=== PATIENT | female | born 1970 | race Caucasian/White ===

== ENCOUNTER 2020-05-09 01:23 | Emergency (ER) | payer MEDICARE, SELFPAY ==
[2020-05-09 01:42] VITALS: BP 138/81; PULSE 78; RESP 16; TEMP 37; O2SAT 98; BMI 19.5
--- NOTE | 2020-05-09 01:46 | W.ED.GENADLT ---
Documented by User: BETH Franco 05/09/20 04:09 HPI - General Adult General: Chief complaint: General Medical Stated complaint: high bg Time Seen by Provider: 05/09/20 01:43 History of Present Illness: HPI narrative: Patient is a 50-year-old female comes to the ED with elevated blood sugar. Patient says she took her blood sugar just prior to arrival and her glucometer read high. She then started having episodes of emesis, confusion and uncontrolled movement of arms. Patient says she takes insulin at home to control her blood sugar. Patient took a dose of insulin before coming to the ED tonight. She endorses having some nausea currently. Associated symptoms: Reports confusion, nausea and vomiting; Deny chest pain, dyspnea, headache(s), rash or palpitations Review of Systems Const: Denies: fever(s), chills or fatigue Eyes: Denies: change in vision or eye discomfort ENMT: Denies: throat pain, odynophagia, nasal discharge or nasal congestion Card: Denies: chest pain, palpitations, edema, swelling of feet/ankles, dyspnea on exertion or orthopnea Resp: Denies: dyspnea, productive cough or non-productive cough GI: Reports: nausea and vomiting; Denies: abdominal pain, diarrhea, constipation or hematochezia : Denies: flank pain, dysuria or hematuria Musc: Denies: neck pain, back pain or extremity swelling Skin/Breast: Denies: rash or new lesions Neuro: Reports: confusion and involuntary movements (of arms bilaterally); Denies: headache(s), numbness in extremities or weakness in extremities Physical Exam Const: COMMON NORMALS: patient oriented x3 and alert GENERAL APPEARANCE: cooperative and lethargic ORIENTATION/CONSCIOUSNESS: Yes lethargic HENMT: COMMON NORMALS: normocephalic HEAD & SCALP: normocephalic MOUTH: Normal oral and palatal mucosa present THROAT: posterior oropharynx normal and uvula midline Eye: COMMON NORMALS: Equal, round and reactive pupils present PUPIL: Yes Equal, round and reactive pupils present Neck/C-Spine: COMMON NORMALS: supple GENERAL: Yes normal visual inspection Resp: COMMON NORMALS: normal respiratory effort, No retractions, No use of accessory muscles and clear to auscultation bilaterally AUSCULTATION: clear to auscultation bilaterally Cardio: COMMON NORMALS: regular rate, regular rhythm, S1 normal heart sound present, S2 normal heart sound present, No gallops present (Cardio), No clicks present (Cardio), No murmurs present (Cardio) and Peripheral pulses 2+ throughout RATE: regular rate RHYTHM: regular rhythm HEART SOUNDS: S1 normal heart sound present and S2 normal heart sound present PERIPHERAL PULSES: Peripheral pulses 2+ throughout GI: COMMON NORMALS: Normal to inspection, nondistended, normoactive bowel sounds present, Soft to palpation, non-tender and no masses PALPATION: Yes Soft to palpation : COMMON NORMALS: Yes no CVA tenderness BLADDER/KIDNEY EXAM: Yes no CVA tenderness Back/Pelvis: COMMON NORMALS: no CVA tenderness Extremity: COMMON NORMALS: normal to inspection and no pedal edema Neuro: COMMON NORMALS: patient oriented x3 and moves all extremities SENSORIUM/ORIENTATION: Yes alert and Yes lethargic Skin: COMMON NORMALS: no rashes or lesions noted GENERAL SKIN EXAM: no rashes or lesions noted and dry skin Course Reevaluation(s): Reevaluation #1: Patient said she felt better and had not had any episodes of emesis while here in the ED. She also said that her nausea has improved. She was tired but was oriented x3. Time: 03:15 Vital Signs: Vital signs: Vital Signs Temperature 98.6 F 05/09/20 01:42 Pulse Rate 72 05/09/20 05:11 Respiratory Rate 18 05/09/20 05:11 Blood Pressure 112/78 05/09/20 05:11 Pulse Oximetry 98 05/09/20 05:11 MDM - General Adult MDM Narrative: Medical decision making narrative: Patient is a 50-year-old female who comes to the ED with elevated blood sugar. Patient had nausea and emesis before coming to the ED. Upon arrival her [id number] blood sugar test was 517. Hemoglobin 10.5, sodium 129, creatinine 1.6 and glucose 644. Lactic was 1.4. ABG performed in pH 7.35. Serum ketones were negative. EKG showed sinus rhythm with no ST segment elevation or depression seen. Patient was given IV fluids and Zofran and 10 units of insulin. Her symptoms improved and she had no episodes of emesis while here in the ED and said her nausea improved. She was very fatigued and after checking blood sugars she dropped down to 166 and then rechecked blood sugar again and she was at 80. Road test performed and she was weak. Patient care then transferred to Dr. Enriquez and he said he will watch patient for another hour to and then make decision on discharge plans. Lab Data: Attestation: I reviewed the patient's lab results. Labs: Lab Results 05/09/20 05/09/20 05/09/20 Range/Units 01:46 02:03 02:03 WBC 9.4 (4.0-10.0) 10^3/ uL RBC 3.46 L (4.1-5.3) 10^6/u L Hgb 10.5 L (11.5-15.3) g/dL Hct 31.8 L (37.0-47.0) % MCV 91.9 (81-99) fL MCH 30.3 (28.0-34.0) pg MCHC 33.0 (30.0-36.0) g/dL RDW 12.3 (12.1-15.1) % Plt Count 373 (130-400) 10^3/c mm MPV 9.6 (7.4-10.4) fL Neut % (Auto) 73.0 % Lymph % (Auto) 17.9 % [place] % (Auto) 6.0 % Eos % (Auto) 1.8 % Baso % (Auto) 1.1 % Neut # (Auto) 6.85 (1.8-7.7) 10^3/u L Lymph # (Auto) 1.7 (0.8-4.8) 10^3/u L [place] # (Auto) 0.6 (0.2-0.9) 10^3/u L Eos # (Auto) 0.2 (0.0-0.8) 10^3/u L Baso # (Auto) 0.1 (0.0-0.1) 10^3/u L Nucleated RBC % (a uto) 0 % Nucleated RBCs # 0.0 /100WBC Specimen Type Sample Site ABG pH (7.35-7.45) ABG pCO2 (35-45) mmHg ABG pO2 (80.0-100.0) mmH g ABG HCO3 (22-26) mmol/L ABG O2 Saturation ABG Base Excess (-2.0-2.0) mmol/ L Eloy Test A-a O2 Gradient (5-10) mmHg Hematocrit (37-47) % Hgb O2 Saturation (95-100) % Carboxyhemoglobin (0.4-20.1) %THgb Methemoglobin (0.4-1.5) % Total Hemoglobin (12-16) g/dL Ionized Calcium (1.1-1.4) mmol/L Hairspring Assembler ID Sodium 129 L (136-145) mmol/L Potassium 4.0 (3.5-5.1) mmol/L Chloride 96 L (98-107) mmol/L Carbon Dioxide 22 (22-29) mmol/L Anion Gap 15.0 (5-19) BUN 18 (6-20) mg/dL Creatinine 1.6 H (0.5-0.9) mg/dL GFR Calculation 34.3 L (90-130) mL/min Glucose 644 H* (65-115) mg/dL POC Glucose 517 (70-110) mg/dL Calculated Osmolal ity 300 H (285-295) mOsm/k g Lactic Acid (0.5-2.2) mmol/L Calcium 9.4 (8.5-10.5) mg/dL Total Bilirubin 0.2 (0.15-1.2) mg/dL AST 30 (0-32) U/L ALT 40 H (0-33) U/L Alkaline Phosphata se 196 H (35-105) IU/L Total Protein 6.2 L (6.6-8.7) g/dL Albumin 3.7 (3.5-5.2) g/dL Globulin 2.5 (1.3-4.6) g/dL HCG, Qual (Negative) Serum Ketones Negative (Negative) 05/09/20 05/09/20 05/09/20 Range/Units 02:03 02:03 02:25 WBC (4.0-10.0) 10^3/ uL RBC (4.1-5.3) 10^6/u L Hgb (11.5-15.3) g/dL Hct (37.0-47.0) % MCV (81-99) fL MCH (28.0-34.0) pg MCHC (30.0-36.0) g/dL RDW (12.1-15.1) % Plt Count (130-400) 10^3/c mm MPV (7.4-10.4) fL Neut % (Auto) % Lymph % (Auto) % [place] % (Auto) % Eos % (Auto) % Baso % (Auto) % Neut # (Auto) (1.8-7.7) 10^3/u L Lymph # (Auto) (0.8-4.8) 10^3/u L [place] # (Auto) (0.2-0.9) 10^3/u L Eos # (Auto) (0.0-0.8) 10^3/u L Baso # (Auto) (0.0-0.1) 10^3/u L Nucleated RBC % (a uto) % Nucleated RBCs # /100WBC Specimen Type Arterial Sample Site Radial, right ABG pH 7.35 (7.35-7.45) ABG pCO2 41.0 (35-45) mmHg ABG pO2 68.8 L (80.0-100.0) mmH g ABG HCO3 22.7 (22-26) mmol/L ABG O2 Saturation 93.2 ABG Base Excess -2.8 L (-2.0-2.0) mmol/ L Eloy Test Pos A-a O2 Gradient 3.9 L (5-10) mmHg Hematocrit 29.2 L (37-47) % Hgb O2 Saturation 89.5 L (95-100) % Carboxyhemoglobin 3.1 (0.4-20.1) %THgb Methemoglobin 1.0 (0.4-1.5) % Total Hemoglobin 9.5 L (12-16) g/dL Ionized Calcium 1.2 (1.1-1.4) mmol/L Hairspring Assembler ID ellpe Sodium 138.0 (136-145) mmol/L Potassium 2.9 L (3.5-5.1) mmol/L Chloride (98-107) mmol/L Carbon Dioxide (22-29) mmol/L Anion Gap (5-19) BUN (6-20) mg/dL Creatinine (0.5-0.9) mg/dL GFR Calculation (90-130) mL/min Glucose 350.0 H (65-115) mg/dL POC Glucose (70-110) mg/dL Calculated Osmolal ity (285-295) mOsm/k g Lactic Acid 1.4 (0.5-2.2) mmol/L Calcium (8.5-10.5) mg/dL Total Bilirubin (0.15-1.2) mg/dL AST (0-32) U/L ALT (0-33) U/L Alkaline Phosphata se (35-105) IU/L Total Protein (6.6-8.7) g/dL Albumin (3.5-5.2) g/dL Globulin (1.3-4.6) g/dL HCG, Qual Negative (Negative) Serum Ketones (Negative) 05/09/20 05/09/20 05/09/20 Range/Units 03:10 03:45 04:26 WBC (4.0-10.0) 10^3/ uL RBC (4.1-5.3) 10^6/u L Hgb (11.5-15.3) g/dL Hct (37.0-47.0) % MCV (81-99) fL MCH (28.0-34.0) pg MCHC (30.0-36.0) g/dL RDW (12.1-15.1) % Plt Count (130-400) 10^3/c mm MPV (7.4-10.4) fL Neut % (Auto) % Lymph % (Auto) % [place] % (Auto) % Eos % (Auto) % Baso % (Auto) % Neut # (Auto) (1.8-7.7) 10^3/u L Lymph # (Auto) (0.8-4.8) 10^3/u L [place] # (Auto) (0.2-0.9) 10^3/u L Eos # (Auto) (0.0-0.8) 10^3/u L Baso # (Auto) (0.0-0.1) 10^3/u L Nucleated RBC % (a uto) % Nucleated RBCs # /100WBC Specimen Type Sample Site ABG pH (7.35-7.45) ABG pCO2 (35-45) mmHg ABG pO2 (80.0-100.0) mmH g ABG HCO3 (22-26) mmol/L ABG O2 Saturation ABG Base Excess (-2.0-2.0) mmol/ L Eloy Test A-a O2 Gradient (5-10) mmHg Hematocrit (37-47) % Hgb O2 Saturation (95-100) % Carboxyhemoglobin (0.4-20.1) %THgb Methemoglobin (0.4-1.5) % Total Hemoglobin (12-16) g/dL Ionized Calcium (1.1-1.4) mmol/L Hairspring Assembler ID Sodium (136-145) mmol/L Potassium (3.5-5.1) mmol/L Chloride (98-107) mmol/L Carbon Dioxide (22-29) mmol/L Anion Gap (5-19) BUN (6-20) mg/dL Creatinine (0.5-0.9) mg/dL GFR Calculation (90-130) mL/min Glucose (65-115) mg/dL POC Glucose 166 80 111 (70-110) mg/dL Calculated Osmolal ity (285-295) mOsm/k g Lactic Acid (0.5-2.2) mmol/L Calcium (8.5-10.5) mg/dL Total Bilirubin (0.15-1.2) mg/dL AST (0-32) U/L ALT (0-33) U/L Alkaline Phosphata se (35-105) IU/L Total Protein (6.6-8.7) g/dL Albumin (3.5-5.2) g/dL Globulin (1.3-4.6) g/dL HCG, Qual (Negative) Serum Ketones (Negative) 05/09/20 Range/Units 05:17 WBC (4.0-10.0) 10^3/ uL RBC (4.1-5.3) 10^6/u L Hgb (11.5-15.3) g/dL Hct (37.0-47.0) % MCV (81-99) fL MCH (28.0-34.0) pg MCHC (30.0-36.0) g/dL RDW (12.1-15.1) % Plt Count (130-400) 10^3/c mm MPV (7.4-10.4) fL Neut % (Auto) % Lymph % (Auto) % [place] % (Auto) % Eos % (Auto) % Baso % (Auto) % Neut # (Auto) (1.8-7.7) 10^3/u L Lymph # (Auto) (0.8-4.8) 10^3/u L [place] # (Auto) (0.2-0.9) 10^3/u L Eos # (Auto) (0.0-0.8) 10^3/u L Baso # (Auto) (0.0-0.1) 10^3/u L Nucleated RBC % (a uto) % Nucleated RBCs # /100WBC Specimen Type Sample Site ABG pH (7.35-7.45) ABG pCO2 (35-45) mmHg ABG pO2 (80.0-100.0) mmH g ABG HCO3 (22-26) mmol/L ABG O2 Saturation ABG Base Excess (-2.0-2.0) mmol/ L Eloy Test A-a O2 Gradient (5-10) mmHg Hematocrit (37-47) % Hgb O2 Saturation (95-100) % Carboxyhemoglobin (0.4-20.1) %THgb Methemoglobin (0.4-1.5) % Total Hemoglobin (12-16) g/dL Ionized Calcium (1.1-1.4) mmol/L Hairspring Assembler ID Sodium (136-145) mmol/L Potassium (3.5-5.1) mmol/L Chloride (98-107) mmol/L Carbon Dioxide (22-29) mmol/L Anion Gap (5-19) BUN (6-20) mg/dL Creatinine (0.5-0.9) mg/dL GFR Calculation (90-130) mL/min Glucose (65-115) mg/dL POC Glucose 118 (70-110) mg/dL Calculated Osmolal ity (285-295) mOsm/k g Lactic Acid (0.5-2.2) mmol/L Calcium (8.5-10.5) mg/dL Total Bilirubin (0.15-1.2) mg/dL AST (0-32) U/L ALT (0-33) U/L Alkaline Phosphata se (35-105) IU/L Total Protein (6.6-8.7) g/dL Albumin (3.5-5.2) g/dL Globulin (1.3-4.6) g/dL HCG, Qual (Negative) Serum Ketones (Negative) EKG Data^: EKG 1: Attestation: I personally reviewed and interpreted this EKG as follows: EKG interpretation date: 05/09/20 Interpretation: Sinus rhythm, 76 bpm, no ST segment elevation or depression seen. Discharge Plan Discharge Patient Disposition: Home Clinical Impression: Acute hyperglycemia Condition: Stable Discharge Orders: Discharge Order (Routine); Ordered 05/09/20 Ordered By: Dimitri Enriquez Referrals: Abhilash Baird MD [Primary Care Provider] - 4-7 days Discharge Diet: Diabetic Discharge Activity: Increase activity as tolerated Patient Instructions: Diabetic Hyperglycemia (ED) Activity Restrictions/Additional Instructions: Check your blood sugar often today, and for the next 48 hours. Adjust insulin dosing accordingly. Drink plenty of fluids. Return for worsening mental status, inability to control blood sugar at home, fever greater than 100, vomiting liquids or medications, other concerning symptoms Coding Level of Care Code ED Dog Raiser for Chg Fwd Exam Comprehensive Documented by User: Dimitri Enriquez DO 05/09/20 05:58 HPI - General Adult General: Chief complaint: General Medical Stated complaint: high bg Time Seen by Provider: 05/09/20 01:43 Course Vital Signs: Vital signs: Vital Signs Temperature 98.6 F 05/09/20 01:42 Pulse Rate 72 05/09/20 05:11 Respiratory Rate 18 05/09/20 05:11 Blood Pressure 112/78 05/09/20 05:11 Pulse Oximetry 98 05/09/20 05:11 MDM - General Adult MDM Narrative: Medical decision making narrative: 50-year-old female originally seen by Mr. Nina PA-C. I agree with his history, evaluation, and work-up. This lady presented with a exceptionally high blood sugar. There is no gap, no acidosis. Mild renal dysfunction. She was given an infusion of IV insulin and fluid which is appropriate. What was unknown is that the patient took insulin prior to coming here, and blood sugar sank as low as 80. She has drank juice, eating some crackers, and held a blood sugar of around 1 18-1 20 the past couple of hours. She is much less weak, less lethargic. She is awake and conversant when speaking with her. With no acidosis, no serum ketones, and stabilization of her blood sugar, I believe she can go home. Her daughter will help watch her blood sugars closely today. Lab Data: Labs: Lab Results 05/09/20 05/09/20 05/09/20 Range/Units 01:46 02:03 02:03 WBC 9.4 (4.0-10.0) 10^3/ uL RBC 3.46 L (4.1-5.3) 10^6/u L Hgb 10.5 L (11.5-15.3) g/dL Hct 31.8 L (37.0-47.0) % MCV 91.9 (81-99) fL MCH 30.3 (28.0-34.0) pg MCHC 33.0 (30.0-36.0) g/dL RDW 12.3 (12.1-15.1) % Plt Count 373 (130-400) 10^3/c mm MPV 9.6 (7.4-10.4) fL Neut % (Auto) 73.0 % Lymph % (Auto) 17.9 % [place] % (Auto) 6.0 % Eos % (Auto) 1.8 % Baso % (Auto) 1.1 % Neut # (Auto) 6.85 (1.8-7.7) 10^3/u L Lymph # (Auto) 1.7 (0.8-4.8) 10^3/u L [place] # (Auto) 0.6 (0.2-0.9) 10^3/u L Eos # (Auto) 0.2 (0.0-0.8) 10^3/u L Baso # (Auto) 0.1 (0.0-0.1) 10^3/u L Nucleated RBC % (a uto) 0 % Nucleated RBCs # 0.0 /100WBC Specimen Type Sample Site ABG pH (7.35-7.45) ABG pCO2 (35-45) mmHg ABG pO2 (80.0-100.0) mmH g ABG HCO3 (22-26) mmol/L ABG O2 Saturation ABG Base Excess (-2.0-2.0) mmol/ L Eloy Test A-a O2 Gradient (5-10) mmHg Hematocrit (37-47) % Hgb O2 Saturation (95-100) % Carboxyhemoglobin (0.4-20.1) %THgb Methemoglobin (0.4-1.5) % Total Hemoglobin (12-16) g/dL Ionized Calcium (1.1-1.4) mmol/L Hairspring Assembler ID Sodium 129 L (136-145) mmol/L Potassium 4.0 (3.5-5.1) mmol/L Chloride 96 L (98-107) mmol/L Carbon Dioxide 22 (22-29) mmol/L Anion Gap 15.0 (5-19) BUN 18 (6-20) mg/dL Creatinine 1.6 H (0.5-0.9) mg/dL GFR Calculation 34.3 L (90-130) mL/min Glucose 644 H* (65-115) mg/dL POC Glucose 517 (70-110) mg/dL Calculated Osmolal ity 300 H (285-295) mOsm/k g Lactic Acid (0.5-2.2) mmol/L Calcium 9.4 (8.5-10.5) mg/dL Total Bilirubin 0.2 (0.15-1.2) mg/dL AST 30 (0-32) U/L ALT 40 H (0-33) U/L Alkaline Phosphata se 196 H (35-105) IU/L Total Protein 6.2 L (6.6-8.7) g/dL Albumin 3.7 (3.5-5.2) g/dL Globulin 2.5 (1.3-4.6) g/dL HCG, Qual (Negative) Serum Ketones Negative (Negative) 05/09/20 05/09/20 05/09/20 Range/Units 02:03 02:03 02:25 WBC (4.0-10.0) 10^3/ uL RBC (4.1-5.3) 10^6/u L Hgb (11.5-15.3) g/dL Hct (37.0-47.0) % MCV (81-99) fL MCH (28.0-34.0) pg MCHC (30.0-36.0) g/dL RDW (12.1-15.1) % Plt Count (130-400) 10^3/c mm MPV (7.4-10.4) fL Neut % (Auto) % Lymph % (Auto) % [place] % (Auto) % Eos % (Auto) % Baso % (Auto) % Neut # (Auto) (1.8-7.7) 10^3/u L Lymph # (Auto) (0.8-4.8) 10^3/u L [place] # (Auto) (0.2-0.9) 10^3/u L Eos # (Auto) (0.0-0.8) 10^3/u L Baso # (Auto) (0.0-0.1) 10^3/u L Nucleated RBC % (a uto) % Nucleated RBCs # /100WBC Specimen Type Arterial Sample Site Radial, right ABG pH 7.35 (7.35-7.45) ABG pCO2 41.0 (35-45) mmHg ABG pO2 68.8 L (80.0-100.0) mmH g ABG HCO3 22.7 (22-26) mmol/L ABG O2 Saturation 93.2 ABG Base Excess -2.8 L (-2.0-2.0) mmol/ L Eloy Test Pos A-a O2 Gradient 3.9 L (5-10) mmHg Hematocrit 29.2 L (37-47) % Hgb O2 Saturation 89.5 L (95-100) % Carboxyhemoglobin 3.1 (0.4-20.1) %THgb Methemoglobin 1.0 (0.4-1.5) % Total Hemoglobin 9.5 L (12-16) g/dL Ionized Calcium 1.2 (1.1-1.4) mmol/L Hairspring Assembler ID ellpe Sodium 138.0 (136-145) mmol/L Potassium 2.9 L (3.5-5.1) mmol/L Chloride (98-107) mmol/L Carbon Dioxide (22-29) mmol/L Anion Gap (5-19) BUN (6-20) mg/dL Creatinine (0.5-0.9) mg/dL GFR Calculation (90-130) mL/min Glucose 350.0 H (65-115) mg/dL POC Glucose (70-110) mg/dL Calculated Osmolal ity (285-295) mOsm/k g Lactic Acid 1.4 (0.5-2.2) mmol/L Calcium (8.5-10.5) mg/dL Total Bilirubin (0.15-1.2) mg/dL AST (0-32) U/L ALT (0-33) U/L Alkaline Phosphata se (35-105) IU/L Total Protein (6.6-8.7) g/dL Albumin (3.5-5.2) g/dL Globulin (1.3-4.6) g/dL HCG, Qual Negative (Negative) Serum Ketones (Negative) 05/09/20 05/09/20 05/09/20 Range/Units 03:10 03:45 04:26 WBC (4.0-10.0) 10^3/ uL RBC (4.1-5.3) 10^6/u L Hgb (11.5-15.3) g/dL Hct (37.0-47.0) % MCV (81-99) fL MCH (28.0-34.0) pg MCHC (30.0-36.0) g/dL RDW (12.1-15.1) % Plt Count (130-400) 10^3/c mm MPV (7.4-10.4) fL Neut % (Auto) % Lymph % (Auto) % [place] % (Auto) % Eos % (Auto) % Baso % (Auto) % Neut # (Auto) (1.8-7.7) 10^3/u L Lymph # (Auto) (0.8-4.8) 10^3/u L [place] # (Auto) (0.2-0.9) 10^3/u L Eos # (Auto) (0.0-0.8) 10^3/u L Baso # (Auto) (0.0-0.1) 10^3/u L Nucleated RBC % (a uto) % Nucleated RBCs # /100WBC Specimen Type Sample Site ABG pH (7.35-7.45) ABG pCO2 (35-45) mmHg ABG pO2 (80.0-100.0) mmH g ABG HCO3 (22-26) mmol/L ABG O2 Saturation ABG Base Excess (-2.0-2.0) mmol/ L Eloy Test A-a O2 Gradient (5-10) mmHg Hematocrit (37-47) % Hgb O2 Saturation (95-100) % Carboxyhemoglobin (0.4-20.1) %THgb Methemoglobin (0.4-1.5) % Total Hemoglobin (12-16) g/dL Ionized Calcium (1.1-1.4) mmol/L Hairspring Assembler ID Sodium (136-145) mmol/L Potassium (3.5-5.1) mmol/L Chloride (98-107) mmol/L Carbon Dioxide (22-29) mmol/L Anion Gap (5-19) BUN (6-20) mg/dL Creatinine (0.5-0.9) mg/dL GFR Calculation (90-130) mL/min Glucose (65-115) mg/dL POC Glucose 166 80 111 (70-110) mg/dL Calculated Osmolal ity (285-295) mOsm/k g Lactic Acid (0.5-2.2) mmol/L Calcium (8.5-10.5) mg/dL Total Bilirubin (0.15-1.2) mg/dL AST (0-32) U/L ALT (0-33) U/L Alkaline Phosphata se (35-105) IU/L Total Protein (6.6-8.7) g/dL Albumin (3.5-5.2) g/dL Globulin (1.3-4.6) g/dL HCG, Qual (Negative) Serum Ketones (Negative) 05/09/20 Range/Units 05:17 WBC (4.0-10.0) 10^3/ uL RBC (4.1-5.3) 10^6/u L Hgb (11.5-15.3) g/dL Hct (37.0-47.0) % MCV (81-99) fL MCH (28.0-34.0) pg MCHC (30.0-36.0) g/dL RDW (12.1-15.1) % Plt Count (130-400) 10^3/c mm MPV (7.4-10.4) fL Neut % (Auto) % Lymph % (Auto) % [place] % (Auto) % Eos % (Auto) % Baso % (Auto) % Neut # (Auto) (1.8-7.7) 10^3/u L Lymph # (Auto) (0.8-4.8) 10^3/u L [place] # (Auto) (0.2-0.9) 10^3/u L Eos # (Auto) (0.0-0.8) 10^3/u L Baso # (Auto) (0.0-0.1) 10^3/u L Nucleated RBC % (a uto) % Nucleated RBCs # /100WBC Specimen Type Sample Site ABG pH (7.35-7.45) ABG pCO2 (35-45) mmHg ABG pO2 (80.0-100.0) mmH g ABG HCO3 (22-26) mmol/L ABG O2 Saturation ABG Base Excess (-2.0-2.0) mmol/ L Eloy Test A-a O2 Gradient (5-10) mmHg Hematocrit (37-47) % Hgb O2 Saturation (95-100) % Carboxyhemoglobin (0.4-20.1) %THgb Methemoglobin (0.4-1.5) % Total Hemoglobin (12-16) g/dL Ionized Calcium (1.1-1.4) mmol/L Hairspring Assembler ID Sodium (136-145) mmol/L Potassium (3.5-5.1) mmol/L Chloride (98-107) mmol/L Carbon Dioxide (22-29) mmol/L Anion Gap (5-19) BUN (6-20) mg/dL Creatinine (0.5-0.9) mg/dL GFR Calculation (90-130) mL/min Glucose (65-115) mg/dL POC Glucose 118 (70-110) mg/dL Calculated Osmolal ity (285-295) mOsm/k g Lactic Acid (0.5-2.2) mmol/L Calcium (8.5-10.5) mg/dL Total Bilirubin (0.15-1.2) mg/dL AST (0-32) U/L ALT (0-33) U/L Alkaline Phosphata se (35-105) IU/L Total Protein (6.6-8.7) g/dL Albumin (3.5-5.2) g/dL Globulin (1.3-4.6) g/dL HCG, Qual (Negative) Serum Ketones (Negative) Discharge Plan Discharge Patient Disposition: Home Clinical Impression: Acute hyperglycemia Condition: Stable Discharge Orders: Discharge Order (Routine); Ordered 05/09/20 Ordered By: Dimitri Enriquez Referrals: Abhilash Baird MD [Primary Care Provider] - 4-7 days Discharge Diet: Diabetic Discharge Activity: Increase activity as tolerated Patient Instructions: Diabetic Hyperglycemia (ED) Activity Restrictions/Additional Instructions: Check your blood sugar often today, and for the next 48 hours. Adjust insulin dosing accordingly. Drink plenty of fluids. Return for worsening mental status, inability to control blood sugar at home, fever greater than 100, vomiting liquids or medications, other concerning symptoms Coding Level of Care Code ED Dog Raiser for Chg Fwd Exam Comprehensive
[2020-05-09 01:49] VITALS: BP 137/86; PULSE 75; RESP 17; O2SAT 98
--- NOTE | 2020-05-09 01:50 | ECG_ITS ---
[facility] Test Date: 2020-05-09 Pat Name: Luli Osborne Department: Room: Gender: Female Customer Solutions Architect: : 1970 Requested By: Theodore Wood Order Number: [id number] Moore MD: Rani Gee M.D. Measurements Intervals Rogers Rate: 76 P: 66 OH: 176 QRS: 35 QRSD: 94 T: 60 QT: 378 QTc: 427 Interpretive Statements SINUS RHYTHM POSSIBLE RIGHT VENTRICULAR CONDUCTION DELAY [RSR (QR) IN V1/V2] MODERATE ST DEPRESSION [0.05+ mV ST DEPRESSION] Compared to ECG 09/24/2018 10:16:50 ST (T wave) deviation now present Electronically Signed On 05-09-2020 19:43:30 CDT by Rani Gee M.D. [email or web address]. [employer] [facility] [employer].[facility].[employer]/store/NU/[id number] bartolo
[2020-05-09] MEDS: sodium chloride 0.9% 1,000 ML 999 ML IV (02:06)
[2020-05-09] MEDS: insulin regular-human 100 units/1 mL 10 UNIT IVP (02:06)
[2020-05-09 02:07] LABS: Basophils # 0.1 10^3/uL (0.0-0.1); Basophils % 1.1 %; Eosinophils # 0.2 10^3/uL (0.0-0.8); Eosinophils % 1.8 %; Hematocrit 31.8 % (37.0-47.0); Hemoglobin 10.5 g/dL (11.5-15.3); Lymphocytes # 1.7 10^3/uL (0.8-4.8); Lymphocytes % 17.9 %; Mean Corpuscular Hemoglobin 30.3 pg (28.0-34.0); Mean Corpuscular Volume 91.9 fL (81-99); Mean Platelet Volume 9.6 fL (7.4-10.4); Monocytes # 0.6 10^3/uL (0.2-0.9); Neutrophils # 6.85 10^3/uL (1.8-7.7); Nucleated Red Blood Cells % 0 %; Platelet Count 373 10^3/cmm (130-400); Red Blood Count 3.46 10^6/uL (4.1-5.3); Red Cell Distribution Width 12.3 % (12.1-15.1); White Blood Count 9.4 10^3/uL (4.0-10.0)
[2020-05-09] MEDS: ondansetron 2 mg/ML SDV 2 mL 4 MG IVP (02:12)
[2020-05-09 02:15] LABS: Ketone (Acetest) Serum Negative (Negative)
[2020-05-09 02:16] LABS: HCG, Serum Qual Negative (Negative)
[2020-05-09 02:17] LABS: Glucose Point of Care 517 mg/dL (70-110)
[2020-05-09 02:26] LABS: Alanine Aminotransferase 40 U/L (0-33); Albumin Level 3.7 g/dL (3.5-5.2); Alkaline Phosphatase 196 IU/L (35-105); Aspartate Amino Transferase 30 U/L (0-32); Blood Urea Nitrogen 18 mg/dL (6-20); Calcium 9.4 mg/dL (8.5-10.5); Carbon Dioxide 22 mmol/L (22-29); Chloride 96 mmol/L (98-107); Globulin 2.5 g/dL (1.3-4.6); Glomerular Filtration Rate 34.3 mL/min (90-130); Osmolality Calculated 300 mOsm/kg (285-295); Sodium 129 mmol/L (136-145); Total Bilirubin 0.2 mg/dL (0.15-1.2); Total Protein 6.2 g/dL (6.6-8.7)
[2020-05-09 02:27] LABS: Lactic Sepsis W/Reflex 1.4 mmol/L (0.5-2.2)
[2020-05-09 02:30] LABS: Glucose 644 mg/dL (65-115)
[2020-05-09 02:35] LABS: ABG PH Result 7.35 (7.35-7.45); Alveolar-Arterial Oxygen Gradi 3.9 mmHg (5-10); Arterial Blood Gas Hematocrit 29.2 % (37-47); Base Excess ABG -2.8 mmol/L (-2.0-2.0); Blood Gas Allen Test Pos; Blood Gas Sample Site Radial, right; Blood Gas Sample Type Arterial; Carboxyhemoglobin 3.1 %THgb (0.4-20.1); HCO3 ABG 22.7 mmol/L (22-26); HGB O2 Sat 89.5 % (95-100); Ionized Calcium Level - ABG 1.2 mmol/L (1.1-1.4); Oxygen Saturation ABG 93.2; PO2 ABG 68.8 mmHg (80.0-100.0); Potassium Level - ABG 2.9 mmol/L (3.5-5.0); Total Hemoglobin 9.5 g/dL (12-16)
[2020-05-09 03:14] LABS: Glucose Point of Care 166 mg/dL (70-110)
[2020-05-09 03:25] VITALS: BP 124/78; PULSE 72; RESP 18; O2SAT 98
[2020-05-09 03:50] LABS: Glucose Point of Care 80 mg/dL (70-110)
[2020-05-09 04:31] LABS: Glucose Point of Care 111 mg/dL (70-110)
[2020-05-09 05:11] VITALS: BP 112/78; PULSE 72; RESP 18; O2SAT 98
[2020-05-09 05:22] LABS: Glucose Point of Care 118 mg/dL (70-110)
[2020-05-09 06:16] VITALS: BP 114/72; PULSE 75; RESP 18; O2SAT 95
== END 2020-05-09 06:20 | disposition home or self-care (01) ==
PROVIDERS: Physician Assistant; Emergency Provider Emergency Medicine; PCP Internal Medicine
DX: R73.9 Hyperglycemia, unspecified (principal)
CPT/HCPCS: 12345; 36416; 36600; 80051; 80053; 82009; 82810; 82962; 83605; 83986; 84703; 85025; 87040; 93005; 96361; 96374; 96375; 99283; 99284; J1815; J2405; J7030

== ENCOUNTER → 2022-07-03 14:27 | Outpatient (BNVA) | payer MEDICARE, OTHER, SELFPAY | PROVIDERS: Visit Provider Podiatrist Foot & Ankle Surgery | DX: E10.10 Type 1 diabetes mellitus with ketoacidosis without coma (principal); I96 Gangrene, not elsewhere classified; G62.9 Polyneuropathy, unspecified; L84 Corns and callosities; Z79.4 Long term (current) use of insulin | CPT/HCPCS: 11055; 99204 ==

== ENCOUNTER 2022-07-16 14:51 | Inpatient (IN) | payer MEDICARE, SELFPAY ==
[2022-07-16] VITALS (75 sets, daily range): BP systolic 105–172; BP diastolic 36–96; PULSE 85–117; RESP 0–39; TEMP 36.6–36.7; O2SAT 92–100; BMI 16.6
--- NOTE | 2022-07-16 15:02 | ED_ITS ---
HPI - SOB/Dyspnea General: Chief Complaint: Shortness of Breath/Dyspnea Stated Complaint: DIFFICULTY BREATHING Time Seen by Provider: 07/16/22 15:02 History of Present Illness: HPI Narrative: Ms. Osborne is a 52-year-old lady with complex past medical history including end-stage renal disease on hemodialysis, diabetes, MS presenting to the emergency department due to generalized illness. She has been having increased shortness of breath and apparently was diagnosed with pneumonia 4 days ago and initiated on antibiotics. Despite this symptoms have worsened. EMS found the patient in respiratory distress and requiring new oxygen. She had did have some improvement with a albuterol breathing treatment. Intensity symptoms is moderate. Course has worsened. Notes nausea and vomiting as well as generalized illness. No other specific changes in health, exacerbating, or alleviating factors identified. Onset (ago): day(s) Context: recent illness Timing: progressively worsening Severity: moderate Exacerbating factors: exertion Relieving factors: nothing Associated symptoms: Reports chest congestion, cough, nausea and vomiting Review of Systems General: Reports: 10 or more systems reviewed and unremarkable except in HPI and below Resp: Reports: chest congestion GI: Reports: nausea and vomiting PFSH ED PFSH: Medical History Anemia in end-stage renal disease Anxiety and depression Arteriovenous fistula of left upper extremity Chronic nausea Cyst of ovary Diabetes 1.5, managed as type 1 Diabetic neuropathy associated with diabetes mellitus due to underlying condition Diabetic ulcer of toe associated with diabetes mellitus due to underlying condition, limited to breakdown of skin Diastolic heart failure ESRD (end stage renal disease) on dialysis Hx of acute pancreatitis 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 Hypertension Loose bowel movements Multiple sclerosis Protein-energy malnutrition Surgical History History of pancreatectomy Hx of hysterectomy Family History Father Diabetes Heart attack H/O right coronary artery stent placement Mother Hypertension Social History Smoking and tobacco status: current every day smoker Second hand smoke exposure: No Smoking risk assessment/counseling performed?: Yes Alcohol intake: never Desire information about alcohol rehabilitation?: No Counseling given: No Desire information about substance/drug rehabilitation?: No Counseling given: No Physical Exam Const: COMMON NORMALS: alert GENERAL APPEARANCE: cooperative, well developed and ill appearing (Somewhat) HENMT: COMMON NORMALS: normocephalic and atraumatic HEAD & SCALP: normocephalic and atraumatic THROAT: posterior oropharynx normal Eye: COMMON NORMALS: conjunctivae normal CONJUNCTIVA: Yes conjunctivae norm al SCLERA: sclerae normal Neck/C-Spine: COMMON NORMALS: supple GENERAL: Yes trachea midline Resp: EFFORT & INSPECTION: Yes able to speak in complete sentences AUSCULTATION: rhonchi Cardio: COMMON NORMALS: regular rate and regular rhythm RATE: regular rate RHYTHM: regular rhythm GI: COMMON NORMALS: Soft to palpation PALPATION: Yes Soft to palpation, Yes Tenderness to palpation present (GI), No Guarding due to palpation present (GI) and No Rigid due to palpation Extremity: GENERAL: Yes normal exam except as noted and No edema Neuro: COMMON NORMALS: moves all extremities SENSORIUM/ORIENTATION: Yes alert and No Orientation impaired Psych: COMMON NORMALS: mental status grossly normal and Normal thought process present THOUGHT PROCESS: Normal thought process present Course Vital Signs: Vital signs: Vital Signs Temperature 98.1 F 07/19/22 12:00 Pulse Rate 80 07/19/22 13:28 Respiratory Rate 16 07/19/22 12:00 Blood Pressure 119/78 07/19/22 12:00 Pulse Oximetry 87 L 07/19/22 12:29 Oxygen Delivery Me thod 07/19/22 12:00 Oxygen Flow Rate 2 07/19/22 12:29 Fraction of Inspir ed Oxygen 4 07/18/22 16:17 MDM - SOB/Dyspnea Medical Decision Making 52-year-old lady with recent diagnosis of pneumonia presenting with generalized illness. Patient has new oxygen requirement. Mildly ill however nontoxic in appearance. EKG notable for sinus rhythm with PVC, no STEMI Labs notable for leukocytosis, normal hemoglobin. ABG compensated. Metabolic panel without emergent need for dialysis. Significant elevation of baseline troponin likely due to end-stage renal disease, electrolyte is negative. BNP is elevated. Chest x-ray consistent with right lung opacities and likely effusion. Patient treated with RT treatment, steroids, antiemetic, antibiotic. Most likely etiology of patient symptoms is multifactorial including pneumonia and volume overload secondary to end-stage renal disease with new oxygen department. The results of ED evaluation were discussed with the patient including plan for admission due to requirement for level of care not available if discharged to prevent significant worsening/deterioration. Patient agreeable with plan. Discussed with hospitalist service who was agreeable to admit patient. Medical Records I reviewed the patient's medical records. Lab Data I reviewed the patient's lab results. 07/16/22 16:40 07/16/22 16:40 Labs/Radiology: Radiology Impressions Chest X-Ray 07/16/22 15:11 IMPRESSION: 1. Right lung base opacities are consistent with pneumonia. 2. Blunting of the right costophrenic angle likely represents a pleural effusion. Chest CTA 07/17/22 21:30 IMPRESSION: 1. No pulmonary embolism identified. 2. Large right-sided and small left-sided pleural effusions. 3. Bibasilar atelectasis.No significant airspace consolidation concerning for pneumonia. 4. Left-sided nephrolithiasis. 5. Sequela of chronic pancreatitis again noted. Laboratory Results WBC 5.3 10^3/uL (4.0-10.0) 07/16/22 16:40 RBC 3.75 10^6/uL (4.1-5.3) L 07/16/22 16:40 Hgb 12.0 g/dL (11.5-15.3) 07/16/22 16:40 Hct 37.5 % (37.0-47.0) 07/16/22 16:40 MCV 100.0 fl (81-99) H 07/16/22 16:40 MCH 32.0 pg (28.0-34.0) 07/16/22 16:40 MCHC 32.0 g/dL (30.0-36.0) 07/16/22 16:40 RDW 13.4 % (12.1-15.1) 07/16/22 16:40 Plt Count 311 10^3/cmm (130-400) 07/16/22 16:40 MPV 9.7 fL (7.4-10.4) 07/16/22 16:40 Neut % (Auto) 58.8 % 07/16/22 16:40 Lymph % (Auto) 31.6 % 07/16/22 16:40 [place] % (Auto) 8.0 % 07/16/22 16:40 Eos % (Auto) 0.6 % 07/16/22 16:40 Baso % (Auto) 0.6 % 07/16/22 16:40 Neut # (Auto) 3.10 10^3/uL (1.8-7.7) 07/16/22 16:40 Lymph # (Auto) 1.7 10^3/uL (0.8-4.8) 07/16/22 16:40 Barnwell # (Auto) 0.4 10^3/uL (0.2-0.9) 07/16/22 16:40 Eos # (Auto) 0.0 10^3/uL (0.0-0.8) 07/16/22 16:40 Baso # (Auto) 0.0 10^3/uL (0.0-0.1) 07/16/22 16:40 Nucleated RBC % (auto) 0 % 07/16/22 16:40 Nucleated RBCs # 0.0 /100WBC 07/16/22 16:40 Specimen Type Arterial 07/16/22 15:17 Sample Site Brachial, right 07/16/22 15:17 ABG pH 7.45 (7.35-7.45) 07/16/22 15:17 ABG pCO2 44.5 mmHg (35-45) 07/16/22 15:17 ABG pO2 96.5 mmHg (80.0-100.0) 07/16/22 15:17 ABG HCO3 30.9 mmol/L (22-26) H 07/16/22 15:17 ABG Base Excess 6.2 mmol/L (-2.0-2.0) H 07/16/22 15:17 Eloy Test N/a 07/16/22 15:17 Hematocrit 36.1 % (37-47) L 07/16/22 15:17 Hgb O2 Saturation 96.6 % (95-100) 07/16/22 15:17 Carboxyhemoglobin 1.1 %THgb (0.4-20.1) 07/16/22 15:17 Methemoglobin 1.0 % (0.4-1.5) 07/16/22 15:17 Total Hemoglobin 11.8 g/dL (12-16) L 07/16/22 15:17 O2 Delivery Device Nc 07/16/22 15:17 O2 Liters/Min 2.0 % 07/16/22 15:17 FiO2 28.0 % 07/16/22 15:17 Artificial Inseminator ID Amh 07/16/22 15:17 Sodium 134 mmol/L (136-145) L 07/16/22 16:40 Potassium 3.7 mmol/L (3.5-5.1) 07/16/22 16:40 Chloride 96 mmol/L (98-107) L 07/16/22 16:40 Carbon Dioxide 27 mmol/L (22-29) 07/16/22 16:40 Anion Gap 14.7 (5-19) 07/16/22 16:40 BUN 7 mg/dL (6-20) 07/16/22 16:40 Creatinine 2.3 mg/dL (0.5-0.9) H 07/16/22 16:40 GFR Calculation 22.4 mL/min (90-130) L 07/16/22 16:40 Glucose 133 mg/dL (65-115) H 07/16/22 16:40 Calculated Osmolality 278 mOsm/kg (285-295) L 07/16/22 16:40 Lactic Acid 1.3 mmol/L (0.5-2.2) 07/16/22 16:40 Calcium 7.9 mg/dL (8.5-10.5) L 07/16/22 16:40 Total Bilirubin 0.2 mg/dL (0.15-1.2) 07/16/22 16:40 AST 28 U/L (0-32) 07/16/22 16:40 ALT 31 U/L (0-33) 07/16/22 16:40 Alkaline Phosphatase 125 U/L (35-105) H 07/16/22 16:40 Troponin T Baseline 350 ng/L (0-10) H* 07/16/22 16:40 Troponin T 120 Minute 344.1 ng/L (0-10) H 07/16/22 19:20 Delta Troponin T -5.9 ABS# (0-10) L 07/16/22 19:20 C-Reactive Protein 6.6 mg/L (0.0-4.9) H 07/16/22 16:40 NT-Pro-B Natriuret Pep 08635 pg/mL (0-125) H 07/16/22 16:40 Total Protein 5.8 g/dL (6.6-8.7) L 07/16/22 16:40 Albumin 2.3 g/dL (3.5-5.2) L 07/16/22 16:40 Globulin 3.5 g/dL (1.3-4.6) 07/16/22 16:40 Folate 14.0 ng/mL (4.8-37.3) 07/16/22 13:55 Procalcitonin 0.25 ng/mL (0-0.5) 07/16/22 19:20 Coronavirus 229E (PCR) Not detected (NOT DETECT) 07/16/22 15:55 Hep Bs Antigen Reactive (Nonreactive) H 07/16/22 16:40 Hep Bs Antigen Reactive (NON-REACTIVE) A 07/16/22 16:40 Hep Bs Ag Confirmation TNP 07/16/22 16:40 Hep Bs Antibody 3.5 (11.5-1000) L 07/16/22 16:40 Hepatitis C Antibody Non-reactive (Nonreactive) 07/16/22 16:40 SARS-CoV-2 (PCR) Not detected (NOT DETECT) 07/16/22 15:55 Discharge Plan Discharge Patient Disposition: Placed in Observation Admit Provider: Shannon Clifford Clinical Impression: Pneumonia Discharge Diet: Usual diet Discharge Activity: Resume usual activity and Increase activity as tolerated Coding Level of Care Code ED Assistant Chief Nursing Officer for Daniel Emery
--- NOTE | 2022-07-16 15:11 | XRR_ITS ---
PROCEDURE INFORMATION: Exam: XR Chest Exam date and time: 07/16/2022 3:17 PM Age: 52 years old Clinical indication: Shortness of breath; TECHNIQUE: Imaging protocol: Radiologic exam of the chest. Views: 1 view. COMPARISON: CR XR chest 1V [id number] 07/24/2018 3:49 AM FINDINGS: Tubes, catheters and devices: Distal tip of the wide bore central venous catheter projects over the superior vena cava. Lungs: There are curvilinear, patchy, and hazy opacities at the right lung base. Pleural spaces: Blunting of the right costophrenic angle likely represents a pleural effusion. Heart/Mediastinum: Unremarkable. No cardiomegaly. Bones/joints: Unremarkable. XR/XR chest 1V portable [id number] IMPRESSION: 1. Right lung base opacities are consistent with pneumonia. 2. Blunting of the right costophrenic angle likely represents a pleural effusion.
--- NOTE | 2022-07-16 15:11 | ECG_ITS ---
[facility] Test Date: 2022-07-16 Pat Name: Luli Osborne Department: Room: Gender: Female Design Printer Balloon: : 1970 Requested By: Ashish Ga Order Number: [id number] Oscar MD: Che Zhu M.D. Measurements Intervals [place] Rate: 95 P: 58 WY: 148 QRS: 11 QRSD: 86 T: 63 QT: 370 QTc: 466 Interpretive Statements SINUS RHYTHM POSSIBLE ANTERIOR MYOCARDIAL INFARCTION , OF INDETERMINATE AGE [30 ms Q WAVE IN V3/V4, OR R < 0.2 mV IN V4] Compared to ECG 05/09/2020 02:16:41 Myocardial infarct finding now present ST (T wave) deviation no longer present Electronically Signed On 07-17-2022 5:58:08 CASINO RUNNER by Che Zhu M.D. [email or web address] medical [email or web address] Glassesaultman [facility].Cazoomi/store/OM/[id number]
[2022-07-16 15:28] LABS: ABG PCO2 44.5 mmHg (35-45); ABG PH Result 7.45 (7.35-7.45); Arterial Blood Gas Hematocrit 36.1 % (37-47); Base Excess ABG 6.2 mmol/L (-2.0-2.0); Blood Gas Operator Identificat AMH; Blood Gas Sample Site Brachial, right; Blood Gas Sample Type Arterial; Carboxyhemoglobin 1.1 %THgb (0.4-20.1); HCO3 ABG 30.9 mmol/L (22-26); HGB O2 Sat 96.6 % (95-100); Oxygen Device NC; PO2 ABG 96.5 mmHg (80.0-100.0); Total Hemoglobin 11.8 g/dL (12-16)
[2022-07-16 16:53] LABS: Basophils % 0.6 %; Eosinophils % 0.6 %; Hematocrit 37.5 % (37.0-47.0); Lymphocytes # 1.7 10^3/uL (0.8-4.8); Lymphocytes % 31.6 %; Mean Platelet Volume 9.7 fL (7.4-10.4); Monocytes # 0.4 10^3/uL (0.2-0.9); Neutrophils % 58.8 %; Nucleated Red Blood Cells % 0 %; Platelet Count 311 10^3/cmm (130-400); Red Blood Count 3.75 10^6/uL (4.1-5.3); Red Cell Distribution Width 13.4 % (12.1-15.1); White Blood Count 5.3 10^3/uL (4.0-10.0)
--- NOTE | 2022-07-16 17:11 | ECG_ITS ---
[facility] Test Date: 2022-07-16 Pat Name: Luli Osborne Department: Room: Gender: Female Weather Strip Mechanic: : 1970 Requested By: Ashish Ga Order Number: [id number] Oscar MD: Che Zhu M.D. Measurements Intervals [place] Rate: 94 P: 82 PA: 139 QRS: 12 QRSD: 81 T: 71 QT: 380 QTc: 477 Interpretive Statements SINUS RHYTHM WITH OCCASIONAL VENTRICULAR PREMATURE COMPLEXES POSSIBLE ANTERIOR MYOCARDIAL INFARCTION , OF INDETERMINATE AGE [30 ms Q WAVE IN V3/V4, OR R < 0.2 mV IN V4] Compared to ECG 07/16/2022 15:29:56 Ventricular premature complex(es) now present Myocardial infarct finding still present Electronically Signed On 07-17-2022 6:06:55 CHIEF OPTOMETRY SERVICE by Che Zhu M.D. [id number]
[2022-07-16 17:15] LABS: Lactic Sepsis W/Reflex 1.3 mmol/L (0.5-2.2)
[2022-07-16 17:22] LABS: Procalcitonin 0.26 ng/mL (0-0.5)
[2022-07-16 17:33] LABS: Alanine Aminotransferase 31 U/L (0-33); Albumin Level 2.3 g/dL (3.5-5.2); Alkaline Phosphatase 125 U/L (35-105); Anion Gap 14.7 (5-19); Aspartate Amino Transferase 28 U/L (0-32); Blood Urea Nitrogen 7 mg/dL (6-20); C Reactive Protein 6.6 mg/L (0.0-4.9); Calcium 7.9 mg/dL (8.5-10.5); Carbon Dioxide 27 mmol/L (22-29); Chloride 96 mmol/L (98-107); Globulin 3.5 g/dL (1.3-4.6); Glomerular Filtration Rate 22.4 mL/min (90-130); Glucose 133 mg/dL (65-115); Osmolality Calculated 278 mOsm/kg (285-295); Potassium 3.7 mmol/L (3.5-5.1); Sodium 134 mmol/L (136-145); Total Bilirubin 0.2 mg/dL (0.15-1.2); Total Protein 5.8 g/dL (6.6-8.7)
[2022-07-16 17:52] LABS: Troponin(5th) Baseline 350 ng/L (0-10)
[2022-07-16 18:55] LABS: Adenovirus Not Detected (NOT DETECT); Chlamydia Pneumoniae Not Detected (NOT DETECT); Coronavirus 229E,HKU1,NL63,OC4 Not Detected (NOT DETECT); Human Metapneumovirus Not Detected (NOT DETECT); Human Rhinovirus/Enterovirus Not Detected (NOT DETECT); Influenza A Not Detected (NOT DETECT); Influenza A H1 Not Detected (NOT DETECT); Influenza A H1-2009 Not Detected (NOT DETECT); Influenza A H3 Not Detected (NOT DETECT); Influenza B Not Detected (NOT DETECT); Mycoplasma Pneumoniae Not Detected (NOT DETECT); Parainfluenza Virus Type 1 Not Detected (NOT DETECT); Parainfluenza Virus Type 2 Not Detected (NOT DETECT); Parainfluenza Virus Type 3 Not Detected (NOT DETECT); Parainfluenza Virus Type 4 Not Detected (NOT DETECT); Respiratory Syncytial Virus A Not Detected (NOT DETECT); Respiratory Syncytial Virus B Not Detected (NOT DETECT); SARS-COV-2 Not Detected (NOT DETECT)
[2022-07-16] MEDS: dexamethasone 10 mg/mL INJ 6 MG IVP (18:59)
[2022-07-16] MEDS: ipratropium-albuterol 3 mL Neb INHALATION (19:37)
[2022-07-16] MEDS: ondansetron 2 mg/ML SDV 2 mL 4 MG IVP ×2 (19:44→23:03)
[2022-07-16 20:01] LABS: Troponin 5 2HR 344.1 ng/L (0-10); Troponin 5 2HR Delta -5.9 ABS# (0-10)
--- NOTE | 2022-07-16 20:42 | PM.HP ---
Providers/Chief Complaint Chief Complaint: DIFFICULTY BREATHING History of Present Illness Luli Osborne is a 52 year old female with past medical history of insulin-dependent diabetes mellitus, pancreatectomy, type 1 diabetes mellitus due to pancreas removal, peripheral neuropathy, end-stage renal disease on dialysis Sunday presented to the hospital today with complaint of shortness of breath. She does states he cannot breathe. Patient unable to give me much of a history. Most of the history is provided by her mother. Patient has been weak for the last 2-1/2 weeks cannot keep any food down. Has been having nausea vomiting. Denies any diarrhea however. Feels lightheaded or dehydrated. She says when she vomits just acid comes up. No blood in the vomitus noted. Flu and COVID-negative. Patient lives in [place] and is visiting [place] currently. She has attended only 5 dialysis sessions here in [place]. Last week on Sunday she missed dialysis and recently on her session was cut short because the center had to process more people. The above history was obtained by the mother. However the daughter states she has not missed any dialysis sessions. During our encounter she all of a sudden started holding her chest and saying I cannot breathe I cannot breathe. Saturations were 97% at the time. Mother said that she is having a panic attack and she has these at home as well. However this was happening right after Rocephin was being infused. Patient denies allergy to Rocephin. However at that time Solu-Medrol 40 IV x1 was ordered along with Benadryl 25 IV. I was at bedside spoke to the patient and counseled her to calm down. Patient got better within minutes. Chest x-ray does show pulmonary vascular congestion, pleural effusion, right lung base opacities consistent with pneumonia. Baseline troponin 350, delta troponin negative. Creatinine 2.3, sodium 134, chloride 96, BNP 28,000. We do not have records on her here. She is from [place]. COVID, hepatitis, flu negative. WBC 5.3. CTA chest to rule out PE has been ordered and is pending at this time. Patient wears a Dexcom sensor for her glucose. Medications/Allergies Home Medications Medication Instructions Recorded Confirmed Last Taken Type Lactobacillus rhamnosus GG 5 1,000 mmu cells PO 06/23/22 07/03/22 Unknown History billion cell oral powder packet (Culturelle Kids Probiotics) calcium carbonate 400 mg calcium 400 mg PO DAILY PRN 06/23/22 07/03/22 Unknown History (1,000 mg) chewable tablet (Tums Ultra) carvedilol 6.25 mg tablet 6.25 mg PO BID 06/23/22 07/03/22 Unknown History gabapentin 300 mg capsule 300 mg PO DAILY 06/23/22 07/03/22 Unknown History glucose 4 gram chewable tablet 4 g PO Q15M PRN 06/23/22 07/03/22 Unknown History insulin aspart U-100 100 unit/mL 5 unit SUBCUT TID 06/23/22 07/03/22 Unknown History (3 mL) subcutaneous pen (Novolog Flexpen U-100 Insulin aspart) insulin glargine U-300 conc 300 5 - 20 unit SUBCUT DAILY 06/23/22 07/03/22 Unknown History unit/mL (3 mL) subcutaneous pen (Toujeo Max U-300 SoloStar) hyzugx-cjmwfvow-vygyjng 3 cap PO TID 06/23/22 07/03/22 Unknown History 6,000-19,000-30,000 unit capsule,delayed rel (Creon) loperamide 2 mg capsule 2 mg PO Q6H PRN 06/23/22 07/03/22 Unknown History (Anti-Diarrheal (loperamide)) midodrine 5 mg tablet 5 mg PO ONCE PRN 06/23/22 07/03/22 Unknown History ondansetron HCl 4 mg tablet 4 mg PO Q8H PRN nausea and 06/23/22 07/03/22 Unknown Rx vomiting #20 tabs oxycodone-acetaminophen 5 mg-325 5 ml PO Q4H PRN 06/23/22 07/03/22 Unknown History mg/5 mL oral solution sodium bicarbonate 650 mg tablet 1,300 mg PO BID 06/23/22 07/03/22 Unknown History torsemide 20 mg tablet 40 mg PO DAILY 06/23/22 07/03/22 Unknown History hydrocodone 5 mg-acetaminophen 325 1 tab PO BID PRN diabetic 06/24/22 07/03/22 Unknown Rx mg tablet neuropathy 30 days #60 tabs Allergies Allergy/AdvReac Type Severity Reaction Status Date / Time No Known Allergies Allergy Verified 07/03/22 14:35 PFSH Acute PFSH: Medical History Anemia in end-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 Cyst of ovary Diabetes 1.5, managed as type 1 Diabetic neuropathy associated with diabetes mellitus due to underlying condition Diabetic ulcer of toe associated with diabetes mellitus due to underlying condition, limited to breakdown of skin ESRD (end stage renal disease) on dialysis Hx of acute pancreatitis 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 Hypertension Loose bowel movements Multiple sclerosis Surgical History History of pancreatectomy Hx of hysterectomy Family History Father Diabetes Heart attack H/O right coronary artery stent placement Mother Hypertension Social History Smoking and tobacco status: current every day smoker Second hand smoke exposure: No Smoking risk assessment/counseling performed?: Yes Alcohol intake: never Desire information about alcohol rehabilitation?: No Counseling given: No Desire information about substance/drug rehabilitation?: No Counseling given: No Vitals/I&O/Wt Last Vital Signs Temp 98.1 F 07/16/22 14:56 Pulse 97 07/16/22 19:43 Resp 18 07/16/22 19:43 BP 154/80 07/16/22 19:00 Pulse Ox 100 07/16/22 19:43 O2 Del Method 07/16/22 19:43 O2 Flow Rate 2 07/16/22 19:43 Weight last 48 hrs Weight 43.998 kg Physical Exam Narrative: General: Alert oriented x3, very frail-appearing, chronically ill-appearing female sitting up in bed on 2 L nasal cannula. Saturating 97% at this time, very poorly appearing, low BMI HEENT: Normocephalic, atraumatic, EOMI, breathing comfortably. No acute distress. Cardio: Regular rate rhythm, normal S1-S2, no murmurs Respiratory: Mainly clear to auscultation in upper lung elizabeth with mild crackles at right base and rhonchi. GI: Abdomen soft, nontender, nondistended, bowel sounds + Behavior: Anxious Extremities: Trace bilateral lower extremity edema Data 07/16/22 16:40 07/16/22 16:40 Micro: Microbiology 07/16/22 15:50 Blood Culture - Preliminary Blood SPECIMEN COLLECTED 07/16/22 15:50 Blood Culture - Preliminary Blood SPECIMEN COLLECTED A&P Assessment and plan (1) Pneumonia: (2) Anemia in end-stage renal disease: (3) Hypertension: (4) History of pancreatectomy: (5) Diabetes 1.5, managed as type 1: (6) ESRD (end stage renal disease) on dialysis: (7) Arteriovenous fistula of left upper extremity: Plan #End-stage renal disease, dialysis Sunday #Troponin elevation #Shortness of breath secondary to RLL pneumonia #Pleural effusion #Nausea, vomiting #Dehydration #Pancreatectomy #Diabetes mellitus type 1 #Chronic diarrhea #Hx of Multiple Sclerosis? ? Consult nephrology. Plan to dialyze today ? Check CTA chest to rule out PE ? Continue on Levaquin 750 daily to cover for pneumonia ? Check procalcitonin ? Check blood cultures, sputum culture gram stain ? DuoNeb every 4 hour scheduled ? Check bacterial antigens Legionella, Streptococcus ? Zofran 4 mg IV every 6 hours as needed ? We will place on IV fluids normal saline 50 cc/h ? Placed on clear liquid diet - Troponin most likely due to demand ischemia and end-stage renal disease. Patient not having any chest pain. EKG without any acute ischemic changes. ? Check echo Full code DVT prophylaxis: Heparin SQ twice daily Attestations Medical Necessity Statement*: Will cross greater than 2 midnight stay for management of shortness of breath secondary to pneumonia. Critical Care Time: The high probability of a clinically significant, sudden or life threatening deterioration of the patient's [resp] system(s) required my full and direct attention, intervention and personal management. The critical care time is as shown. This time is in addition to time spent performing any reported procedures but includes the following: [x] Data and vital sign review and interpretation [x] Patient assessment, examination and intervention [x] Documentation [x] Medication orders and management Critical Care Time (min): 35 Coding Level of Care Code Acute Tower Air Traffic Control Specialist for g Fwd Diagnoses Pneumonia J18.9 Anemia in end-stage renal disease N18.6; D63.1 Hypertension I10 History of pancreatectomy Z90.410 Diabetes 1.5, managed as type 1 E13.9 ESRD (end stage renal disease) on dialysis N18.6; Z99.2 Arteriovenous fistula of left upper extremity I77.0
[2022-07-16] MEDS: heparin 5,000 unit/mL INJ 1 mL 5000 UNIT SUBCUT (20:58)
[2022-07-16] MEDS: cefTRIAXone 1,000 MG in sodium chloride 0.9% (plus) 50 ML 100 MG IV (20:59)
[2022-07-16 21:12] LABS: Procalcitonin 0.25 ng/mL (0-0.5)
[2022-07-16] MEDS: diphenhydrAMINE 50 mg/mL SDV 1mL 25 MG IVP (21:15)
--- NOTE | 2022-07-16 21:18 | ECG_ITS ---
[facility] Test Date: 2022-07-16 Pat Name: Luli Osborne Department: Room: 278 Gender: Female Drafter Castings: : 1970 Requested By: Ashish Ga Order Number: [id number] Oscar MD: Che Zhu M.D. Measurements Intervals [place] Rate: 105 P: 66 DC: 141 QRS: -28 QRSD: 84 T: 60 QT: 359 QTc: 475 Interpretive Statements SINUS TACHYCARDIA POSSIBLE ANTERIOR MYOCARDIAL INFARCTION , OF INDETERMINATE AGE [30 ms Q WAVE IN V3/V4, OR R < 0.2 mV IN V4] Compared to ECG 07/16/2022 17:18:32 Sinus rhythm no longer present Ventricular premature complex(es) no longer present Myocardial infarct finding still present Electronically Signed On 07-17-2022 6:05:58 CAR LOT ATTENDANT by Che Zhu M.D. [email or web address] [id number]
--- NOTE | 2022-07-16 21:25 | PM.CONSULT ---
Providers/Reason For Consult Consulting Physician/Specialty*: zayra diaz md/ telenephrology Reason for Consult*: ESRD care Requesting Physician: Dr Shannon Clifford Attending Physician: Shannon Clifford MD History of Present Illness History of Present Illness Luli Osborne is a 52 year old female h/o childhood pancreatitis and pancreatectomy- developed IDDM. also has h/o htn, PVD, DM foot ulcers, and ESRD. Review of Systems Narrative: Missed dialysis and c/o SOB. however, she has nausea, vomiting, weakness. known MS Medications/Allergies Home Medications Medication Instructions Recorded Confirmed Last Taken Type Lactobacillus rhamnosus GG 5 1,000 mmu cells PO 06/23/22 07/03/22 Unknown History billion cell oral powder packet (Raise Your Flag Probiotics) calcium carbonate 400 mg calcium 400 mg PO DAILY PRN 06/23/22 07/03/22 Unknown History (1,000 mg) chewable tablet (Tums Ultra) carvedilol 6.25 mg tablet 6.25 mg PO BID 06/23/22 07/03/22 Unknown History gabapentin 300 mg capsule 300 mg PO DAILY 06/23/22 07/03/22 Unknown History glucose 4 gram chewable tablet 4 g PO Q15M PRN 06/23/22 07/03/22 Unknown History insulin aspart U-100 100 unit/mL 5 unit SUBCUT TID 06/23/22 07/03/22 Unknown History (3 mL) subcutaneous pen (Novolog Flexpen U-100 Insulin aspart) insulin glargine U-300 conc 300 5 - 20 unit SUBCUT DAILY 06/23/22 07/03/22 Unknown History unit/mL (3 mL) subcutaneous pen (Toujeo Max U-300 SoloStar) [id number] 3 cap PO TID 06/23/22 07/03/22 Unknown History 6,000-19,000-30,000 unit capsule,delayed rel (Creon) loperamide 2 mg capsule 2 mg PO Q6H PRN 06/23/22 07/03/22 Unknown History (Anti-Diarrheal (loperamide)) midodrine 5 mg tablet 5 mg PO ONCE PRN 06/23/22 07/03/22 Unknown History ondansetron HCl 4 mg tablet 4 mg PO Q8H PRN nausea and 06/23/22 07/03/22 Unknown Rx vomiting #20 tabs oxycodone-acetaminophen 5 mg-325 5 ml PO Q4H PRN 06/23/22 07/03/22 Unknown History mg/5 mL oral solution sodium bicarbonate 650 mg tablet 1,300 mg PO BID 06/23/22 07/03/22 Unknown History torsemide 20 mg tablet 40 mg PO DAILY 06/23/22 07/03/22 Unknown History hydrocodone 5 mg-acetaminophen 325 1 tab PO BID PRN diabetic 06/24/22 07/03/22 Unknown Rx mg tablet neuropathy 30 days #60 tabs Allergies Allergy/AdvReac Type Severity Reaction Status Date / Time No Known Allergies Allergy Verified 07/03/22 14:35 Current Medications Generic Name Dose Route Start Last Admin Trade Name Freq PRN Reason Stop Dose Admin Heparin Sodium (Porcine) 5,000 unit 07/16/22 20:45 07/16/22 20:58 Heparin 5,000 Unit/Ml Inj 1 Ml SUBCUT 5,000 unit Q12H JAYANT Administration PFSH Acute PFSH: Medical History Anemia in end-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 Cyst of ovary Diabetes 1.5, managed as type 1 Diabetic neuropathy associated with diabetes mellitus due to underlying condition Diabetic ulcer of toe associated with diabetes mellitus due to underlying condition, limited to breakdown of skin ESRD (end stage renal disease) on dialysis Hx of acute pancreatitis 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 Hypertension Loose bowel movements Multiple sclerosis Surgical History History of pancreatectomy Hx of hysterectomy Family History Father Diabetes Heart attack H/O right coronary artery stent placement Mother Hypertension Social History Smoking and tobacco status: current every day smoker Second hand smoke exposure: No Smoking risk assessment/counseling performed?: Yes Alcohol intake: never Desire information about alcohol rehabilitation?: No Counseling given: No Desire information about substance/drug rehabilitation?: No Counseling given: No Vitals/I&O/Wt Last Vital Signs Temp 98.1 F 07/16/22 14:56 Pulse 109 H 07/16/22 21:15 Resp 34 H 07/16/22 21:15 BP 161/87 07/16/22 21:15 Pulse Ox 96 07/16/22 21:15 O2 Del Method 07/16/22 19:43 O2 Flow Rate 2 07/16/22 19:43 07/16/22 07/16/22 07/16/22 06:59 14:59 22:59 Intake Total 50 / 50 Balance 50 / 50 Weight last 48 hrs Weight 43.998 kg Physical Exam Narrative: uncomfortable VS noted- tachypneic lungs crackles heart tachycardic ext no edema neuro- a,a, o x 3 RT IJ Permacath, LUE AVF Data 07/16/22 16:40 07/16/22 16:40 Micro: Microbiology 07/16/22 15:50 Blood Culture - Preliminary Blood SPECIMEN COLLECTED 07/16/22 15:50 Blood Culture - Preliminary Blood SPECIMEN COLLECTED A&P Assessment and plan (1) ESRD (end stage renal disease) on dialysis: 52 yr old female IDDM, HTN, PVD, h/o ESRD. Pt here w/ SOB 1, SOB- has a met alkalosis, appears dry. she c/o orthopnea and CASEY- BNP [id number]- will SUF tonight 2 hrs, remoev 2 liters -check echo, renal us, u/a, ur na, cr, pr -check hep serologies -check pth seen and examined w/ Dr Clifford informed consent for telehealth obtained from the pt. Plan see above Consult Attestations Medical Necessity Statement: SOB, IDDM, ESRD Time Spent in Patient Care: Greater than 35 minutes (>than 50% of time spent in counselling and/or direct pt care on unit). Coding Level of Care Code Acute Business Improvement Manager for [facility] Fwd Diagnoses ESRD (end stage renal disease) on dialysis N18.6; Z99.2
[2022-07-16] MEDS: azithromycin 500 MG in sodium chloride 0.9% 250 ML 250 MG IV (22:50)
--- NOTE | 2022-07-16 22:54 | USCV_ITS ---
Luli Osborne Age: 52 Gender: F : 1970 Exam Date: 07/16/2022 23:54 Ordering Phys: Shannon Clifford MD Technologist: Susan An Exam Location: [facility] [place] Indication: CVA BP: 161 / 87 HR: 93 Rhythm: Sinus Technical Quality: Adequate MEASUREMENTS (Male / Female) Normal Values 2D ECHO LV Diastolic Diameter PLAX 3.5 cm 4.2 - 5.9 / 3.9 - 5.3 cm LV Systolic Diameter PLAX 2.8 cm LV Chamber Size 3.3 cm IVS Diastolic Thickness 1.2 cm 0.6 - 1.0 / 0.6 - 0.9 cm IVS Systolic Thickness 1.3 cm LVPW Diastolic Thickness 1.5 cm 0.6 - 1.0 / 0.6 - 0.9 cm LVPW Systolic Thickness 1.4 cm RV Chamber Size 2.7 cm LVOT Diameter 2.0 cm LV Ejection Fraction 2D Teich 45.2 % LV Ejection Fraction MOD 2C 56.9 % LV Ejection Fraction 2C AL 54.7 % LA Diameter 3.1 cm LA Width 4.5 cm LA Height 3.4 cm RA Width 2.4 cm RA Height 3.5 cm Aorta at Sinotubular Diameter 2.2 cm IVC Diameter 1.1 cm M-MODE Aortic Annulus Diameter 2.9 cm LA Ao Ratio MM 1.2 DOPPLER AV Peak Velocity 109.0 cm/s LVOT Peak Velocity 84.0 cm/s AV Area Cont Eq vti 2.4 cm squared AV Area Cont Eq pk 2.5 cm squared MV Area PHT 8.1 cm squared Mitral E to A Ratio 0.9 MV E' Velocity 53.5 cm/s Mitral E to MV E' Ratio 10.7 Mitral E to LV E' Lateral Ratio 9.5 Mitral E to LV E' Septal Ratio 12.6 TR Peak Velocity 68.6 cm/s TR Peak Gradient 1.9 mmHg TR Mean Velocity 46.0 cm/s TR Mean Gradient 1.0 mmHg TR Velocity Time Integral 13.3 cm TV Peak E Velocity 90.0 cm/s Right Atrial Pressure 3.0 mmHg Pulmonary Artery Systolic Pressu 4.9 mmHg RV Acceleration Time 0.1 s RV Ejection Time 0.4 s RV AcT/ET 0.4 FINDINGS Left Ventricle Normal left ventricular size, systolic function and mildly increased wall thickness, with no regional wall motion abnormalities. Mild concentric left ventricular hypertrophy. Left ventricular ejection fraction is estimated at 60 %. Grade II diastolic dysfunction, moderately elevated filling pressures. Right Ventricle Normal right ventricular size and systolic function. RVSP could not be calculated due to incomplete tricuspid regurgitation velocity profile. Right Atrium Normal right atrial size. 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 No ASD or PFO noted. Left Atrium Mildly increased left atrial size. Mitral Valve Structurally normal mitral valve. No mitral valve stenosis. No significant mitral valve regurgitation. Aortic Valve Mildly thickened and calcified trileaflet aortic valve (more so on non coronary cusp). No aortic valve stenosis. No aortic valve regurgitation. Tricuspid Valve Structurally normal tricuspid valve. Trace tricuspid valve regurgitation. Pulmonic Valve Structurally normal pulmonic valve. No pulmonary valve stenosis. Trace pulmonary valve regurgitation. Pericardium Trivial pericardial effusion. No evidence of hemodynamic compromise. Aorta Normal size aortic root and proximal ascending aorta. IVC Normal IVC dimension with >50% respiratory change of the inferior vena cava. CONCLUSIONS 1. Normal left ventricular size, systolic function and mildly increased wall thickness, with no regional wall motion abnormalities. Mild concentric left ventricular hypertrophy. Left ventricular ejection fraction is estimated at 60 %. Grade II diastolic dysfunction, moderately elevated filling pressures. 2. 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 No ASD or PFO noted. 3. Trivial pericardial effusion. No evidence of hemodynamic compromise. 4. No prior similar studies to compare. Che Zhu MD (Electronically Signed) Final Date: 17 July 2022 07:31 S
[2022-07-16 22:56] LABS: Influenza A by IFA negative (Negative); Influenza B by IFA negative (Negative)
[2022-07-16 23:38] LABS: Troponin 5 6HR Delta -27.9 ng/L (0-12)
[2022-07-16 23:39] LABS: Troponin 5 6HR 322.1 ng/L (0-10)
[2022-07-16] MEDS: levofloxacin-dextrose 5 % 750 MG/150 ML PREMIX 100 MG IV (23:53)
[2022-07-17] VITALS (13 sets, daily range): BP systolic 137–166; BP diastolic 64–92; PULSE 79–100; RESP 14–20; TEMP 36.5–36.9; O2SAT 96–99
--- NOTE | 2022-07-17 00:21 | PC.NURSE ---
Pt is going down to dialysis at this time.
--- NOTE | 2022-07-17 00:43 | PC.NURSE ---
Pt did not bring home medications or a list of medications w/her to the hospital. Pt us unable to verify medications when read off to her. Pt's mother is at bedside and is unable to verify medications either. Pt mother to bring list of pt medications.
[2022-07-17 01:53] LABS: Hepatitis B Surface AB 3.5 (11.5-1000); Hepatitis C Virus Antibody Non-Reactive (Nonreactive)
[2022-07-17 02:39] LABS: Hepatitis B Surface Antigen Reactive (Nonreactive)
[2022-07-17] MEDS: iohexol 350 mg/mL 500 mL Btl (per mL) IV (03:28)
--- NOTE | 2022-07-17 03:28 | PC.NURSE ---
Pt has returned from hemodialysis and CTA at this time. Will initiate IV and heprin gtt.
[2022-07-17] MEDS: heparin drip 25,000 UNIT/500 ML PREMIX 12.16 UNIT IV (03:46)
[2022-07-17] MEDS: heparin 5,000 unit/mL INJ 1 mL IV (03:47)
[2022-07-17 04:02] LABS: Basophils % 0.3 %; Hematocrit 39.1 % (37.0-47.0); Hemoglobin 12.4 g/dL (11.5-15.3); Lymphocytes # 0.4 10^3/uL (0.8-4.8); Lymphocytes % 9.1 %; Mean Corpuscular HGB Conc 31.7 g/dL (30.0-36.0); Mean Corpuscular Hemoglobin 31.5 pg (28.0-34.0); Mean Corpuscular Volume 99.2 fl (81-99); Mean Platelet Volume 9.6 fL (7.4-10.4); Monocytes % 0.8 %; Neutrophils % 88.8 %; Nucleated Red Blood Cells % 0 %; Platelet Count 300 10^3/cmm (130-400); Red Blood Count 3.94 10^6/uL (4.1-5.3); Red Cell Distribution Width 13.2 % (12.1-15.1); White Blood Count 3.9 10^3/uL (4.0-10.0)
[2022-07-17 04:08] LABS: Partial Thromboplastin Time 32.5 SECONDS (23.9-36.7)
[2022-07-17 04:19] LABS: Alanine Aminotransferase 26 U/L (0-33); Albumin Level 2.4 g/dL (3.5-5.2); Alkaline Phosphatase 137 U/L (35-105); Aspartate Amino Transferase 24 U/L (0-32); Blood Urea Nitrogen 12 mg/dL (6-20); Calcium 7.5 mg/dL (8.5-10.5); Carbon Dioxide 25 mmol/L (22-29); Chloride 96 mmol/L (98-107); Globulin 3.7 g/dL (1.3-4.6); Glomerular Filtration Rate 17.8 mL/min (90-130); Glucose 220 mg/dL (65-115); Magnesium 1.7 mg/dL (1.7-2.3); Osmolality Calculated 285 mOsm/kg (285-295); Sodium 134 mmol/L (136-145); Total Bilirubin 0.2 mg/dL (0.15-1.2); Total Protein 6.1 g/dL (6.6-8.7)
--- NOTE | 2022-07-17 05:17 | PC.NURSE ---
22G IV to right hand infiltrated at this time. Pressure drsg applied.
[2022-07-17 06:24] LABS: Glucose Point of Care 219 mg/dL (70-110)
--- NOTE | 2022-07-17 06:42 | PM.PN ---
Subjective Subjective: seen and examined. less sob. stilol weak. no n/v/f/c/cali/d Medications: Reviewed: Yes Medication Review Details: Current Medications Acetaminophen (Acetaminophen 325 Mg Tablet) 650 mg PO Q6H PRN PRN Reason: Mild/Mod Pain Or Temp >/= 101 Albuterol/Ipratropium (Ipratropium-Albuterol 3 Ml Neb) 3 ml INHALATION QID.RESPIRATORY JAYANT Carvedilol (Carvedilol 6.25 Mg Tablet) 6.25 mg PO BID JAYANT Dextrose (Dextrose 50% Syringe 50 Ml) 25 ml IVP ONCE PRN; Protocol PRN Reason: hypoglycemia protocol Dextrose (Dextrose 50% Syringe 50 Ml) 50 ml IVP PRN PRN; Protocol PRN Reason: hypoglycemia protocol Glucagon (Glucagon 1 Mg/Ml Inj 1 Ml) 1 mg IM ONCE PRN; Protocol PRN Reason: Adult Acute Hypoglycemia Prot. Heparin Sodium (Porcine) (Heparin 5,000 Unit/Ml Inj 1 Ml) 0 unit IV PRN PRN; Protocol PRN Reason: Heparin weight-base protocol Last Admin: 07/17/22 03:47 Dose: 2,400 unit Dextrose (D5w) 500 mls @ 100 mls/hr IV ONCE PRN; Protocol PRN Reason: Adult Acute Hypoglycemia Prot Albumin Human (Albumin) 12.5 gm in 50 mls @ 60 mls/hr IV PRN PRN PRN Reason: Hypotension and/or symptomatic Levofloxacin/Dextrose (Levaquin-D5w) 750 mg in 150 mls @ 100 mls/hr IV Q24H JAYANT; Protocol Last Titration: 07/17/22 05:08 Dose: Infused Heparin Sodium/Sodium Chloride (Heparin Drip) 25,000 unit in 500 mls @ 0 mls/hr IV .Q0M JAYANT; Protocol Last Titration: 07/17/22 03:47 Dose: 13.9 unit/kg/hr, 13 mls/hr Insulin Human Lispro (Insulin Lispro 100 Unit/1 Ml) 0 unit SUBCUT WM&BEDTIME [facility]; Protocol Ondansetron HCl (Ondansetron 2 Mg/Ml Sdv 2 Ml) 4 mg IVP Q8H PRN PRN Reason: vomiting, or N/V if npo Last Admin: 07/16/22 23:03 Dose: 4 mg Sodium Bicarbonate (Sodium Bicarbonate 650 Mg Tablet) 1,300 mg PO BID JAYANT Vitals/I&O/Wt Last Vital Signs Temp 97.9 F 07/17/22 04:00 Pulse 90 07/17/22 06:18 Resp 16 07/17/22 04:00 BP 158/92 07/17/22 04:00 Pulse Ox 97 07/17/22 04:00 O2 Del Method 07/16/22 22:25 O2 Flow Rate 2 07/16/22 19:43 07/16/22 07/16/22 07/17/22 14:59 22:59 06:59 Intake Total 50 / 50 400.203 / 450.203 Output Total 50 / 50 Balance 50 / 50 350.203 / 400.203 Weight last 48 hrs Weight 46.765 kg Weight 43.998 kg Physical Exam Narrative: comfortable NARD in bed VS noted- heent- nc/at,eomi, anicteric neck supple lungs clear, dull rt base heart RRR, no edema ext no edema neuro- a,a, o x 3 RT IJ Permacath, LUE AVF w/ thrill and bruit Data 07/17/22 03:45 07/17/22 03:45 Micro: Microbiology 07/16/22 15:50 Blood Culture - Preliminary Blood SPECIMEN COLLECTED 07/16/22 15:50 Blood Culture - Preliminary Blood SPECIMEN COLLECTED A&P Assessment and plan (1) ESRD (end stage renal disease) on dialysis: 52 yr old female IDDM, HTN, PVD, h/o ESRD. Pt here w/ SOB 1. ESRD- s/p SUF yestaerday -plan full HD in am 2. SOB and Rt pleural effusion- Q thoracetenesis -check echo- Q pericardial effusion- though not seen on cTA 3. hgb normal 4. mild hyponatremia 5. IDDM s/p pancreatectomy 6. await pth and phos 7. hypoalbuminemia seen and examined w/ RN -telehealth visit time spent 30 minutes Plan see above Attestations Medical Necessity Statement*: sob, pleural effusions Time Spent in Patient Care: 16 - 35 minutes (>than 50% of time spent in counselling and/or direct pt care on unit). Coding Level of Care Code Acute Director Of Physician Practices for [facility] Fwd Diagnoses ESRD (end stage renal disease) on dialysis N18.6; Z99.2
[2022-07-17] MEDS: insulin lispro 100 unit/1 mL SUBCUT (09:47)
[2022-07-17] MEDS: carvedilol 6.25 mg Tablet PO ×2 (09:48→17:57)
[2022-07-17] MEDS: ondansetron 2 mg/ML SDV 2 mL 4 MG IVP (09:48)
[2022-07-17] MEDS: sodium bicarbonate 650 mg Tablet 1300 MG PO ×2 (09:48→17:57)
[2022-07-17 09:51] LABS: Partial Thromboplastin Time 74.1 SECONDS (23.9-36.7)
[2022-07-17] MEDS: ipratropium-albuterol 3 mL Neb INHALATION ×3 (10:00→21:50)
--- NOTE | 2022-07-17 10:59 | PC.CHAP ---
Pastoral Care Encounter/Spiritual Assessment Type of Contact [] Declined health unit coordinator visit [] Patient/Family/Request visit [] Outpatient visit [] Follow-up visit [] Physician referral [] Code/Alert [x] Routine visit [] Staff referral [] Actively dying [] Patient sleeping [] Family support [] [] Out of room [] Palliative care [] [] Receiving care in room [] Pre-surgical visit [] Trauma [] Long length of stay [] ICU visit [] Other: precaution Relational/Emotional Strength [] Patient feels connected with others/family/visitors/staff [] Distress [] Loneliness/isolation [] Abandonment Spirituality of Patient [] Person of Elle [] Attends Adventism of their Elle [] Believes in Prayer [] Reads Bible or Synagogue materials [] There are Spiritual issues to be addressed Leather Sponger Interventions [x] Prayer [] Active listening [] Non-anxious presence [] Spiritual/emotional support [] Crisis/trauma care [] Spiritual counseling [] Bereavement support [] Provided bereavement packet [] Provided Bible/devotional materials [] Provided toy/stuffed animal, coloring book to patient or family member [] Provided Communion [] Anointing/D[place]ton [] Salvation [] Completed spiritual assessment [] Other: Impact on Illness or Injury [] Angry [] Fearful [] Anxious [] Often cries [] Exhaustion [] Unable to work [] Unable to attend yarsani [] Unable to walk/stand [] Unable to read [] Unable to drive [] Unable to eat/drink [] Unable to sleep [] Unable to be with family [] Patient intubated [] Other: Summary Time spent with patient
[2022-07-17 11:10] LABS: Glucose Point of Care 108 mg/dL (70-110)
[2022-07-17] MEDS: ALPRAZolam 0.5 mg Tablet PO (13:07)
[2022-07-17 13:47] LABS: Glucose Point of Care 51 mg/dL (70-110)
--- NOTE | 2022-07-17 13:54 | PC.NURSE ---
120 ml oj given, pt alert and oriented for BS 51. Eating noble crackers and drinking milk.
[2022-07-17 14:32] LABS: Procalcitonin 0.21 ng/mL (0-0.5); Thyroid Stimulating Hormone 0.93 uIU/mL (0.27-4.20); Vitamin B12 582 pg/mL (232-1245)
[2022-07-17 14:43] LABS: Iron 59 ug/dL (37-145); Percent Saturation 33.3 % (20-50); Total Iron Binding Capacity 177 mcg/dl; Unsaturated Iron Binding 118 ug/dL (112-347)
--- NOTE | 2022-07-17 14:50 | PC.NURSE ---
pt b/s is 138 per her monitor
--- NOTE | 2022-07-17 15:28 | P.PN_ITS ---
Subjective Subjective: Hospital course, labs appreciated. Patient seen mother at bedside. Patient lying comfortably in bed, states he is anxious, saturating more than 98% on 2 L oxygen supplementation. As per mother patient has been having difficulty in breathing which has been ongoing getting worse for last couple of weeks. Patient does not have history of anxiety in the past. Vitals/I&O/Wt Last Vital Signs Temp 97.7 F 07/17/22 12:00 Pulse 98 07/17/22 14:09 Resp 16 07/17/22 14:05 BP 137/64 07/17/22 12:00 Pulse Ox 99 07/17/22 14:09 O2 Del Method 07/17/22 14:05 O2 Flow Rate 2 07/17/22 14:05 07/17/22 07/17/22 07/17/22 06:59 14:59 22:59 Intake Total 400.203 / 450.203 480 / 480 Output Total 50 / 50 100 / 100 Balance 350.203 / 400.203 380 / 380 Weight last 48 hrs Weight 46.765 kg Weight 43.998 kg Physical Exam Narrative: General: Alert oriented x3, very frail-appearing, chronically ill- appearing female sitting up in bed on 2 L nasal cannula. Saturating 97% at this time, very poorly appearing, low BMI HEENT: Normocephalic, atraumatic, EOMI, breathing comfortably. No acute distress. Cardio: Regular rate rhythm, normal S1-S2, no murmurs Respiratory: Mainly clear to auscultation in upper lung elizabeth with mild crackles at right base and rhonchi. GI: Abdomen soft, nontender, nondistended, bowel sounds + Behavior: Anxious Extremities: Trace bilateral lower extremity edema Data 07/17/22 03:45 07/17/22 03:45 Micro: Microbiology 07/17/22 05:14 Legionella Urinary Antigen - Final Urine,Voided Bacterial Antigens - Final 07/16/22 15:50 Blood Culture - Preliminary Blood SPECIMEN COLLECTED 07/16/22 15:50 Blood Culture - Preliminary Blood SPECIMEN COLLECTED A&P Assessment and plan (1) Hypoxia: Most likely secondary to fluid overload in setting of end-stage renal disease on hemodialysis along with pneumonia. Patient received extra dialysis yesterday. Plan for repeat dialysis tomorrow. Oxygen supplementation keeping saturation over 95%. Patient does have bilateral pleural effusion on CT scan. Discussed in detail with pulmonology on-call. After bedside ultrasound less concerns for significant pleural effusion. Will continue to monitor. If remains significant even after repeat dialysis will request IR for thoracentesis. CTA ruled out PE. (2) Pneumonia: Flu, COVID-19 negative. Check sputum culture, MRSA swab. IV ceftriaxone 1 g daily. Stop Levaquin. Check urine Legionella, bacterial antigen. (3) Hypertension: Goal blood pressure less than 140/90 mmHg. Blood pressure slightly elevated. Continue with home dose of Coreg for now. Will uptitrate as per goal blood pressures. (4) History of pancreatectomy: (5) Diabetes 1.5, managed as type 1: Check A1c. Continue with insulin sliding scale before meals and at bedtime. Carb consistent renal diet. (6) ESRD (end stage renal disease) on dialysis: (7) Arteriovenous fistula of left upper extremity: (8) Anemia in end-stage renal disease: (9) Elevated troponin: Plan Troponin elevated: Most likely secondary to stress on admission. Less likely cardiac in nature. Echocardiogram done shows EF 60%, grade 2 diast olic dysfunction, moderate LVH without regional wall motion abnormality. Stop heparin drip. Anxiety: Most likely secondary to hypoxia. Start on Xanax 0.5 mg daily as needed, trazodone 50 mg at bedtime. Restart other home medications including gabapentin, hydrocodone, total lipase, midodrine as needed. Full code. Renal diabetic diet. Heparin 5000 every 12 hourly for DVT prophylaxis Protonix for PUD prophylaxis Attestations Medical Necessity Statement*: Requires further hospitalization for management of hypoxia secondary to pneumonia, congestive heart failure in setting of end- stage renal disease on hemodialysis, type 1 diabetes post pancreatectomy Time Spent in Patient Care: Greater than 35 minutes Coding Level of Care Code Acute Director Of Digital Platforms for [facility] Fwd Diagnoses Hypoxia R09.02 Pneumonia J18.9 Hypertension I10 History of pancreatectomy Z90.410 Diabetes 1.5, managed as type 1 E13.9 ESRD (end stage renal disease) on dialysis N18.6; Z99.2 Arteriovenous fistula of left upper extremity I77.0 Anemia in end-stage renal disease N18.6; D63.1 Elevated troponin R77.8
[2022-07-17 17:19] LABS: Glucose Point of Care 127 mg/dL (70-110)
[2022-07-17] MEDS: lipase-protease-amylase Capsule 1 EACH PO (17:56)
[2022-07-17] MEDS: gabapentin 100 mg Capsule PO (17:58)
[2022-07-17] MEDS: heparin 5,000 unit/mL INJ 1 mL 5000 UNIT SUBCUT (17:59)
[2022-07-17 20:50] LABS: Lipase 6 U/L (13-60)
[2022-07-17] MEDS: trazodone 50 mg Tablet PO (20:50)
[2022-07-17] MEDS: famotidine 20 mg/2 mL INJ IVP (20:50)
[2022-07-17] MEDS: cefTRIAXone 1,000 MG in sodium chloride 0.9% (plus) 50 ML 100 MG IV (20:50)
[2022-07-17 21:29] LABS: Glucose Point of Care 122 mg/dL (70-110)
--- NOTE | 2022-07-17 21:30 | CTR_ITS ---
PROCEDURE INFORMATION: Exam: CTA Chest With Contrast Exam date and time: 07/17/2022 3:12 AM Age: 52 years old Clinical indication: Dyspnea; Additional info: R/O pe TECHNIQUE: Imaging protocol: Computed tomographic angiography of the chest with contrast. 3D rendering (Not supervised by radiologist): MIP and/or 3D reconstructed images were created by the technologist. Radiation optimization: All CT scans at this facility use at least one of these dose optimization techniques: automated exposure control; mA and/or kV adjustment per patient size (includes targeted exams where dose is matched to clinical indication); or iterative reconstruction. Contrast material: OMNI 350; Contrast volume: 85 ml; Contrast route: INTRAVENOUS (IV); COMPARISON: CR XR chest 1V portable [id number] 07/16/2022 3:17 PM RADIATION DOSE METRICS: Total DLP (mGy-cm): 151.18 FINDINGS: Tubes, catheters and devices: Tunneled large bore right-sided central venous line noted with the distal tip in the right atrium. Pulmonary arteries: No central or segmental filling pulmonary artery filling defects are identified. Aorta: The aorta is normal in course and caliber. Lungs: Left basilar consolidation along the diaphragmatic margin likely consistent with atelectasis. Right basilar posterior dependent atelectasis and atelectasis in the right middle lobe. Pleural spaces: Large right-sided and small left-sided pleural effusions. Heart: The heart is within normal limits for size. No pericardial effusion is seen. Lymph nodes: The visualized supraclavicular region appears normal. No mediastinal or hilar adenopathy is identified. Pancreas: Distal pancreatic duct dilatation measuring 2.1 cm in length x 1.0 cm in diameter in the distal pancreatic tail (axial series 6, image 457), similar to prior exam in 2019. Pancreatic calcifications again noted. Kidneys and ureters: Punctate stone in the upper pole the left kidney. Bones/joints: Unremarkable. Soft tissues: Unremarkable. CT/CT angio chest PE protcl [id number] IMPRESSION: 1. No pulmonary embolism identified. 2. Large right-sided and small left-sided pleural effusions. 3. Bibasilar atelectasis.No significant airspace consolidation concerning for pneumonia. 4. Left-sided nephrolithiasis. 5. Sequela of chronic pancreatitis again noted.
[2022-07-18] VITALS (17 sets, daily range): BP systolic 135–159; BP diastolic 70–85; PULSE 78–98; RESP 16–20; TEMP 36.5–36.9; O2SAT 94–100
[2022-07-18 04:20] LABS: Basophils % 0.4 %; Eosinophils # 0.1 10^3/uL (0.0-0.8); Hematocrit 31.5 % (37.0-47.0); Hemoglobin 10.2 g/dL (11.5-15.3); Lymphocytes # 2.4 10^3/uL (0.8-4.8); Mean Corpuscular HGB Conc 32.4 g/dL (30.0-36.0); Mean Corpuscular Hemoglobin 31.9 pg (28.0-34.0); Mean Corpuscular Volume 98.4 fl (81-99); Mean Platelet Volume 9.5 fL (7.4-10.4); Monocytes # 0.6 10^3/uL (0.2-0.9); Monocytes % 9.1 %; Neutrophils # 3.59 10^3/uL (1.8-7.7); Neutrophils % 53.1 %; Nucleated Red Blood Cells % 0 %; Platelet Count 302 10^3/cmm (130-400); Red Cell Distribution Width 13.6 % (12.1-15.1); White Blood Count 6.8 10^3/uL (4.0-10.0)
[2022-07-18 04:35] LABS: Estmated Average Glucose 117; Hemoglobin A1C 5.7 % (4.0-6.0)
[2022-07-18 04:42] LABS: Alanine Aminotransferase 19 U/L (0-33); Albumin Level 2.1 g/dL (3.5-5.2); Alkaline Phosphatase 108 U/L (35-105); Anion Gap 11.3 (5-19); Aspartate Amino Transferase 15 U/L (0-32); Blood Urea Nitrogen 19 mg/dL (6-20); Calcium 7.1 mg/dL (8.5-10.5); Carbon Dioxide 27 mmol/L (22-29); Chloride 97 mmol/L (98-107); Chol HDL Ratio 3.42 mg/dL (0.0-4.40); Cholesterol 212 mg/dL (0-200); Globulin 2.7 g/dL (1.3-4.6); Glomerular Filtration Rate 13.8 mL/min (90-130); Glucose 96 mg/dL (65-115); HDL Cholesterol 62 mg/dL (60-100); LDL Cholesterol Calculated 115 mg/dL (50-129); Magnesium 1.6 mg/dL (1.7-2.3); Osmolality Calculated 276 mOsm/kg (285-295); Phosphorus 2.5 mg/dL (2.5-4.5); Potassium 3.3 mmol/L (3.5-5.1); Sodium 132 mmol/L (136-145); Total Bilirubin 0.2 mg/dL (0.15-1.2); Triglycerides 175 mg/dL (0-150); VLDL Cholestrol Calculation 35 mg/dL (0-30)
[2022-07-18 04:51] LABS: Parathyroid Hormone 454.4 pg/mL (15-65)
[2022-07-18 04:57] LABS: Total Protein 4.8 g/dL (6.6-8.7)
[2022-07-18] MEDS: heparin 5,000 unit/mL INJ 1 mL 5000 UNIT SUBCUT ×2 (04:59→17:20)
[2022-07-18 06:18] LABS: Glucose Point of Care 118 mg/dL (70-110)
[2022-07-18] MEDS: sodium bicarbonate 650 mg Tablet 1300 MG PO ×2 (08:49→17:21)
[2022-07-18] MEDS: carvedilol 6.25 mg Tablet PO ×2 (08:50→17:21)
[2022-07-18] MEDS: lipase-protease-amylase Capsule 1 EACH PO ×2 (08:50→18:20)
[2022-07-18] MEDS: famotidine 20 mg/2 mL INJ IVP ×2 (08:50→20:41)
[2022-07-18] MEDS: gabapentin 100 mg Capsule PO ×2 (08:50→17:22)
[2022-07-18] MEDS: ipratropium-albuterol 3 mL Neb INHALATION ×3 (09:37→23:07)
[2022-07-18 11:14] LABS: Glucose Point of Care 155 mg/dL (70-110)
--- NOTE | 2022-07-18 11:59 | PM.PN ---
Subjective Subjective: HD today Medications: Reviewed: Yes Vitals/I&O/Wt Last Vital Signs Temp 98.1 F 07/18/22 08:00 Pulse 85 07/18/22 11:10 Resp 18 07/18/22 11:10 BP 157/76 07/18/22 08:00 Pulse Ox 100 07/18/22 11:10 O2 Del Method 07/18/22 09:37 O2 Flow Rate 1.5 07/18/22 09:37 FiO2 2 07/18/22 11:08 07/17/22 07/18/22 07/18/22 22:59 06:59 14:59 Intake Total 280.797 / 760.797 200 / 960.797 240 / 240 Output Total 100 / 200 400 / 600 Balance 180.797 / 560.797 -200 / 360.797 240 / 240 Weight last 48 hrs Weight 47.854 kg Weight 46.765 kg Weight 43.998 kg Physical Exam Narrative: comfortable NARD in bed VS noted- heent- nc/at,eomi, anicteric neck supple lungs clear, dull rt base heart RRR, no edema ext no edema neuro- a,a, o x 3 RT IJ Permacath, LUE AVF w/ thrill and bruit Data 07/18/22 03:03 07/18/22 03:03 Micro: Microbiology 07/17/22 17:54 MRSA Culture - Final Nose 07/16/22 15:50 Blood Culture - Preliminary Blood NEGATIVE TO DATE 07/16/22 15:50 Blood Culture - Preliminary Blood NEGATIVE TO DATE 07/17/22 05:14 Legionella Urinary Antigen - Final Urine,Voided Bacterial Antigens - Final A&P Assessment and plan (1) ESRD (end stage renal disease) on dialysis: 52 yr old female IDDM, HTN, PVD, h/o ESRD. Pt here w/ SOB 1. ESRD- plan for HD today , [place] [facility] 2. SOB and Rt pleural effusion- increase UF with HD 3. hgb normal 4. mild hyponatremia 5. IDDM s/p pancreatectomy 6. await pth and phos 7. hypoalbuminemia seen and examined w/ RN -telehealth visit time spent 30 minutes Plan see above Attestations Medical Necessity Statement*: Requires further hospitalization for management of hypoxia secondary to pneumonia, congestive heart failure in setting of end-stage renal disease on hemodialysis, type 1 diabetes post pancreatectomy Coding Level of Care Code Acute Clinical Research Management Associate for [facility] Fwd Diagnoses ESRD (end stage renal disease) on dialysis N18.6; Z99.2
--- NOTE | 2022-07-18 14:49 | PM.PN ---
Subjective Subjective: No acute events overnight. Patient denies any nausea, vomiting, headache. States feeling a lot better. Not anxious anymore. On room air. Plan for repeat dialysis today. Has remained hemodynamically stable and afebrile. Vitals/I&O/Wt Last Vital Signs Temp 98.1 F 07/18/22 08:00 Pulse 82 07/18/22 12:00 Resp 16 07/18/22 12:00 BP 155/81 07/18/22 12:00 Pulse Ox 98 07/18/22 12:00 O2 Del Method 07/18/22 12:00 O2 Flow Rate 1.5 07/18/22 09:37 FiO2 2 07/18/22 11:08 07/17/22 07/18/22 07/18/22 22:59 06:59 14:59 Intake Total 280.797 / 760.797 200 / 960.797 240 / 240 Output Total 100 / 200 400 / 600 Balance 180.797 / 560.797 -200 / 360.797 240 / 240 Weight last 48 hrs Weight 47.854 kg Weight 46.765 kg Weight 43.998 kg Physical Exam Narrative: General: Alert oriented x3, very frail-appearing, female sitting up in bed on 2 L nasal cannula. Saturating 97% at this time, very poorly appearing, low BMI HEENT: Normocephalic, atraumatic, EOMI, breathing comfortably. No acute distress. Cardio: Regular rate rhythm, normal S1-S2, no murmurs Respiratory: Mainly clear to auscultation in upper lung elizabeth with mild crackles at right base and rhonchi. GI: Abdomen soft, nontender, nondistended, bowel sounds + Behavior: Anxious Extremities: Trace bilateral lower extremity edema Data 07/18/22 03:03 07/18/22 03:03 Micro: Microbiology 07/17/22 17:54 MRSA Culture - Final Nose 07/16/22 15:50 Blood Culture - Preliminary Blood NEGATIVE TO DATE 07/16/22 15:50 Blood Culture - Preliminary Blood NEGATIVE TO DATE A&P Assessment and plan (1) Hypoxia: Most likely secondary to fluid overload in setting of end-stage renal disease on hemodialysis Pneumonia less likely. Along with pneumonia. Patient has remained afebrile, no leukocytosis, Pro-Carlos Alberto negative. Patient getting extra session of dialysis today. PE ruled out. Patient does have bilateral pleural effusion on CT scan. Discussed in detail with pulmonology on-call. After bedside ultrasound less concerns for significant pleural effusion. Will continue to monitor. If remains significant even after repeat dialysis will request IR for thoracentesis. (2) Pneumonia: Flu, COVID-19 negative. MRSA negative. Sputum culture pending. Hold off any further antibiotics for now. (3) Hypertension: Goal blood pressure less than 140/90 mmHg. Blood pressure slightly elevated. Continue with home dose of Coreg. Add losartan 25 mg daily. Will uptitrate as per goal blood pressures. (4) History of pancreatectomy: (5) Diabetes 1.5, managed as type 1: A1c 5.7. Continue with insulin sliding scale before meals and at bedtime. Carb consistent renal diet. (6) ESRD (end stage renal disease) on dialysis: (7) Arteriovenous fistula of left upper extremity: (8) Anemia in end-stage renal disease: (9) Elevated troponin: Plan Troponin elevated: Most likely secondary to stress on admission along with end-stage renal disease. Less likely cardiac in nature. Echocardiogram done shows EF 60%, grade 2 diastolic dysfunction, moderate LVH without regional wall motion abnormality. No active chest pains. Anxiety: Improving. Continue Xanax as needed, trazodone nightly. Restart other home medications including gabapentin, hydrocodone, total lipase, midodrine as needed. Full code. Renal diabetic diet. Heparin 5000 every 12 hourly for DVT prophylaxis Protonix for PUD prophylaxis Discharge planning: Back home with caregiver with next any 4 hours if patient remains hemodynamically stable after home O2 evaluation Continue with care at [facility]. This documentation was created by [employer] laborer adjustable steel joist software. Every effort was made to ensure accuracy of laborer adjustable steel joist. Any obvious errors or omissions should be clarified with the author of the document. Attestations Medical Necessity Statement*: Requires further hospitalization for management of hypoxia secondary to congestive heart failure in a patient with end-stage renal disease on hemodialysis, type 1 diabetes post pancreatectomy Time Spent in Patient Care: Greater than 35 minutes Coding Level of Care Code Acute Director Clinical Operations for Daniel Fwd Diagnoses Hypoxia R09.02 Pneumonia J18.9 Hypertension I10 History of pancreatectomy Z90.410 Diabetes 1.5, managed as type 1 E13.9 ESRD (end stage renal disease) on dialysis N18.6; Z99.2 Arteriovenous fistula of left upper extremity I77.0 Anemia in end-stage renal disease N18.6; D63.1 Elevated troponin R77.8
--- NOTE | 2022-07-18 15:06 | PC.HD ---
During treatment, pt experienced 3 episodes of sudden onset dyspnea during which pt very anxious, saying she couldn't breath and wanting to sit up, O2 sat 95%. Episodes lasted <2minutes each with O2 sat back to 97-98%. No objective distress or symptoms. First episode occurred 15 minutes into treatment, third while blood was being returned at end of treatment. Treatment completed without other issues, pt tolerated well with noted exceptions.
[2022-07-18] MEDS: losartan 50 mg Tablet PO (17:20)
[2022-07-18] MEDS: ALPRAZolam 0.5 mg Tablet PO (17:21)
[2022-07-18 17:29] LABS: Glucose Point of Care 104 mg/dL (70-110)
[2022-07-18] MEDS: trazodone 50 mg Tablet PO (20:40)
[2022-07-18] MEDS: cefTRIAXone 1,000 MG in sodium chloride 0.9% (plus) 50 ML 100 MG IV (20:41)
[2022-07-18 21:38] LABS: Glucose Point of Care 271 mg/dL (70-110)
[2022-07-18] MEDS: insulin lispro 100 unit/1 mL SUBCUT (21:51)
[2022-07-19] VITALS (11 sets, daily range): BP systolic 109–143; BP diastolic 64–78; PULSE 75–84; RESP 16–20; TEMP 36.7–36.8; O2SAT 87–98
[2022-07-19] MEDS: heparin 5,000 unit/mL INJ 1 mL 5000 UNIT SUBCUT (04:08)
[2022-07-19 04:25] LABS: Basophils % 0.3 %; Eosinophils # 0.1 10^3/uL (0.0-0.8); Eosinophils % 1.5 %; Hemoglobin 11.2 g/dL (11.5-15.3); Lymphocytes # 2.1 10^3/uL (0.8-4.8); Lymphocytes % 24.1 %; Mean Corpuscular Hemoglobin 31.4 pg (28.0-34.0); Mean Platelet Volume 9.4 fL (7.4-10.4); Monocytes # 0.7 10^3/uL (0.2-0.9); Monocytes % 8.4 %; Neutrophils # 5.63 10^3/uL (1.8-7.7); Neutrophils % 65.2 %; Nucleated Red Blood Cells % 0 %; Platelet Count 254 10^3/cmm (130-400); Red Blood Count 3.57 10^6/uL (4.1-5.3); Red Cell Distribution Width 13.6 % (12.1-15.1); White Blood Count 8.6 10^3/uL (4.0-10.0)
[2022-07-19 05:09] LABS: Alanine Aminotransferase 16 U/L (0-33); Alkaline Phosphatase 108 U/L (35-105); Anion Gap 9.5 (5-19); Aspartate Amino Transferase 14 U/L (0-32); Blood Urea Nitrogen 8 mg/dL (6-20); Calcium 7.5 mg/dL (8.5-10.5); Carbon Dioxide 29 mmol/L (22-29); Chloride 102 mmol/L (98-107); Globulin 2.9 g/dL (1.3-4.6); Glomerular Filtration Rate 24.8 mL/min (90-130); Glucose 107 mg/dL (65-115); Magnesium 1.7 mg/dL (1.7-2.3); Osmolality Calculated 283 mOsm/kg (285-295); Phosphorus 1.8 mg/dL (2.5-4.5); Potassium 3.5 mmol/L (3.5-5.1); Sodium 137 mmol/L (136-145); Total Bilirubin 0.2 mg/dL (0.15-1.2); Total Protein 4.9 g/dL (6.6-8.7)
[2022-07-19 06:33] LABS: Glucose Point of Care 116 mg/dL (70-110)
[2022-07-19] MEDS: carvedilol 6.25 mg Tablet PO (08:46)
[2022-07-19] MEDS: lipase-protease-amylase Capsule 1 EACH PO ×2 (08:46→12:50)
[2022-07-19] MEDS: sodium bicarbonate 650 mg Tablet 1300 MG PO (08:46)
[2022-07-19] MEDS: gabapentin 100 mg Capsule PO (08:46)
[2022-07-19] MEDS: ipratropium-albuterol 3 mL Neb INHALATION ×2 (09:29→12:08)
[2022-07-19] MEDS: famotidine 20 mg/2 mL INJ IVP (09:54)
[2022-07-19] MEDS: losartan 50 mg Tablet PO (09:55)
[2022-07-19 10:43] LABS: Glucose Point of Care 173 mg/dL (70-110)
[2022-07-19] MEDS: ALPRAZolam 0.5 mg Tablet PO (11:44)
--- NOTE | 2022-07-19 12:15 | PC.SOCIAL ---
IMM update IMM updated with patient. Verbalized an understanding. Copy Pg 2 provided. Initialled, dated, timed, and placed in chart.
--- NOTE | 2022-07-19 12:27 | PM.DCS ---
Discharge Providers Date of Admission: 07/16/22 20:58 Date of Discharge: July 19, 2022 Attending Provider at Admission: Shannon Clifford MD Attending Provider at Discharge: Tyrone Shields MD Consults: Telemetry nephrology Diagnoses at Discharge Discharge Diagnosis (1) Hypoxia: Status: Acute (2) Pneumonia: Status: Acute (3) Hypertension: Status: Acute (4) History of pancreatectomy: Status: Acute (5) Diabetes 1.5, managed as type 1: Status: Acute (6) ESRD (end stage renal disease) on dialysis: Status: Acute (7) Arteriovenous fistula of left upper extremity: Status: Acute (8) Anemia in end-stage renal disease: Status: Acute (9) Elevated troponin: Status: Acute (10) Protein-energy malnutrition: Status: Acute (11) Diastolic heart failure: Status: Acute (12) Bilateral pleural effusion: Status: Acute Reason for Visit Reason for Visit: DIFFICULTY BREATHING Brief History: History as per HPI: Luli Osborne is a 52 year old female with past medical history of insulin-dependent diabetes mellitus, pancreatectomy, type 1 diabetes mellitus due to pancreas removal, peripheral neuropathy, end-stage renal disease on dialysis Sunday presented to the hospital today with complaint of shortness of breath.? She does states he cannot breathe.? Patient unable to give me much of a history.? Most of the history is provided by her mother.? Patient has been weak for the last 2-1/2 weeks cannot keep any food down.? Has been having nausea vomiting.? Denies any diarrhea however.? Feels lightheaded or dehydrated.? She says when she vomits just acid comes up.? No blood in the vomitus noted.? Flu and COVID-negative.? Patient lives in [place] and is visiting [place] currently.? She has attended only 5 dialysis sessions here in [place].? Last week on Sunday she missed dialysis and recently on her session was cut short because the center had to process more people.? The above history was obtained by the mother.? However the daughter states she has not missed any dialysis sessions.? During our encounter she all of a sudden started holding her chest and saying I cannot breathe I cannot breathe.? Saturations were 97% at the time.? Mother said that she is having a panic attack and she has these at home as well.? However this was happening right after Rocephin was being infused.? Patient denies allergy to Rocephin.? However at that time Solu-Medrol 40 IV x1 was ordered along with Benadryl 25 IV.? I was at bedside spoke to the patient and counseled her to calm down.? Patient got better within minutes.? Chest x-ray does show pulmonary vascular congestion, pleural effusion, right lung base opacities consistent with pneumonia.? Baseline troponin 350, delta troponin negative.? Creatinine 2.3, sodium 134, chloride 96, BNP 28,000.? We do not have records on her here.? She is from [place].? COVID, hepatitis, flu negative.? WBC 5.3.? CTA chest to rule out PE has been ordered and is pending at this time.? Patient wears a Dexcom sensor for her glucose. Hospital Course Hospital Course Patient was roomed to the hospital further evaluation and management of hypoxia. On admission there was a concern for fluid overload leading to hypoxia. On admission CTA was done which ruled out pulmonary embolism. There is a concern for pneumonia on admission and she was started on broad-spectrum empiric antibiotics. Flu and COVID 19 PCR came back negative. On admission she was found to have elevated troponin for which heparin was started but was later discontinued as echocardiogram done showed no regional wall motion abnormality. During hospitalization her blood culture and sputum culture remain negative. Echocardiogram done showed an EF of 60% with grade 2 diastolic dysfunction. CTA was concerning for mild to moderate bilateral pleural effusion. Decision was made against thoracentesis as patient's oxygen requirement remained low and stable and it was thought to be secondary to chronic diastolic heart failure. Patient's symptoms became better after extra sessions of dialysis. Patient did have episodes of anxiety during hospitalization for which she was started on anxiolytics. She was found to have elevated blood pressure for which her antihypertensives were adjusted. She has been discharged in hemodynamically stable condition advised to follow-up with outpatient dialysis and schedule appointment. She will be discharged on oral antibiotics for next 5 days. She is to take losartan 50 mg daily extra for her blood pressures. She is to take trazodone and Lexapro for anxiety along with Xanax 0.125 as needed. Physical Exam Narrative: General: Alert oriented x3, very frail-appearing, female sitting up in bed on 2 L nasal cannula. Saturating 97% at this time, very poorly appearing, low BMI HEENT: Normocephalic, atraumatic, EOMI, breathing comfortably. No acute distress. Cardio: Regular rate rhythm, normal S1-S2, no murmurs Respiratory: Mainly clear to auscultation in upper lung elizabeth with mild crackles at right base and rhonchi. GI: Abdomen soft, nontender, nondistended, bowel sounds + Behavior: Anxious Extremities: Trace bilateral lower extremity edema Discharge Data Studies Completed and Pending Completed Studies During Hospitalization Category Date Time Status CT angio chest PE protcl [id number] Stat Cat Scan 07/17/22 21:30 Completed XR chest 1V portable [id number] Stat Exams 07/16/22 15:11 Completed CV. echo complete* [id number] Routine Ultrasound 07/16/22 22:54 Completed Pending at discharge Category Date Time Status Blood Culture Stat Lab 07/16/22 15:50 Results Complete Blood Count w/Auto AM LABS Lab 07/20/22 04:00 Ordered Comprehensive Metabolic Panel AM LABS Lab 07/20/22 04:00 Ordered Hepatitis B Surface AG w/Conf Routine Lab 07/16/22 16:40 Received Magnesium AM LABS Lab 07/20/22 04:00 Ordered Phosphorus AM LABS Lab 07/20/22 04:00 Ordered Sputum Culture and Gram Stain Stat Lab 07/16/22 20:47 Uncollected Radiology Impressions Chest X-Ray 07/16/22 15:11 IMPRESSION: 1. Right lung base opacities are consistent with pneumonia. 2. Blunting of the right costophrenic angle likely represents a pleural effusion. Chest CTA 07/17/22 21:30 IMPRESSION: 1. No pulmonary embolism identified. 2. Large right-sided and small left-sided pleural effusions. 3. Bibasilar atelectasis.No significant airspace consolidation concerning for pneumonia. 4. Left-sided nephrolithiasis. 5. Sequela of chronic pancreatitis again noted. Echocardiogram: CONCLUSIONS ?1. Normal left ventricular size, systolic function and mildly ?increased wall thickness, with no regional wall motion ?abnormalities. Mild concentric left ventricular hypertrophy. ?Left ventricular ejection fraction is estimated at 60 %. Grade ?II diastolic dysfunction, moderately elevated filling pressures. ?2. 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 ?No ASD or PFO noted. ?3. Trivial pericardial effusion. No evidence of hemodynamic ?compromise. ?4. No prior similar studies to compare. ?Che Zhu MD ?(Electronically Signed) ?Final Date:? ? ? 17 July 2022 ? 07:31 Microbiology 07/17/22 17:54 Nose MRSA Culture - Final 07/16/22 15:50 Blood Blood Culture - Preliminary NEGATIVE TO DATE 07/16/22 15:50 Blood Blood Culture - Preliminary NEGATIVE TO DATE 07/17/22 05:14 Urine,Voided Legionella Urinary Antigen - Final 07/17/22 05:14 Urine,Voided Bacterial Antigens - Final Laboratory Results WBC 8.6 10^3/uL (4.0-10.0) 07/19/22 04:07 RBC 3.57 10^6/uL (4.1-5.3) L 07/19/22 04:07 Hgb 11.2 g/dL (11.5-15.3) L 07/19/22 04:07 Hct 35.0 % (37.0-47.0) L 07/19/22 04:07 MCV 98.0 fl (81-99) 07/19/22 04:07 MCH 31.4 pg (28.0-34.0) 07/19/22 04:07 MCHC 32.0 g/dL (30.0-36.0) 07/19/22 04:07 RDW 13.6 % (12.1-15.1) 07/19/22 04:07 Plt Count 254 10^3/cmm (130-400) 07/19/22 04:07 MPV 9.4 fL (7.4-10.4) 07/19/22 04:07 Neut % (Auto) 65.2 % 07/19/22 04:07 Lymph % (Auto) 24.1 % 07/19/22 04:07 Williams % (Auto) 8.4 % 07/19/22 04:07 Eos % (Auto) 1.5 % 07/19/22 04:07 Baso % (Auto) 0.3 % 07/19/22 04:07 Neut # (Auto) 5.63 10^3/uL (1.8-7.7) 07/19/22 04:07 Lymph # (Auto) 2.1 10^3/uL (0.8-4.8) 07/19/22 04:07 Williams # (Auto) 0.7 10^3/uL (0.2-0.9) 07/19/22 04:07 Eos # (Auto) 0.1 10^3/uL (0.0-0.8) 07/19/22 04:07 Baso # (Auto) 0.0 10^3/uL (0.0-0.1) 07/19/22 04:07 Nucleated RBC % (auto) 0 % 07/19/22 04:07 Nucleated RBCs # 0.0 /100WBC 07/19/22 04:07 APTT 74.1 SECONDS (23.9-36.7) H D 07/17/22 09:06 Specimen Type Arterial 07/16/22 15:17 Sample Site Brachial, right 07/16/22 15:17 ABG pH 7.45 (7.35-7.45) 07/16/22 15:17 ABG pCO2 44.5 mmHg (35-45) 07/16/22 15:17 ABG pO2 96.5 mmHg (80.0-100.0) 07/16/22 15:17 ABG HCO3 30.9 mmol/L (22-26) H 07/16/22 15:17 ABG Base Excess 6.2 mmol/L (-2.0-2.0) H 07/16/22 15:17 Eloy Test N/a 07/16/22 15:17 Hematocrit 36.1 % (37-47) L 07/16/22 15:17 Hgb O2 Saturation 96.6 % (95-100) 07/16/22 15:17 Carboxyhemoglobin 1.1 %THgb (0.4-20.1) 07/16/22 15:17 Methemoglobin 1.0 % (0.4-1.5) 07/16/22 15:17 Total Hemoglobin 11.8 g/dL (12-16) L 07/16/22 15:17 O2 Delivery Device Nc 07/16/22 15:17 O2 Liters/Min 2.0 % 07/16/22 15:17 FiO2 28.0 % 07/16/22 15:17 Concrete Form Setter ID Amh 07/16/22 15:17 Sodium 137 mmol/L (136-145) 07/19/22 04:07 Potassium 3.5 mmol/L (3.5-5.1) 07/19/22 04:07 Chloride 102 mmol/L (98-107) 07/19/22 04:07 Carbon Dioxide 29 mmol/L (22-29) 07/19/22 04:07 Anion Gap 9.5 (5-19) 07/19/22 04:07 BUN 8 mg/dL (6-20) 07/19/22 04:07 Creatinine 2.1 mg/dL (0.5-0.9) H 07/19/22 04:07 GFR Calculation 24.8 mL/min (90-130) L 07/19/22 04:07 Glucose 107 mg/dL (65-115) 07/19/22 04:07 POC Glucose 173 mg/dL (70-110) H 07/19/22 10:40 Estimat Average Glucose 117 07/18/22 03:03 Hemoglobin A1c 5.7 % (4.0-6.0) 07/18/22 03:03 Calculated Osmolality 283 mOsm/kg (285-295) L 07/19/22 04:07 Lactic Acid 1.3 mmol/L (0.5-2.2) 07/16/22 16:40 Uric Acid 4.0 mg/dL (2.4-5.7) 07/17/22 03:45 Calcium 7.5 mg/dL (8.5-10.5) L 07/19/22 04:07 Phosphorus 1.8 mg/dL (2.5-4.5) L 07/19/22 04:07 Magnesium 1.7 mg/dL (1.7-2.3) 07/19/22 04:07 Iron 59 ug/dL (37-145) 07/17/22 03:48 Iron Cancelled 07/17/22 03:48 TIBC 177 mcg/dl 07/17/22 03:48 TIBC Cancelled 07/17/22 03:48 % Saturation 33.3 % (20-50) 07/17/22 03:48 % Saturation Cancelled 07/17/22 03:48 Unsat Iron Binding 118 ug/dL (112-347) 07/17/22 03:48 Unsat Iron Binding Cancelled 07/17/22 03:48 Total Bilirubin 0.2 mg/dL (0.15-1.2) 07/19/22 04:07 AST 14 U/L (0-32) 07/19/22 04:07 ALT 16 U/L (0-33) 07/19/22 04:07 Alkaline Phosphatase 108 U/L (35-105) H 07/19/22 04:07 Troponin T Baseline 350 ng/L (0-10) H* 07/16/22 16:40 Troponin T 120 Minute 344.1 ng/L (0-10) H 07/16/22 19:20 Delta Troponin T -5.9 ABS# (0-10) L 07/16/22 19:20 Troponin T Hi Sens 6Hr 322.1 ng/L (0-10) H 07/16/22 22:55 Troponin T Hi Sens 6Hr Delta -27.9 ng/L (0-12) L 07/16/22 22:55 C-Reactive Protein 6.6 mg/L (0.0-4.9) H 07/16/22 16:40 NT-Pro-B Natriuret Pep 93661 pg/mL (0-125) H 07/16/22 16:40 Total Protein 4.9 g/dL (6.6-8.7) L 07/19/22 04:07 Albumin 2.0 g/dL (3.5-5.2) L 07/19/22 04:07 Globulin 2.9 g/dL (1.3-4.6) 07/19/22 04:07 Triglycerides 175 mg/dL (0-150) H 07/18/22 03:03 Cholesterol 212 mg/dL (0-200) H 07/18/22 03:03 LDL Cholesterol, Calc 115 mg/dL (50-129) 07/18/22 03:03 Total VLDL Cholesterol 35 mg/dL (0-30) H 07/18/22 03:03 HDL Cholesterol 62 mg/dL (60-100) 07/18/22 03:03 Cholesterol/HDL Ratio 3.42 mg/dL (0.0-4.40) 07/18/22 03:03 Lipase 6 U/L (13-60) L 07/17/22 03:45 Vitamin B12 582 pg/mL (232-1245) 07/17/22 03:48 Folate 14.0 ng/mL (4.8-37.3) 07/16/22 13:55 Procalcitonin 0.21 ng/mL (0-0.5) 07/17/22 03:48 Procalcitonin Cancelled 07/17/22 03:48 TSH 0.93 uIU/mL (0.27-4.20) 07/17/22 03:48 PTH Intact 454.4 pg/mL (15-65) H 07/18/22 03:03 Calcium (PTH Intact) 7.0 mg/dL (8.5-10.5) L 07/18/22 03:03 Coronavirus 229E (PCR) Not detected (NOT DETECT) 07/16/22 15:55 Hep Bs Antigen Reactive (Nonreactive) H 07/16/22 16:40 Hep Bs Antibody 3.5 (11.5-1000) L 07/16/22 16:40 Hepatitis C Antibody Non-reactive (Nonreactive) 07/16/22 16:40 Influenza Type A Ag negative (Negative) 07/16/22 22:29 Influenza Type B Ag negative (Negative) 07/16/22 22:29 SARS-CoV-2 (PCR) Not detected (NOT DETECT) 07/16/22 15:55 Vitals Last Vital Signs Temp 98.1 F 07/19/22 12:00 Pulse 80 07/19/22 12:14 Resp 16 07/19/22 12:00 BP 119/78 07/19/22 12:00 Pulse Ox 97 07/19/22 12:00 O2 Del Method 07/19/22 12:00 O2 Flow Rate 2 07/19/22 12:00 FiO2 4 07/18/22 16:17 Discharge Plan Discharge Patient Disposition: Home Condition: Stable Prescriptions: New alprazolam [Xanax] 0.25 mg tablet 0.125 mg PO BID PRN (Reason: anxiety) Qty: 10 0RF escitalopram oxalate 10 mg tablet 10 mg PO DAILY Qty: 30 0RF gabapentin 100 mg Capsule 100 mg PO BID 30 Days Qty: 60 0RF trazodone 50 mg Tablet 50 mg PO BEDTIME 30 Days Qty: 30 0RF losartan 50 mg Tablet 50 mg PO DAILY 30 Days Qty: 30 0RF ipratropium-albuterol 0.5 mg-3 mg(2.5 mg base)/3 mL solution for nebulization 3 ml inhalation Q6H PRN (Reason: shortness of breath or wheezing) Qty: 180 0RF Continued insulin aspart U-100 [Novolog Flexpen U-100 Insulin] 100 unit/mL (3 mL) insulin pen 5 unit SUBCUT TID Rx Instructions: 5 units with meals, and 3 units with snacks glucose 4 gram tablet,chewable 4 g PO Q15M PRN (Reason: Hypoglycemia) Rx Instructions: until symptoms of low blood sugar are controlled Creon 6,000-19,000 -30,000 unit capsule,delayed release(DR/EC) 4 cap PO TID Rx Instructions: 3 with meals and 2 with snacks sodium bicarbonate 650 mg tablet 1,300 mg PO BID hydrocodone-acetaminophen 5-325 mg tablet 1 tab PO BID PRN (Reason: diabetic neuropathy) 30 Days Qty: 60 0RF Rx Instructions: Visiting/mother for next 1 1/2 months, from [place] ondansetron HCl 4 mg tablet 4 mg PO Q8H PRN (Reason: nausea and vomiting) Qty: 30 1RF torsemide 100 mg Tablet 100 mg PO QAM torsemide 100 mg Tablet 50 mg PO QPM PhosLo capsule 667 mg PO DIRECTED Rx Instructions: 1 capsule with meals and snacks amoxicillin-pot clavulanate 875-125 mg Tablet 1 tab PO BID 5 Days Qty: 10 0RF levofloxacin 500 mg Tablet 500 mg PO DAILY 5 Days Qty: 5 0RF Discharge Orders: Discharge Order (Routine); Ordered 07/19/22 Ordered By: Tyrone Shields Referrals: Horacio Torres MD [Physician] - 1 week Discharge Diet: Usual diet Discharge Activity: Resume usual activity and Increase activity as tolerated Patient Instructions: Opioid Safety Activity Restrictions/Additional Instructions: Please follow-up with a primary care provider within next 1 week. Continue taking Augmentin and Levaquin which are the antibiotics for next 5 days. Please continue to follow-up with dialysis as an outpatient and set appointment days. For anxiety you will be on trazodone which you need me to take nightly along with Lexapro which you need to take daily in the morning. Xanax 0.125 mg twice daily as needed is also been sent for anxiety. Please follow-up with nephrology and vascular surgeon as an outpatient. He needs to get referrals for same with your primary care provider. Discharge Attestations Time Spent in Discharge Care*: greater than 30 min Specific Discharge Activities: educating patient, educating and/or supporting family/caregiver, discussing with pcp/other providers, discussing with disease case manager/social workers/dc planners, documenting/other paperwork and evaluating patient/reviewing data Status at Discharge: Cognitive status at discharge: cognitively intact, Behavioral status at discharge: cooperative, Functional status at discharge: independent ambulation, Overall status at discharge: patient is progressing back to baseline Quality Metrics Clinical Quality Measures [ No reported AMI, CVA or VTE this stay] Coding Level of Care Code Acute Chg FW DC note Diagnoses Hypoxia R09.02 Pneumonia J18.9 Hypertension I10 History of pancreatectomy Z90.410 Diabetes 1.5, managed as type 1 E13.9 ESRD (end stage renal disease) on dialysis N18.6; Z99.2 Arteriovenous fistula of left upper extremity I77.0 Anemia in end-stage renal disease N18.6; D63.1 Elevated troponin R77.8 Protein-energy malnutrition E46 Diastolic heart failure I50.30 Bilateral pleural effusion J90
[2022-07-19] MEDS: insulin lispro 100 unit/1 mL SUBCUT (12:50)
--- NOTE | 2022-07-19 15:46 | PM.PN ---
Subjective Subjective: doing well Medications: Reviewed: Yes Vitals/I&O/Wt Last Vital Signs Temp 98.1 F 07/19/22 12:00 Pulse 80 07/19/22 13:28 Resp 16 07/19/22 12:00 BP 119/78 07/19/22 12:00 Pulse Ox 87 L 07/19/22 12:29 O2 Del Method 07/19/22 12:00 O2 Flow Rate 2 07/19/22 12:29 FiO2 4 07/18/22 16:17 07/19/22 07/19/22 07/19/22 06:59 14:59 22:59 Intake Total 240 / 1270 360 / 360 Balance 240 / -1305 360 / 360 Weight last 48 hrs Weight 46.805 kg Weight 45.2 kg Weight 47.854 kg Physical Exam Narrative: comfortable NARD in bed VS noted- heent- nc/at,eomi, anicteric neck supple lungs clear, dull rt base heart RRR, no edema ext no edema neuro- a,a, o x 3 RT IJ Permacath, LUE AVF w/ thrill and bruit Data 07/19/22 04:07 07/19/22 04:07 Micro: Microbiology 07/17/22 17:54 MRSA Culture - Final Nose A&P Assessment and plan (1) ESRD (end stage renal disease) on dialysis: 52 yr old female IDDM, HTN, PVD, h/o ESRD. Pt here w/ SOB 1. ESRD- s/p HD yesterday y , [place] [facility] 2. SOB and Rt pleural effusion- increase UF with HD 3. hgb normal 4. mild hyponatremia 5. IDDM s/p pancreatectomy 6. await pth and phos 7. hypoalbuminemia seen and examined w/ RN -telehealth visit time spent 30 minutes Plan see above Attestations Medical Necessity Statement*: Requires further hospitalization for management of hypoxia secondary to congestive heart failure in a patient with end-stage renal disease on hemodialysis, type 1 diabetes post pancreatectomy Coding Level of Care Code Acute Senior It Specialist for Chg Fwd Diagnoses ESRD (end stage renal disease) on dialysis N18.6; Z99.2
[2022-07-25 10:05] LABS: Hepatitis B Surface AG REACTIVE (NON-REACTIVE)
== END 2022-07-19 15:00 | disposition home or self-care (01) | DRG 193 ==
LOC: ER 20:58 → MEDSURG 21:42
PROVIDERS: Internal Medicine Nephrology; Admitting Provider Internal Medicine; Emergency Provider Emergency Medicine; Visit Provider Student in an Organized Health Care Education/Training Program
DX: J18.9 Pneumonia, unspecified organism (principal); N18.6 End stage renal disease; I13.2 Hypertensive heart and chronic kidney disease with heart failure and with stage 5 chronic kidney disease, or end stage renal disease; I50.32 Chronic diastolic (congestive) heart failure; E46 Unspecified protein-calorie malnutrition; Z68.1 Body mass index [BMI] 19.9 or less, adult; E89.1 Postprocedural hypoinsulinemia; E13.22 Other specified diabetes mellitus with diabetic chronic kidney disease; Z99.2 Dependence on renal dialysis; Z90.411 Acquired partial absence of pancreas; E13.40 Other specified diabetes mellitus with diabetic neuropathy, unspecified; D63.1 Anemia in chronic kidney disease; F41.0 Panic disorder [episodic paroxysmal anxiety]; Z79.891 Long term (current) use of opiate analgesic; F17.200 Nicotine dependence, unspecified, uncomplicated; G35 Multiple sclerosis; K52.9 Noninfective gastroenteritis and colitis, unspecified
CPT/HCPCS: 12345; 36415; 36416; 36600; 71045; 71275; 80053; 80061; 82310; 82607; 82746; 82805; 82962; 83036; 83540; 83550; 83605; 83690; 83735; 83880; 83970; 84100; 84145; 84443; 84484; 84550; 85025; 85730; 86140; 86403; 86706; 86803; 87040; 87340; 87449; 87635; 87641; 87804; 90935; 93005; 93306; 94640; 94760; 96372; J0456; J0696; J1100; J1200; J1644; J1815; J1956; J2405; J2920; J3490; J7050; Q3014; Q9967

== ENCOUNTER 2022-08-03 12:37 | Outpatient (CLI) | payer MEDICARE, MEDICAID, SELFPAY ==
--- NOTE | 2022-08-03 13:20 | XRR_ITS ---
PROCEDURE INFORMATION: Exam: XR Chest Exam date and time: 08/03/2022 1:25 PM Age: 52 years old Clinical indication: Shortness of breath; Prior surgery; Surgery type: Dialysis cath; Additional info: Short of breath TECHNIQUE: Imaging protocol: Radiologic exam of the chest. Views: 2 views. COMPARISON: CR XR chest 1V portable [id number] 07/16/2022 3:17 PM FINDINGS: Lungs: Unremarkable. No consolidation. Pleural spaces: Unremarkable. No pleural effusion. No pneumothorax. Heart/Mediastinum: Unremarkable. No cardiomegaly. Bones/joints: Unremarkable. There is a large bore right central line extending into the SVC. This finding is stable since prior examination XR/XR chest 2V* [id number] IMPRESSION: No acute findings. Right central line in the SVC.
== END 2022-08-03 12:38 | disposition home or self-care (01) ==
LOC: RAD 12:42
PROVIDERS: PCP Family Medicine Adult Medicine; Visit Provider Internal Medicine Nephrology
DX: R06.02 Shortness of breath (principal)
CPT/HCPCS: 71046

== ENCOUNTER 2022-08-25 10:48 | Outpatient (CLI) | payer MEDICARE, MEDICAID, SELFPAY ==
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
== END 2022-08-25 10:49 | disposition home or self-care (01) ==
LOC: RAD 10:55
PROVIDERS: PCP Family Medicine Adult Medicine; Visit Provider Family Medicine
DX: S09.8XXA Other specified injuries of head, initial encounter (principal); V89.2XXA Person injured in unspecified motor-vehicle accident, traffic, initial encounter; R55 Syncope and collapse
CPT/HCPCS: 70450; 70486

== ENCOUNTER 2022-09-09 10:48 | Inpatient (IN) | payer MEDICARE, MEDICAID, SELFPAY ==
[2022-09-09] VITALS (8 sets, daily range): BP systolic 107–136; BP diastolic 63–82; PULSE 74–90; RESP 16–18; TEMP 36.5–37.2; O2SAT 94–98; BMI 18.8
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
[2022-09-09] MEDS: tetanus-diphtheria tox (adult) 0.5 mL SDV IM (11:21)
[2022-09-09 11:22] LABS: Basophils # 0.1 10^3/uL (0.0-0.1); Basophils % 0.9 %; Eosinophils # 0.1 10^3/uL (0.0-0.8); Eosinophils % 1.6 %; Hematocrit 25.5 % (37.0-47.0); Hemoglobin 8.1 g/dL (11.5-15.3); Lymphocytes # 1.9 10^3/uL (0.8-4.8); Lymphocytes % 25.1 %; Mean Corpuscular HGB Conc 31.8 g/dL (30.0-36.0); Mean Corpuscular Hemoglobin 31.5 pg (28.0-34.0); Mean Corpuscular Volume 99.2 fl (81-99); Mean Platelet Volume 9.6 fL (7.4-10.4); Monocytes # 0.5 10^3/uL (0.2-0.9); Neutrophils # 4.93 10^3/uL (1.8-7.7); Neutrophils % 65.3 %; Nucleated Red Blood Cells % 0 %; Platelet Count 291 10^3/cmm (130-400); Red Blood Count 2.57 10^6/uL (4.1-5.3); Red Cell Distribution Width 12.8 % (12.1-15.1); White Blood Count 7.6 10^3/uL (4.0-10.0)
[2022-09-09 11:36] LABS: INR 0.92 (0.8-1.2)
--- NOTE | 2022-09-09 11:36 | W.ED.FALL ---
HPI - Fall General: Chief Complaint: Fall Stated Complaint: fall/ labs low hemoglobin Time Seen by Provider: 09/09/22 11:02 History of Present Illness: 52-year-old female presenting to the emergency department with fall. Inability to complete her dialysis this morning (Sunday) for her chronic kidney disease secondary to poorly controlled diabetes. Reported to dialysis center and was referred to the emergency department due to having blood on her scalp. Patient states she was walking this morning and tripped on the sidewalk. She has been tripping more frequently at home over the last 2 months and is uncertain why. Denies fevers, sweats, chills. States she has been having looser than normal stools but not dark, tarry, or with bright red blood per rectum. She states she is mildly nauseous but this is her baseline. No flashes or floaters, patient states she is lightheaded when she is walking and on her feet. Associated symptoms-after fall: Reports headache(s) (Pain over the front of her head where she hit the cement.); Denies abdominal pain, chest pain or neck pain Review of Systems General: Reports: 10 or more systems reviewed and unremarkable except in HPI and below Const: Denies: fever(s), chills or body aches Eyes: Denies: change in vision or blurry vision ENMT: Denies: throat pain or uvular edema Card: Denies: chest pain or palpitations Resp: Denies: dyspnea or productive cough GI: Reports: nausea; Denies: abdominal pain : Denies: flank pain or difficulty voiding Musc: Denies: neck pain or back pain Neuro: Reports: headache(s) (Pain over the front of her head where she hit the cement.); Denies: numbness in extremities or weakness in extremities PFSH ED PFSH: Medical History Anemia in end-stage renal disease Anxiety and depression Arteriovenous fistula of left upper extremity Chronic nausea Cyst of ovary Diabetes 1.5, managed as type 1 Diabetic neuropathy associated with diabetes mellitus due to underlying condition Diabetic ulcer of toe associated with diabetes mellitus due to underlying condition, limited to breakdown of skin Diastolic heart failure ESRD (end stage renal disease) on dialysis Hx of acute pancreatitis 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 Hypertension Loose bowel movements Multiple sclerosis Protein-energy malnutrition Surgical History History of pancreatectomy Hx of hysterectomy Family History Father Diabetes Heart attack H/O right coronary artery stent placement Mother Hypertension Social History Smoking and tobacco status: current every day smoker Second hand smoke exposure: No Smoking risk assessment/counseling performed?: Yes Alcohol intake: never Desire information about alcohol rehabilitation?: No Counseling given: No Desire information about substance/drug rehabilitation?: No Counseling given: No Physical Exam Const: COMMON NORMALS: no acute distress and average body habitus EXAM LIMITATIONS: no altered mental status and no behavioral limitations HENMT: COMMON NORMALS: normocephalic; head/scalp not atraumatic (0.5 centimeter laceration to the midline forehead at the hairline, hemosta) HEAD & SCALP: normocephalic; not atraumatic (0.5 centimeter laceration to the midline forehead at the hairline, hemosta) FACE & SINUS: normal facial exam THROAT: no uvular edema Eye: COMMON NORMALS: Equal, round and reactive pupils present and EOMs intact bilaterally PUPIL: Yes Equal, round and reactive pupils present Neck/C-Spine: COMMON NORMALS: full ROM and supple Chest: COMMONS NORMALS: normal inspection of the chest and normal palpation of entire chest wall Resp: COMMON NORMALS: normal respiratory effort and No retractions GI: COMMON NORMALS: Normal to inspection, nondistended, normoactive bowel sounds present, Soft to palpation and non-tender PALPATION: Yes Soft to palpation OTHER: Hemoccult positive stool, no cyn blood, no bleeding, posterior midline anal fissure : COMMON NORMALS: Yes no CVA tenderness and Yes normal external appearance BLADDER/KIDNEY EXAM: Yes no CVA tenderness Back/Pelvis: COMMON NORMALS: no CVA tenderness and thoracic and lumbar spine normal to inspection Extremity: COMMON NORMALS: normal to inspection GENERAL: Yes normal exam except as noted OTHER: Right great toe ulcer without visible bone or bleeding Course Vital Signs: Vital signs: Vital Signs Temperature 97.8 F 09/09/22 10:54 Pulse Rate 87 09/09/22 13:37 Respiratory Rate 18 09/09/22 10:54 Blood Pressure 128/71 09/09/22 13:37 Pulse Oximetry 97 09/09/22 13:37 Oxygen Delivery Me thod 09/09/22 13:37 MDM - Fall Medical Decision Making 52-year-old female dialysis dependent chronic kidney disease patient presenting after fall and subsequently discovered to be anemic. Vitals nonactionable in the emergency department. CT head not demonstrate acute intracranial pathology. Considered other causes of falling such as electrolyte derangements, CVA, musculoskeletal issues, others. Electrolytes in this patient nonactionable. Review of systems not indicating cardiopulmonary cause of the patient's fall today. Rectal exam per above Hemoccult positive. Consulted hospitalist for admission of this patient. Consulted surgeon for endoscopy of this patient. Consulted nephrology for make up hemodialysis for this patient. All excepted care of the patient and the patient will be admitted to the [facility] floor. Lab Data 09/09/22 11:10 09/09/22 11:[address] 09/09/22 11:10 IMPRESSION: 1. No CT evidence of acute intracranial pathology. 2. Additional findings, as above. Laboratory Results WBC 7.6 10^3/uL (4.0-10.0) 09/09/22 11:10 RBC 2.57 10^6/uL (4.1-5.3) L 09/09/22 11:10 Hgb 8.1 g/dL (11.5-15.3) L 09/09/22 11:10 Hct 25.5 % (37.0-47.0) L 09/09/22 11:10 MCV 99.2 fl (81-99) H 09/09/22 11:10 MCH 31.5 pg (28.0-34.0) 09/09/22 11:10 MCHC 31.8 g/dL (30.0-36.0) 09/09/22 11:10 RDW 12.8 % (12.1-15.1) 09/09/22 11:10 Plt Count 291 10^3/cmm (130-400) 09/09/22 11:10 MPV 9.6 fL (7.4-10.4) 09/09/22 11:10 Neut % (Auto) 65.3 % 09/09/22 11:10 Lymph % (Auto) 25.1 % 09/09/22 11:10 [place] % (Auto) 7.0 % 09/09/22 11:10 Eos % (Auto) 1.6 % 09/09/22 11:10 Baso % (Auto) 0.9 % 09/09/22 11:10 Neut # (Auto) 4.93 10^3/uL (1.8-7.7) 09/09/22 11:10 Lymph # (Auto) 1.9 10^3/uL (0.8-4.8) 09/09/22 11:10 [place] # (Auto) 0.5 10^3/uL (0.2-0.9) 09/09/22 11:10 Eos # (Auto) 0.1 10^3/uL (0.0-0.8) 09/09/22 11:10 Baso # (Auto) 0.1 10^3/uL (0.0-0.1) 09/09/22 11:10 Nucleated RBC % (auto) 0 % 09/09/22 11:10 Nucleated RBCs # 0.0 /100WBC 09/09/22 11:10 PT 12.70 SECONDS (12.1-14.9) 09/09/22 11:10 INR 0.92 (0.8-1.2) 09/09/22 11:10 Sodium 130 mmol/L (136-145) L 09/09/22 11:10 Potassium 3.8 mmol/L (3.5-5.1) 09/09/22 11:10 Chloride 93 mmol/L (98-107) L 09/09/22 11:10 Carbon Dioxide 28 mmol/L (22-29) 09/09/22 11:10 Anion Gap 12.8 (5-19) 09/09/22 11:10 BUN 17 mg/dL (6-20) 09/09/22 11:10 Creatinine 3.1 mg/dL (0.5-0.9) H 09/09/22 11:10 GFR Calculation 15.8 mL/min (90-130) L 09/09/22 11:10 Glucose 177 mg/dL (65-115) H 09/09/22 11:10 POC Glucose 123 mg/dL (70-110) H 09/09/22 11:34 Calculated Osmolality 276 mOsm/kg (285-295) L 09/09/22 11:10 Lactate 1.4 mmol/L (0.5-2.2) 09/09/22 11:30 Calcium 8.1 mg/dL (8.5-10.5) L 09/09/22 11:10 Total Bilirubin 0.2 mg/dL (0.15-1.2) 09/09/22 11:10 AST 26 U/L (0-32) 09/09/22 11:10 ALT 26 U/L (0-33) 09/09/22 11:10 Alkaline Phosphatase 110 U/L (35-105) H 09/09/22 11:10 Total Protein 5.1 g/dL (6.6-8.7) L 09/09/22 11:10 Albumin 2.2 g/dL (3.5-5.2) L 09/09/22 11:10 Globulin 2.9 g/dL (1.3-4.6) 09/09/22 11:10 Ethyl Alcohol 16 mg/dL (0-10) H 09/09/22 11:10 Blood Type A Positive 09/09/22 11:30 Rho(D) Type Positive 09/09/22 11:30 Antibody Screen Negative 09/09/22 11:30 Discharge Plan Discharge Patient Disposition: Admitted As Inpatient Clinical Impression: Anemia Condition: Stable Prescriptions: No Action torsemide 100 mg tablet 100 mg PO QAM Qty: 90 5RF Rx Instructions: Take one tab in the morning and half a tab at night trazodone 50 mg tablet 50 mg PO BEDTIME 30 Days Qty: 30 5RF sodium bicarbonate 650 mg tablet 1,300 mg PO BID Qty: 120 5RF losartan 50 mg tablet 50 mg PO DAILY PRN (Reason: blood pressure) 30 Days Qty: 30 5RF Rx Instructions: take extra one if blood pressure is high hydrocodone-acetaminophen 5-325 mg tablet 1 tab PO BID PRN (Reason: diabetic neuropathy) 30 Days Qty: 60 0RF Rx Instructions: Refill on or after 30-day intervals glucose 4 gram tablet,chewable 4 g PO Q15M PRN (Reason: Hypoglycemia) Qty: 30 5RF Rx Instructions: until symptoms of low blood sugar are controlled escitalopram oxalate 10 mg tablet 10 mg PO DAILY Qty: 30 5RF calcium acetate 667 mg tablet 667 mg PO TID Qty: 90 5RF Rx Instructions: with meals and snacks Xanax 0.25 mg tablet 0.125 mg PO BID PRN (Reason: anxiety) 30 Days Qty: 60 3RF insulin aspart U-100 [Novolog FlexPen U-100 Insulin] 100 unit/mL (3 mL) insulin pen 5 unit SUBCUT TID Qty: 15 5RF Rx Instructions: 5 units with meals, and 3 units with snacks Creon 6,000-19,000 -30,000 unit capsule,delayed release(DR/EC) 4 cap PO TID Qty: 360 5RF Rx Instructions: 3 with meals and 2 with snacks ondansetron HCl 4 mg tablet 4 mg PO Q8H PRN (Reason: nausea and vomiting) Qty: 30 1RF PhosLo capsule 667 mg PO DIRECTED Rx Instructions: 1 capsule with meals and snacks ipratropium-albuterol 0.5 mg-3 mg(2.5 mg base)/3 mL solution for nebulization 3 ml inhalation Q6H PRN (Reason: shortness of breath or wheezing) Qty: 180 0RF carvedilol 6.25 mg Tablet 6.25 mg PO BID Rx Instructions: must administer with a meal/food Bumex 1 mg Tablet 1 mg PO BID Vitamin D2 1,250 mcg (50,000 unit) Capsule 1,250 mcg PO Q7D Referrals: Horacio Torres MD [Primary Care Provider] - Coding Level of Care Code ED [employer] for Daniel Emery
[2022-09-09 11:40] LABS: Alanine Aminotransferase 26 U/L (0-33); Albumin Level 2.2 g/dL (3.5-5.2); Alcohol Level 16 mg/dL (0-10); Alkaline Phosphatase 110 U/L (35-105); Anion Gap 12.8 (5-19); Aspartate Amino Transferase 26 U/L (0-32); Blood Urea Nitrogen 17 mg/dL (6-20); Calcium 8.1 mg/dL (8.5-10.5); Carbon Dioxide 28 mmol/L (22-29); Chloride 93 mmol/L (98-107); Globulin 2.9 g/dL (1.3-4.6); Glomerular Filtration Rate 15.8 mL/min (90-130); Glucose 177 mg/dL (65-115); Osmolality Calculated 276 mOsm/kg (285-295); Potassium 3.8 mmol/L (3.5-5.1); Sodium 130 mmol/L (136-145); Total Bilirubin 0.2 mg/dL (0.15-1.2); Total Protein 5.1 g/dL (6.6-8.7)
[2022-09-09 11:59] LABS: Lactate (Lactic Acid level) 1.4 mmol/L (0.5-2.2)
[2022-09-09 12:09] LABS: Glucose Point of Care 123 mg/dL (70-110)
[2022-09-09] MEDS: sucralfate 1 gm Tablet PO (13:31)
[2022-09-09] MEDS: pantoprazole 40 mg SDV IVP (13:31)
--- NOTE | 2022-09-09 13:58 | PC.PHAR ---
pt unable to verify - family member verified medications with pill bottles.
[2022-09-09 14:29] LABS: Iron 60 ug/dL (37-145); Percent Saturation 48.7 % (20-50); Total Iron Binding Capacity 123 mcg/dl; Unsaturated Iron Binding 63 ug/dL (112-347)
[2022-09-09 14:45] LABS: Vitamin B12 456 pg/mL (232-1245)
[2022-09-09 14:52] LABS: Ferritin 1184 ng/mL (15-150)
[2022-09-09 15:08] LABS: Folate Level 11.6 ng/mL (4.8-37.3)
--- NOTE | 2022-09-09 15:19 | PM.HP ---
Providers/Chief Complaint Admitting Physician: Henok Mcdonough MD Primary Care Provider: Horacio Torres MD Chief Complaint: fall/ labs low hemoglobin History of Present Illness Luli Osborne is a 52 year old female with a past medical history of insulin-dependent type 2 diabetes mellitus, history of gastric ulcers requiring EGD, history of polyps requiring colonoscopy, history of congestive heart failure, no history of CAD no history of stroke, history of chronic falls, end-stage renal disease on dialysis, history of pancreatectomy, with chronic pancreas insufficiency, recently she tells me that there was an issue with her AV fistula left arm, so she was at [facility] on Sunday, and she had 3 balloon dilatation procedures, she tells me, she is not sure if she got blood thinners then. She is not on any blood thinners at home no aspirin, no ibuprofen or naproxen use. She tells me that she always falls, this morning before going to dialysis, she fell she did not report lightheadedness no dizziness no syncopal episodes but she fell and hit her head, no loss of consciousness. When she went to dialysis, they checked her hemoglobin and it was low and she was told to come here to the emergency room. She denies any bloody or black stools but her Hemoccult stool was positive in the emergency room. No hemodynamic compromise. She tells me that she has not been feeling lightheaded or dizzy. She does report history of gastric ulcers, status post EGD. She is not exactly sure when. She also reports a history of colonic polyps. In the emergency room her hemoglobin 8.1, general surgery has been consulted, recommended EGD colonoscopy tomorrow, n.p.o. midnight, nephrology has been consulted Review of Systems Const: Denies: fever(s) Eyes: Denies: change in vision Card: Denies: chest pain Resp: Denies: dyspnea GI: Denies: abdominal pain : Denies: flank pain Musc: Denies: back pain Neuro: Reports: difficulty walking and frequent falls; Denies: headache(s) Endo: Denies: polyuria Medications/Allergies Home Medications Medication Instructions Recorded Confirmed Last Taken Type PhosLo 667 mg PO DIRECTED 07/17/22 09/09/22 Unknown History ipratropium 0.5 mg-albuterol 3 mg 3 ml inhalation Q6H PRN shortness 07/19/22 09/09/22 Unknown Rx (2.5 mg base)/3 mL nebulization of breath or wheezing #180 mL soln alprazolam 0.25 mg tablet (Xanax) 0.125 mg PO BID PRN anxiety 30 07/26/22 09/09/22 Unknown Rx days #60 tabs calcium acetate 667 mg tablet 667 mg PO TID #90 tabs 07/26/22 09/09/22 Unknown Rx escitalopram oxalate 10 mg tablet 10 mg PO DAILY mental health #30 07/26/22 09/09/22 Unknown Rx tabs glucose 4 gram chewable tablet 4 g PO Q15M PRN Hypoglycemia #30 07/26/22 09/09/22 Unknown Rx tabs hydrocodone 5 mg-acetaminophen 325 1 tab PO BID PRN diabetic 07/26/22 09/09/22 Unknown Rx mg tablet neuropathy 30 days #60 tabs losartan 50 mg tablet 50 mg PO DAILY PRN blood pressure 07/26/22 09/09/22 Unknown Rx 30 days #30 tabs sodium bicarbonate 650 mg tablet 1,300 mg PO BID kidney support 07/26/22 09/09/22 Unknown Rx #120 tabs torsemide 100 mg tablet 100 mg PO QAM diastolic heart 07/26/22 09/09/22 Unknown Rx failure #90 tabs trazodone 50 mg tablet 50 mg PO BEDTIME 30 days #30 tabs 07/26/22 09/09/22 Unknown Rx insulin aspart U-100 100 unit/mL 5 unit (0.05 mL) SUBCUT TID 08/02/22 09/09/22 Unknown Rx (3 mL) subcutaneous pen (Novolog diabetes #15 mL FlexPen U-100 Insulin aspart) [id number] 4 cap PO TID #360 caps 08/02/22 09/09/22 Unknown Rx 6,000-19,000-30,000 unit capsule,delayed rel (Creon) ondansetron HCl 4 mg tablet 4 mg PO Q8H PRN nausea and 09/01/22 09/09/22 Unknown Rx vomiting #30 tabs bumetanide 1 mg tablet 1 mg PO BID 09/09/22 09/09/22 Unknown History carvedilol 6.25 mg tablet 6.25 mg PO BID 09/09/22 09/09/22 Unknown History ergocalciferol (vitamin D2) 1,250 1,250 mcg PO Q7D 09/09/22 09/09/22 Unknown History mcg (50,000 unit) capsule (Vitamin D2) Allergies Allergy/AdvReac Type Severity Reaction Status Date / Time No Known Allergies Allergy Verified 07/26/22 14:56 PFSH Acute PFSH: Medical History Anemia in end-stage renal disease Anxiety and depression Arteriovenous fistula of left upper extremity Chronic nausea Cyst of ovary Diabetes 1.5, managed as type 1 Diabetic neuropathy associated with diabetes mellitus due to underlying condition Diabetic ulcer of toe associated with diabetes mellitus due to underlying condition, limited to breakdown of skin Diastolic heart failure ESRD (end stage renal disease) on dialysis Hx of acute pancreatitis 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 Hypertension Loose bowel movements Multiple sclerosis Protein-energy malnutrition Surgical History History of pancreatectomy Hx of hysterectomy Family History Father Diabetes Heart attack H/O right coronary artery stent placement Mother Hypertension Social History Smoking and tobacco status: current every day smoker Second hand smoke exposure: No Smoking risk assessment/counseling performed?: Yes Alcohol intake: never Desire information about alcohol rehabilitation?: No Counseling given: No Desire information about substance/drug rehabilitation?: No Counseling given: No Vitals/I&O/Wt Last Vital Signs Temp 97.8 F 09/09/22 10:54 Pulse 82 09/09/22 14:41 Resp 18 09/09/22 14:41 BP 126/75 09/09/22 14:41 Pulse Ox 94 09/09/22 14:41 O2 Del Method 09/09/22 13:37 Weight last 48 hrs Weight 49.895 kg Physical Exam Const: COMMON NORMALS: no acute distress and patient oriented x3 HENMT: COMMON NORMALS: normocephalic HEAD & SCALP: normocephalic Eye: COMMON NORMALS: Equal, round and reactive pupils present and EOMs intact bilaterally Neck/C-Spine: COMMON NORMALS: no JVD Lymph: LYMPHATIC: no lymphadenopathy noted Resp: COMMON NORMALS: normal respiratory effort, No retractions, No use of accessory muscles and clear to auscultation bilaterally AUSCULTATION: clear to auscultation bilaterally Cardio: COMMON NORMALS: no JVD, regular rate, regular rhythm, S1 normal heart sound present and S2 normal heart sound present RATE: regular rate RHYTHM: regular rhythm HEART SOUNDS: S1 normal heart sound present and S2 normal heart sound present GI: COMMON NORMALS: Normal to inspection, nondistended, normoactive bowel sounds present, Soft to palpation and non-tender PALPATION: Yes Soft to palpation : COMMON NORMALS: Yes no CVA tenderness Extremity: COMMON NORMALS: no calf tenderness and no pedal edema Neuro: COMMON NORMALS: patient oriented x3, CN's II-XII intact bilaterally, moves all extremities and no focal motor deficits Psych: COMMON NORMALS: mental status grossly normal Skin: NARRATIVE SKIN EXAM: Superficial abrasions, right scalp OTHER: AV fistula in place, Data 09/09/22 11:10 09/09/22 11:10 A&P Assessment and plan (1) GI bleed: (2) Anemia: (3) Diastolic heart failure: (4) Protein-energy malnutrition: (5) Anemia in end-stage renal disease: (6) Hypertension: (7) History of pancreatectomy: (8) Diabetes 1.5, managed as type 1: (9) ESRD (end stage renal disease) on dialysis: (10) Frequent falls: (11) Muscular deconditioning: (12) Protein calorie malnutrition: (13) Right-sided lacunar infarction: (14) Current every day vaping: Plan GI bleed -History of gastric ulcers, history of polyps -Hemodynamically stable, hemoglobin 8.1 -She tells me that she has some sort of surgical procedure at [facility] balloon dilatation of her AV fistula, 3 times, as there were concern for a clot she is not sure if she received any anticoagulation, but currently not on any blood thinners -General surgery has been consulted -Plan -Admit to general medical floors -Monitor hemoglobin every 4 hours -Iron studies -B12, folate -N.p.o. -IV fluids -Plans on EGD colonoscopy tomorrow -Protonix, Carafate -Goals of care discussion, she want to be a full code however she does not want to be kept on artificial life support for the rest of her lives -SCDs for DVT prophylaxis, anticoagulation relatively contraindicated given GI bleed No history of esophageal varices, no hemoptysis, no history of liver cirrhosis Insulin-dependent type 2 diabetes mellitus -Low-dose sliding scale End-stage renal disease on dialysis, -Nephrology consulted Pancreatectomy, with now pancreatic insufficiency, continue home medications CHF, does not look fluid overloaded, monitor Hypertension, hold blood pressure medications History of smoking, quit currently vaping Frequent falls -Possibly related to chronic right cerebellar infarct -UA pending -B12, folate -PT OT once GI work-up is complete On CT scan she has a focal well-circumscribed hypodensity in the right cerebellum, consistent with chronic lacunar infarct -Possibly this could be the reason why she is frequently falling because she is unsteady on her feet -Once her GI work-up is complete we will have PT OT work with her Attestations Medical Necessity Statement*: Patient requires hospitalization, inpatient, greater than 2 midnights, due to GI bleed frequent falls, acute anemia end-stage renal disease Diagnoses GI bleed K92.2 Anemia D64.9 Diastolic heart failure I50.30 Protein-energy malnutrition E46 Anemia in end-stage renal disease N18.6; D63.1 Hypertension I10 History of pancreatectomy Z90.410 Diabetes 1.5, managed as type 1 E13.9 ESRD (end stage renal disease) on dialysis N18.6; Z99.2 Frequent falls R29.6 Muscular deconditioning R29.898 Protein calorie malnutrition E46 Right-sided lacunar infarction I63.81 Current every day vaping Z72.89
[2022-09-09 16:18] LABS: Hematocrit 23.5 % (37.0-47.0); Hemoglobin 7.6 g/dL (11.5-15.3)
[2022-09-09 16:38] LABS: Thyroid Stimulating Hormone 3.96 uIU/mL (0.27-4.20)
[2022-09-09 16:41] LABS: INR 0.91 (0.8-1.2)
[2022-09-09 16:42] LABS: Partial Thromboplastin Time 28.7 SECONDS (23.9-36.7)
[2022-09-09 17:18] LABS: Estmated Average Glucose 134; Hemoglobin A1C 6.3 % (4.0-6.0)
[2022-09-09 19:22] LABS: Hematocrit 25.9 % (37.0-47.0); Hemoglobin 8.3 g/dL (11.5-15.3)
[2022-09-09] MEDS: sodium chloride 0.9% 1,000 ML 75 ML IV (21:25)
[2022-09-09] MEDS: sodium bicarbonate 650 mg Tablet 1300 MG PO (21:26)
[2022-09-09] MEDS: trazodone 50 mg Tablet PO (21:26)
[2022-09-09] MEDS: calcium acetate 667 mg Capsule PO (21:26)
[2022-09-09] MEDS: lipase-protease-amylase Capsule 4 EACH PO (21:26)
--- NOTE | 2022-09-09 21:32 | PC.HD ---
HD treatment completed without issues, patient slept through entire treatment. States she has pancreatic pain which is chronic, no tx related symptoms. Pt tested positive for HBV Ag on last admission 07/16/22, confirmatory test was unable to be completed by [facility] and pt's dialysis clinic was notified at that time. Pt says she was on isolation in clinic and was vaccinated and retested 3 times since then and was taken out of isolation but hepatitis panel ordered for confirmation and blood sample collected when histology technologist came to collect sample for another test, no results reported as yet. Dialysis machine is sequestered for use by this patient only until HBV neg status confirmed.
[2022-09-09 21:40] LABS: Glucose Point of Care 104 mg/dL (70-110)
--- NOTE | 2022-09-09 21:47 | PC.NURSE ---
Dr. Almodovar notified that physician note states that patient is to have EGD and colonoscopy tomorrow. Notified that patient does not have order for surgery consult, the procedure, or for bowel prep. Family member at bedside states that surgeon has not seen the patient.
[2022-09-09] MEDS: metoclopramide 5 mg/mL SDV 2 mL 10 MG IVP (22:35)
[2022-09-09 22:52] LABS: Add Urine Microscopic? YES; Bilirubin Urine Neg (Negative); Blood Urine Neg (Negative); Glucose Urine UA 1+ (Normal); Ketones Urine Negative (Negative); Leukocyte Esterase Urine Negative (Negative); Nitrate Urine Negative (Negative); Protein Urine 3+ (Negative); Specific Gravity, Urine 1.015 (1.005-1.030); Sulfosalicylic Acid Urine Positive (Negative); Urine Appearance Clear (CLEAR); Urine Color Yellow (Yellow); Urobilinogen Urine Neg (Negative); pH Urine 8 (5-7)
[2022-09-09 23:03] LABS: RBC Urine 0-4 /hpf (0-2)
[2022-09-09 23:04] LABS: Add Urine Culture? No; Bacteria Urine 1+ /hpf; Mucus Urine TRACE /hpf
[2022-09-09 23:32] LABS: Hematocrit 23.6 % (37.0-47.0); Hemoglobin 7.6 g/dL (11.5-15.3)
[2022-09-10] VITALS (10 sets, daily range): BP systolic 101–123; BP diastolic 57–73; PULSE 85–92; RESP 15–18; TEMP 36.9–37.2; O2SAT 91–97
[2022-09-10 01:13] LABS: Hepatitis A Antibody IgM Non-Reactive (Nonreactive); Hepatitis B Core AB, Total Non-Reactive (Nonreactive); Hepatitis B Surface AB 3.5 (11.5-1000); Hepatitis B Surface Antigen Non-Reactive (Nonreactive); Hepatitis C Virus Antibody Non-Reactive (Nonreactive)
[2022-09-10] MEDS: sucralfate 1 gm Tablet PO ×2 (01:13→15:15)
[2022-09-10] MEDS: pantoprazole 40 mg SDV IVP ×2 (01:53→15:15)
[2022-09-10 04:16] LABS: Hematocrit 23.2 % (37.0-47.0); Hemoglobin 7.3 g/dL (11.5-15.3)
[2022-09-10 04:36] LABS: Lactic Sepsis W/Reflex 0.9 mmol/L (0.5-2.2)
[2022-09-10 04:38] LABS: Alanine Aminotransferase 20 U/L (0-33); Albumin Level 1.9 g/dL (3.5-5.2); Alkaline Phosphatase 93 U/L (35-105); Anion Gap 9.1 (5-19); Aspartate Amino Transferase 18 U/L (0-32); Blood Urea Nitrogen 9 mg/dL (6-20); Calcium 7.3 mg/dL (8.5-10.5); Carbon Dioxide 29 mmol/L (22-29); Chloride 99 mmol/L (98-107); Globulin 2.5 g/dL (1.3-4.6); Glomerular Filtration Rate 24.8 mL/min (90-130); Glucose 123 mg/dL (65-115); Magnesium 1.7 mg/dL (1.7-2.3); NT Pro B Type Natriuretic Pept 8621 pg/mL (0-125); Osmolality Calculated 276 mOsm/kg (285-295); Phosphorus 3.5 mg/dL (2.5-4.5); Potassium 4.1 mmol/L (3.5-5.1); Sodium 133 mmol/L (136-145); Total Bilirubin 0.2 mg/dL (0.15-1.2); Total Protein 4.4 g/dL (6.6-8.7)
[2022-09-10] MEDS: ondansetron 2 mg/ML SDV 2 mL 4 MG IVP (06:21)
[2022-09-10 06:38] LABS: Glucose Point of Care 100 mg/dL (70-110)
--- NOTE | 2022-09-10 08:16 | PM.CONSULT ---
Providers/Reason For Consult Consulting Physician/Specialty*: Dr. Joss Torres, DO/General surgery Reason for Consult*: Anemia Attending Physician: Henok Mcdonough MD Primary Care Provider: Horacio Torres MD History of Present Illness History of Present Illness uLli Osborne is a 52 year old female, with past medical history of pancreatectomy, chronic pancreatitis and pancreatic insufficiency along with end-stage renal disease on hemodialysis and gastric ulcers, presented to the ER after she went to dialysis and was found to be anemic. She had a fall yesterday and hit her head. She has a small head laceration and lost a little bit of blood. She denies any dizziness or blurred vision. Denies any lightheadedness. Last colonoscopy was about a year ago. She reports that she has chronic abdominal pain from her chronic pancreatitis. The pain is in the epigastrium and radiates to her back. Pain is dull and constant. Palpation makes pain worse. Eating makes pain worse. Nothing makes pain better. She denies any bloody or black stools, however she was Hemoccult positive in the emergency room. Review of Systems General: Reports: 10 or more systems reviewed and unremarkable except in HPI and below Medications/Allergies Home Medications Medication Instructions Recorded Confirmed Last Taken Type PhosLo 667 mg PO DIRECTED 07/17/22 09/09/22 Unknown History ipratropium 0.5 mg-albuterol 3 mg 3 ml inhalation Q6H PRN shortness 07/19/22 09/09/22 Unknown Rx (2.5 mg base)/3 mL nebulization of breath or wheezing #180 mL soln alprazolam 0.25 mg tablet (Xanax) 0.125 mg PO BID PRN anxiety 30 07/26/22 09/09/22 09/07/22 Rx days #60 tabs calcium acetate 667 mg tablet 667 mg PO TID #90 tabs 07/26/22 09/09/22 09/08/22 Rx escitalopram oxalate 10 mg tablet 10 mg PO DAILY mental health #30 07/26/22 09/09/22 Unknown Rx tabs glucose 4 gram chewable tablet 4 g PO Q15M PRN Hypoglycemia #30 07/26/22 09/09/22 09/08/22 Rx tabs hydrocodone 5 mg-acetaminophen 325 1 tab PO BID PRN diabetic 07/26/22 09/09/22 09/09/22 09:15 Rx mg tablet neuropathy 30 days #60 tabs losartan 50 mg tablet 50 mg PO DAILY PRN blood pressure 07/26/22 09/09/22 Unknown Rx 30 days #30 tabs sodium bicarbonate 650 mg tablet 1,300 mg PO BID kidney support 07/26/22 09/09/22 09/08/22 22:00 Rx #120 tabs torsemide 100 mg tablet 100 mg PO QAM diastolic heart 07/26/22 09/09/22 Unknown Rx failure #90 tabs trazodone 50 mg tablet 50 mg PO BEDTIME 30 days #30 tabs 07/26/22 09/09/22 09/08/22 22:00 Rx insulin aspart U-100 100 unit/mL 5 unit (0.05 mL) SUBCUT TID 08/02/22 09/09/22 09/08/22 22:00 Rx (3 mL) subcutaneous pen (Novolog diabetes #15 mL FlexPen U-100 Insulin aspart) [id number] 4 cap PO TID #360 caps 08/02/22 09/09/22 09/08/22 22:00 Rx 6,000-19,000-30,000 unit capsule,delayed rel (Creon) ondansetron HCl 4 mg tablet 4 mg PO Q8H PRN nausea and 09/01/22 09/09/22 09/09/22 09:15 Rx vomiting #30 tabs bumetanide 1 mg tablet 1 mg PO BID 09/09/22 09/09/22 09/08/22 20:00 History carvedilol 6.25 mg tablet 6.25 mg PO BID 09/09/22 09/09/22 Unknown History ergocalciferol (vitamin D2) 1,250 1,250 mcg PO Q7D 09/09/22 09/09/22 09/08/22 History mcg (50,000 unit) capsule (Vitamin D2) gabapentin 100 mg capsule 100 mg PO BID 09/09/22 09/09/22 09/08/22 22:00 History Allergies Allergy/AdvReac Type Severity Reaction Status Date / Time No Known Allergies Allergy Verified 07/26/22 14:56 Current Medications Generic Name Dose Route Start Last Admin Trade Name Freq PRN Reason Stop Dose Admin Lipase/Protease/Amylase 4 each 09/09/22 18:00 09/09/22 21:26 Cccodl-Ijpigctd-Kaovrax Capsule PO 4 each TIDWM JAYANT Administration Calcium Acetate 667 mg 09/09/22 21:00 09/09/22 21:26 Calcium Acetate 667 Mg Capsule PO 667 mg TID JAYANT Administration Sodium Chloride 1,000 mls @ 75 mls/hr 09/09/22 15:46 09/09/22 21:25 Sodium Chloride 0.9% IV 75 mls/hr .[id number] JAYANT Administration Insulin Human Lispro 0 unit 09/09/22 18:00 09/09/22 21:24 Insulin Lispro 100 Unit/1 Ml SUBCUT Not Given TIDWM [facility] Protocol Metoclopramide HCl 10 mg 09/09/22 22:16 09/09/22 22:35 Metoclopramide 5 Mg/Ml Sdv 2 Ml IVP 10 mg Q6H PRN Administration NAUSEA AND VOMITING Ondansetron HCl 4 mg 09/09/22 15:46 09/10/22 06:21 Ondansetron 2 Mg/Ml Sdv 2 Ml IVP 4 mg Q8H PRN Administration vomiting, or N/V if npo Pantoprazole Sodium 40 mg 09/09/22 13:30 09/10/22 01:53 Pantoprazole 40 Mg Sdv IVP 40 mg Q12H JAYANT Administration Sodium Bicarbonate 1,300 mg 09/09/22 18:00 09/09/22 21:26 Sodium Bicarbonate 650 Mg Tablet PO 1,300 mg BID JAYANT Administration Sucralfate 1 gm 09/09/22 13:30 09/10/22 01:13 Sucralfate 1 Gm Tablet PO 1 gm Q12H JAYANT Administration Trazodone HCl 50 mg 09/09/22 21:00 09/09/22 21:26 Trazodone 50 Mg Tablet PO 50 mg BEDTIME JAYANT Administration PFSH Acute PFSH: Medical History Anemia in end-stage renal disease Anxiety and depression Arteriovenous fistula of left upper extremity Chronic nausea Cyst of ovary Diabetes 1.5, managed as type 1 Diabetic neuropathy associated with diabetes mellitus due to underlying condition Diabetic ulcer of toe associated with diabetes mellitus due to underlying condition, limited to breakdown of skin Diastolic heart failure ESRD (end stage renal disease) on dialysis Hx of acute pancreatitis 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 Hypertension Loose bowel movements Multiple sclerosis Protein-energy malnutrition Surgical History History of pancreatectomy Hx of hysterectomy Family History Father Diabetes Heart attack H/O right coronary artery stent placement Mother Hypertension Social History Smoking and tobacco status: current every day smoker Second hand smoke exposure: No Smoking risk assessment/counseling performed?: Yes Alcohol intake: never Desire information about alcohol rehabilitation?: No Counseling given: No Desire information about substance/drug rehabilitation?: No Counseling given: No Vitals/I&O/Wt Last Vital Signs Temp 98.8 F 09/10/22 05:51 Pulse 91 09/10/22 05:56 Resp 18 09/10/22 05:51 BP 104/62 09/10/22 05:51 Pulse Ox 91 09/10/22 05:51 O2 Del Method 09/09/22 15:09 09/09/22 09/10/22 09/10/22 22:59 06:59 14:59 Intake Total 500 / 500 Output Total 3105 / 3105 100 / 3205 Balance -2605 / -2605 -100 / -2705 Weight last 48 hrs Weight 113 lb 15.664 oz Weight 110 lb Weight 110 lb Physical Exam Narrative: General : Patient is well developed , no acute distress, oriented x3 Head : Normal cephalic Ears : Pinnae and external canal are normal. Hearing is normal. Eyes : PERRLA, Sclera and injection are normal. No conjunctival discharge. Nose : Mucous membranes are without erythema. Throat : buccal mucosa is normal, gums are without significant recession or hypertrophy. Lungs : Equal chest rise bilaterally, no use of accessory muscles, trachea is midline. Cor : Rate and rhythm are normal. Abdomen : Soft, ND, tender to palpation over the epigastrium, no g/r/m Extremities : No edema, no cyanosis or clubbing, dorsalis pedis pulses are present bilaterally, non-tender to palpation of calves. Upper extremities are normal bilaterally. Back : non-tender to palpation, no CVA tenderness. Neuro : CN II - XII intact, Upper and lower extremities have equal and full strength Data 09/10/22 03:55 09/10/22 03:55 A&P Assessment and plan (1) Anemia: Plan EGD The risks and benefits of the procedure, including bleeding, infection, intestinal perforation requiring surgery, missed lesion were explained to the patient. The patient is understanding of the risks and wishes to proceed. Coding Level of Care Code Acute Code for Chg Fwd Diagnoses Anemia D64.9
[2022-09-10] MEDS: sodium chloride 0.9% 1,000 ML 75 ML IV (11:17)
[2022-09-10 11:30] LABS: Glucose Point of Care 107 mg/dL (70-110)
[2022-09-10 12:37] LABS: Hematocrit 24.4 % (37.0-47.0); Hemoglobin 7.9 g/dL (11.5-15.3)
--- NOTE | 2022-09-10 13:13 | P.PN_ITS ---
Subjective Medications: Medication Review Details: Patient was seen this morning, she is lying on her side because she is not feeling well, she felt nauseous throughout the night, no fevers, no chills, no bloody or black stools no hematemesis no hemoptysis Vitals/I&O/Wt Last Vital Signs Temp 99.0 F 09/10/22 08:00 Pulse 89 09/10/22 08:00 Resp 17 09/10/22 08:00 BP 109/63 09/10/22 08:00 Pulse Ox 92 09/10/22 08:00 O2 Del Method 09/10/22 08:00 09/09/22 09/10/22 09/10/22 22:59 06:59 14:59 Intake Total 500 / 500 1120 / 1120 Output Total 3105 / 3105 100 / 3205 Balance -2605 / -2605 -100 / -2705 1120 / 1120 Weight last 48 hrs Weight 51.7 kg Weight 49.895 kg Weight 49.895 kg Physical Exam Const: COMMON NORMALS: no acute distress and patient oriented x3 Resp: COMMON NORMALS: normal respiratory effort, No retractions, No use of accessory muscles and clear to auscultation bilaterally AUSCULTATION: clear to auscultation bilaterally Cardio: COMMON NORMALS: regular rate, regular rhythm, S1 normal heart sound present and S2 normal heart sound present RATE: regular rate RHYTHM: regular rhythm HEART SOUNDS: S1 normal heart sound present and S2 normal heart sound present GI: COMMON NORMALS: Normal to inspection, nondistended, normoactive bowel sounds present and non-tender Extremity: COMMON NORMALS: no pedal edema Neuro: COMMON NORMALS: patient oriented x3 Psych: COMMON NORMALS: mental status grossly normal Data 09/10/22 12:25 09/10/22 03:55 A&P Assessment and plan (1) GI bleed: (2) Anemia: (3) Diastolic heart failure: (4) Protein-energy malnutrition: (5) Anemia in end-stage renal disease: (6) Hypertension: (7) History of pancreatectomy: (8) Diabetes 1.5, managed as type 1: (9) ESRD (end stage renal disease) on dialysis: (10) Frequent falls: (11) Muscular deconditioning: (12) Protein calorie malnutrition: (13) Right-sided lacunar infarction: (14) Current every day vaping: Plan GI bleed -History of gastric ulcers, history of polyps -Hemodynamically stable, hemoglobin 7.9 -She tells me that she has some sort of surgical procedure at [facility] balloon dilatation of her AV fistula, 3 times, as there were concern for a clot she is not sure if she received any anticoagulation, but currently not on any blood thinners -General surgery has been consulted -Plan -Admit to general medical floors -Monitor hemoglobin every 6 hours -N.p.o. -IV fluids -Plans on EGD today -Protonix, Carafate -Goals of care discussion, she want to be a full code however she does not want to be kept on artificial life support for the rest of her lives -SCDs for DVT prophylaxis, anticoagulation relatively contraindicated given GI bleed No history of esophageal varices, no hemoptysis, no history of liver cirrhosis Insulin-dependent type 2 diabetes mellitus -Low-dose sliding scale End-stage renal disease on dialysis, -Nephrology consulted Pancreatectomy, with now pancreatic insufficiency, continue home medications CHF, does not look fluid overloaded, monitor Hypertension, hold blood pressure medications History of smoking, quit currently vaping Frequent falls -Possibly related to chronic right cerebellar infarct -UA no significant evidence of UTI -PT OT once GI work-up is complete On CT scan she has a focal well-circumscribed hypodensity in the right cerebellum, consistent with chronic lacunar infarct -Possibly this could be the reason why she is frequently falling because she is unsteady on her feet -Once her GI work-up is complete we will have PT OT work with her Plan today more hemoglobin, go for EGD, monitor postoperatively IV fluids, transfusion as needed, PT OT Attestations Medical Necessity Statement*: Patient requires hospitalization, inpatient, for GI bleed, anemia, falls Diagnoses GI bleed K92.2 Anemia D64.9 Diastolic heart failure I50.30 Protein-energy malnutrition E46 Anemia in end-stage renal disease N18.6; D63.1 Hypertension I10 History of pancreatectomy Z90.410 Diabetes 1.5, managed as type 1 E13.9 ESRD (end stage renal disease) on dialysis N18.6; Z99.2 Frequent falls R29.6 Muscular deconditioning R29.898 Protein calorie malnutrition E46 Right-sided lacunar infarction I63.81 Current every day vaping Z72.89
[2022-09-10] MEDS: sodium chloride 0.9% 1,000 ML 30 ML IV (14:28)
--- NOTE | 2022-09-10 14:35 | P.ANESASSM_ITS ---
Pre-Anesthetic Assessment Height/Weight: Height 1.63 m Weight 51.7 kg Temp Pulse Resp BP Pulse Ox O2 Del Method 98.6 F 88 18 119/65 94 09/10/22 14:33 09/10/22 14:33 09/10/22 14:33 09/10/22 14:33 09/10/22 14:33 09/10/22 14:33 Preop Diagnosis: anemia Operation Date: 09/10/22 12:30 Proposed Procedures p EGD(Not Applicable) - Joss Torres DO Familial anesthetic complications: none Was Beta Live taken within 24 hours: N/A Was Clonidine taken within 24 hours: N/A Last intake: Intake Last Liquid Date 09/09/22 Last Liquid Time 22:00 Last Solid Date 09/09/22 Last Solid Time 22:00 Social No alcohol Vape Exam alert, oriented x 3, clear to auscultation bilaterally and regular rate & rhythm Airway Submandibular: within normal limits Cervical ROM: within normal limits Mallampati: Class II Pulmonary None reported CV/HEM Congestive Heart Failure Chronic Renal Failure dialysis yesterday GI Gastroesophageal Reflux Disease Metabolic Diabetes Mellitus [facility] None reported Neuropsych None reported Anesthetic Plan ASA status: 3 Medications/Allergies Home Medications Medication Instructions Recorded Confirmed Last Taken Type PhosLo 667 mg PO DIRECTED 07/17/22 09/09/22 Unknown History ipratropium 0.5 mg-albuterol 3 mg 3 ml inhalation Q6H PRN shortness 07/19/22 09/09/22 Unknown Rx (2.5 mg base)/3 mL nebulization of breath or wheezing #180 mL soln alprazolam 0.25 mg tablet (Xanax) 0.125 mg PO BID PRN anxiety 30 07/26/22 09/09/22 09/07/22 Rx days #60 tabs calcium acetate 667 mg tablet 667 mg PO TID #90 tabs 07/26/22 09/09/22 09/08/22 Rx escitalopram oxalate 10 mg tablet 10 mg PO DAILY mental health #30 07/26/22 09/09/22 Unknown Rx tabs glucose 4 gram chewable tablet 4 g PO Q15M PRN Hypoglycemia #30 07/26/22 09/09/22 09/08/22 Rx tabs hydrocodone 5 mg-acetaminophen 325 1 tab PO BID PRN diabetic 07/26/22 09/09/22 09/09/22 09:15 Rx mg tablet neuropathy 30 days #60 tabs losartan 50 mg tablet 50 mg PO DAILY PRN blood pressure 07/26/22 09/09/22 Unknown Rx 30 days #30 tabs sodium bicarbonate 650 mg tablet 1,300 mg PO BID kidney support 07/26/22 09/09/22 09/08/22 22:00 Rx #120 tabs torsemide 100 mg tablet 100 mg PO QAM diastolic heart 07/26/22 09/09/22 Unknown Rx failure #90 tabs trazodone 50 mg tablet 50 mg PO BEDTIME 30 days #30 tabs 07/26/22 09/09/22 22:00 Rx insulin aspart U-100 100 unit/mL 5 unit (0.05 mL) SUBCUT TID 08/02/22 09/09/22 09/08/22 22:00 Rx (3 mL) subcutaneous pen (Novolog diabetes #15 mL FlexPen U-100 Insulin aspart) [id number] 4 cap PO TID #360 caps 08/02/22 09/09/22 09/08/22 22:00 Rx 6,000-19,000-30,000 unit capsule,delayed rel (Creon) ondansetron HCl 4 mg tablet 4 mg PO Q8H PRN nausea and 09/01/22 09/09/22 09/09/22 09:15 Rx vomiting #30 tabs bumetanide 1 mg tablet 1 mg PO BID 09/09/22 09/09/22 09/08/22 20:00 History carvedilol 6.25 mg tablet 6.25 mg PO BID 09/09/22 09/09/22 Unknown History ergocalciferol (vitamin D2) 1,250 1,250 mcg PO Q7D 09/09/22 09/09/22 09/08/22 History mcg (50,000 unit) capsule (Vitamin D2) gabapentin 100 mg capsule 100 mg PO BID 09/09/22 09/09/22 09/08/22 22:00 History Allergies Allergy/AdvReac Type Severity Reaction Status Date / Time No Known Allergies Allergy Verified 07/26/22 14:56 Current Medications Generic Name Dose Route Start Last Admin Trade Name Freq PRN Reason Stop Dose Admin Lipase/Protease/Amylase 4 each 09/09/22 18:00 09/10/22 13:11 [id number]-Sblhdfku-Bfcwtbh Capsule PO Not Given TIDWM JAYANT Calcium Acetate 667 mg 09/09/22 21:00 09/10/22 12:01 Calcium Acetate 667 Mg Capsule PO Not Given TID JAYANT Gabapentin 100 mg 09/10/22 09:00 09/10/22 12:01 Gabapentin 100 Mg Capsule PO Not Given BID JAYANT Sodium Chloride 1,000 mls @ 75 mls/hr 09/09/22 15:46 09/10/22 11:17 Sodium Chloride 0.9% IV 75 mls/hr .[id number] JAYANT Administration Sodium Chloride 1,000 mls @ 30 mls/hr 09/10/22 14:30 09/10/22 14:28 Sodium Chloride 0.9% IV 09/11/22 14:29 30 mls/hr .Q24H JAYANT Administration Insulin Human Lispro 0 unit 09/09/22 18:00 09/10/22 13:11 Insulin Lispro 100 Unit/1 Ml SUBCUT Not Given TIDWM [facility] Protocol Metoclopramide HCl 10 mg 09/09/22 22:16 09/09/22 22:35 Metoclopramide 5 Mg/Ml Sdv 2 Ml IVP 10 mg Q6H PRN Administration NAUSEA AND VOMITING Ondansetron HCl 4 mg 09/09/22 15:46 09/10/22 06:21 Ondansetron 2 Mg/Ml Sdv 2 Ml IVP 4 mg Q8H PRN Administration vomiting, or N/V if npo Pantoprazole Sodium 40 mg 09/09/22 13:30 09/10/22 01:53 Pantoprazole 40 Mg Sdv IVP 40 mg Q12H JAYANT Administration Sodium Bicarbonate 1,300 mg 09/09/22 18:00 09/10/22 12:01 Sodium Bicarbonate 650 Mg Tablet PO Not Given BID JAYANT Sucralfate 1 gm 09/09/22 13:30 09/10/22 01:13 Sucralfate 1 Gm Tablet PO 1 gm Q12H JAYANT Administration Trazodone HCl 50 mg 09/09/22 21:00 09/09/22 21:26 Trazodone 50 Mg Tablet PO 50 mg BEDTIME JAYANT Administration [facility] Anesthesia Medical History Anemia in end-stage renal disease Anxiety and depression Arteriovenous fistula of left upper extremity Chronic nausea Cyst of ovary Diabetes 1.5, managed as type 1 Diabetic neuropathy associated with diabetes mellitus due to underlying condition Diabetic ulcer of toe associated with diabetes mellitus due to underlying condition, limited to breakdown of skin Diastolic heart failure ESRD (end stage renal disease) on dialysis Hx of acute pancreatitis 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 Hypertension Loose bowel movements Multiple sclerosis Protein-energy malnutrition Surgical History History of pancreatectomy Hx of hysterectomy Family History Father Diabetes Heart attack H/O right coronary artery stent placement Mother Hypertension Social History Smoking and tobacco status: current every day smoker Second hand smoke exposure: No Smoking risk assessment/counseling performed?: Yes Alcohol intake: never Desire information about alcohol rehabilitation?: No Counseling given: No Desire information about substance/drug rehabilitation?: No Counseling given: No Data Anesthesia 09/10/22 12:25 09/10/22 03:55 Short CBC 09/09/22 09/09/22 09/09/22 Range/Units 11:10 16:00 19:15 WBC 7.6 (4.0-10.0) 10^3/uL Hgb 8.1 L 7.6 L 8.3 L (11.5-15.3) g/dL Hct 25.5 L 23.5 L 25.9 L (37.0-47.0) % MCV 99.2 H (81-99) fl Plt Count 291 (130-400) 10^3/cmm Neut % (Auto) 65.3 % Neut # (Auto) 4.93 (1.8-7.7) 10^3/uL 09/09/22 09/10/22 09/10/22 Range/Units 23:19 03:55 12:25 WBC (4.0-10.0) 10^3/uL Hgb 7.6 L 7.3 L 7.9 L (11.5-15.3) g/dL Hct 23.6 L 23.2 L 24.4 L (37.0-47.0) % MCV (81-99) fl Plt Count (130-400) 10^3/cmm Neut % (Auto) % Neut # (Auto) (1.8-7.7) 10^3/uL BMP 09/09/22 09/10/22 11:10 03:55 Sodium 130 L 133 L Potassium 3.8 4.1 Chloride 93 L 99 Carbon Dioxide 28 29 BUN 17 9 Creatinine 3.1 H 2.1 H Glucose 177 H 123 H Calcium 8.1 L 7.3 L Cardiac Enzymes 09/10/22 Range/Units 03:55 NT-Pro-B Natriuret Pep 8621 H (0-125) pg/mL Liver Function 09/09/22 09/10/22 Range/Units 11:10 03:55 Total Bilirubin 0.2 0.2 (0.15-1.2) mg/dL AST 26 18 (0-32) U/L ALT 26 20 (0-33) U/L Alkaline Phosphatase 110 H 93 (35-105) U/L Albumin 2.2 L 1.9 L (3.5-5.2) g/dL Urine 09/09/22 Range/Units 22:07 Urine Color Yellow (Yellow) Urine Appearance Clear (CLEAR) Urine pH 8 H (5-7) Ur Specific Brandon 1.015 (1.005-1.030) Urine Protein 3+ H (Negative) Urine Glucose (UA) 1+ H (Normal) Urine Ketones Negative (Negative) Urine Nitrate Negative (Negative) Urine Bilirubin Neg (Negative) Ur Leukocyte Esterase Negative (Negative) Urine RBC 0-4 H (0-2) /hpf Urine WBC 5-10 H (0-5) /hpf Blood Bank 09/09/22 11:30 Blood Type A Positive Rho(D) Type Positive Antibody Screen Negative Coags 09/09/22 09/09/22 11:10 16:00 PT 12.70 12.50 INR 0.92 0.91 APTT 28.7 Cardiac Studies: Echocardiogram 07/16/22
--- NOTE | 2022-09-10 14:47 | P.PCN_ITS ---
PACU note Narrative: VSS, Good respiratory effort, report to FORENSIC ANTHROPOLOGIST Exam: awake
--- NOTE | 2022-09-10 14:47 | PM.PACU ---
PACU note Narrative: VSS, Good respiratory effort, report to LEAD NEURODIAGNOSTIC TECHNOLOGIST Exam: awake
--- NOTE | 2022-09-10 15:56 | P.CONIM_ITS ---
Providers/Reason For Consult Consulting Physician/Specialty*: [facility] /Nephrology Reason for Consult*: ESRD Attending Physician: Henok Mcdonough MD Primary Care Provider: Horacio Torres MD History of Present Illness History of Present Illness Luli Osborne is a 52 year old female Patient is a 52-year-old female with past medical history of hypertension, diabetes, CHF, end-stage renal disease on dialysis per Sunday schedule history of pancreatectomy, diabetes. Patient was noted to have low hemoglobin on routine labs at dialysis center and patient was referred to the emergency department. She denies any complaints. Patient Hemoccult stool was positive and hemoglobin was 8.1 on presentation. General surgery is following the patient and plan for EGD and colonoscopy. Patient missed her dialysis on Sunday and underwent HD in the ER. Review of Systems Narrative: Other ROS NEGATIVE Medications/Allergies Home Medications Medication Instructions Recorded Confirmed Last Taken Type PhosLo 667 mg PO DIRECTED 07/17/22 09/09/22 Unknown History ipratropium 0.5 mg-albuterol 3 mg 3 ml inhalation Q6H PRN shortness 07/19/22 09/09/22 Unknown Rx (2.5 mg base)/3 mL nebulization of breath or wheezing #180 mL soln alprazolam 0.25 mg tablet (Xanax) 0.125 mg PO BID PRN anxiety 30 07/26/22 09/09/22 09/07/22 Rx days #60 tabs calcium acetate 667 mg tablet 667 mg PO TID #90 tabs 07/26/22 09/09/22 09/08/22 Rx escitalopram oxalate 10 mg tablet 10 mg PO DAILY mental health #30 07/26/22 09/09/22 Unknown Rx tabs glucose 4 gram chewable tablet 4 g PO Q15M PRN Hypoglycemia #30 07/26/22 09/09/22 09/08/22 Rx tabs hydrocodone 5 mg-acetaminophen 325 1 tab PO BID PRN diabetic 07/26/22 09/09/22 09/09/22 09:15 Rx mg tablet neuropathy 30 days #60 tabs losartan 50 mg tablet 50 mg PO DAILY PRN blood pressure 07/26/22 09/09/22 Unknown Rx 30 days #30 tabs sodium bicarbonate 650 mg tablet 1,300 mg PO BID kidney support 07/26/22 09/09/22 09/08/22 22:00 Rx #120 tabs torsemide 100 mg tablet 100 mg PO QAM diastolic heart 07/26/22 09/09/22 Unknown Rx failure #90 tabs trazodone 50 mg tablet 50 mg PO BEDTIME 30 days #30 tabs 07/26/22 09/09/22 09/08/22 22:00 Rx insulin aspart U-100 100 unit/mL 5 unit (0.05 mL) SUBCUT TID 08/02/22 09/09/22 09/08/22 22:00 Rx (3 mL) subcutaneous pen (Novolog diabetes #15 mL FlexPen U-100 Insulin aspart) [id number]-[id number] 4 cap PO TID #360 caps 08/02/22 09/09/22 09/08/22 22:00 Rx 6,000-19,000-30,000 unit capsule,delayed rel (Creon) ondansetron HCl 4 mg tablet 4 mg PO Q8H PRN nausea and 09/01/22 09/09/22 09/09/22 09:15 Rx vomiting #30 tabs bumetanide 1 mg tablet 1 mg PO BID 09/09/22 09/09/22 09/08/22 20:00 History carvedilol 6.25 mg tablet 6.25 mg PO BID 09/09/22 09/09/22 Unknown History ergocalciferol (vitamin D2) 1,250 1,250 mcg PO Q7D 09/09/22 09/09/22 09/08/22 History mcg (50,000 unit) capsule (Vitamin D2) gabapentin 100 mg capsule 100 mg PO BID 09/09/22 09/09/22 09/08/22 22:00 History Allergies Allergy/AdvReac Type Severity Reaction Status Date / Time No Known Allergies Allergy Verified 07/26/22 14:56 Current Medications Generic Name Dose Route Start Last Admin Trade Name Freq PRN Reason Stop Dose Admin Lipase/Protease/Amylase 4 each 09/09/22 18:00 09/10/22 13:11 Ufnuck-Vmsmdlzi-Hrrbycn Capsule PO Not Given TIDWM JAYANT Calcium Acetate 667 mg 09/09/22 21:00 09/10/22 12:01 Calcium Acetate 667 Mg Capsule PO Not Given TID JAYANT Gabapentin 100 mg 09/10/22 09:00 09/10/22 12:01 Gabapentin 100 Mg Capsule PO Not Given BID JAYANT Sodium Chloride 1,000 mls @ 75 mls/hr 09/09/22 15:46 09/10/22 11:17 Sodium Chloride 0.9% IV 75 mls/hr .[id number] JAYANT Administration Sodium Chloride 1,000 mls @ 30 mls/hr 09/10/22 14:30 09/10/22 14:59 Sodium Chloride 0.9% IV 09/11/22 14:29 Infused .Q24H JAYANT Infusion Insulin Human Lispro 0 unit 09/09/22 18:00 09/10/22 13:11 Insulin Lispro 100 Unit/1 Ml SUBCUT Not Given TIDWM [facility] Protocol Metoclopramide HCl 10 mg 09/09/22 22:16 09/09/22 22:35 Metoclopramide 5 Mg/Ml Sdv 2 Ml IVP 10 mg Q6H PRN Administration NAUSEA AND VOMITING Ondansetron HCl 4 mg 09/09/22 15:46 09/10/22 06:21 Ondansetron 2 Mg/Ml Sdv 2 Ml IVP 4 mg Q8H PRN Administration vomiting, or N/V if npo Pantoprazole Sodium 40 mg 09/09/22 13:30 09/10/22 15:15 Pantoprazole 40 Mg Sdv IVP 40 mg Q12H JAYANT Administration Sodium Bicarbonate 1,300 mg 09/09/22 18:00 09/10/22 12:01 Sodium Bicarbonate 650 Mg Tablet PO Not Given BID JAYANT Sucralfate 1 gm 09/09/22 13:30 09/10/22 15:15 Sucralfate 1 Gm Tablet PO 1 gm Q12H JAYANT Administration Trazodone HCl 50 mg 09/09/22 21:00 09/09/22 21:26 Trazodone 50 Mg Tablet PO 50 mg BEDTIME JAYANT Administration PFSH Acute PFSH: Medical History Anemia in end-stage renal disease Anxiety and depression Arteriovenous fistula of left upper extremity Chronic nausea Cyst of ovary Diabetes 1.5, managed as type 1 Diabetic neuropathy associated with diabetes mellitus due to underlying condition Diabetic ulcer of toe associated with diabetes mellitus due to underlying condition, limited to breakdown of skin Diastolic heart failure ESRD (end stage renal disease) on dialysis Hx of acute pancreatitis 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 Hypertension Loose bowel movements Multiple sclerosis Protein-energy malnutrition Surgical History History of pancreatectomy Hx of hysterectomy Family History Father Diabetes Heart attack H/O right coronary artery stent placement Mother Hypertension Social History Smoking and tobacco status: current every day smoker Second hand smoke exposure: No Smoking risk assessment/counseling performed?: Yes Alcohol intake: never Desire information about alcohol rehabilitation?: No Counseling given: No Desire information about substance/drug rehabilitation?: No Counseling given: No Vitals/I&O/Wt Last Vital Signs Temp 98.5 F 09/10/22 14:45 Pulse 86 09/10/22 14:58 Resp 18 09/10/22 14:58 BP 108/57 09/10/22 14:58 Pulse Ox 97 09/10/22 14:58 O2 Del Method 09/10/22 14:58 O2 Flow Rate 4 09/10/22 14:45 09/10/22 09/10/22 09/10/22 06:59 14:59 22:59 Intake Total 1220 / 1220 Output Total 100 / 3205 Balance -100 / -2705 1220 / 1220 Weight last 48 hrs Weight 51.7 kg Weight 49.895 kg Weight 49.895 kg Physical Exam Narrative: Patient is awake alert, no acute distress HEENT mucous membranes Lungs clear to auscultation per report No pitting edema per report Data 09/10/22 12:25 09/10/22 03:55 A&P Assessment and plan (1) ESRD (end stage renal disease) on dialysis: Plan 1. End-stage renal disease: On TTS schedule as outpatient, patient missed dialysis on Sunday and presented to the ER due to low hemoglobin. Patient u nderwent dialysis in the ER. 3.5 hours, 2 to 3 L ultrafiltration as tolerated. -Next HD on Sunday 2. Hypertension: Blood pressure controlled 3. Severe anemia: Plan for colonoscopy and EGD per GI. Will order CECI Time spent 35 minutes. Patient evaluated using audiovisual cart Consult Attestations Medical Necessity Statement: SOB, IDDM, ESRD Coding Level of Care Code Acute Code for Chg Fwd Diagnoses ESRD (end stage renal disease) on dialysis N18.6; Z99.2
[2022-09-10 17:09] LABS: Glucose Point of Care 173 mg/dL (70-110)
[2022-09-10] MEDS: sodium bicarbonate 650 mg Tablet 1300 MG PO (17:57)
[2022-09-10] MEDS: lipase-protease-amylase Capsule 4 EACH PO (17:57)
[2022-09-10] MEDS: gabapentin 100 mg Capsule PO (17:58)
[2022-09-10 20:49] LABS: Hematocrit 21.5 % (37.0-47.0); Hemoglobin 6.7 g/dL (11.5-15.3)
[2022-09-10] MEDS: trazodone 50 mg Tablet PO (21:59)
[2022-09-10] MEDS: calcium acetate 667 mg Capsule PO (21:59)
[2022-09-10 22:23] LABS: Glucose Point of Care 200 mg/dL (70-110)
[2022-09-10] MEDS: HYDROcodone-acetaminophen 5-325 mg Tablet 1 TAB PO (22:38)
[2022-09-10] MEDS: FUROsemide 10 mg/mL SDV 4mL 40 MG IVP (22:55)
[2022-09-11] VITALS (16 sets, daily range): BP systolic 96–154; BP diastolic 55–86; PULSE 76–89; RESP 15–17; TEMP 36.5–37.1; O2SAT 90–100
[2022-09-11] MEDS: pantoprazole 40 mg SDV IVP ×2 (00:14→17:24)
[2022-09-11] MEDS: ondansetron 2 mg/ML SDV 2 mL 4 MG IVP ×2 (00:14→11:21)
[2022-09-11] MEDS: sucralfate 1 gm Tablet PO ×2 (00:14→17:25)
[2022-09-11 02:01] LABS: Occult Blood Stool Positive (Negative)
[2022-09-11 03:01] LABS: Basophils # 0.1 10^3/uL (0.0-0.1); Basophils % 0.7 %; Eosinophils # 0.1 10^3/uL (0.0-0.8); Eosinophils % 1.9 %; Hemoglobin 7.2 g/dL (11.5-15.3); Lymphocytes % 27.7 %; Mean Corpuscular HGB Conc 31.3 g/dL (30.0-36.0); Mean Corpuscular Hemoglobin 31.7 pg (28.0-34.0); Mean Corpuscular Volume 101.3 fl (81-99); Mean Platelet Volume 10.1 fL (7.4-10.4); Monocytes # 0.8 10^3/uL (0.2-0.9); Monocytes % 10.8 %; Neutrophils # 4.29 10^3/uL (1.8-7.7); Neutrophils % 58.4 %; Nucleated Red Blood Cells % 0 %; Platelet Count 274 10^3/cmm (130-400); Red Blood Count 2.27 10^6/uL (4.1-5.3); Red Cell Distribution Width 12.8 % (12.1-15.1); White Blood Count 7.3 10^3/uL (4.0-10.0)
[2022-09-11 03:54] LABS: Anion Gap 12.9 (5-19); Blood Urea Nitrogen 15 mg/dL (6-20); Calcium 6.9 mg/dL (8.5-10.5); Carbon Dioxide 26 mmol/L (22-29); Chloride 101 mmol/L (98-107); Glomerular Filtration Rate 16.5 mL/min (90-130); Glucose 157 mg/dL (65-115); Osmolality Calculated 286 mOsm/kg (285-295); Potassium 3.9 mmol/L (3.5-5.1); Sodium 136 mmol/L (136-145)
[2022-09-11 07:17] LABS: Glucose Point of Care 138 mg/dL (70-110)
--- NOTE | 2022-09-11 07:42 | P.PN_ITS ---
Subjective Subjective: still having blood in stool. weak, sob, edema, nausea. no cali or cp. Medications: Reviewed: Yes Medication Review Details: Current Medications Acetaminophen (Acetaminophen 325 Mg Tablet) 650 mg PO Q6H PRN PRN Reason: Mild/Mod Pain Or Temp >/= 101 Hydrocodone Bitart/Acetaminophen (Hydrocodone-Acetaminophen 5-325 Mg Tablet) 1 tab PO BID PRN PRN Reason: diabetic neuropathy Last Admin: 09/10/22 22:38 Dose: 1 tab Alprazolam (Alprazolam 0.5 Mg Tablet) 0.125 mg PO BID PRN PRN Reason: anxiety Lipase/Protease/Amylase (Yfyyts-Kdnnjgng-Xhdexlk Capsule) 4 each PO TIDWM [facility] Last Admin: 09/10/22 17:57 Dose: 4 each Benzocaine (Cetylpyridinium Lozenge) 1 each MUCOUS MEM ONCE PRN PRN Reason: SORE THROAT Calcium Acetate (Calcium Acetate 667 Mg Capsule) 667 mg PO TID [facility] Last Admin: 09/10/22 21:59 Dose: 667 mg Dextrose (Dextrose 50% Syringe 50 Ml) 25 ml IVP ONCE PRN; Protocol PRN Reason: hypoglycemia protocol Dextrose (Dextrose 50% Syringe 50 Ml) 50 ml IVP PRN PRN; Protocol PRN Reason: hypoglycemia protocol Fentanyl (Fentanyl 50 Mcg/Ml Inj 2ml) 50 mcg IVP ONCE PRN PRN Reason: Preop or postop pain Gabapentin (Gabapentin 100 Mg Capsule) 100 mg PO BID [facility] Last Admin: 09/10/22 17:58 Dose: 100 mg Glucagon (Glucagon 1 Mg/Ml Inj 1 Ml) 1 mg IM ONCE PRN; Protocol PRN Reason: Adult Acute Hypoglycemia Prot. Hydromorphone HCl (Hydromorphone 1 Mg/Ml Inj 1 Ml) 0.5 mg IVP ONCE PRN PRN Reason: PAIN Sodium Chloride (Sodium Chloride 0.9%) 1,000 mls @ 0 mls/hr IV .Q0M PRN PRN Reason: hypotension or symptomatic Albumin Human (Albumin) 12.5 gm in 50 mls @ 60 mls/hr IV PRN PRN PRN Reason: Hypotension and/or symptomatic Dextrose (D5w) 500 mls @ 100 mls/hr IV ONCE PRN; Protocol PRN Reason: Adult Acute Hypoglycemia Prot Sodium Chloride (Sodium Chloride 0.9%) 1,000 mls @ 30 mls/hr IV .Q24H [facility] Stop: 09/11/22 14:29 Last Infusion: 09/10/22 14:59 Dose: Infused Insulin Human Lispro (Insulin Lispro 100 Unit/1 Ml) 0 unit SUBCUT TIDWM [facility]; Protocol Last Admin: 09/10/22 17:57 Dose: Not Given Metoclopramide HCl (Metoclopramide 5 Mg/Ml Sdv 2 Ml) 10 mg IVP Q6H PRN PRN Reason: NAUSEA AND VOMITING Last Admin: 09/09/22 22:35 Dose: 10 mg Ondansetron HCl (Ondansetron 2 Mg/Ml Sdv 2 Ml) 4 mg IVP Q8H PRN PRN Reason: vomiting, or N/V if npo Last Admin: 09/11/22 00:14 Dose: 4 mg Ondansetron HCl (Ondansetron 2 Mg/Ml Sdv 2 Ml) 4 mg IVP Q15M PRN PRN Reason: Nausea/Vomiting PACU PHASE II Ondansetron HCl (Ondansetron 2 Mg/Ml Sdv 2 Ml) 4 mg IVP ONCE PRN PRN Reason: NAUSEA AND VOMITING Pantoprazole Sodium (Pantoprazole 40 Mg Sdv) 40 mg IVP Q12H [facility] Last Admin: 09/11/22 00:14 Dose: 40 mg Sodium Bicarbonate (Sodium Bicarbonate 650 Mg Tablet) 1,300 mg PO BID [facility] Last Admin: 09/10/22 17:57 Dose: 1,300 mg Sodium Chloride (Sodium Chloride 0.9% 100 Ml Bag) 50 ml IV PRN PRN PRN Reason: Blood transfusion prime and flush Stop: 09/11/22 22:43 Sucralfate (Sucralfate 1 Gm Tablet) 1 gm PO Q12H [facility] Last Admin: 09/11/22 00:14 Dose: 1 gm Trazodone HCl (Trazodone 50 Mg Tablet) 50 mg PO BEDTIME [facility] Last Admin: 09/10/22 21:59 Dose: 50 mg Vitals/I&O/Wt Last Vital Signs Temp 97.7 F 09/11/22 07:41 Pulse 83 09/11/22 07:41 Resp 17 09/11/22 07:41 BP 154/78 09/11/22 07:41 Pulse Ox 98 09/11/22 07:41 O2 Del Method 09/11/22 07:41 O2 Flow Rate 2 09/11/22 03:36 09/10/22 09/11/22 09/11/22 22:59 06:59 14:59 Intake Total 1240 / 2460 250 / 2710 Output Total 150 / 150 100 / 250 Balance 1090 / 2310 150 / 2460 Weight last 48 hrs Weight 51.7 kg Weight 49.895 kg Weight 49.895 kg Physical Exam Narrative: seen and examined vss heent- nca/t, eomi neck supple lungs wheezing and rales in bases heart regular abd soft, nt, nd, + bs ext no edema LUE AVF w/ thrill and bruit neuro- a,a, o x 3 Data 09/11/22 01:52 09/11/22 01:52 A&P Assessment and plan (1) ESRD (end stage renal disease) on dialysis: Plan 52 yrr old female ESRD, h/o GI bleed. pt here w/ anemia 1. End-stage renal disease: On TTS schedule as outpatient -s/p hd yesterday -c/o sob. she is to get another unit prbc. we were asked to dialyze- will dialyze today 3 hrs, 3k, remove 2l -Next HD on sunday 2. Hypertension: Blood pressure controlled 3. Severe anemia: consideration of colonoscopy -s/p EGD per GI. -continue CECI 4. dm control per pmd 5. cont zemplar / hecterol for secondary hyperparathyroidism Time spent 30 minutes. Patient evaluated w/ nurse- telehealth visit Attestations Medical Necessity Statement*: anemia and esrd Time Spent in Patient Care: 16 - 35 minutes Coding Level of Care Code Acute Code for Chg Fwd Diagnoses ESRD (end stage renal disease) on dialysis N18.6; Z99.2
[2022-09-11] MEDS: bumetanide 1 mg Tablet PO ×2 (10:02→17:26)
[2022-09-11] MEDS: gabapentin 100 mg Capsule PO ×2 (10:02→17:25)
[2022-09-11] MEDS: escitalopram 10 mg Tablet PO (10:02)
[2022-09-11] MEDS: sodium bicarbonate 650 mg Tablet 1250 MG PO ×2 (10:03→17:25)
[2022-09-11] MEDS: calcium acetate 667 mg Capsule PO ×3 (10:04→20:32)
--- NOTE | 2022-09-11 10:28 | PC.CHAP ---
Pastoral Care Encounter/Spiritual Assessment Type of Contact [] Declined epic beacon analyst visit [] Patient/Family/Request visit [] Outpatient visit [] Follow-up visit [] Physician referral [] Code/Alert [] Routine visit [] Staff referral [] Actively dying [] Patient sleeping [] Family support [] [] Out of room [] Palliative care [] [x] Receiving care in room [] Pre-surgical visit [] Trauma [] Long length of stay [] ICU visit [] Other: Relational/Emotional Strength [] Patient feels connected with others/family/visitors/staff [] Distress [] Loneliness/isolation [] Abandonment Spirituality of Patient [] Person of Elle [] Attends Confucianism of their Elle [] Believes in Prayer [] Reads Bible or Yarsanism materials [] There are Spiritual issues to be addressed Parks [employer]creation Worker Interventions [] Prayer [] Active listening [] Non-anxious presence [] Spiritual/emotional support [] Crisis/trauma care [] Spiritual counseling [] Bereavement support [] Provided bereavement packet [] Provided Bible/devotional materials [] Provided toy/stuffed animal, coloring book to patient or family member [] Provided Communion [] Anointing/[place] [] Salvation [] Completed spiritual assessment [] Other: Impact on Illness or Injury [] Angry [] Fearful [] Anxious [] Often cries [] Exhaustion [] Unable to work [] Unable to attend bahai [] Unable to walk/stand [] Unable to read [] Unable to drive [] Unable to eat/drink [] Unable to sleep [] Unable to be with family [] Patient intubated [] Other: Summary Time spent with patient
[2022-09-11] MEDS: epoetin alfa 10,000 unit/mL INJ 10000 UNIT SUBCUT (10:42)
[2022-09-11] MEDS: paricalcitol 2 mcg/mL SDV 1 mL 3 MCG IV (10:43)
[2022-09-11] MEDS: CREON 3 EACH PO ×2 (10:47→17:48)
--- NOTE | 2022-09-11 10:52 | PC.NURSE ---
Per Dr. Mcdonough patient can go to have her CT scan after Dialysis.
[2022-09-11 11:50] LABS: Hematocrit 29.8 % (37.0-47.0); Hemoglobin 9.7 g/dL (11.5-15.3)
[2022-09-11 12:04] LABS: Glucose Point of Care 124 mg/dL (70-110)
--- NOTE | 2022-09-11 12:32 | PC.NURSE ---
notified Dr. Mcdonough of HGB 9.7. Verbal order not to give blood.
--- NOTE | 2022-09-11 14:58 | P.PN_ITS ---
Subjective Subjective: Patient was seen this morning, she continues to complain of diarrhea, she has a history of C. difficile in the past she is worried if she has C. difficile again, she also reports some drainage from the perineal location, she not sure if she had a fistula there or she had an abscess but she tells me that intermittently she will get some pustulant drainage from that location and she wants me to take a look, she also wants her Creon to be corrected, her sodium bicarb to be corrected to her home dosing, in addition to her calcium acetate, she also takes Bumex at home, she does not take torsemide she wants us to correct that and are charting, she continues to feel weak, fatigued Vitals/I&O/Wt Last Vital Signs Temp 97.7 F 09/11/22 08:00 Pulse 83 09/11/22 08:00 Resp 17 09/11/22 08:00 BP 154/78 09/11/22 08:00 Pulse Ox 98 09/11/22 07:41 O2 Del Method 09/11/22 07:41 O2 Flow Rate 2 09/11/22 03:36 09/10/22 09/11/22 09/11/22 22:59 06:59 14:59 Intake Total 1240 / 2460 250 / 2710 Output Total 150 / 150 100 / 250 Balance 1090 / 2310 150 / 2460 Weight last 48 hrs Weight 51.7 kg Weight 49.895 kg Physical Exam Const: COMMON NORMALS: no acute distress and patient oriented x3 Resp: COMMON NORMALS: normal respiratory effort, No retractions and No use of accessory muscles AUSCULTATION: crackles Cardio: COMMON NORMALS: regular rate, regular rhythm, S1 normal heart sound present and S2 normal heart sound present RATE: regular rate RHYTHM: regular rhythm HEART SOUNDS: S1 normal heart sound present and S2 normal heart sound present GI: COMMON NORMALS: Normal to inspection, nondistended, normoactive bowel sounds present Extremity: COMMON NORMALS: capillary refill normal and no pedal edema Neuro: COMMON NORMALS: patient oriented x3 Psych: COMMON NORMALS: mental status grossly normal Skin: NARRATIVE SKIN EXAM: Anasarca OTHER: Examination of perineal region, no fistula, no drainage, does show old scarring carbuncles, or boils that have healed over, no active drainage does not feel fluctuant Data 09/11/22 11:43 09/11/22 01:52 Micro: Microbiology 09/09/22 17:30 Parasite Antigen Panel - Final Stool 09/10/22 17:30 C.difficile Toxin B Gene (PCR) - Final Stool A&P Assessment and plan (1) GI bleed: (2) Anemia: (3) Diastolic heart failure: (4) Protein-energy malnutrition: (5) Anemia in end-stage renal disease: (6) Hypertension: (7) History of pancreatectomy: (8) Diabetes 1.5, managed as type 1: (9) ESRD (end stage renal disease) on dialysis: (10) Frequent falls: (11) Muscular deconditioning: (12) Protein calorie malnutrition: (13) Right-sided lacunar infarction: (14) Current every day vaping: (15) Pulmonary edema: (16) CHF exacerbation: Plan GI bleed -History of gastric ulcers, history of polyps -Hemodynamically stable, status post 1 unit PRBC, hemoglobin 9.7 -She tells me that she has some sort of surgical procedure at [facility] balloon dilatation of her AV fistula, 3 times, as there were concern for a clot she is not sure if she received any anticoagulation, but currently not on any blood thinners -General surgery has been consulted, status post EGD, found to have moderate diffuse gastritis, is a bit upset that she has not had a colonoscopy done -Plan -Admit to general medical floors -Continue to monitor hemoglobin -Advance diet as tolerated -Stop fluids -Hopefully plans on outpatient colonoscopy -We will do a CT abdomen pelvis as she is here -Protonix, Carafate -Goals of care discussion, she want to be a full code however she does not want to be kept on artificial life support for the rest of her lives -SCDs for DVT prophylaxis, anticoagulation relatively contraindicated given GI bleed Fluid overload, pulmonary edema, anasarca -Continue Bumex 1 mg p.o. twice daily -She is going to receive dialysis today History of perineal drainage -On examination there is no fistula that I could see, she does have evidence of old boils, carbuncles that have ruptured, now are healing -Continue to monitor No history of esophageal varices, no hemoptysis, no history of liver cirrhosis Insulin-dependent type 2 diabetes mellitus -Low-dose sliding scale End-stage renal disease on dialysis, -Nephrology consulted Pancreatectomy, with now pancreatic insufficiency, continue home medications CHF, is fluid overloaded, as above Hypertension, hold blood pressure medications History of smoking, quit currently vaping Frequent falls -Possibly related to chronic right cerebellar infarct -UA no significant evidence of UTI -PT OT start PT OT On CT scan she has a focal well-circumscribed hypodensity in the right cerebellum, consistent with chronic lacunar infarct -Possibly this could be the reason why she is frequently falling because she is unsteady on her feet -PT OT Plan today monitor hemoglobin, will get diuresis, will get dialysis, CT scan abdomen pelvis Attestations Medical Necessity Statement*: Patient requires hospitalization for anemia, fluid overload, diastolic CHF exacerbation, end-stage renal disease, Coding Level of Care Code 16992 Moderate Time for a total of 40 minutes, includes reviewing past or interval history, examining/interviewing patient, placing orders, counseling patient/fam fan/other support, updating patient/family/other support, discussing plan of care with staff, communicating with other healthcare providers, documenting encounter and coordinating care Diagnoses GI bleed K92.2 Anemia D64.9 Diastolic heart failure I50.30 Protein-energy malnutrition E46 Anemia in end-stage renal disease N18.6; D63.1 Hypertension I10 History of pancreatectomy Z90.410 Diabetes 1.5, managed as type 1 E13.9 ESRD (end stage renal disease) on dialysis N18.6; Z99.2 Frequent falls R29.6 Muscular deconditioning R29.898 Protein calorie malnutrition E46 Right-sided lacunar infarction I63.81 Current every day vaping Z72.89 Pulmonary edema J81.1 CHF exacerbation I50.9
--- NOTE | 2022-09-11 16:00 | CT_ITS ---
WS: [id number] CT ABDOMEN PELVIS TECHNIQUE: Noncontrast CT of the abdomen and pelvis with coronal and sagittal reformatted images. CLINICAL INFORMATION: anemia, lower pelvic pain COMPARISON: CT 1 DLP: 324.[address] scans at [facility] use at least one of these dose optimization techniques: automated e xposure control; mA and/or kV adjustment per patient size (includes targeted exams where dose is matc hed to clinical indication); or iterative reconstruction. FINDINGS: Prior hysterectomy. Moderate bilateral pleural effusions with compressive atelectasis in the lung bas es. Small pericardial effusion. Diffuse body wall anasarca with mesenteric edema. Prior cholecystecto my. Intrahepatic bile duct dilatation appears unchanged. Normal GE junction. Pancreatic calcification s compatible with chronic pancreatitis. Dilatation of the pancreatic duct. Adrenal glands are normal. Atrophic kidneys. No hydronephrosis in either kidney. Small RIGHT renal cyst is unchanged. Normal no ncontrast spleen. Densely calcified normal caliber abdominal aorta. Small moderate amount of free fluid in the cul-de-sac. No evidence of high-grade large or small bowel obstruction. Mild constipation. Normal visualized lumbar spine. No other remarkable findings on this noncontrast study. CT/CT abdomen pelvis wo con [id number] IMPRESSION: 1. Diffuse body wall anasarca with small moderate bilateral pleural effusions and compressive atelectasis in the lung bases. 2. Small pericardial effusion. 3. Hepatomegaly with chronic intrahepatic biliary ductal dilatation unchanged from the prior examinations. Prior cholecystectomy. 4. Evidence of chronic pancreatitis with pancreatic calcifications. Dilatation of the pancreatic duct unchanged. 5. Mild atrophy of the kidneys bilaterally. No hydronephrosis. Stable small RI GHT renal cyst. 6. Small to moderate amount of free fluid in the cul-de-sac 7. No other acute findings.
--- NOTE | 2022-09-11 16:08 | SUR.EXTENDED ---
Pt was not on unit at this time
--- NOTE | 2022-09-11 16:35 | PC.OT ---
OT TREATMENT HELD DUE TO PATIENT IN DIALYSIS WILL ATTEMPT AGAIN TOMORROW.
--- NOTE | 2022-09-11 17:17 | PM.PN ---
Subjective Subjective: Patient seen and examined. Tolerating bland diet. Still no visible blood per rectum Vitals/I&O/Wt Last Vital Signs Temp 97.8 F 09/11/22 16:00 Pulse 84 09/11/22 16:00 Resp 16 09/11/22 16:00 BP 151/78 09/11/22 16:00 Pulse Ox 90 09/11/22 16:00 O2 Del Method 09/11/22 16:00 O2 Flow Rate 2 09/11/22 03:36 09/11/22 09/11/22 09/11/22 06:59 14:59 22:59 Intake Total 250 / 2710 500 / 500 Output Total 100 / 250 2782 / 2782 Balance 150 / 2460 -2282 / -2282 Weight last 48 hrs Weight 128 lb 15.527 oz Weight 113 lb 15.664 oz Physical Exam Narrative: General: No acute distress, awake alert and oriented x3 Abdomen: Soft, nondistended, chronically tender to palpation in epigastrium, no guarding rebound or masses Data 09/11/22 11:43 09/11/22 01:52 Micro: Microbiology 09/09/22 17:30 Parasite Antigen Panel - Final Stool 09/10/22 17:30 C.difficile Toxin B Gene (PCR) - Final Stool A&P Assessment and plan (1) Anemia: (2) Gastritis: Plan She had gastritis on EGD yesterday, which is likely the source of Hemoccult positivity. She is 6 weeks Protonix twice daily. I would like a telehealth visit with her in 2 weeks to go over her biopsy results. Continue bland diet. I do not see a need for colonoscopy right now since she had 1 a year ago. Medical management per primary Attestations Medical Necessity Statement*: Per primary Coding Level of Care Code Acute Code for [facility] Fwd Diagnoses Anemia D64.9 Gastritis K29.70
[2022-09-11] MEDS: carvedilol 6.25 mg Tablet PO (17:25)
[2022-09-11 17:28] LABS: Glucose Point of Care 215 mg/dL (70-110)
[2022-09-11] MEDS: HYDROcodone-acetaminophen 5-325 mg Tablet 1 TAB PO (17:58)
[2022-09-11] MEDS: ALPRAZolam 0.5 mg Tablet 0.125 MG PO (17:58)
[2022-09-11] MEDS: insulin lispro 100 unit/1 mL SUBCUT (18:05)
[2022-09-11] MEDS: trazodone 50 mg Tablet PO (20:32)
[2022-09-11 22:31] LABS: Glucose Point of Care 284 mg/dL (70-110)
[2022-09-12] VITALS: BP 113/65; PULSE 77; RESP 16; TEMP 36.7; O2SAT 91
[2022-09-12] MEDS: sucralfate 1 gm Tablet PO (01:35)
[2022-09-12] MEDS: pantoprazole 40 mg SDV IVP (01:36)
[2022-09-12] MEDS: acetaminophen 325 mg Tablet 650 MG PO (01:46)
[2022-09-12 03:21] VITALS: BP 121/70; PULSE 75; RESP 17; TEMP 36.9; O2SAT 98
[2022-09-12 05:43] LABS: Glucose Point of Care 212 mg/dL (70-110)
[2022-09-12 06:00] VITALS: PULSE 75
[2022-09-12 06:25] LABS: Basophils # 0.1 10^3/uL (0.0-0.1); Basophils % 0.8 %; Eosinophils # 0.2 10^3/uL (0.0-0.8); Hematocrit 30.5 % (37.0-47.0); Lymphocytes # 2.5 10^3/uL (0.8-4.8); Lymphocytes % 29.6 %; Mean Corpuscular HGB Conc 32.8 g/dL (30.0-36.0); Mean Corpuscular Hemoglobin 32.6 pg (28.0-34.0); Mean Corpuscular Volume 99.3 fl (81-99); Mean Platelet Volume 9.4 fL (7.4-10.4); Monocytes # 0.8 10^3/uL (0.2-0.9); Monocytes % 9.5 %; Neutrophils # 4.75 10^3/uL (1.8-7.7); Neutrophils % 57.1 %; Nucleated Red Blood Cells % 0 %; Platelet Count 263 10^3/cmm (130-400); Red Blood Count 3.07 10^6/uL (4.1-5.3); Red Cell Distribution Width 13.7 % (12.1-15.1); White Blood Count 8.3 10^3/uL (4.0-10.0)
[2022-09-12 06:42] LABS: Alanine Aminotransferase 15 U/L (0-33); Albumin Level 1.8 g/dL (3.5-5.2); Alkaline Phosphatase 106 U/L (35-105); Anion Gap 11.2 (5-19); Aspartate Amino Transferase 20 U/L (0-32); Blood Urea Nitrogen 12 mg/dL (6-20); Calcium 7.5 mg/dL (8.5-10.5); Carbon Dioxide 26 mmol/L (22-29); Chloride 100 mmol/L (98-107); Glomerular Filtration Rate 23.5 mL/min (90-130); Glucose 171 mg/dL (65-115); Magnesium 1.8 mg/dL (1.7-2.3); Osmolality Calculated 280 mOsm/kg (285-295); Phosphorus 2.4 mg/dL (2.5-4.5); Potassium 4.2 mmol/L (3.5-5.1); Sodium 133 mmol/L (136-145); Total Bilirubin 0.2 mg/dL (0.15-1.2); Total Protein 4.8 g/dL (6.6-8.7)
[2022-09-12 07:41] VITALS: BP 144/77; PULSE 75; RESP 18; TEMP 36.7; O2SAT 95
[2022-09-12 08:00] VITALS: PULSE 83; O2SAT 92
[2022-09-12] MEDS: CREON 3 EACH PO (09:35)
[2022-09-12] MEDS: insulin lispro 100 unit/1 mL SUBCUT (09:35)
[2022-09-12] MEDS: calcium acetate 667 mg Capsule PO (09:36)
[2022-09-12] MEDS: sodium bicarbonate 650 mg Tablet 1250 MG PO (09:36)
[2022-09-12] MEDS: escitalopram 10 mg Tablet PO (09:37)
[2022-09-12] MEDS: bumetanide 1 mg Tablet PO (09:37)
[2022-09-12] MEDS: carvedilol 6.25 mg Tablet PO (09:37)
[2022-09-12] MEDS: gabapentin 100 mg Capsule PO (09:37)
[2022-09-12] MEDS: HYDROcodone-acetaminophen 5-325 mg Tablet 1 TAB PO (09:51)
--- NOTE | 2022-09-12 11:18 | PM.PN ---
Subjective Subjective: NO NEW C/O Medications: Reviewed: Yes Vitals/I&O/Wt Last Vital Signs Temp 98.0 F 09/12/22 07:41 Pulse 83 09/12/22 08:00 Resp 18 09/12/22 07:41 BP 144/77 09/12/22 07:41 Pulse Ox 92 09/12/22 08:00 O2 Del Method 09/12/22 08:00 O2 Flow Rate 2 09/12/22 08:00 09/11/22 09/12/22 09/12/22 22:59 06:59 14:59 Intake Total 740 / 740 480 / 480 Output Total 3082 / 3082 100 / 3182 Balance -2342 / -2342 -100 / -2442 480 / 480 Weight last 48 hrs Weight 58.5 kg Physical Exam Narrative: seen and examined vss heent- nca/t, eomi neck supple lungs wheezing and rales in bases heart regular abd soft, nt, nd, + bs ext no edema LUE AVF w/ thrill and bruit neuro- a,a, o x 3 Data 09/12/22 06:08 09/12/22 06:08 Micro: Microbiology 09/09/22 17:30 Parasite Antigen Panel - Final Stool 09/10/22 17:30 C.difficile Toxin B Gene (PCR) - Final Stool A&P Assessment and plan (1) ESRD (end stage renal disease) on dialysis: Plan 52 yrr old female ESRD, h/o GI bleed. pt here w/ anemia 1. End-stage renal disease: On TTS schedule as outpatient -s/p hd yesterday -Next HD on sunday 2. Hypertension: Blood pressure controlled 3. Severe anemia: consideration of colonoscopy -s/p EGD per GI. -continue CECI 4. dm control per pmd 5. cont zemplar / hecterol for secondary hyperparathyroidism Time spent 30 minutes. Patient evaluated w/ nurse- telehealth visit Attestations Medical Necessity Statement*: Per primary Coding Level of Care Code Acute Code for Chg Fwd Diagnoses ESRD (end stage renal disease) on dialysis N18.6; Z99.2
--- NOTE | 2022-09-12 11:29 | PM.DCS ---
Discharge Providers Date of Admission: 09/09/22 15:44 Date of Discharge: September 12, 2022 Attending Provider at Admission: Henok Mcdonough MD Attending Provider at Discharge: Henok Mcdonough MD Primary Care Provider: Horacio Torres MD Diagnoses at Discharge Discharge Diagnosis (1) ESRD (end stage renal disease) on dialysis: Status: Acute Reason for Visit Reason for Visit: fall/ labs low hemoglobin Hospital Course Hospital Course mor Osborne is a 52 year old female with a past medical history of insulin-dependent type 2 diabetes mellitus, history of gastric ulcers requiring EGD, history of polyps requiring colonoscopy, history of congestive heart failure, no history of CAD no history of stroke, history of chronic falls, end-stage renal disease on dialysis, history of pancreatectomy, with chronic pancreas insufficiency, recently she tells me that there was an issue with her AV fistula left arm, so she was at [facility] on Sunday, and she had 3 balloon dilatation procedures, she tells me, she is not sure if she got blood thinners then.? She is not on any blood thinners at home no aspirin, no ibuprofen or naproxen use.? She tells me that she always falls, this morning before going to dialysis, she fell she did not report lightheadedness no dizziness no syncopal episodes but she fell and hit her head, no loss of consciousness.? When she went to dialysis, they checked her hemoglobin and it was low and she was told to come here to the emergency room.? She denies any bloody or black stools but her Hemoccult stool was positive in the emergency room.? No hemodynamic compromise.? She tells me that she has not been feeling lightheaded or dizzy.? She does report history of gastric ulcers, status post EGD.? She is not exactly sure when.? She also reports a history of colonic polyps.? In the emergency room her hemoglobin 8.1, general surgery has been consulted, recommended EGD colonoscopy tomorrow, n.p.o. midnight, nephrology has been consulted Patient was admitted to [facility] for GI bleed, status post 1 unit PRBC no hemodynamic instability, did have an EGD which showed severe gastritis, biopsies pending, H. pylori pending, discharged on Protonix, Carafate, follow-up with general surgery as outpatient. Patient did develop fluid overload, pulm edema, anasarca during hospitalization, received Bumex therapy, dialysis, overall clinically improved Has history of frequent falls, possibly related to chronic right cerebellar infarct, received PT OT, follow with Dr. Torres as outpatient. Physical Exam Const: COMMON NORMALS: no acute distress and patient oriented x3 Resp: COMMON NORMALS: normal respiratory effort, No retractions, No use of accessory muscles and clear to auscultation bilaterally AUSCULTATION: clear to auscultation bilaterally Cardio: COMMON NORMALS: regular rate, regular rhythm, S1 normal heart sound present and S2 normal heart sound present RATE: regular rate RHYTHM: regular rhythm HEART SOUNDS: S1 normal heart sound present and S2 normal heart sound present GI: COMMON NORMALS: Normal to inspection, nondistended, normoactive bowel sounds present and non-tender Extremity: COMMON NORMALS: no pedal edema Neuro: COMMON NORMALS: patient oriented x3 Psych: COMMON NORMALS: mental status grossly normal Discharge Data Studies Completed and Pending Completed Studies During Hospitalization Category Date Time Status CT abdomen pelvis wo con [id number] Routine Cat Scan 09/11/22 16:[address] head wo con* [id number] Stat Cat Scan 09/09/22 11:10 Completed Pathology: Surgical [PTH] Routine Pth 09/10/22 14:48 Completed Pending at discharge Category Date Time Status Complete Blood Count w/Auto AM LABS Lab 09/13/22 04:00 Ordered Comprehensive Metabolic Panel AM LABS Lab 09/13/22 04:00 Ordered Comprehensive Metabolic Panel AM LABS Lab 09/14/22 04:00 Ordered Enteric Bacterial Panel by PCR Routine Lab 09/11/22 10:35 Ordered Enteric Parasite Panel by PCR Routine Lab 09/11/22 10:35 Ordered Immunochemical Fecal OCB Routine Lab 09/11/22 10:35 Ordered Lactoferrin Routine Lab 09/11/22 10:35 Ordered Magnesium AM LABS Lab 09/13/22 04:00 Ordered Magnesium AM LABS Lab 09/14/22 04:00 Ordered PRBC [Leukocyte Reduced RBC] Routine Lab 09/10/22 22:43 Results Phosphorus AM LABS Lab 09/13/22 04:00 Ordered Phosphorus AM LABS Lab 09/14/22 04:00 Ordered Type and Screen Stat Lab 09/09/22 11:30 Results Radiology Impressions Head CT 09/09/22 11:10 IMPRESSION: 1. No CT evidence of acute intracranial pathology. 2. Additional findings, as above. Abdomen/Pelvis CT 09/11/22 16:00 IMPRESSION: 1. Diffuse body wall anasarca with small moderate bilateral pleural effusions and compressive atelectasis in the lung bases. 2. Small pericardial effusion. 3. Hepatomegaly with chronic intrahepatic biliary ductal dilatation unchanged from the prior examinations. Prior cholecystectomy. 4. Evidence of chronic pancreatitis with pancreatic calcifications. Dilatation of the pancreatic duct unchanged. 5. Mild atrophy of the kidneys bilaterally. No hydronephrosis. Stable small RIGHT renal cyst. 6. Small to moderate amount of free fluid in the cul-de-sac 7. No other acute findings. Laboratory Results WBC 8.3 10^3/uL (4.0-10.0) 09/12/22 06:08 RBC 3.07 10^6/uL (4.1-5.3) L 09/12/22 06:08 Hgb 10.0 g/dL (11.5-15.3) L 09/12/22 06:08 Hct 30.5 % (37.0-47.0) L 09/12/22 06:08 MCV 99.3 fl (81-99) H 09/12/22 06:08 MCH 32.6 pg (28.0-34.0) 09/12/22 06:08 MCHC 32.8 g/dL (30.0-36.0) 09/12/22 06:08 RDW 13.7 % (12.1-15.1) 09/12/22 06:08 Plt Count 263 10^3/cmm (130-400) 09/12/22 06:08 MPV 9.4 fL (7.4-10.4) 09/12/22 06:08 Neut % (Auto) 57.1 % 09/12/22 06:08 Lymph % (Auto) 29.6 % 09/12/22 06:08 [place] % (Auto) 9.5 % 09/12/22 06:08 Eos % (Auto) 2.0 % 09/12/22 06:08 Baso % (Auto) 0.8 % 09/12/22 06:08 Neut # (Auto) 4.75 10^3/uL (1.8-7.7) 09/12/22 06:08 Lymph # (Auto) 2.5 10^3/uL (0.8-4.8) 09/12/22 06:08 [place] # (Auto) 0.8 10^3/uL (0.2-0.9) 09/12/22 06:08 Eos # (Auto) 0.2 10^3/uL (0.0-0.8) 09/12/22 06:08 Baso # (Auto) 0.1 10^3/uL (0.0-0.1) 09/12/22 06:08 Nucleated RBC % (auto) 0 % 09/12/22 06:08 Nucleated RBCs # 0.0 /100WBC 09/12/22 06:08 PT 12.50 SECONDS (12.1-14.9) 09/09/22 16:00 INR 0.91 (0.8-1.2) 09/09/22 16:00 APTT 28.7 SECONDS (23.9-36.7) 09/09/22 16:00 Sodium 133 mmol/L (136-145) L 09/12/22 06:08 Potassium 4.2 mmol/L (3.5-5.1) 09/12/22 06:08 Chloride 100 mmol/L (98-107) 09/12/22 06:08 Carbon Dioxide 26 mmol/L (22-29) 09/12/22 06:08 Anion Gap 11.2 (5-19) 09/12/22 06:08 BUN 12 mg/dL (6-20) 09/12/22 06:08 Creatinine 2.2 mg/dL (0.5-0.9) H 09/12/22 06:08 GFR Calculation 23.5 mL/min (90-130) L 09/12/22 06:08 Glucose 171 mg/dL (65-115) H 09/12/22 06:08 POC Glucose 212 mg/dL (70-110) H 09/12/22 05:38 Estimat Average Glucose 134 09/09/22 16:00 Hemoglobin A1c 6.3 % (4.0-6.0) H 09/09/22 16:00 Calculated Osmolality 280 mOsm/kg (285-295) L 09/12/22 06:08 Lactic Acid 0.9 mmol/L (0.5-2.2) 09/10/22 03:55 Lactate 1.4 mmol/L (0.5-2.2) 09/09/22 11:30 Calcium 7.5 mg/dL (8.5-10.5) L 09/12/22 06:08 Phosphorus 2.4 mg/dL (2.5-4.5) L 09/12/22 06:08 Magnesium 1.8 mg/dL (1.7-2.3) 09/12/22 06:08 Iron 60 ug/dL (37-145) 09/09/22 11:10 TIBC 123 mcg/dl 09/09/22 11:10 % Saturation 48.7 % (20-50) 09/09/22 11:10 Unsat Iron Binding 63 ug/dL (112-347) L 09/09/22 11:10 Ferritin 1184 ng/mL (15-150) H 09/09/22 11:10 Total Bilirubin 0.2 mg/dL (0.15-1.2) 09/12/22 06:08 AST 20 U/L (0-32) 09/12/22 06:08 ALT 15 U/L (0-33) 09/12/22 06:08 Alkaline Phosphatase 106 U/L (35-105) H 09/12/22 06:08 NT-Pro-B Natriuret Pep 8621 pg/mL (0-125) H 09/10/22 03:55 Total Protein 4.8 g/dL (6.6-8.7) L 09/12/22 06:08 Albumin 1.8 g/dL (3.5-5.2) L 09/12/22 06:08 Globulin 3.0 g/dL (1.3-4.6) 09/12/22 06:08 Vitamin B12 456 pg/mL (232-1245) 09/09/22 11:10 Folate 11.6 ng/mL (4.8-37.3) 09/09/22 11:10 TSH 3.96 uIU/mL (0.27-4.20) 09/09/22 11:10 Urine Color Yellow (Yellow) 09/09/22 22:07 Urine Appearance Clear (CLEAR) 09/09/22 22:07 Urine pH 8 (5-7) H 09/09/22 22:07 Ur Specific [place] 1.015 (1.005-1.030) 09/09/22 22:07 Urine Protein 3+ (Negative) H 09/09/22 22:07 Urine Glucose (UA) 1+ (Normal) H 09/09/22 22:07 Urine Ketones Negative (Negative) 09/09/22 22:07 Urine Blood Neg (Negative) 09/09/22 22:07 Urine Nitrate Negative (Negative) 09/09/22 22:07 Urine Bilirubin Neg (Negative) 09/09/22 22:07 Prot Sulfosalicylic Acd Positive (Negative) 09/09/22 22:07 Urine Urobilinogen Neg mg/dL (Negative) 09/09/22 22:07 Ur Leukocyte Esterase Negative (Negative) 09/09/22 22:07 Urine RBC 0-4 /hpf (0-2) H 09/09/22 22:07 Urine WBC 5-10 /hpf (0-5) H 09/09/22 22:07 Ur Squamous Epith Cells 10-15 /hpf (0-5) H 09/09/22 22:07 Amorphous Sediment Not Reportable 09/09/22 22:07 Urine Bacteria 1+ /hpf (NONE) H 09/09/22 22:07 Urine Mucus Trace /hpf 09/09/22 22:07 Stool Occult Blood Positive (Negative) H 09/09/22 17:30 Ethyl Alcohol 16 mg/dL (0-10) H 09/09/22 11:10 Hepatitis A IgM Ab Non-reactive (Nonreactive) 09/09/22 11:10 Hep Bs Antigen Non-reactive (Nonreactive) 09/09/22 11:10 Hep Bs Antibody 3.5 (11.5-1000) L 09/09/22 11:10 Hep B Core Total Ab Non-reactive (Nonreactive) 09/09/22 11:10 Hepatitis C Antibody Non-reactive (Nonreactive) 09/09/22 11:10 Blood Type A Positive 09/09/22 11:30 Rho(D) Type Positive 09/09/22 11:30 Antibody Screen Negative 09/09/22 11:30 Crossmatch See Detail 09/09/22 11:30 Vitals Last Vital Signs Temp 98.0 F 09/12/22 07:41 Pulse 83 09/12/22 08:00 Resp 18 09/12/22 07:41 BP 144/77 09/12/22 07:41 Pulse Ox 92 09/12/22 08:00 O2 Del Method 09/12/22 08:00 O2 Flow Rate 2 09/12/22 08:00 Discharge Plan Discharge Patient Disposition: Home Condition: Stable Prescriptions: New sucralfate 1 gram Tablet 1 g PO Q12H 30 Days Qty: 60 0RF pantoprazole [Protonix] 40 mg tablet,delayed release (DR/EC) 40 mg PO BID 30 Days Qty: 60 0RF Continued trazodone 50 mg tablet 50 mg PO BEDTIME 30 Days Qty: 30 5RF sodium bicarbonate 650 mg tablet 1,300 mg PO BID Qty: 120 5RF losartan 50 mg tablet 50 mg PO DAILY PRN (Reason: blood pressure) 30 Days Qty: 30 5RF Rx Instructions: take extra one if blood pressure is high hydrocodone-acetaminophen 5-325 mg tablet 1 tab PO BID PRN (Reason: diabetic neuropathy) 30 Days Qty: 60 0RF Rx Instructions: Refill on or after 30-day intervals glucose 4 gram tablet,chewable 4 g PO Q15M PRN (Reason: Hypoglycemia) Qty: 30 5RF Rx Instructions: until symptoms of low blood sugar are controlled escitalopram oxalate 10 mg tablet 10 mg PO DAILY Qty: 30 5RF calcium acetate 667 mg tablet 667 mg PO TID Qty: 90 5RF Rx Instructions: with meals and snacks Xanax 0.25 mg tablet 0.125 mg PO BID PRN (Reason: anxiety) 30 Days Qty: 60 3RF insulin aspart U-100 [Novolog FlexPen U-100 Insulin] 100 unit/mL (3 mL) insulin pen 5 unit SUBCUT TID Qty: 15 5RF Rx Instructions: 5 units with meals, and 3 units with snacks Creon 6,000-19,000 -30,000 unit capsule,delayed release(DR/EC) 4 cap PO TID Qty: 360 5RF Rx Instructions: 3 with meals and 2 with snacks ondansetron HCl 4 mg tablet 4 mg PO Q8H PRN (Reason: nausea and vomiting) Qty: 30 1RF PhosLo capsule 667 mg PO DIRECTED Rx Instructions: 1 capsule with meals and snacks ipratropium-albuterol 0.5 mg-3 mg(2.5 mg base)/3 mL solution for nebulization 3 ml inhalation Q6H PRN (Reason: shortness of breath or wheezing) Qty: 180 0RF carvedilol 6.25 mg Tablet 6.25 mg PO BID Rx Instructions: must administer with a meal/food bumetanide [Bumex] 1 mg Tablet 1 mg PO BID ergocalciferol (vitamin D2) [Vitamin D2] 1,250 mcg (50,000 unit) Capsule 1,250 mcg PO Q7D gabapentin 100 mg Capsule 100 mg PO BID Discontinued torsemide 100 mg tablet 100 mg PO QAM Qty: 90 5RF Rx Instructions: Take one tab in the morning and half a tab at night Discharge Orders: Discharge Order (Routine); Ordered 09/12/22 Ordered By: Henok Mcdonough Referrals: Joss Torres DO [Physician] - 1 month Horacio Torres MD [Primary Care Provider] - 1-3 days Discharge Diet: Cardiac Discharge Activity: Resume usual activity Patient Instructions: GI Discharge Instructions, Opioid Safety Activity Restrictions/Additional Instructions: - Please follow-up with Dr. oTrres in a few days to recheck your hemoglobin -Follow-up with general surgery for consideration of colonoscopy Discharge Attestations Time Spent in Discharge Care*: greater than 30 min Status at Discharge: Cognitive status at discharge: cognitively intact, Behavioral status at discharge: cooperative, Quality Metrics Clinical Quality Measures [ No reported AMI, CVA or VTE this stay] Coding Level of Care Code 36850 Total time (in minutes) for Discharge: 40 Diagnoses ESRD (end stage renal disease) on dialysis N18.6; Z99.2
[2022-09-12 12:00] VITALS: BP 119/77; PULSE 75; RESP 18; TEMP 36.9; O2SAT 93
[2022-09-12 12:17] LABS: Glucose Point of Care 217 mg/dL (70-110)
--- NOTE | 2022-09-12 12:19 | PC.SOCIAL ---
IMM Update pg 2 of IMM updated and reviewed w/ patient and her mother. Copy provided and Copy dated, initialed and placed in chart.
[2022-09-12] MEDS: ondansetron 2 mg/ML SDV 2 mL 4 MG IVP (12:33)
== END 2022-09-12 14:44 | disposition home or self-care (01) | DRG 377 ==
LOC: ER 14:06 → MEDSURG 14:41
PROVIDERS: Internal Medicine Nephrology; Surgery; Admitting Provider Family Medicine; Emergency Provider General Practice; PCP Family Medicine Adult Medicine; Visit Provider Family Medicine
PROC: 0DJ08ZZ Inspection of Upper Intestinal Tract, Via Natural or Artificial Opening Endoscopic (ICD-10-PCS; CPT 43235; principal; 2022-09-10 12:30)
DX: K29.71 Gastritis, unspecified, with bleeding (principal); I50.33 Acute on chronic diastolic (congestive) heart failure; N18.6 End stage renal disease; I13.2 Hypertensive heart and chronic kidney disease with heart failure and with stage 5 chronic kidney disease, or end stage renal disease; K86.1 Other chronic pancreatitis; E46 Unspecified protein-calorie malnutrition; E13.22 Other specified diabetes mellitus with diabetic chronic kidney disease; Z99.2 Dependence on renal dialysis; R29.6 Repeated falls; Z86.73 Personal history of transient ischemic attack (TIA), and cerebral infarction without residual deficits; Z79.891 Long term (current) use of opiate analgesic; Z79.01 Long term (current) use of anticoagulants; Z79.4 Long term (current) use of insulin; D63.1 Anemia in chronic kidney disease; F41.8 Other specified anxiety disorders; K86.89 Other specified diseases of pancreas; F17.290 Nicotine dependence, other tobacco product, uncomplicated; Z90.411 Acquired partial absence of pancreas; G35 Multiple sclerosis
CPT/HCPCS: 12345; 36415; 36416; 36430; 43239; 70450; 74176; 80048; 80053; 80307; 81001; 82270; 82607; 82728; 82746; 82962; 83036; 83540; 83550; 83605; 83735; 83880; 84100; 84443; 85014; 85018; 85025; 85610; 85730; 86705; 86706; 86709; 86803; 86850; 86900; 86920; 87340; 87493; 87506; 88305; 90471; 90714; 90935; 96372; 97161; 97165; 99285; C9113; J1815; J1940; J2405; J2501; J2704; J2765; J7030; P9040; Q3014; Q4081

== ENCOUNTER 2022-10-01 16:15 | Emergency (ER) | payer MEDICARE, MEDICAID, SELFPAY ==
[2022-10-01 16:19] VITALS: BP 190/115; PULSE 97; RESP 19; TEMP 36.4; O2SAT 95; BMI 20.5
--- NOTE | 2022-10-01 16:23 | CTR_ITS ---
PROCEDURE INFORMATION: Exam: CT Head Without Contrast Exam date and time: 10/01/2022 3:47 PM Age: 52 years old Clinical indication: Injury or trauma; Fall; Blunt trauma (contusions or hematomas) and laceration; Without loss of consciousness; Without residual foreign body; Scalp; Additional info: Fall with head laceration TECHNIQUE: Imaging protocol: Computed tomography of the head without contrast. Radiation optimization: All CT scans at this facility use at least one of these dose optimization techniques: automated exposure control; mA and/or kV adjustment per patient size (includes targeted exams where dose is matched to clinical indication); or iterative reconstruction. REPORTING DATA: Count of CT and Cardiac NM exams in prior 12 months: This patient has received 5 known CTs and 0 known cardiac nuclear medicine studies in the 12 months prior to the current study. COMPARISON: CT head wo con* [id number] 09/09/2022 11:18 AM RADIATION DOSE METRICS: Total DLP (mGy-cm): 1047.04 FINDINGS: Brain: Mild-moderate cortical volume loss. Severe hypodensities in supratentorial periventricular and subcortical white matter, consistent with microangiopathy. Old lacunar infarct in the right cerebellum. No intracranial hemorrhage. Cerebral ventricles: No ventriculomegaly. Paranasal sinuses: Visualized sinuses are unremarkable. No fluid levels. Mastoid air cells: Visualized mastoid air cells are well aerated. Bones/joints: Unremarkable. No acute fracture. Soft tissues: Right parietal scalp hematoma. Possible small right frontal scalp contusion. Vasculature: No hyperdense artery. CT/CT head wo con* [id number] IMPRESSION: 1. No fracture or intracranial hemorrhage. 2. Right parietal scalp hematoma.
--- NOTE | 2022-10-01 17:06 | W.ED.FALL ---
HPI - Fall General: Chief Complaint: Fall Stated Complaint: HEAD LAC S/P FALL Time Seen by Provider: 10/01/22 16:18 History of Present Illness: 52-year-old female states that she was getting out of her car at [facility] when she slipped causing her to fall backwards and strike her head against the ground. Patient has a history of type 1 diabetes with renal dysfunction, coronary artery disease, major depressive disorder, pancreatitis, and neuropathy. Patient denies any loss of consciousness. Patient appears chronically ill but otherwise nontoxic. Patient appears in moderate pain. Patient reports pain mainly at the site of impact of the head. Bleeding is controlled at the time of evaluation. Associated symptoms-after fall: Reports headache(s); Denies chest pain Review of Systems General: Reports: 10 or more systems reviewed and unremarkable except in HPI and below Const: Denies: fever(s) Card: Denies: chest pain Resp: Denies: dyspnea GI: Denies: vomiting : Denies: difficulty voiding Musc: Reports: back pain Skin/Breast: Reports: new lesions Neuro: Reports: headache(s) PFS ED PFSH: Medical History (Updated 10/01/22 @ 17:37 by DYLON Cortez) Acute exacerbation of congestive heart failure Anemia in end-stage renal disease Anxiety and depression Arteriovenous fistula of left upper extremity Chronic nausea Cyst of ovary Diabetes 1.5, managed as type 1 Diabetic neuropathy associated with diabetes mellitus due to underlying condition Diabetic ulcer of toe associated with diabetes mellitus due to underlying condition, limited to breakdown of skin Diastolic heart failure ESRD (end stage renal disease) on dialysis Hx of acute pancreatitis 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 Hypertension Loose bowel movements Multiple sclerosis Protein-energy malnutrition Surgical History History of pancreatectomy Hx of hysterectomy Family History Father Diabetes Heart attack H/O right coronary artery stent placement Mother Hypertension Social History Smoking and tobacco status: current every day smoker Second hand smoke exposure: No Smoking risk assessment/counseling performed?: Yes Alcohol intake: never Desire information about alcohol rehabilitation?: No Counseling given: No Desire information about substance/drug rehabilitation?: No Counseling given: No Physical Exam Const: COMMON NORMALS: alert HENMT: COMMON NORMALS: TM's normal bilaterally and Normal external nose present HEAD & SCALP: hematoma (Occipital right scalp) and laceration (Abrasion right scalp occipital) NOSE: Normal external nose present TYMPANIC MEMBRANE: TM's normal bilaterally Neck/C-Spine: CERVICAL SPINE: Yes cervical ROM normal and No Cervical spine tenderness Chest: COMMONS NORMALS: normal palpation of entire chest wall Resp: COMMON NORMALS: normal respiratory effort and clear to auscultation bilaterally AUSCULTATION: clear to auscultation bilaterally Cardio: COMMON NORMALS: regular rate RATE: regular rate GI: COMMON NORMALS: non-tender Back/Pelvis: COMMON NORMALS: thoracic and lumbar spine normal to inspection Extremity: COMMON NORMALS: normal to inspection Neuro: SENSORIUM/ORIENTATION: Yes alert Skin: COMMON NORMALS: turgor normal GENERAL SKIN EXAM: turgor normal Course Vital Signs: Vital signs: Vital Signs Temperature 97.5 F L 10/01/22 16:19 Pulse Rate 97 10/01/22 16:19 Respiratory Rate 19 H 10/01/22 16:19 Blood Pressure 190/115 10/01/22 16:19 Pulse Oximetry 95 10/01/22 16:19 Oxygen Delivery Me thod 10/01/22 16:19 MDM - Fall Medical Decision Making 52-year-old female comes in today with complaints of injury sustained from a fall in the parking lot at [facility]. Patient reports losing her balance and causing her to fall to the ground as she got out of the car. Patient denies any chest pain or shortness of breath. Patient does have neuropathy secondary to type 1 diabetes. Differential diagnosis includes but not limited to skull fracture, hematoma, laceration, intracranial bleeding. CT of the head noted no intracranial bleeding. Reviewed exam with patient with recommendations for treatment and follow-up. Patient reported understanding and agreed to plan. Lab Data Radiology Impressions Head CT 10/01/22 16:23 IMPRESSION: 1. No fracture or intracranial hemorrhage. 2. Right parietal scalp hematoma. Discharge Plan Discharge Patient Disposition: Home Clinical Impression: Fall Qualifiers: Encounter type: initial encounter Qualified Code(s): W19.XXXA - Unspecified fall, initial encounter Hematoma of right parietal scalp Qualifiers: Encounter type: initial encounter Qualified Code(s): S00.03XA - Contusion of scalp, initial encounter Abrasion of scalp Qualifiers: Encounter type: initial encounter Qualified Code(s): S00.01XA - Abrasion of scalp, initial encounter Condition: Stable Prescriptions: No Action trazodone 50 mg tablet 50 mg PO BEDTIME 30 Days Qty: 30 5RF sodium bicarbonate 650 mg tablet 1,300 mg PO BID Qty: 120 5RF losartan 50 mg tablet 50 mg PO DAILY PRN (Reason: blood pressure) 30 Days Qty: 30 5RF Rx Instructions: take extra one if blood pressure is high hydrocodone-acetaminophen 5-325 mg tablet 1 tab PO BID PRN (Reason: diabetic neuropathy) 30 Days Qty: 60 0RF Rx Instructions: Refill on or after 30-day intervals glucose 4 gram tablet,chewable 4 g PO Q15M PRN (Reason: Hypoglycemia) Qty: 30 5RF Rx Instructions: until symptoms of low blood sugar are controlled escitalopram oxalate 10 mg tablet 10 mg PO DAILY Qty: 30 5RF Xanax 0.25 mg tablet 0.125 mg PO BID PRN (Reason: anxiety) 30 Days Qty: 60 3RF levofloxacin 250 mg tablet 250 mg PO DAILY Qty: 7 0RF calcium acetate 667 mg tablet 667 mg PO TID Qty: 90 5RF Rx Instructions: with meals and snacks insulin aspart U-100 [Novolog FlexPen U-100 Insulin] 100 unit/mL (3 mL) insulin pen 5 unit SUBCUT TID Qty: 15 5RF Rx Instructions: 5 units with meals, and 3 units with snacks Creon 6,000-19,000 -30,000 unit capsule,delayed release(DR/EC) 4 cap PO TID Qty: 360 5RF Rx Instructions: 3 with meals and 2 with snacks ondansetron HCl 4 mg tablet 4 mg PO Q8H PRN (Reason: nausea and vomiting) Qty: 30 1RF PhosLo capsule 667 mg PO DIRECTED Rx Instructions: 1 capsule with meals and snacks ipratropium-albuterol 0.5 mg-3 mg(2.5 mg base)/3 mL solution for nebulization 3 ml inhalation Q6H PRN (Reason: shortness of breath or wheezing) Qty: 180 0RF carvedilol 6.25 mg Tablet 6.25 mg PO BID Rx Instructions: must administer with a meal/food bumetanide 1 mg Tablet 1 mg PO BID ergocalciferol (vitamin D2) [Vitamin D2] 1,250 mcg (50,000 unit) Capsule 1,250 mcg PO Q7D gabapentin 100 mg Capsule 100 mg PO BID sucralfate 1 gram Tablet 1 g PO Q12H 30 Days Qty: 60 0RF Protonix 40 mg tablet,delayed release (DR/EC) 40 mg PO BID 30 Days Qty: 60 0RF Discharge Orders: Discharge ED (Routine); Ordered 10/01/22 Ordered By: Jared Osborne Referrals: Horacio Torres MD [Primary Care Provider] - Discharge Diet: Usual diet Discharge Activity: Increase activity as tolerated Patient Instructions: Head Injury (ED), Abrasion (ED) Activity Restrictions/Additional Instructions: Home and rest. Continue with routine care as directed. Clean the wound with mild soap and water and apply antibiotic ointment to it daily. Cover as needed for drainage. Follow-up with primary care in 1 to 2 days for recheck. Return to ED for worsening symptoms such as high fever, persistent nausea or vomiting, severe headache, or new concerns. Coding Level of Care Code ED Inspector Conveyor Line for Daniel Emery
[2022-10-01] MEDS: HYDROcodone-acetaminophen 5-325 mg Tablet 1 TAB PO (17:21)
--- NOTE | 2022-10-01 17:58 | XRR_ITS ---
PROCEDURE INFORMATION: Exam: XR Spine; Lumbar Exam date and time: 10/01/2022 6:04 PM Age: 52 years old Clinical indication: Injury or trauma; Fall; Injury: Low back pain; Additional info: Fall with back pain TECHNIQUE: Imaging protocol: XR of the spine. Exam focused on the lumbar spine. Views: 1 view. 1 view. COMPARISON: CT abdomen pelvis wo con [id number] 09/11/2022 4:33 PM FINDINGS: Tubes, catheters and devices: Stimulator device in the right buttock region with lead transversing the right sacrum. Bones/joints: Single lateral view. The lumbar vertebral body alignment and stature is intact. No fracture or subluxation. The superior sacrum is obscured by overlying stimulator device. Vasculature: Arterial calcifications. Soft tissues: Normal. XR/XR lumbar spine 1V port [id number] IMPRESSION: No acute findings.
[2022-10-01 18:33] VITALS: BP 181/121; PULSE 98; RESP 16; O2SAT 95
[2022-10-01 18:38] LABS: Basophils # 0.1 10^3/uL (0.0-0.1); Basophils % 1.1 %; Eosinophils # 0.2 10^3/uL (0.0-0.8); Eosinophils % 2.1 %; Hematocrit 30.8 % (37.0-47.0); Hemoglobin 9.7 g/dL (11.5-15.3); Lymphocytes # 1.9 10^3/uL (0.8-4.8); Lymphocytes % 24.9 %; Mean Corpuscular HGB Conc 31.5 g/dL (30.0-36.0); Mean Corpuscular Hemoglobin 32.1 pg (28.0-34.0); Mean Platelet Volume 9.7 fL (7.4-10.4); Monocytes # 0.6 10^3/uL (0.2-0.9); Monocytes % 8.5 %; Neutrophils # 4.75 10^3/uL (1.8-7.7); Nucleated Red Blood Cells % 0 %; Platelet Count 164 10^3/cmm (130-400); Red Blood Count 3.02 10^6/uL (4.1-5.3); Red Cell Distribution Width 15.4 % (12.1-15.1); White Blood Count 7.5 10^3/uL (4.0-10.0)
== END 2022-10-01 18:50 | disposition home or self-care (01) ==
PROVIDERS: Emergency Provider Nurse Practitioner Family; PCP Family Medicine Adult Medicine
DX: S00.03XA Contusion of scalp, initial encounter (principal); M54.50 Low back pain, unspecified; I13.2 Hypertensive heart and chronic kidney disease with heart failure and with stage 5 chronic kidney disease, or end stage renal disease; I50.30 Unspecified diastolic (congestive) heart failure; N18.6 End stage renal disease; E13.22 Other specified diabetes mellitus with diabetic chronic kidney disease; E13.40 Other specified diabetes mellitus with diabetic neuropathy, unspecified; D63.1 Anemia in chronic kidney disease; F17.200 Nicotine dependence, unspecified, uncomplicated; Z79.84 Long term (current) use of oral hypoglycemic drugs; Z99.2 Dependence on renal dialysis; W18.39XA Other fall on same level, initial encounter; Y92.481 Parking lot as the place of occurrence of the external cause
CPT/HCPCS: 36415; 70450; 72020; 85025; 99285

== ENCOUNTER → 2022-10-04 17:01 | Outpatient (BNVA) | payer MEDICARE, SELFPAY | PROVIDERS: PCP Family Medicine Adult Medicine; Visit Provider Surgery | DX: K86.1 Other chronic pancreatitis (principal) | CPT/HCPCS: 99024; 99212 ==

== ENCOUNTER 2022-10-13 19:04 | Emergency (ER) | payer MEDICARE, MEDICAID, SELFPAY ==
[2022-10-13 19:33] VITALS: BP 132/78; PULSE 91; RESP 17; TEMP 36.7; O2SAT 98; BMI 19.5
--- NOTE | 2022-10-13 22:19 | W.ED.WOUNDLC ---
HPI - Wound/Laceration General: Chief Complaint: Wound/Laceration Stated Complaint: low labs, needs packing for incision Time Seen by Provider: 10/13/22 20:29 Source: patient Mode of arrival: ambulatory Limitations: no limitations History of Present Illness: Patient presents emergency department today for evaluation treatment of concerns for left buttock wound. Patient's chart review shows that she had a fall in a parking lot a couple weeks ago. Patient has had continued pain in the left buttock region and was seen by her doctor today. It was determined she had a hematoma and had an I&D in the office today to evacuate the clot. Wound packing was placed as well as bandaging and patient was started on doxycycline. She has an appointment on Sunday to a follow-up for wound check. Unfortunately, patient is dealing with some diarrhea and after a bowel movement this afternoon, accidentally had her packing pulled. She states that the area began to bleed and, as she already has a history of anemia secondary to her chronic kidney disease, she presents to have replacement of her packing. Review of Systems General: Reports: 10 or more systems reviewed and unremarkable except in HPI and below Skin/Breast: Reports: erythema, skin pain and skin tenderness PFSH ED PFSH: Medical History Acute exacerbation of congestive heart failure Anemia in end-stage renal disease Anxiety and depression Arteriovenous fistula of left upper extremity Bilateral pleural effusion Chronic nausea Diabetes 1.5, managed as type 1 Diabetic neuropathy associated with diabetes mellitus due to underlying condition Diabetic ulcer of toe associated with diabetes mellitus due to underlying condition, limited to breakdown of skin Diastolic heart failure ESRD (end stage renal disease) on dialysis Hx of acute pancreatitis 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 Hypertension Infection of wound hematoma Multiple sclerosis Char-rectal abscess Protein-energy malnutrition Surgical History History of pancreatectomy Hx of hysterectomy Family History Father Diabetes Heart attack H/O right coronary artery stent placement Mother Hypertension Social History Smoking and tobacco status: current every day smoker Second hand smoke exposure: No Smoking risk assessment/counseling performed?: Yes Alcohol intake: never Desire information about alcohol rehabilitation?: No Counseling given: No Desire information about substance/drug rehabilitation?: No Counseling given: No Physical Exam Const: COMMON NORMALS: no acute distress, patient oriented x3 and alert HENMT: COMMON NORMALS: normocephalic, atraumatic and hearing grossly normal bilaterally HEAD & SCALP: normocephalic and atraumatic Eye: COMMON NORMALS: Equal, round and reactive pupils present, EOMs intact bilaterally and conjunctivae normal CONJUNCTIVA: Yes conjunctivae normal PUPIL: Yes Equal, round and reactive pupils present Neck/C-Spine: COMMON NORMALS: full ROM and no JVD Lymph: LYMPHATIC: no lymphadenopathy noted Resp: COMMON NORMALS: normal respiratory effort, No retractions and No use of accessory muscles Cardio: COMMON NORMALS: no JVD and regular rate RATE: regular rate Neuro: COMMON NORMALS: patient oriented x3 SENSORIUM/ORIENTATION: Yes alert Psych: COMMON NORMALS: mental status grossly normal, Normal thought process present, cooperative and normal affect THOUGHT PROCESS: Normal thought process present Skin: COMMON NORMALS: no rashes or lesions noted and turgor normal NARRATIVE SKIN EXAM: Patient has some mild erythema noted to the inferior left gluteal fold-not affecting the rectum with an obvious stab incision with wound edge separation. There is no active bleeding but there is some purulent material noted within the wound opening. GENERAL SKIN EXAM: no rashes or lesions noted and turgor normal Procedures Abscess I/D Site: other (Left inferior gluteal cleft) Side (if applicable): right Sedation/analgesia: none Amount of fluid expressed (mL): 0 Irrigation: No Packing used?: plain Complications: other (No complications, packing easily replaced. Wound covered and bandaged.) Course Vital Signs: Vital signs: Vital Signs Temperature 98.0 F 10/13/22 19:33 Pulse Rate 91 10/13/22 19:33 Respiratory Rate 17 10/13/22 19:33 Blood Pressure 132/78 10/13/22 19:33 Pulse Oximetry 98 10/13/22 19:33 Oxygen Delivery Me thod 10/13/22 19:33 MDM - Wound/Laceration Medical Decision Making Patient presented to the emergency room today with the simple request of wound packing replacement. Patient's wound edges are still and opening and, palpable area of previous abscess noted. Patient easily tolerated replacement of the wound packing material and the surrounding area was also cleaned using iodine. Replacement bandaging and nonstick Telfa was placed over the wound packing as well as paper tape. She has an upcoming appointment with her primary care for wound check on Sunday and is to continue wound care and bandage changing as previously instructed by the primary care doctor. She will continue taking her antibiotics. Differential Diagnosis Likely abscess (Wound packing replacement, cellulitis, redevelopment of hematoma) Discharge Plan Discharge Patient Disposition: Home Clinical Impression: Traumatic hematoma, Wound check, abscess Condition: Stable Prescriptions: No Action trazodone 50 mg tablet 50 mg PO BEDTIME 30 Days Qty: 30 5RF sodium bicarbonate 650 mg tablet 1,300 mg PO BID Qty: 120 5RF losartan 50 mg tablet 50 mg PO DAILY PRN (Reason: blood pressure) 30 Days Qty: 30 5RF Rx Instructions: take extra one if blood pressure is high hydrocodone-acetaminophen 5-325 mg tablet 1 tab PO BID PRN (Reason: diabetic neuropathy) 30 Days Qty: 60 0RF Rx Instructions: Refill on or after 30-day intervals glucose 4 gram tablet,chewable 4 g PO Q15M PRN (Reason: Hypoglycemia) Qty: 30 5RF Rx Instructions: until symptoms of low blood sugar are controlled escitalopram oxalate 10 mg tablet 10 mg PO DAILY Qty: 30 5RF Xanax 0.25 mg tablet 0.125 mg PO BID PRN (Reason: anxiety) 30 Days Qty: 60 3RF doxycycline hyclate 100 mg capsule 100 mg PO BID Qty: 30 0RF diphenoxylate-atropine [Lomotil] 2.5-0.025 mg tablet 1 tab PO BID PRN (Reason: diarrhea) Qty: 60 2RF calcium acetate 667 mg tablet 667 mg PO TID Qty: 90 5RF Rx Instructions: with meals and snacks insulin aspart U-100 [Novolog FlexPen U-100 Insulin] 100 unit/mL (3 mL) insulin pen 5 unit SUBCUT TID Qty: 15 5RF Rx Instructions: 5 units with meals, and 3 units with snacks Creon 6,000-19,000 -30,000 unit capsule,delayed release(DR/EC) 4 cap PO TID Qty: 360 5RF Rx Instructions: 3 with meals and 2 with snacks ondansetron HCl 4 mg tablet 4 mg PO Q8H PRN (Reason: nausea and vomiting) Qty: 30 1RF PhosLo capsule 667 mg PO DIRECTED Rx Instructions: 1 capsule with meals and snacks ipratropium-albuterol 0.5 mg-3 mg(2.5 mg base)/3 mL solution for nebulization 3 ml inhalation Q6H PRN (Reason: shortness of breath or wheezing) Qty: 180 0RF carvedilol 6.25 mg Tablet 6.25 mg PO BID Rx Instructions: must administer with a meal/food bumetanide 1 mg Tablet 1 mg PO BID ergocalciferol (vitamin D2) [Vitamin D2] 1,250 mcg (50,000 unit) Capsule 1,250 mcg PO Q7D gabapentin 100 mg Capsule 100 mg PO BID Discharge Orders: Discharge ED (Routine); Ordered 10/13/22 Ordered By: Haydee Espinal Referrals: Horacio Torres MD [Primary Care Provider] - Discharge Diet: Usual diet Discharge Activity: Limit activity as instructed Patient Instructions: Hematoma (ED), Abscess Incision and Drainage (DC) Activity Restrictions/Additional Instructions: Examination of your wound shows no signs of any active bleeding or draining. However, with your recent I&D of your hematoma, we did replace the packing material to allow a wick for any reaccumulation of bleeding or fluid as this area heals. Continue bandaging as previously instructed and keep your follow-up appointment on Sunday for wound check. Keep taking your antibiotics. Thank you! Coding Level of Care Code ED [employer] Physiotherapist for Daniel Emery
== END 2022-10-13 21:57 | disposition home or self-care (01) ==
PROVIDERS: Emergency Provider Physician Assistant; PCP Family Medicine Adult Medicine
DX: L02.31 Cutaneous abscess of buttock (principal); I13.2 Hypertensive heart and chronic kidney disease with heart failure and with stage 5 chronic kidney disease, or end stage renal disease; N18.6 End stage renal disease; I50.30 Unspecified diastolic (congestive) heart failure; E10.40 Type 1 diabetes mellitus with diabetic neuropathy, unspecified; F17.200 Nicotine dependence, unspecified, uncomplicated; Z99.2 Dependence on renal dialysis
CPT/HCPCS: 99282

== ENCOUNTER 2023-01-03 12:25 | Outpatient (CLI) | payer MEDICARE, SELFPAY ==
--- NOTE | 2023-01-03 12:41 | XR_ITS ---
WS: [id number] XR chest 2V* [id number] REASON FOR EXAM: SHORTNESS OF BREATH FINDINGS: The heart and mediastinum are within normal limits. No active pulmonary parenchymal or pleural disease in the right hemithorax. There is complex opacity in the left lower chest which appears to represent atelectasis and left pleu ral effusion. Bony thorax is intact without significant focal finding. XR/XR chest 2V* [id number] IMPRESSION: Abnormal left hemithorax as above. Patient had large bilateral pleural effusion s and bilateral lower lobe atelectasis on CT scan 09/11/2022. This is the first chest exam since that examination.
== END 2023-01-03 12:26 | disposition home or self-care (01) ==
PROVIDERS: PCP Family Medicine Adult Medicine; Visit Provider Registered Nurse
DX: R06.02 Shortness of breath (principal); R91.8 Other nonspecific abnormal finding of lung field
CPT/HCPCS: 71046

== ENCOUNTER 2023-01-04 17:02 | Emergency (ER) | payer MEDICARE, SELFPAY ==
--- NOTE | 2023-01-04 17:12 | W.ED.SOB ---
Documented by User: Lucas Berry DO 01/04/23 18:12 HPI - SOB/Dyspnea General: Chief Complaint: Shortness of Breath/Dyspnea Stated Complaint: sob Time Seen by Provider: 01/04/23 17:05 Source: patient Mode of arrival: ambulatory History of Present Illness: HPI Narrative: 52-year-old female with a history of end-stage renal disease on Sunday dialysis presents emergency room via EMS. She had her first full dialysis run today she been complaining of some shortness of breath she has a known history of COPD is on 2 L by nasal cannula oxygen. Did not do chest x-ray and she had pleural effusion she was directed here by nurse practitioner. MD elicited complaint: shortness of breath Onset (ago): day(s) Associated symptoms: Deny abdominal pain, chest congestion, chest pain, cough, diaphoresis, dizziness, extremity pain, fever(s), hemoptysis, lightheadedness, myalgias, nausea, orthopnea, palpitations or vomiting Review of Systems Const: Denies: fever(s), chills, body aches, change in appetite, fatigue, malaise or diaphoresis ENMT: Denies: throat pain, ear or mastoid pain, nasal discharge or nasal congestion Card: Denies: chest pain, palpitations, edema, lightheadedness, dyspnea on exertion or orthopnea Resp: Denies: dyspnea, productive cough, non-productive cough, hemoptysis or chest congestion GI: Denies: abdominal pain, nausea, vomiting, hematemesis, coffee ground emesis, diarrhea, constipation, bloating, hematochezia or melena : Denies: flank pain, difficulty voiding, dysuria, urinary frequency or urinary urgency Musc: Denies: extremity pain Skin/Breast: Denies: rash or pruritus Neuro: Denies: dizziness PFSH ED PFSH: Medical History Anemia in end-stage renal disease Anxiety and depression Arteriovenous fistula of left upper extremity Chronic nausea Diabetes 1.5, managed as type 1 Diabetic neuropathy associated with diabetes mellitus due to underlying condition Diabetic ulcer of toe associated with diabetes mellitus due to underlying condition, limited to breakdown of skin Diastolic CHF, chronic Dry eye of right side ESRD (end stage renal disease) on dialysis GERD (gastroesophageal reflux disease) Hx of acute pancreatitis 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 Hypertension Infection of wound hematoma Malnutrition due to renal disease Multiple sclerosis Surgical History History of pancreatectomy Hx of hysterectomy Family History Father Diabetes Heart attack H/O right coronary artery stent placement Mother Hypertension Social History Smoking and tobacco status: current every day smoker Second hand smoke exposure: No Smoking risk assessment/counseling performed?: Yes Alcohol intake: never Desire information about alcohol rehabilitation?: No Counseling given: No Substance/Drug Use: never Desire information about substance/drug rehabilitation?: No Counseling given: No Physical Exam Const: GENERAL APPEARANCE: cooperative and comfortable ORIENTATION/CONSCIOUSNESS: Yes awake, Yes oriented to person, Yes oriented to place and Yes oriented to time HENMT: COMMON NORMALS: normocephalic, atraumatic and hearing grossly normal bilaterally HEAD & SCALP: normocephalic and atraumatic Resp: AUSCULTATION: rhonchi and wheezes Cardio: COMMON NORMALS: regular rate, regular rhythm and No murmurs present (Cardio) RATE: regular rate RHYTHM: regular rhythm GI: COMMON NORMALS: Soft to palpation and No hepatosplenomegaly present AUSCULTATION: Yes normoactive bowel sounds PALPATION: Yes Soft to palpation, No Tenderness to palpation present (GI), No Guarding due to palpation present (GI) and Yes No hepatosplenomegaly present Extremity: COMMON NORMALS: normal to inspection, capillary refill normal, no clubbing, cyanosis or edema, no calf tenderness and no pedal edema Neuro: SENSORIUM/ORIENTATION: Yes oriented to person, Yes oriented to place and Yes oriented to time Skin: COMMON NORMALS: no rashes or lesions noted GENERAL SKIN EXAM: no rashes or lesions noted Course Vital Signs: Vital signs: Vital Signs Pulse Rate 78 01/04/23 18:23 Respiratory Rate 16 01/04/23 18:23 Blood Pressure 170/85 01/04/23 18:23 Pulse Oximetry 99 01/04/23 18:23 Oxygen Delivery Me thod Nasal Cannula 01/04/23 17:16 Oxygen Flow Rate 2 01/04/23 17:16 MDM - SOB/Dyspnea Medical Decision Making Care signed out to Dr. subramanian at change of shift. See final notes for diagnosis and disposition. Lab Data 01/04/23 18:05 01/04/23 18:05 Labs/Radiology: Radiology Impressions Chest X-Ray 01/04/23 17:34 IMPRESSION: 1. Interval decrease and improvement in lower lung atelectasis/infiltrate and left basilar effusion prior exam, though incompletely resolved with mild residual left basilar opacity at the diaphragm/costophrenic angle in the left lung base, for continued follow-up. 2. No acute findings otherwise. . Laboratory Results WBC 3.6 10^3/uL (4.0-10.0) L 01/04/23 18:05 RBC 3.63 10^6/uL (4.1-5.3) L 01/04/23 18:05 Hgb 10.9 g/dL (11.5-15.3) L 01/04/23 18:05 Hct 34.0 % (37.0-47.0) L 01/04/23 18:05 MCV 93.7 fl (81-99) 01/04/23 18:05 MCH 30.0 pg (28.0-34.0) 01/04/23 18:05 MCHC 32.1 g/dL (30.0-36.0) 01/04/23 18:05 RDW 14.1 % (12.1-15.1) 01/04/23 18:05 Plt Count 212 10^3/cmm (130-400) 01/04/23 18:05 MPV 9.3 fL (7.4-10.4) 01/04/23 18:05 Neut % (Auto) 42.1 % 01/04/23 18:05 Lymph % (Auto) 46.8 % 01/04/23 18:05 [place] % (Auto) 7.2 % 01/04/23 18:05 Eos % (Auto) 2.5 % 01/04/23 18:05 Baso % (Auto) 1.1 % 01/04/23 18:05 Neut # (Auto) 1.53 10^3/uL (1.8-7.7) L 01/04/23 18:05 Lymph # (Auto) 1.7 10^3/uL (0.8-4.8) 01/04/23 18:05 [place] # (Auto) 0.3 10^3/uL (0.2-0.9) 01/04/23 18:05 Eos # (Auto) 0.1 10^3/uL (0.0-0.8) 01/04/23 18:05 Baso # (Auto) 0.0 10^3/uL (0.0-0.1) 01/04/23 18:05 Nucleated RBC % (auto) 0 % 01/04/23 18:05 Nucleated RBCs # 0.0 /100WBC 01/04/23 18:05 Sodium 139 mmol/L (136-145) 01/04/23 18:05 Potassium 3.5 mmol/L (3.5-5.1) 01/04/23 18:05 Chloride 101 mmol/L (98-107) 01/04/23 18:05 Carbon Dioxide 31 mmol/L (22-29) H 01/04/23 18:05 Anion Gap 10.5 (5-19) 01/04/23 18:05 BUN 8 mg/dL (6-20) 01/04/23 18:05 Creatinine 1.7 mg/dL (0.5-0.9) H 01/04/23 18:05 GFR Calculation 31.7 mL/min (90-130) L 01/04/23 18:05 Glucose 182 mg/dL (65-115) H 01/04/23 18:05 Calculated Osmolality 291 mOsm/kg (285-295) 01/04/23 18:05 Calcium 7.4 mg/dL (8.5-10.5) L 01/04/23 18:05 Total Bilirubin 0.2 mg/dL (0.15-1.2) 01/04/23 18:05 AST 17 U/L (0-32) 01/04/23 18:05 ALT 18 U/L (0-33) 01/04/23 18:05 Alkaline Phosphatase 91 U/L (35-105) 01/04/23 18:05 Total Protein 5.2 g/dL (6.6-8.7) L 01/04/23 18:05 Albumin 2.6 g/dL (3.5-5.2) L 01/04/23 18:05 Globulin 2.6 g/dL (1.3-4.6) 01/04/23 18:05 Discharge Plan Discharge Patient Disposition: Home Clinical Impression: ESRD (end stage renal disease) on dialysis, Shortness of breath Condition: Stable Prescriptions: No Action trazodone 50 mg tablet 50 mg PO BEDTIME 30 Days Qty: 30 5RF losartan 50 mg tablet 50 mg PO DAILY PRN (Reason: blood pressure) 30 Days Qty: 30 5RF Rx Instructions: take extra one if blood pressure is high glucose 4 gram tablet,chewable 4 g PO Q15M PRN (Reason: Hypoglycemia) Qty: 30 5RF Rx Instructions: until symptoms of low blood sugar are controlled escitalopram oxalate 10 mg tablet 10 mg PO DAILY Qty: 30 5RF Xanax 0.25 mg tablet 0.125 mg PO BID PRN (Reason: anxiety) 30 Days Qty: 60 3RF bumetanide 1 mg tablet 2 mg PO BID Qty: 60 2RF diphenoxylate-atropine [Lomotil] 2.5-0.025 mg tablet 1 tab PO BID PRN (Reason: diarrhea) Qty: 60 2RF calcium acetate 667 mg tablet 667 mg PO TID Qty: 90 5RF Rx Instructions: with meals and snacks amoxicillin-pot clavulanate 875-125 mg tablet 1 tab PO BID 7 Days Qty: 14 0RF fluticasone propionate 50 mcg/actuation spray,suspension 2 spray intranasal DAILY Qty: 16 0RF Rx Instructions: administer into each nostril (DME) Dexcom G6 Sensor Device See Rx Instructions .Route Qty: 9 3RF Rx Instructions: As directed (DME) Dexcom G6 Transmitter Device See Rx Instructions .Route Qty: 1 3RF Rx Instructions: As directed insulin aspart U-100 [Novolog FlexPen U-100 Insulin] 100 unit/mL (3 mL) insulin pen 5 unit SUBCUT TID Qty: 15 5RF Rx Instructions: 5 units with meals, and 3 units with snacks Creon 6,000-19,000 -30,000 unit capsule,delayed release(DR/EC) 4 cap PO TID Qty: 360 5RF Rx Instructions: 3 with meals and 2 with snacks ondansetron HCl 4 mg tablet 4 mg PO Q8H PRN (Reason: nausea and vomiting) Qty: 30 1RF ergocalciferol (vitamin D2) [Vitamin D2] 1,250 mcg (50,000 unit) capsule 1,250 mcg PO Q7D Qty: 14 3RF sodium bicarbonate 650 mg tablet 1,300 mg PO BID Qty: 120 5RF hydrocodone-acetaminophen 5-325 mg tablet 1 tab PO BID PRN (Reason: diabetic neuropathy) 30 Days Qty: 60 0RF Rx Instructions: Refill on or after 30-day intervals promethazine 25 mg tablet 25 mg PO TID PRN (Reason: nausea and vomiting) Qty: 90 1RF pantoprazole 40 mg tablet,delayed release (DR/EC) See Rx Instructions .ROUTE .COMPLEX Qty: 60 5RF Dose Instruction: Take 1 tablet by mouth twice daily Rx Instructions: Take 1 tablet by mouth twice daily PhosLo capsule 667 mg PO DIRECTED Rx Instructions: 1 capsule with meals and snacks ipratropium-albuterol 0.5 mg-3 mg(2.5 mg base)/3 mL solution for nebulization 3 ml inhalation Q6H PRN (Reason: shortness of breath or wheezing) Qty: 180 0RF carvedilol 6.25 mg Tablet 6.25 mg PO BID Rx Instructions: must administer with a meal/food gabapentin 100 mg Capsule 100 mg PO BID Discharge Orders: Discharge ED (Routine); Ordered 01/04/23 Ordered By: Tho Gray Referrals: Horacio Torres MD [Primary Care Provider] - 1 week Patient Instructions: End Stage Kidney Disease (ED), Shortness of Breath (ED) Activity Restrictions/Additional Instructions: Please wear oxygen at you have at home more frequently and as needed. Please continue dialysis and take all medicines as directed. Please follow-up with your family practice doctor the next 1 week for further evaluation and treatment. Coding Level of Care Code ED Shipping Room Helper for Chg Fwd Documented by User: Tho Gray DO 01/04/23 19:02 HPI - SOB/Dyspnea General: Chief Complaint: Shortness of Breath/Dyspnea Stated Complaint: sob Time Seen by Provider: 01/04/23 17:05 [facility] ED PFS: Medical History Anemia in end-stage renal disease Anxiety and depression Arteriovenous fistula of left upper extremity Chronic nausea Diabetes 1.5, managed as type 1 Diabetic neuropathy associated with diabetes mellitus due to underlying condition Diabetic ulcer of toe associated with diabetes mellitus due to underlying condition, limited to breakdown of skin Diastolic CHF, chronic Dry eye of right side ESRD (end stage renal disease) on dialysis GERD (gastroesophageal reflux disease) Hx of acute pancreatitis 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 Hypertension Infection of wound hematoma Malnutrition due to renal disease Multiple sclerosis Surgical History History of pancreatectomy Hx of hysterectomy Family History Father Diabetes Heart attack H/O right coronary artery stent placement Mother Hypertension Social History Smoking and tobacco status: current every day smoker Second hand smoke exposure: No Smoking risk assessment/counseling performed?: Yes Alcohol intake: never Desire information about alcohol rehabilitation?: No Counseling given: No Substance/Drug Use: never Desire information about substance/drug rehabilitation?: No Counseling given: No Course Vital Signs: Vital signs: Vital Signs Pulse Rate 78 01/04/23 18:23 Respiratory Rate 16 01/04/23 18:23 Blood Pressure 170/85 01/04/23 18:23 Pulse Oximetry 99 01/04/23 18:23 Oxygen Delivery Me thod Nasal Cannula 01/04/23 17:16 Oxygen Flow Rate 2 01/04/23 17:16 MDM - SOB/Dyspnea Medical Decision Making Care signed out to Dr. subramanian at change of shift. See final notes for diagnosis and disposition. Patient reexamined and found to be sleeping in bed comfortably with oxygen on 2 L satting 98% lab work and chest x-ray was reviewed chest x-ray was improved from previous study. Lab work was stable for the patient. Patient be discharged home and instructed to continue with dialysis and to wear her oxygen more frequently. Lab Data 01/04/23 18:05 01/04/23 18:05 Labs/Radiology: Radiology Impressions Chest X-Ray 01/04/23 17:34 IMPRESSION: 1. Interval decrease and improvement in lower lung atelectasis/infiltrate and left basilar effusion prior exam, though incompletely resolved with mild residual left basilar opacity at the diaphragm/costophrenic angle in the left lung base, for continued follow-up. 2. No acute findings otherwise. . Laboratory Results WBC 3.6 10^3/uL (4.0-10.0) L 01/04/23 18:05 RBC 3.63 10^6/uL (4.1-5.3) L 01/04/23 18:05 Hgb 10.9 g/dL (11.5-15.3) L 01/04/23 18:05 Hct 34.0 % (37.0-47.0) L 01/04/23 18:05 MCV 93.7 fl (81-99) 01/04/23 18:05 MCH 30.0 pg (28.0-34.0) 01/04/23 18:05 MCHC 32.1 g/dL (30.0-36.0) 01/04/23 18:05 RDW 14.1 % (12.1-15.1) 01/04/23 18:05 Plt Count 212 10^3/cmm (130-400) 01/04/23 18:05 MPV 9.3 fL (7.4-10.4) 01/04/23 18:05 Neut % (Auto) 42.1 % 01/04/23 18:05 Lymph % (Auto) 46.8 % 01/04/23 18:05 [place] % (Auto) 7.2 % 01/04/23 18:05 Eos % (Auto) 2.5 % 01/04/23 18:05 Baso % (Auto) 1.1 % 01/04/23 18:05 Neut # (Auto) 1.53 10^3/uL (1.8-7.7) L 01/04/23 18:05 Lymph # (Auto) 1.7 10^3/uL (0.8-4.8) 01/04/23 18:05 [place] # (Auto) 0.3 10^3/uL (0.2-0.9) 01/04/23 18:05 Eos # (Auto) 0.1 10^3/uL (0.0-0.8) 01/04/23 18:05 Baso # (Auto) 0.0 10^3/uL (0.0-0.1) 01/04/23 18:05 Nucleated RBC % (auto) 0 % 01/04/23 18:05 Nucleated RBCs # 0.0 /100WBC 01/04/23 18:05 Sodium 139 mmol/L (136-145) 01/04/23 18:05 Potassium 3.5 mmol/L (3.5-5.1) 01/04/23 18:05 Chloride 101 mmol/L (98-107) 01/04/23 18:05 Carbon Dioxide 31 mmol/L (22-29) H 01/04/23 18:05 Anion Gap 10.5 (5-19) 01/04/23 18:05 BUN 8 mg/dL (6-20) 01/04/23 18:05 Creatinine 1.7 mg/dL (0.5-0.9) H 01/04/23 18:05 GFR Calculation 31.7 mL/min (90-130) L 01/04/23 18:05 Glucose 182 mg/dL (65-115) H 01/04/23 18:05 Calculated Osmolality 291 mOsm/kg (285-295) 01/04/23 18:05 Calcium 7.4 mg/dL (8.5-10.5) L 01/04/23 18:05 Total Bilirubin 0.2 mg/dL (0.15-1.2) 01/04/23 18:05 AST 17 U/L (0-32) 01/04/23 18:05 ALT 18 U/L (0-33) 01/04/23 18:05 Alkaline Phosphatase 91 U/L (35-105) 01/04/23 18:05 Total Protein 5.2 g/dL (6.6-8.7) L 01/04/23 18:05 Albumin 2.6 g/dL (3.5-5.2) L 01/04/23 18:05 Globulin 2.6 g/dL (1.3-4.6) 01/04/23 18:05 Discharge Plan Discharge Patient Disposition: Home Clinical Impression: ESRD (end stage renal disease) on dialysis, Shortness of breath Condition: Stable Prescriptions: No Action trazodone 50 mg tablet 50 mg PO BEDTIME 30 Days Qty: 30 5RF losartan 50 mg tablet 50 mg PO DAILY PRN (Reason: blood pressure) 30 Days Qty: 30 5RF Rx Instructions: take extra one if blood pressure is high glucose 4 gram tablet,chewable 4 g PO Q15M PRN (Reason: Hypoglycemia) Qty: 30 5RF Rx Instructions: until symptoms of low blood sugar are controlled escitalopram oxalate 10 mg tablet 10 mg PO DAILY Qty: 30 5RF Xanax 0.25 mg tablet 0.125 mg PO BID PRN (Reason: anxiety) 30 Days Qty: 60 3RF bumetanide 1 mg tablet 2 mg PO BID Qty: 60 2RF diphenoxylate-atropine [Lomotil] 2.5-0.025 mg tablet 1 tab PO BID PRN (Reason: diarrhea) Qty: 60 2RF calcium acetate 667 mg tablet 667 mg PO TID Qty: 90 5RF Rx Instructions: with meals and snacks amoxicillin-pot clavulanate 875-125 mg tablet 1 tab PO BID 7 Days Qty: 14 0RF fluticasone propionate 50 mcg/actuation spray,suspension 2 spray intranasal DAILY Qty: 16 0RF Rx Instructions: administer into each nostril (DME) Dexcom G6 Sensor Device See Rx Instructions .Route Qty: 9 3RF Rx Instructions: As directed (DME) Dexcom G6 Transmitter Device See Rx Instructions .Route Qty: 1 3RF Rx Instructions: As directed insulin aspart U-100 [Novolog FlexPen U-100 Insulin] 100 unit/mL (3 mL) insulin pen 5 unit SUBCUT TID Qty: 15 5RF Rx Instructions: 5 units with meals, and 3 units with snacks Creon 6,000-19,000 -30,000 unit capsule,delayed release(DR/EC) 4 cap PO TID Qty: 360 5RF Rx Instructions: 3 with meals and 2 with snacks ondansetron HCl 4 mg tablet 4 mg PO Q8H PRN (Reason: nausea and vomiting) Qty: 30 1RF ergocalciferol (vitamin D2) [Vitamin D2] 1,250 mcg (50,000 unit) capsule 1,250 mcg PO Q7D Qty: 14 3RF sodium bicarbonate 650 mg tablet 1,300 mg PO BID Qty: 120 5RF hydrocodone-acetaminophen 5-325 mg tablet 1 tab PO BID PRN (Reason: diabetic neuropathy) 30 Days Qty: 60 0RF Rx Instructions: Refill on or after 30-day intervals promethazine 25 mg tablet 25 mg PO TID PRN (Reason: nausea and vomiting) Qty: 90 1RF pantoprazole 40 mg tablet,delayed release (DR/EC) See Rx Instructions .ROUTE .COMPLEX Qty: 60 5RF Dose Instruction: Take 1 tablet by mouth twice daily Rx Instructions: Take 1 tablet by mouth twice daily PhosLo capsule 667 mg PO DIRECTED Rx Instructions: 1 capsule with meals and snacks ipratropium-albuterol 0.5 mg-3 mg(2.5 mg base)/3 mL solution for nebulization 3 ml inhalation Q6H PRN (Reason: shortness of breath or wheezing) Qty: 180 0RF carvedilol 6.25 mg Tablet 6.25 mg PO BID Rx Instructions: must administer with a meal/food gabapentin 100 mg Capsule 100 mg PO BID Discharge Orders: Discharge ED (Routine); Ordered 01/04/23 Ordered By: Tho Gray Referrals: Horacio Torres MD [Primary Care Provider] - 1 week Patient Instructions: End Stage Kidney Disease (ED), Shortness of Breath (ED) Activity Restrictions/Additional Instructions: Please wear oxygen at you have at home more frequently and as needed. Please continue dialysis and take all medicines as directed. Please follow-up with your family practice doctor the next 1 week for further evaluation and treatment. Coding Level of Care Code ED Shipping Room Helper for Daniel Emery
[2023-01-04 17:16] VITALS: BP 147/89; PULSE 78; RESP 17; O2SAT 91; BMI 17.4
--- NOTE | 2023-01-04 17:34 | XRR_ITS ---
PROCEDURE INFORMATION: Exam: XR Chest Exam date and time: 01/04/2023 5:45 PM Age: 52 years old Clinical indication: Pain; Chest pressure; Additional info: Dyspnea/cough TECHNIQUE: Imaging protocol: Radiologic exam of the chest. Views: 1 view. COMPARISON: CR XR chest 2V* [id number] 01/03/2023 12:46 PM FINDINGS: Tubes, catheters and devices: Overlying monitor leads. Lungs: See Pleural spaces finding. Pleural spaces: Compared with January 03, 2023 interval improvement with interval decrease in left basilar effusion and atelectasis/infiltrate, with mild residual left basilar changes at the diaphragm/costophrenic angle. Remainder of the lungs are clear. No effusion on the right. No pneumothorax. Heart/Mediastinum: Unremarkable. No cardiomegaly. Bones/joints: Visualized osseous structures show no acute abnormality. XR/XR chest 1V portable [id number] IMPRESSION: 1. Interval decrease and improvement in lower lung atelectasis/infiltrate and left basilar effusion prior exam, though incompletely resolved with mild residual left basilar opacity at the diaphragm/costophrenic angle in the left lung base, for continued follow-up. 2. No acute findings otherwise. .
--- NOTE | 2023-01-04 17:34 | ECG_ITS ---
[facility] Test Date: 2023-01-04 Pat Name: Luli Osborne Department: Room: Gender: Female Labor Relations Supervisor: : 1970 Requested By: Lucas Coleman Order Number: [id number] Oscar MD: Che Zhu M.D. Measurements Intervals [place] Rate: 77 P: 68 GA: 139 QRS: 38 QRSD: 86 T: 66 QT: 421 QTc: 478 Interpretive Statements SINUS RHYTHM Compared to ECG 07/16/2022 21:18:11 Sinus tachycardia no longer present Myocardial infarct finding no longer present Electronically Signed On 01-05-2023 4:57:06 CDT by Che Zhu M.D. [id number]
[2023-01-04 18:15] LABS: Basophils % 1.1 %; Eosinophils # 0.1 10^3/uL (0.0-0.8); Eosinophils % 2.5 %; Hemoglobin 10.9 g/dL (11.5-15.3); Lymphocytes # 1.7 10^3/uL (0.8-4.8); Lymphocytes % 46.8 %; Mean Corpuscular HGB Conc 32.1 g/dL (30.0-36.0); Mean Corpuscular Volume 93.7 fl (81-99); Mean Platelet Volume 9.3 fL (7.4-10.4); Monocytes # 0.3 10^3/uL (0.2-0.9); Monocytes % 7.2 %; Neutrophils # 1.53 10^3/uL (1.8-7.7); Neutrophils % 42.1 %; Nucleated Red Blood Cells % 0 %; Platelet Count 212 10^3/cmm (130-400); Red Blood Count 3.63 10^6/uL (4.1-5.3); Red Cell Distribution Width 14.1 % (12.1-15.1); White Blood Count 3.6 10^3/uL (4.0-10.0)
[2023-01-04 18:23] VITALS: BP 170/85; PULSE 78; RESP 16; O2SAT 99
[2023-01-04 18:35] LABS: Alanine Aminotransferase 18 U/L (0-33); Albumin Level 2.6 g/dL (3.5-5.2); Alkaline Phosphatase 91 U/L (35-105); Anion Gap 10.5 (5-19); Aspartate Amino Transferase 17 U/L (0-32); Blood Urea Nitrogen 8 mg/dL (6-20); Calcium 7.4 mg/dL (8.5-10.5); Carbon Dioxide 31 mmol/L (22-29); Chloride 101 mmol/L (98-107); Globulin 2.6 g/dL (1.3-4.6); Glomerular Filtration Rate 31.7 mL/min (90-130); Glucose 182 mg/dL (65-115); Osmolality Calculated 291 mOsm/kg (285-295); Potassium 3.5 mmol/L (3.5-5.1); Sodium 139 mmol/L (136-145); Total Bilirubin 0.2 mg/dL (0.15-1.2); Total Protein 5.2 g/dL (6.6-8.7)
[2023-01-04 19:18] VITALS: BP 177/83; PULSE 82; RESP 18; O2SAT 98
--- NOTE | 2023-01-04 19:20 | PC.NURSE ---
Report from JENARO Conroy. Pt updated on plan of care. Will be discharged when ride gets here. Pt rates pain 4/10, but this is normal for her. No new c/o. Denies needs at this time
[2023-01-04 20:24] VITALS: BP 174/96
== END 2023-01-04 20:26 | disposition home or self-care (01) ==
PROVIDERS: Emergency Provider Family Medicine; PCP Family Medicine Adult Medicine
DX: R06.02 Shortness of breath (principal); I13.2 Hypertensive heart and chronic kidney disease with heart failure and with stage 5 chronic kidney disease, or end stage renal disease; E13.22 Other specified diabetes mellitus with diabetic chronic kidney disease; N18.6 End stage renal disease; I50.32 Chronic diastolic (congestive) heart failure; Z99.2 Dependence on renal dialysis; F17.200 Nicotine dependence, unspecified, uncomplicated
CPT/HCPCS: 36415; 71045; 80053; 85025; 93005; 99285

== ENCOUNTER → 2023-01-09 15:02 | Outpatient (BNVA) | payer MEDICARE, SELFPAY | PROVIDERS: PCP Family Medicine Adult Medicine; Visit Provider Internal Medicine Cardiovascular Disease | DX: Z01.810 Encounter for preprocedural cardiovascular examination (principal); N18.6 End stage renal disease; Z99.2 Dependence on renal dialysis; I50.32 Chronic diastolic (congestive) heart failure; D63.1 Anemia in chronic kidney disease; I13.2 Hypertensive heart and chronic kidney disease with heart failure and with stage 5 chronic kidney disease, or end stage renal disease; E13.22 Other specified diabetes mellitus with diabetic chronic kidney disease; Z79.4 Long term (current) use of insulin; Z87.891 Personal history of nicotine dependence | CPT/HCPCS: 99214 ==

== ENCOUNTER 2023-05-29 11:23 | Emergency (ER) | payer MEDICARE, MEDICAID, SELFPAY ==
--- NOTE | 2023-05-29 11:26 | W.ED.NAVMDI ---
HPI - Nausea/Vomiting/Diarrhea General: Chief complaint: Weakness Stated complaint: Fall/ N/V/D Time Seen by Provider: 05/29/23 11:25 Source: patient Mode of arrival: EMS History of Present Illness: 53-year-old female presents emergency room complaining of nausea vomiting and diarrhea is feeling for the last couple of days states she feels dehydrated she fell and hit her head this morning because she was lightheaded and dizzy. She is also complaining some mild neck pain. She has a history of polycystic kidney disease Has chronic abdominal pain. She does have end-stage renal disease. She is on dialysis, went there today but because of her overall condition they did not dialyze her. She denies chest pain or shortness of breath. MD elicited complaint: nausea, vomiting and diarrhea Onset (ago): day(s) Description of vomiting: food contents and watery Associated nausea: Yes Associated abdominal pain: Yes Location of pain: Diffuse Quality: cramping Associated symtoms: Reports nausea; Denies anxiety, bloating, change in vision, chest pain, cough, diaphoresis, decreased urine output, dizziness, dysuria, epistaxis, fatigue, fecal incontinence, fevers/chills, headache(s), anorexia, malaise, myalgias, numbness, palpitations, rash, short of breath, syncope, tenesmus, tinnitus or weakness Review of Systems Const: Denies: fever(s), chills, fatigue, malaise or diaphoresis Eyes: Denies: change in vision ENMT: Denies: tinnitus or epistaxis Card: Denies: chest pain, palpitations or syncope Resp: Denies: dyspnea GI: Reports: abdominal pain, nausea, vomiting and diarrhea; Denies: bloating or fecal incontinence : Denies: dysuria, urinary frequency or urinary urgency Musc: Denies: neck pain or back pain Skin/Breast: Denies: rash Neuro: Denies: headache(s) or dizziness Psych: Denies: anxiety PFSH ED PFSH: Medical History ADPKD (autosomal dominant polycystic kidney disease) Anemia in end-stage renal disease Anxiety and depression Arteriovenous fistula of left upper extremity Cataracts, bilateral Chronic nausea Dehydration Diabetes 1.5, managed as type 1 Diabetic neuropathy associated with diabetes mellitus due to underlying condition Diabetic ulcer of toe associated with diabetes mellitus due to underlying condition, limited to breakdown of skin Diastolic CHF, chronic Dry eye of right side ESRD (end stage renal disease) on dialysis Frequent falls GERD (gastroesophageal reflux disease) Hx of acute pancreatitis 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 Hypertension IBS (irritable bowel syndrome) Infection of wound hematoma Malnutrition due to renal disease Multiple sclerosis Tremor due to disorder of central nervous system Surgical History History of pancreatectomy Hx of hysterectomy S/P placement of nerve stimulator Family History Father Diabetes Heart attack H/O right coronary artery stent placement Mother Hypertension Social History Smoking and tobacco/nicotine status: former use of tobacco/nicotine Second hand smoke exposure: No Alcohol intake: never Substance/Drug Use: never Physical Exam Const: GENERAL APPEARANCE: cooperative and comfortable ORIENTATION/CONSCIOUSNESS: Yes awake, Yes oriented to person, Yes oriented to place and Yes oriented to time HENMT: COMMON NORMALS: normocephalic, atraumatic and hearing grossly normal bilaterally HEAD & SCALP: normocephalic and atraumatic Resp: COMMON NORMALS: normal respiratory effort, No retractions, No use of accessory muscles and clear to auscultation bilaterally AUSCULTATION: clear to auscultation bilaterally Cardio: COMMON NORMALS: regular rate, regular rhythm and No murmurs present (Cardio) RATE: regular rate RHYTHM: regular rhythm GI: COMMON NORMALS: Soft to palpation and No hepatosplenomegaly present AUSCULTATION: Yes normoactive bowel sounds PALPATION: Yes Soft to palpation, No Tenderness to palpation present (GI), No Guarding due to palpation present (GI) and Yes No hepatosplenomegaly present Extremity: COMMON NORMALS: normal to inspection, capillary refill normal, no clubbing, cyanosis or edema, no calf tenderness and no pedal edema Neuro: SENSORIUM/ORIENTATION: Yes oriented to person, Yes oriented to place and Yes oriented to time Skin: COMMON NORMALS: no rashes or lesions noted GENERAL SKIN EXAM: no rashes or lesions noted Course Vital Signs: Vital signs: Vital Signs Temperature 97.7 F 05/29/23 11:27 Pulse Rate 68 05/29/23 13:36 Respiratory Rate 18 05/29/23 12:34 Blood Pressure 133/71 05/29/23 13:36 Pulse Oximetry 99 05/29/23 13:36 Oxygen Delivery Me thod Room Air 05/29/23 12:34 MDM - Nausea/Vomiting/Diarrhea Medical Decision Making Labs and imaging reviewed. CT shows enteritis no sign of acute intra-abdominal pathology no leukocytosis. Blood pressures improved. Discussed that I think she does have some labile blood pressure which is on a typical with patient is end-stage renal disease follow-up with her primary care doctor to see if they wish to make further changes in her blood pressure medications blood pressure at this time is stable. Clear liquid diet for next 24 to 48 hours and advance as tolerated Medical Records I reviewed the patient's medical records. Lab Data I reviewed the patient's lab results. 05/29/23 11:55 05/29/23 11:55 Laboratory Results WBC 4.65 10^3/uL (3.29-11.43) 05/29/23 11:55 RBC 3.10 10^6/uL (3.85-5.65) L 05/29/23 11:55 Hgb 10.30 g/dL (11.27-16.99) L 05/29/23 11:55 Hct 31.4 % (36-47) L 05/29/23 11:55 MCV 101.3 fl (85-98) H 05/29/23 11:55 MCH 33.2 pg (27-33) H 05/29/23 11:55 MCHC 32.8 g/dL (30-55) 05/29/23 11:55 RDW 14.7 % (12.1-15.1) 05/29/23 11:55 Plt Count 217 10^3/cmm (157-399) 05/29/23 11:55 MPV 9.1 fL (7.4-10.4) 05/29/23 11:55 Neut % (Auto) 49.6 % 05/29/23 11:55 Lymph % (Auto) 39.1 % 05/29/23 11:55 [place] % (Auto) 7.7 % 05/29/23 11:55 Eos % (Auto) 1.9 % 05/29/23 11:55 Baso % (Auto) 1.5 % 05/29/23 11:55 Neut # (Auto) 2.30 10^3/uL (1.8-7.7) 05/29/23 11:55 Lymph # (Auto) 1.8 10^3/uL (0.8-4.8) 05/29/23 11:55 [place] # (Auto) 0.4 10^3/uL (0.2-0.9) 05/29/23 11:55 Eos # (Auto) 0.1 10^3/uL (0.0-0.8) 05/29/23 11:55 Baso # (Auto) 0.1 10^3/uL (0.0-0.1) 05/29/23 11:55 Nucleated RBC % (auto) 0 % 05/29/23 11:55 Nucleated RBCs # 0.0 /100WBC 05/29/23 11:55 Sodium 134 mmol/L (136-145) L 05/29/23 11:55 Potassium 3.1 mmol/L (3.5-5.1) L 05/29/23 11:55 Chloride 95 mmol/L (98-107) L 05/29/23 11:55 Carbon Dioxide 26 mmol/L (22-29) 05/29/23 11:55 Anion Gap 16.1 (5-19) 05/29/23 11:55 BUN 27 mg/dL (6-20) H 05/29/23 11:55 Creatinine 3.3 mg/dL (0.5-0.9) H 05/29/23 11:55 GFR Calculation 14.7 mL/min (90-130) L 05/29/23 11:55 Glucose 140 mg/dL (65-115) H 05/29/23 11:55 Calculated Osmolality 285 mOsm/kg (285-295) 05/29/23 11:55 Calcium 6.9 mg/dL (8.5-10.5) L 05/29/23 11:55 Total Bilirubin 0.3 mg/dL (0.15-1.2) 05/29/23 11:55 AST 61 U/L (0-32) H 05/29/23 11:55 ALT 82 U/L (0-33) H 05/29/23 11:55 Alkaline Phosphatase 140 U/L (35-105) H 05/29/23 11:55 Total Protein 4.1 g/dL (6.6-8.7) L 05/29/23 11:55 Albumin 2.0 g/dL (3.5-5.2) L 05/29/23 11:55 Globulin 2.1 g/dL (1.3-4.6) 05/29/23 11:55 Lipase 5 U/L (13-60) L 05/29/23 11:55 All radiology interpretation(s) finalized by discharge Discharge Plan Discharge Patient Disposition: Home Clinical Impression: Gastroenteritis Condition: Stable Prescriptions: No Action glucose 4 gram tablet,chewable 4 g PO Q15M PRN (Reason: Hypoglycemia) Qty: 30 5RF Rx Instructions: until symptoms of low blood sugar are controlled bumetanide 1 mg tablet 2 mg PO BID Qty: 60 5RF trazodone 50 mg tablet 50 mg PO BEDTIME 30 Days Qty: 30 5RF promethazine 25 mg tablet 25 mg PO TID PRN (Reason: nausea and vomiting) Qty: 90 1RF diphenoxylate-atropine [Lomotil] 2.5-0.025 mg tablet 1 tab PO BID PRN (Reason: diarrhea) Qty: 60 3RF sodium bicarbonate 650 mg tablet 650 mg PO DAILY PRN (Reason: stomach upset) Qty: 90 3RF fluticasone propionate 50 mcg/actuation spray,suspension 2 spray intranasal DAILY Qty: 16 0RF Rx Instructions: administer into each nostril (DME) Dexcom G6 Sensor Device See Rx Instructions .Route Qty: 9 3RF Rx Instructions: As directed (DME) Dexcom G6 Transmitter Device See Rx Instructions .Route Qty: 1 3RF Rx Instructions: As directed ipratropium-albuterol 0.5 mg-3 mg(2.5 mg base)/3 mL solution for nebulization 3 ml inhalation Q6H PRN (Reason: shortness of breath or wheezing) escitalopram oxalate 20 mg tablet 20 mg PO DAILY Qty: 30 3RF Xanax 0.25 mg tablet 0.125 mg PO BID PRN (Reason: anxiety) 30 Days Qty: 60 3RF insulin aspart U-100 [Novolog FlexPen U-100 Insulin] 100 unit/mL (3 mL) insulin pen 5 unit SUBCUT TID Qty: 15 5RF Rx Instructions: 5 units with meals, and 3 units with snacks Creon 6,000-19,000 -30,000 unit capsule,delayed release(DR/EC) 4 cap PO TID Qty: 360 5RF Rx Instructions: 3 with meals and 2 with snacks ergocalciferol (vitamin D2) [Vitamin D2] 1,250 mcg (50,000 unit) capsule 1,250 mcg PO Q7D Qty: 14 3RF Rx Instructions: on sunday pantoprazole 40 mg tablet,delayed release (DR/EC) See Rx Instructions .ROUTE .COMPLEX Qty: 60 5RF Dose Instruction: Take 1 tablet by mouth twice daily Rx Instructions: Take 1 tablet by mouth twice daily hydrocodone-acetaminophen 5-325 mg tablet 1 tab PO BID PRN (Reason: diabetic neuropathy) 30 Days Qty: 60 0RF Rx Instructions: Refill on or after 30-day intervals primidone 125 mg tablet 125 mg PO BID Qty: 60 0RF calcium acetate 667 mg tablet 667 mg PO TID Qty: 90 5RF Rx Instructions: with meals and snacks gabapentin 100 mg Capsule 100 mg PO BID losartan 100 mg tablet 100 mg PO DAILY Discharge Orders: Discharge ED (Routine); Ordered 05/29/23 Ordered By: Lucas Berry Referrals: Horacio Torres MD [Primary Care Provider] - Discharge Diet: Clear Liquid Discharge Activity: Increase activity as tolerated Patient Instructions: Clear Liquid Diet (ED), Gastroenteritis (ED), Opioid Safety, Pain Management Activity Restrictions/Additional Instructions: Thank you for choosing [facility] for your healthcare needs today. Please realize this is an emergency room and that we are providing you with a medical screening exam and this may not be complete and all inclusive of all the testing and or work up that you may need to determine your ailment or severity of your illness. It is very important that you follow up as instructed or that you return to the Emergency Department should you have concerns or if your condition changes or worsens in any way. You are seen in emergency room complaints of diarrhea and nausea. Your liver enzymes are slightly elevated CT of the abdomen which showed inflammation of the colon. Your other labs are consistent with your chronic kidney disease. Recommend clinical diet for the next 24 to 48 hours and advance as tolerated Coding Level of Care Code ED Chemic Mangler for Daniel Emery
[2023-05-29 11:27] VITALS: BP 153/84; PULSE 70; RESP 16; TEMP 36.5; O2SAT 100; BMI 18.6
[2023-05-29 11:37] VITALS: BP 140/81; PULSE 70; RESP 18; O2SAT 98
--- NOTE | 2023-05-29 11:44 | XR_ITS ---
WS: [id number] Portable AP upright chest, 05/29/2023 Clinical Data: dyspnea/cough Comparison: None. Findings: No nodules, masses or effusions are seen. The heart is normal. The pulmonary vascularity is not increased. No pneumonia or pneumothorax is seen. There is a small atelectatic strand in the left lower lobe which is the only residual from the patient's left basilar effusion. Impression: Negative chest.
--- NOTE | 2023-05-29 11:44 | CT_ITS ---
WS: [id number] CT HEAD NONCONTRAST HISTORY: closed head injury TECHNIQUE: Contiguous axial imaging performed through the brain in 2.5 mm imaging. Bone and soft tiss ue windows. Sagittal and coronal reformats reviewed. All CT scans at [facility] use at least one of these dose optimization techniques: automated exposure control; mA and/or kV adjustment per pa tient size (includes targeted exams where dose is matched to clinical indication); or iterative recon struction. DLP: 961.48 mGy.cm COMPARISON: 03/06/2018, 10/01/2022 No acute intracranial hemorrhage, midline shift or mass effect. Mild atrophy. Moderate periventricular and supra ventricular patchy areas of decreased attenuation si milar to the prior study. Confluent white matter areas of decreased attenuation. Small lacunar infarc t in the RIGHT cerebellum. Ventricles: Mildly prominent ventricles. Symmetric enlargement of the occipital horns similar to prio r studies. No inferior displacement of the cerebellar tonsils. Paranasal sinuses: As visualized are clear. Mastoid air cells: Mastoid air cells are clear. Cerumen LEFT external auditory canal. Calvarium and scalp: Skull is intact with no soft tissue edema or swelling. IMPRESSION: 1. No acute intracranial hemorrhage or edema. 2. Patchy areas of decreased attenuation are confluent throughout the periventricular white matter. S imilar to the prior study from 10/01/2022. These changes can be seen with small vessel ischemic diseas e, demyelination or chronic hypertension. No acute interval change. 3. No skull fracture.
--- NOTE | 2023-05-29 11:45 | CT_ITS ---
WS: [id number] CT ABDOMEN AND PELVIS NONCONTRAST HISTORY: Abdominal pain TECHNIQUE: Imaging performed through the abdomen and pelvis. Coronal and sagittal reformats are submi tted. All CT scans at [facility] use at least one of these dose optimization techniques: auto mated exposure control; mA and/or kV adjustment per patient size (includes targeted exams where dose is matched to clinical indication); or iterative reconstruction. DLP: 318.93 mGy.cm COMPARISON: 09/11/2022 Lower thorax: Very small LEFT pleural effusion. Bilateral pleural effusions have significantly decrea sed since 09/11/2022. Heart is mildly enlarged. Small pericardial effusion is decreased. Liver: Enlarged liver with mild congestion. Gallbladder: Not visualized. Probably prior cholecystectomy. Pancreas: Atrophic pancreas with pancreatic calcifications and duct dilatation. Similar to prior stud ies. Spleen: Normal. Adrenal glands: Normal. No mass. Right kidney: Perinephric stranding with no obstruction. Mild cortical thinning Left kidney: Mild cortical thinning with no obstruction. Nonobstructing calcifications in the renal p nikky. Aorta: Moderate to severe atherosclerosis abdominal aorta. No aneurysm. Atherosclerosis continues int o the common iliac arteries. Small amount of free fluid in the pelvis. There is diffuse soft tissue anasarca and mesenteric edema. There is mild improvement in the anasarca since the most recent exam. GI tract: Diffuse wall thickening of the stomach. No small bowel obstruction. There is mild increased fluid in the small bowel. Mild submucosal edema throughout the colon is diffuse. Abdominal wall: Negative. No hernia. Pelvis: Small amount of free fluid in the pelvis. Prior hysterectomy. Extensive vascular calcificatio ns. Osseous structures: Unremarkable. IMPRESSION: 1. Diffuse GI tract submucosal thickening involving the stomach, small bowel and colon. Consider con gestive gastropathy. May be related to portal hypertension or fluid overload. 2. Very tiny LEFT pleural effusion. Significant improvement in the pleural effusions since 09/11/2022 . 3. Small amount of free fluid 4. Diffuse moderate soft tissue anasarca. 5. Chronic pancreatic atrophy with pancreatic calcifications and duct dilatation. 6. Gallbladder not identified. 7. Extensive atherosclerosis aorta and mesenteric arteries.
[2023-05-29 12:00] LABS: Basophils # 0.1 10^3/uL (0.0-0.1); Basophils % 1.5 %; Eosinophils # 0.1 10^3/uL (0.0-0.8); Eosinophils % 1.9 %; Hematocrit 31.4 % (36-47); Lymphocytes # 1.8 10^3/uL (0.8-4.8); Lymphocytes % 39.1 %; Mean Corpuscular HGB Conc 32.8 g/dL (30-55); Mean Corpuscular Hemoglobin 33.2 pg (27-33); Mean Corpuscular Volume 101.3 fl (85-98); Mean Platelet Volume 9.1 fL (7.4-10.4); Monocytes # 0.4 10^3/uL (0.2-0.9); Monocytes % 7.7 %; Neutrophils % 49.6 %; Nucleated Red Blood Cells % 0 %; Platelet Count 217 10^3/cmm (157-399); Red Cell Distribution Width 14.7 % (12.1-15.1); White Blood Count 4.65 10^3/uL (3.29-11.43)
[2023-05-29 12:22] LABS: Alanine Aminotransferase 82 U/L (0-33); Alkaline Phosphatase 140 U/L (35-105); Anion Gap 16.1 (5-19); Aspartate Amino Transferase 61 U/L (0-32); Blood Urea Nitrogen 27 mg/dL (6-20); Calcium 6.9 mg/dL (8.5-10.5); Carbon Dioxide 26 mmol/L (22-29); Chloride 95 mmol/L (98-107); Globulin 2.1 g/dL (1.3-4.6); Glomerular Filtration Rate 14.7 mL/min (90-130); Glucose 140 mg/dL (65-115); Lipase 5 U/L (13-60); Osmolality Calculated 285 mOsm/kg (285-295); Potassium 3.1 mmol/L (3.5-5.1); Sodium 134 mmol/L (136-145); Total Bilirubin 0.3 mg/dL (0.15-1.2); Total Protein 4.1 g/dL (6.6-8.7)
[2023-05-29 12:34] VITALS: BP 153/97; PULSE 70; RESP 18; O2SAT 99
[2023-05-29] MEDS: ondansetron 2 mg/ML SDV 2 mL 4 MG IVP (12:58)
[2023-05-29 13:36] VITALS: BP 133/71; PULSE 68; O2SAT 99
== END 2023-05-29 13:39 | disposition home or self-care (01) ==
PROVIDERS: Emergency Provider Family Medicine; PCP Family Medicine Adult Medicine
DX: K52.9 Noninfective gastroenteritis and colitis, unspecified (principal); Z79.4 Long term (current) use of insulin; Z87.891 Personal history of nicotine dependence; E13.22 Other specified diabetes mellitus with diabetic chronic kidney disease; I13.2 Hypertensive heart and chronic kidney disease with heart failure and with stage 5 chronic kidney disease, or end stage renal disease; I50.9 Heart failure, unspecified; N18.6 End stage renal disease; Z99.2 Dependence on renal dialysis; Q61.2 Polycystic kidney, adult type
CPT/HCPCS: 36415; 70450; 71045; 74176; 80053; 83690; 85025; 96374; 99285; J2405

== ENCOUNTER 2023-06-18 19:32 | Inpatient (IN) | payer MEDICARE, MEDICAID, SELFPAY ==
[2023-06-18] VITALS (15 sets, daily range): BP systolic 117–150; BP diastolic 60–85; PULSE 71–87; RESP 0–22; TEMP 36.4–36.7; O2SAT 95–100; BMI 24.0; BMI 17.3
--- NOTE | 2023-06-18 19:49 | XRR_ITS ---
PROCEDURE INFORMATION: Exam: XR Chest Exam date and time: 06/18/2023 7:53 PM Age: 53 years old Clinical indication: Other: Weakness; Additional info: Weakness/cough TECHNIQUE: Imaging protocol: Radiologic exam of the chest. Views: 1 view. COMPARISON: CR XR chest 1V portable [id number] 05/29/2023 11:57 AM FINDINGS: Lungs: Bibasilar atelectasis versus minimal infiltrate. Pleural spaces: Unremarkable. No pleural effusion. No pneumothorax. Heart/Mediastinum: Unremarkable. No cardiomegaly. Bones/joints: Unremarkable. XR/XR chest 1V portable [id number] IMPRESSION: Bibasilar atelectasis versus minimal infiltrate.
--- NOTE | 2023-06-18 19:56 | W.ED.WEAKNES ---
HPI - Weakness General: Chief complaint: Weakness Stated complaint: WEAKNESS Time Seen by Provider: 06/18/23 19:49 History of Present Illness: 53-year-old female presents to the emergency department from her home. Patient states she feels extremely weak she does appear acutely ill. She has moderate edema to her bilateral eyelids. She states that she cannot pinpoint exactly why she feels weak but she states she feels weak all over. She denies fever or chills. She states that her family member is coming to the hospital and can provide more information. Review of Systems General: Reports: 10 or more systems reviewed and unremarkable except in HPI and below Const: Reports: body aches, fatigue and malaise PFS ED PFSH: Medical History (Updated 06/18/23 @ 21:38 by Alejandro Junior MD) ADPKD (autosomal dominant polycystic kidney disease) Anemia in end-stage renal disease Anxiety and depression Arteriovenous fistula of left upper extremity Cataracts, bilateral Chronic nausea Dehydration Diabetes 1.5, managed as type 1 Diabetic neuropathy associated with diabetes mellitus due to underlying condition Diabetic ulcer of toe associated with diabetes mellitus due to underlying condition, limited to breakdown of skin Diastolic CHF, chronic Dry eye of right side ESRD (end stage renal disease) on dialysis Frequent falls GERD (gastroesophageal reflux disease) Hx of acute pancreatitis 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 Hypertension IBS (irritable bowel syndrome) Infection of wound hematoma Malnutrition due to renal disease Multiple sclerosis Tremor due to disorder of central nervous system Surgical History History of pancreatectomy Hx of hysterectomy S/P placement of nerve stimulator Family History Father Diabetes Heart attack H/O right coronary artery stent placement Mother Hypertension Social History Smoking and tobacco/nicotine status: former use of tobacco/nicotine Second hand smoke exposure: No Alcohol intake: never Substance/Drug Use: never Physical Exam Narrative: EXAM NARRATIVE: Constitutional: Ill-appearing, normal development. Vital signs as documented. No acute distress at present. Alert and oriented-to person, place, time and situation. Head, eyes, ears, nose, mouth, throat: Normocephalic, atraumatic. Pupils-equal, round, reactive to light. No scleral icterus. Normal-appearing external ears. Normal appearing nasal turbinates, no drainage. No obvious oral lesions, posterior oropharynx without erythema or exudates. She does appear to have bilateral eyelid edema Neck: Supple, trachea is midline, no lymphadenopathy, no jugular venous distension, thyromegaly, or carotid bruits. Carotid upstrokes are brisk bilaterally. Lungs: Lung elizabeth are decreased bilaterally in the bases. Symmetrical rise and fall of chest, no obvious signs of increased work of breathing at present. Cardiac: Regular rate and rhythm, positive S1, S2. No murmurs, rubs or gallops that I can appreciate Abdomen: Soft, non-tender to palpation, normal active bowel sounds to all quadrants. No palpable masses, no organomegaly and abdominal bruits. Extremities: 2+ pulses in the upper extremities that are equal bilaterally, 2+ pulses in the lower extremities that are equal bilaterally. Non-edematous. Moves all extremities well, sensation to all extremities are noted. Skin: Warm, dry, intact. Course Vital Signs: Vital signs: Vital Signs Temperature 98.1 F 06/18/23 19:44 Pulse Rate 71 06/18/23 19:44 Respiratory Rate 18 06/18/23 19:44 Blood Pressure 130/60 06/18/23 19:44 Pulse Oximetry 95 06/18/23 19:44 Oxygen Delivery Me thod Room Air 06/18/23 19:44 MDM - Weakness Medical Decision Making Physical exam completed, laboratory examination to include a CBC, CMP cardiac enzymes procalcitonin lactic acid and influenza and COVID swab. I will obtain a chest x-ray for evaluation. Medical Records I reviewed the patient's medical records. Lab Data I reviewed the patient's lab results. 06/18/23 20:24 06/18/23 20:24 Radiology Impressions Chest X-Ray 06/18/23 19:49 IMPRESSION: Bibasilar atelectasis versus minimal infiltrate. Laboratory Results WBC 5.88 10^3/uL (3.29-11.43) 06/18/23 20:24 RBC 3.65 10^6/uL (3.85-5.65) L 06/18/23 20:24 Hgb 12.20 g/dL (11.27-16.99) 06/18/23 20:24 Hct 38.2 % (36-47) 06/18/23 20:24 MCV 104.7 fl (85-98) H 06/18/23 20:24 MCH 33.4 pg (27-33) H 06/18/23 20:24 MCHC 31.9 g/dL (30-55) 06/18/23 20:24 RDW 16.1 % (12.1-15.1) H 06/18/23 20:24 Plt Count 246 10^3/cmm (157-399) 06/18/23 20:24 MPV 9.7 fL (7.4-10.4) 06/18/23 20:24 Neut % (Auto) 57.5 % 06/18/23 20:24 Lymph % (Auto) 34.5 % 06/18/23 20:24 Isabela % (Auto) 6.1 % 06/18/23 20: Eos % (Auto) 0.2 % 06/18/23 20: Baso % (Auto) 1.4 % 06/18/23 20: Neut # (Auto) 3.38 10^3/uL (1.8-7.7) 06/18/23 20:24 Lymph # (Auto) 2.0 10^3/uL (0.8-4.8) 06/18/23 20: Isabela # (Auto) 0.4 10^3/uL (0.2-0.9) 06/18/23 20:24 Eos # (Auto) 0.0 10^3/uL (0.0-0.8) 06/18/23 20: Baso # (Auto) 0.1 10^3/uL (0.0-0.1) 06/18/23 20:24 Nucleated RBC % (auto) 0 % 06/18/23 20: Nucleated RBCs # 0.0 /100WBC 06/18/23 20:24 Sodium 135 mmol/L (136-145) L 06/18/23 20:24 Potassium 3.3 mmol/L (3.5-5.1) L 06/18/23 20:24 Chloride 96 mmol/L (98-107) L 06/18/23 20:24 Carbon Dioxide 19 mmol/L (22-29) L 06/18/23 20:24 Anion Gap 23.3 (5-19) H 06/18/23 20:24 BUN 22 mg/dL (6-20) H 06/18/23 20:24 Creatinine 4.8 mg/dL (0.5-0.9) H 06/18/23 20:24 GFR Calculation 9.5 mL/min (90-130) L 06/18/23 20:24 Glucose 66 mg/dL (65-115) 06/18/23 20:24 Calculated Osmolality 282 mOsm/kg (285-295) L 06/18/23 20:24 Lactic Acid 0.9 mmol/L (0.5-2.2) 06/18/23 20:24 Calcium 7.2 mg/dL (8.5-10.5) L 06/18/23 20:24 Total Bilirubin 0.8 mg/dL (0.15-1.2) 06/18/23 20:24 AST 66 U/L (0-32) H 06/18/23 20:24 ALT 159 U/L (0-33) H 06/18/23 20:24 Alkaline Phosphatase 287 U/L (35-105) H 06/18/23 20:24 Troponin T Baseline 498 ng/L (0-10) H* 06/18/23 20:24 Total Protein 4.5 g/dL (6.6-8.7) L 06/18/23 20:24 Albumin 2.0 g/dL (3.5-5.2) L 06/18/23 20:24 Globulin 2.5 g/dL (1.3-4.6) 06/18/23 20:24 Procalcitonin 32.80 ng/mL (0-0.5) H 06/18/23 20:24 All radiology interpretation(s) finalized by discharge Discharge Plan Discharge Patient Disposition: Admitted As Inpatient Clinical Impression: Altered mental state, Elevation of cardiac enzymes Condition: Stable Prescriptions: No Action glucose 4 gram tablet,chewable 4 g PO Q15M PRN (Reason: Hypoglycemia) Qty: 30 5RF Rx Instructions: until symptoms of low blood sugar are controlled ondansetron 4 mg tablet,disintegrating 4 mg PO Q8H PRN (Reason: nausea and vomiting) Qty: 20 0RF loperamide [Imodium A-D] 2 mg capsule 2 mg PO Q4H PRN (Reason: loose stool) Qty: 20 0RF Rx Instructions: administer after each loose stool until symptoms controlled; do not exceed 8 mg per 24 hrs bumetanide 1 mg tablet 2 mg PO BID Qty: 60 5RF trazodone 50 mg tablet 50 mg PO BEDTIME 30 Days Qty: 30 5RF promethazine 25 mg tablet 25 mg PO TID PRN (Reason: nausea and vomiting) Qty: 90 1RF diphenoxylate-atropine [Lomotil] 2.5-0.025 mg tablet 1 tab PO BID PRN (Reason: diarrhea) Qty: 60 3RF sodium bicarbonate 650 mg tablet 650 mg PO DAILY PRN (Reason: stomach upset) Qty: 90 3RF fluticasone propionate 50 mcg/actuation spray,suspension 2 spray intranasal DAILY Qty: 16 0RF Rx Instructions: administer into each nostril (DME) Dexcom G6 Sensor Device See Rx Instructions .Route Qty: 9 3RF Rx Instructions: As directed (DME) Dexcom G6 Transmitter Device See Rx Instructions .Route Qty: 1 3RF Rx Instructions: As directed ipratropium-albuterol 0.5 mg-3 mg(2.5 mg base)/3 mL solution for nebulization 3 ml inhalation Q6H PRN (Reason: shortness of breath or wheezing) escitalopram oxalate 20 mg tablet 20 mg PO DAILY Qty: 30 3RF Xanax 0.25 mg tablet 0.125 mg PO BID PRN (Reason: anxiety) 30 Days Qty: 60 3RF insulin aspart U-100 [Novolog FlexPen U-100 Insulin] 100 unit/mL (3 mL) insulin pen 5 unit SUBCUT TID Qty: 15 5RF Rx Instructions: 5 units with meals, and 3 units with snacks ergocalciferol (vitamin D2) [Vitamin D2] 1,250 mcg (50,000 unit) capsule 1,250 mcg PO Q7D Qty: 14 3RF Rx Instructions: on sunday pantoprazole 40 mg tablet,delayed release (DR/EC) See Rx Instructions .ROUTE .COMPLEX Qty: 60 5RF Dose Instruction: Take 1 tablet by mouth twice daily Rx Instructions: Take 1 tablet by mouth twice daily primidone 125 mg tablet 125 mg PO BID Qty: 60 0RF calcium acetate 667 mg tablet 667 mg PO TID Qty: 90 5RF Rx Instructions: with meals and snacks gabapentin 100 mg capsule 100 mg PO .qhs Qty: 90 1RF hydrocodone-acetaminophen 5-325 mg tablet 1 tab PO BID PRN (Reason: diabetic neuropathy) 30 Days Qty: 60 0RF Rx Instructions: Refill on or after 30-day intervals Creon 6,000-19,000 -30,000 unit capsule,delayed release(DR/EC) 4 cap PO TID Qty: 360 5RF Rx Instructions: 3 with meals and 2 with snacks losartan 100 mg tablet 100 mg PO DAILY Referrals: Horacio Torres MD [Primary Care Provider] - Coding Level of Care Code ED Sleeve Setter Lockstitch for Daniel Emery
[2023-06-18 20:39] LABS: Basophils # 0.1 10^3/uL (0.0-0.1); Basophils % 1.4 %; Eosinophils % 0.2 %; Hematocrit 38.2 % (36-47); Lymphocytes % 34.5 %; Mean Corpuscular HGB Conc 31.9 g/dL (30-55); Mean Corpuscular Hemoglobin 33.4 pg (27-33); Mean Corpuscular Volume 104.7 fl (85-98); Mean Platelet Volume 9.7 fL (7.4-10.4); Monocytes # 0.4 10^3/uL (0.2-0.9); Monocytes % 6.1 %; Neutrophils # 3.38 10^3/uL (1.8-7.7); Neutrophils % 57.5 %; Nucleated Red Blood Cells % 0 %; Platelet Count 246 10^3/cmm (157-399); Red Blood Count 3.65 10^6/uL (3.85-5.65); Red Cell Distribution Width 16.1 % (12.1-15.1); White Blood Count 5.88 10^3/uL (3.29-11.43)
[2023-06-18 20:58] LABS: Lactic Sepsis W/Reflex 0.9 mmol/L (0.5-2.2)
[2023-06-18 21:07] LABS: Alanine Aminotransferase 159 U/L (0-33); Alkaline Phosphatase 287 U/L (35-105); Blood Urea Nitrogen 22 mg/dL (6-20); Calcium 7.2 mg/dL (8.5-10.5); Carbon Dioxide 19 mmol/L (22-29); Chloride 96 mmol/L (98-107); Globulin 2.5 g/dL (1.3-4.6); Glomerular Filtration Rate 9.5 mL/min (90-130); Glucose 66 mg/dL (65-115); Osmolality Calculated 282 mOsm/kg (285-295); Sodium 135 mmol/L (136-145); Total Bilirubin 0.8 mg/dL (0.15-1.2); Total Protein 4.5 g/dL (6.6-8.7)
[2023-06-18 21:09] LABS: Troponin(5th) Baseline 498 ng/L (0-10)
[2023-06-18 21:11] LABS: Anion Gap 23.3 (5-19); Aspartate Amino Transferase 66 U/L (0-32); Potassium 3.3 mmol/L (3.5-5.1)
--- NOTE | 2023-06-18 21:35 | PM.HP ---
Providers/Chief Complaint Primary Care Provider: Horacio Torres MD Chief Complaint: WEAKNESS History of Present Illness Luli Osborne is a 53 year old female who was recently discharged from [facility] after management evaluation of her generalized weakness and fatigue, family at the bedside stating that they were upset because she was discharged from the ER at [facility] that is why they went to [facility] as per the family extensive work-up was unremarkable and she was discharged home she was given fluids and then she got dialysis as per the schedule Sunday. Family brought her back because patient is not able to eat anything she is gradually getting worse, she has type 1 diabetes,Pancreatic insufficiency, end-stage renal disease, her last proper meal was a few weeks ago, as per the family her symptoms started getting worse in last 2 weeks and she is consistently losing weight, they have not noticed any fever, COVID-related symptoms, her urine output has been decreasing Patient missed her Sunday session because she was extremely weak and lethargic Review of Systems Const: Reports: chills and change in weight Eyes: Denies: change in vision ENMT: Denies: throat pain Card: Denies: chest pain Resp: Reports: dyspnea GI: Reports: abdominal pain, nausea and vomiting : Denies: flank pain Musc: Reports: back pain Skin/Breast: Reports: rash Neuro: Denies: headache(s) Psych: Reports: anxiety Medications/Allergies Home Medications Medication Instructions Recorded Confirmed Last Taken Type glucose 4 gram chewable tablet 4 g PO Q15M PRN Hypoglycemia #30 07/26/22 05/30/23 09/08/22 Rx tabs insulin aspart U-100 100 unit/mL 5 unit (0.05 mL) SUBCUT TID 08/02/22 05/30/23 09/08/22 22:00 Rx (3 mL) subcutaneous pen (Novolog diabetes #15 mL FlexPen U-100 Insulin aspart) ergocalciferol (vitamin D2) 1,250 1,250 mcg PO Q7D #14 caps 11/23/22 05/30/23 Unknown Rx mcg (50,000 unit) capsule (Vitamin D2) pantoprazole 40 mg tablet,delayed See Rx Instructions .Route 11/24/22 05/30/23 Unknown Rx release .COMPLEX #60 tabs fluticasone propionate 50 2 spray intranasal DAILY #16 grams 12/19/22 05/30/23 Unknown Rx mcg/actuation nasal spray,suspension blood-glucose sensor (Dexcom G6 #9 ea 12/29/22 05/30/23 Unknown Rx Sensor device) blood-glucose transmitter (Dexcom #1 ea 12/29/22 05/30/23 Unknown Rx G6 Transmitter device) ipratropium 0.5 mg-albuterol 3 mg 3 ml inhalation Q6H PRN shortness 01/09/23 05/30/23 Unknown History (2.5 mg base)/3 mL nebulization of breath or wheezing soln bumetanide 1 mg tablet 2 mg PO BID edema #60 tabs 03/30/23 05/30/23 Unknown Rx diphenoxylate-atropine 2.5 1 tab PO BID PRN diarrhea #60 tabs 03/30/23 05/30/23 Unknown Rx mg-0.025 mg tablet (Lomotil) promethazine 25 mg tablet 25 mg PO TID PRN nausea and 03/30/23 05/30/23 Unknown Rx vomiting #90 tabs sodium bicarbonate 650 mg tablet 650 mg PO DAILY PRN stomach upset 03/30/23 05/30/23 Unknown Rx #90 tabs trazodone 50 mg tablet 50 mg PO BEDTIME 30 days #30 tabs 03/30/23 05/30/23 Unknown Rx alprazolam 0.25 mg tablet (Xanax) 0.125 mg PO BID PRN anxiety 30 04/06/23 05/30/23 Unknown Rx days #60 tabs escitalopram oxalate 20 mg tablet 20 mg PO DAILY mental health #30 04/06/23 05/30/23 Unknown Rx tabs calcium acetate 667 mg tablet 667 mg PO TID #90 tabs 05/21/23 05/30/23 Unknown Rx primidone 125 mg tablet 125 mg PO BID tremor/shakes #60 05/21/23 05/30/23 Unknown Rx tabs losartan 100 mg tablet 100 mg PO DAILY 05/29/23 05/30/23 Unknown History loperamide 2 mg capsule (Imodium 2 mg PO Q4H PRN loose stool #20 05/30/23 05/30/23 Unknown Rx A-D) caps ondansetron 4 mg disintegrating 4 mg PO Q8H PRN nausea and 05/30/23 05/30/23 Unknown Rx tablet vomiting #20 tabs gabapentin 100 mg capsule 100 mg PO .qhs nerve pain #90 caps 06/05/23 Unknown Rx hydrocodone 5 mg-acetaminophen 325 1 tab PO BID PRN diabetic 06/12/23 Unknown Rx mg tablet neuropathy 30 days #60 tabs gmhgcw-dfmhbomj-rnchsbw 4 cap PO TID #360 caps 06/12/23 Unknown Rx 6,000-19,000-30,000 unit capsule,delayed rel (Creon) Allergies Allergy/AdvReac Type Severity Reaction Status Date / Time No Known Allergies Allergy Verified 06/18/23 19:49 PFSH Acute PFSH: Medical History ADPKD (autosomal dominant polycystic kidney disease) Anemia in end-stage renal disease Anxiety and depression Arteriovenous fistula of left upper extremity Cataracts, bilateral Chronic nausea Dehydration Diabetes 1.5, managed as type 1 Diabetic neuropathy associated with diabetes mellitus due to underlying condition Diabetic ulcer of toe associated with diabetes mellitus due to underlying condition, limited to breakdown of skin Diastolic CHF, chronic Dry eye of right side ESRD (end stage renal disease) on dialysis Frequent falls GERD (gastroesophageal reflux disease) Hx of acute pancreatitis 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 Hypertension IBS (irritable bowel syndrome) Infection of wound hematoma Malnutrition due to renal disease Multiple sclerosis Tremor due to disorder of central nervous system Surgical History History of pancreatectomy Hx of hysterectomy S/P placement of nerve stimulator Family History Father Diabetes Heart attack H/O right coronary artery stent placement Mother Hypertension Social History Smoking and tobacco/nicotine status: former use of tobacco/nicotine Second hand smoke exposure: No Alcohol intake: never Substance/Drug Use: never Vitals/I&O/Wt Last Vital Signs Temp 98.1 F 06/18/23 19:44 Pulse 71 06/18/23 19:44 Resp 18 06/18/23 19:44 BP 130/60 06/18/23 19:44 Pulse Ox 95 06/18/23 19:44 O2 Del Method Room Air 06/18/23 19:44 Weight last 48 hrs Weight 63.503 kg Physical Exam Narrative: Clinically patient looks extremely dehydrated She does have edema periorbital Afebrile Weak and lethargic Able to answer my questions Nonfocal neuro exam Dry skin Muscle mass loss Abdomen tender midepigastric region Currently on room air Hemodynamically stable Left arm fistula Data 06/18/23 20:24 06/18/23 20:24 A&P Assessment and plan (1) Elevation of cardiac enzymes: (2) Dehydration: (3) GERD (gastroesophageal reflux disease): (4) Anemia in end-stage renal disease: (5) Arteriovenous fistula of left upper extremity: (6) Malnutrition due to renal disease: (7) Chronic pancreatitis: (8) Diabetic neuropathy associated with diabetes mellitus due to underlying condition: (9) Diabetes 1.5, managed as type 1: (10) Multiple sclerosis: (11) ESRD (end stage renal disease) on dialysis: Plan 53-year-old female with past medical history of insulin-dependent diabetes mellitus, pancreatectomy, type 1 diabetes mellitus due to pancreas removal, peripheral neuropathy, end-stage renal disease on dialysis Sunday presented to the hospital today with complaint of generalized weakness failure to thrive and malaise Concern for refeeding syndrome Check magnesium and phosphorus in the morning Patient clinically extremely dry Gentle fluid hydration overnight Please consult nephrology in the morning, no acute indication for dialysis at this point She has missed Sunday session of dialysis Generalized fatigue and malaise Recent [facility] visit request records, as per the mother a lot of investigation We will request physical therapy Check TSH and B12 Extremely high troponins no active chest pain, concern related to pericarditis no recent flu fever, requested COVID-19/respiratory panel Patient has periorbital edema related to end-stage renal disease She is full code Patient has chronic pancreatic insufficiency continue pancreatic enzymes Takes antidiarrheal at home as well for her chronic diarrhea Patient does seem to have portal hypertension related gastropathy with recurrent nausea vomiting will give 1 dose of Reglan and then switch to Zofran Pyuria continue antibiotics with ceftriaxone Remitting relapsing syndrome considering history of MS, repeat MRI head? Patient might need neuro consultation Most of the information provided by the mother who is at the bedside Attestations Medical Necessity Statement*: More than 2 midnights anticipated Diagnoses Elevation of cardiac enzymes R74.8 Dehydration E86.0 GERD (gastroesophageal reflux disease) K21.9 Anemia in end-stage renal disease N18.6; D63.1 Arteriovenous fistula of left upper extremity I77.0 Malnutrition due to renal disease E46; N28.9 Chronic pancreatitis K86.1 Diabetic neuropathy associated with diabetes mellitus due to underlying condition E08.40 Diabetes 1.5, managed as type 1 E13.9 Multiple sclerosis G35 ESRD (end stage renal disease) on dialysis N18.6; Z99.2
[2023-06-18] MEDS: clopidogrel 300 mg Tablet PO (21:42)
[2023-06-18] MEDS: aspirin 325 mg EC Tablet PO (21:42)
--- NOTE | 2023-06-18 21:43 | ECG_ITS ---
[facility] Test Date: 2023-06-18 Pat Name: Luli Osborne Department: Room: Gender: Female Forestry Extension Specialist: : 1970 Requested By: Alejandro Junior Order Number: [id number] Oscar MD: Luci Avila M.D. Measurements Intervals Normal Rate: 74 P: 65 KS: 139 QRS: -34 QRSD: 89 T: 92 QT: 268 QTc: 299 Interpretive Statements SINUS RHYTHM LEFT AXIS DEVIATION [QRS AXIS < -30] LOW QRS VOLTAGE IN EXTREMITY LEADS [QRS DEFLECTION < 0.5 mV IN LIMB LEADS] ABNORMAL QRS-T ANGLE [QRS-T AXIS DIFFERENCE > 60] Compared to ECG 01/04/2023 17:52:23 Low QRS voltage now present Electronically Signed On 06-19-2023 17:19:43 ADVERTISER by Luci Avila M.D. [id number]
[2023-06-18] MEDS: metoclopramide 5 mg/mL SDV 2 mL IVP (22:06)
[2023-06-18 22:10] LABS: C Reactive Protein 4.9 mg/L (0.0-4.9); Lipase 7 U/L (13-60)
[2023-06-18 22:12] LABS: Glucose Urine UA Norm (Normal); Protein Urine 1+ (Negative); Urine Appearance Hazy (CLEAR); Urine Color Amber (Yellow); pH Urine 6.5 (5-7)
[2023-06-18 22:13] LABS: Bilirubin Urine Neg (Negative); Blood Urine Neg (Negative); Ketones Urine Negative (Negative); Leukocyte Esterase Urine Trace (Negative); RBC Urine 0-4 /hpf (0-2); Urobilinogen Urine Norm (Negative)
[2023-06-18 22:14] LABS: Bacteria Urine TRACE /hpf; Squamous Epithelial Cell Urine 0-4 /hpf (0-5)
[2023-06-18 22:18] LABS: Nitrate Urine Negative (Negative)
[2023-06-18 22:19] LABS: Add Urine Culture? No
[2023-06-18 22:21] LABS: Lactate Dehydrogenase 436 U/L (135-214)
[2023-06-18 22:34] LABS: Erythrocyte Sedimentation Rate 1 mm/hr (0-15)
[2023-06-18 22:45] LABS: Amphetamines Screen Urine Negative (Negative); Barbiturates Screen Urine Negative (Negative); Benzodiazepines Screen Urine Positive (Negative); Cocaine Screen Urine Negative (Negative); Opiate Screen Urine Positive (Negative); PCP Screen Urine Negative (Negative); THC Screen Urine Negative (Negative)
[2023-06-18 22:45] LABS: Troponin 5 2HR Delta -12.2 ABS# (0-10)
[2023-06-18 22:46] LABS: Troponin 5 2HR 485.8 ng/L (0-10)
[2023-06-18 22:57] LABS: Influenza A by IFA negative (Negative); Influenza B by IFA negative (Negative)
[2023-06-18 22:58] LABS: SARS Covid-2 Antigen negative (Negative)
[2023-06-18 23:35] LABS: Estmated Average Glucose 111; Hemoglobin A1C 5.5 % (4.0-6.0)
[2023-06-18 23:48] LABS: Glucose Point of Care 66 mg/dL (70-110)
[2023-06-19] VITALS (24 sets, daily range): BP systolic 129–171; BP diastolic 63–85; PULSE 65–97; RESP 0–26; TEMP 36.4–36.7; O2SAT 94–99
[2023-06-19] MEDS: glucagon 1 mg/mL KIT 1 mL IM (00:23)
[2023-06-19 00:36] LABS: Vitamin B12 > 2000 pg/mL (232-1245)
[2023-06-19] MEDS: heparin 5,000 unit/mL INJ 1 mL 5000 UNIT SUBCUT ×2 (01:14→23:52)
[2023-06-19 01:24] LABS: Glucose Point of Care 111 mg/dL (70-110)
--- NOTE | 2023-06-19 01:30 | ECG_ITS ---
[facility] Test Date: 2023-06-19 Pat Name: Luil Osborne Department: Room: 103 Gender: Female Principal Technical Architect: : 1970 Requested By: Alejandro Junior Order Number: [id number] Oscar MD: Luci Avila M.D. Measurements Intervals [place] Rate: 82 P: 83 NV: 144 QRS: -33 QRSD: 85 T: 31 QT: 377 QTc: 440 Interpretive Statements SINUS RHYTHM LEFT AXIS DEVIATION [QRS AXIS < -30] NONSPECIFIC T-WAVE ABNORMALITY Compared to ECG 06/18/2023 21:43:53 T-wave abnormality now present Electronically Signed On 06-19-2023 17:17:08 ELASTIC TAPE INSERTER by Luci Avila M.D. [id number]
[2023-06-19 01:38] LABS: Basophils # 0.1 10^3/uL (0.0-0.1); Eosinophils # 0.2 10^3/uL (0.0-0.8); Eosinophils % 2.9 %; Hematocrit 36.5 % (36-47); Lymphocytes # 1.9 10^3/uL (0.8-4.8); Lymphocytes % 30.2 %; Mean Corpuscular HGB Conc 32.3 g/dL (30-55); Mean Corpuscular Hemoglobin 33.4 pg (27-33); Mean Corpuscular Volume 103.4 fl (85-98); Mean Platelet Volume 9.7 fL (7.4-10.4); Monocytes # 0.4 10^3/uL (0.2-0.9); Monocytes % 6.6 %; Neutrophils # 3.67 10^3/uL (1.8-7.7); Nucleated Red Blood Cells % 0 %; Platelet Count 257 10^3/cmm (157-399); Red Blood Count 3.53 10^6/uL (3.85-5.65); White Blood Count 6.22 10^3/uL (3.29-11.43)
[2023-06-19 01:52] LABS: Troponin 5 6HR Delta -27.6 ng/L (0-12)
[2023-06-19 01:53] LABS: Alanine Aminotransferase 161 U/L (0-33); Albumin Level 2.1 g/dL (3.5-5.2); Alkaline Phosphatase 294 U/L (35-105); Anion Gap 22.2 (5-19); Aspartate Amino Transferase 64 U/L (0-32); Blood Urea Nitrogen 24 mg/dL (6-20); C Reactive Protein 4.7 mg/L (0.0-4.9); Calcium 7.4 mg/dL (8.5-10.5); Carbon Dioxide 23 mmol/L (22-29); Chloride 95 mmol/L (98-107); Globulin 2.3 g/dL (1.3-4.6); Glomerular Filtration Rate 9.1 mL/min (90-130); Glucose 100 mg/dL (65-115); Magnesium 1.7 mg/dL (1.7-2.3); Osmolality Calculated 288 mOsm/kg (285-295); Potassium 3.2 mmol/L (3.5-5.1); Sodium 137 mmol/L (136-145); Total Bilirubin 0.8 mg/dL (0.15-1.2); Total Protein 4.4 g/dL (6.6-8.7); Troponin 5 6HR 470.4 ng/L (0-10)
[2023-06-19] MEDS: dextrose 5%-sod chloride 0.9% 1,000 ML 50 ML IV (03:05)
[2023-06-19] MEDS: ondansetron 2 mg/ML SDV 2 mL 4 MG IVP ×3 (03:13→16:58)
--- NOTE | 2023-06-19 04:00 | PC.NURSE ---
Spoke with regarding difficult IV access, awaiting ultrasound guided IV, unable to start IV fluids and IV potassium. After obtaining IV access with ultrasound IV was only able to get 22gauge and not able to advance completely. Made Dr aware that patient will likely need PICC placement. Per ok to wait on IV potassium until PICC is able to be placed.
[2023-06-19 08:22] LABS: Glucose Point of Care 94 mg/dL (70-110)
[2023-06-19] MEDS: morphine IR 15 mg Tablet PO (08:33)
--- NOTE | 2023-06-19 09:45 | PC.CHAP ---
Pastoral Care Encounter/Spiritual Assessment Type of Contact [] Declined security expert visit [] Patient/Family/Request visit [] Outpatient visit [] Follow-up visit [] Physician referral [] Code/Alert [] Routine visit [] Staff referral [] Actively dying [x] Patient sleeping [] Family support [] [] Out of room [] Palliative care [] [] Receiving care in room [] Pre-surgical visit [] Trauma [] Long length of stay [] ICU visit [] Other: Relational/Emotional Strength [] Patient feels connected with others/family/visitors/staff [] Distress [] Loneliness/isolation [] Abandonment Spirituality of Patient [] Person of Elle [] Attends Spiritism of their Elle [] Believes in Prayer [] Reads Bible or Moravian materials [] There are Spiritual issues to be addressed Ski Topper Interventions [] Prayer [] Active listening [] Non-anxious presence [] Spiritual/emotional support [] Crisis/trauma care [] Spiritual counseling [] Bereavement support [] Provided bereavement packet [] Provided Bible/devotional materials [] Provided toy/stuffed animal, coloring book to patient or family member [] Provided Communion [] Anointing/[place] [] Salvation [] Completed spiritual assessment [] Other: Impact on Illness or Injury [] Angry [] Fearful [] Anxious [] Often cries [] Exhaustion [] Unable to work [] Unable to attend druze [] Unable to walk/stand [] Unable to read [] Unable to drive [] Unable to eat/drink [] Unable to sleep [] Unable to be with family [] Patient intubated [] Other: Summary Time spent with patient
--- NOTE | 2023-06-19 10:42 | P.CONIM_ITS ---
Providers/Reason For Consult 2 Consulting Physician/Specialty*: kommana/Nephrology Reason for Consult*: ESRD Attending Physician: Elba Alcazar MD Primary Care Provider: Horacio Torres MD History of Present Illness History of Present Illness Luli Osborne is a 53 year old female With past medical history of end-stage renal disease on dialysis per Sunday, diabetes, hypertension, presented to the emergency department due to altered mental status and not able to eat for few days. Patient was recently admitted at [facility] for generalized weakness and fatigue. Patient missed dialysis on Sunday. In the ER vital signs are stable, lab data significant for hip potassium of 3.3 CO2 is 19. Review of Systems 2 Narrative: Unable to obtain full review of systems Medications/Allergies Home Medications Medication Instructions Recorded Confirmed Last Taken Type glucose 4 gram chewable tablet 4 g PO Q15M PRN Hypoglycemia #30 07/26/22 06/19/23 09/08/22 Rx tabs insulin aspart U-100 100 unit/mL 5 unit (0.05 mL) SUBCUT TID 08/02/22 06/19/23 09/08/22 22:00 Rx (3 mL) subcutaneous pen (Novolog diabetes #15 mL FlexPen U-100 Insulin aspart) fluticasone propionate 50 2 spray intranasal DAILY #16 grams 12/19/22 06/19/23 Unknown Rx mcg/actuation nasal spray,suspension blood-glucose sensor (Dexcom G6 #9 ea 12/29/22 06/19/23 Unknown Rx Sensor device) blood-glucose transmitter (Dexcom #1 ea 12/29/22 06/19/23 Unknown Rx G6 Transmitter device) ipratropium 0.5 mg-albuterol 3 mg 3 ml inhalation Q6H PRN shortness 01/09/23 06/19/23 Unknown History (2.5 mg base)/3 mL nebulization of breath or wheezing soln bumetanide 1 mg tablet 2 mg (2 x 1 mg) PO BID edema #60 03/30/23 06/19/23 06/17/23 Rx tabs diphenoxylate-atropine 2.5 1 tab PO BID PRN diarrhea #60 tabs 03/30/23 06/19/23 06/18/23 Rx mg-0.025 mg tablet (Lomotil) promethazine 25 mg tablet 25 mg PO TID PRN nausea and 03/30/23 06/19/23 06/18/23 Rx vomiting #90 tabs sodium bicarbonate 650 mg tablet 650 mg PO DAILY PRN stomach upset 03/30/23 06/19/23 Unknown Rx #90 tabs trazodone 50 mg tablet 50 mg PO BEDTIME 30 days #30 tabs 03/30/23 06/19/23 06/17/23 Rx alprazolam 0.25 mg tablet (Xanax) 0.125 mg (1/2 x 0.25 mg) PO BID 04/06/23 06/19/23 Unknown Rx PRN anxiety 30 days #60 tabs escitalopram oxalate 20 mg tablet 20 mg PO DAILY mental health #30 04/06/23 06/19/23 06/17/23 Rx tabs calcium acetate 667 mg tablet 667 mg PO TID #90 tabs 05/21/23 06/19/23 06/15/23 Rx primidone 125 mg tablet 125 mg PO BID tremor/shakes #60 05/21/23 06/19/23 06/17/23 Rx tabs losartan 100 mg tablet 100 mg PO DAILY 05/29/23 06/19/23 06/17/23 History loperamide 2 mg capsule (Imodium 2 mg PO Q4H PRN loose stool #20 05/30/23 06/19/23 Unknown Rx A-D) caps ondansetron 4 mg disintegrating 4 mg PO Q8H PRN nausea and 05/30/23 06/19/23 06/18/23 Rx tablet vomiting #20 tabs gabapentin 100 mg capsule 100 mg PO .qhs nerve pain #90 caps 06/05/23 06/19/23 06/17/23 Rx hydrocodone 5 mg-acetaminophen 325 1 tab PO BID PRN diabetic 06/12/23 06/19/23 06/18/23 Rx mg tablet neuropathy 30 days #60 tabs qwdjjm-vrrfjhot-dqhuuwi 4 cap PO TID #360 caps 06/12/23 06/19/23 Unknown Rx 6,000-19,000-30,000 unit capsule,delayed rel (Creon) calcium carbonate 400 mg calcium 2,000 mg PO DIRECTED PRN Acid 06/19/23 06/19/23 Unknown History (1,000 mg) chewable tablet (Tums Reflux Ultra) dorzolamide 22.3 mg-timolol 6.8 1 drp ophthalmic (eye) BID 06/19/23 06/19/23 Unknown History mg/mL eye drops ergocalciferol (vitamin D2) 1,250 1,250 mcg PO DIRECTED 06/19/23 06/19/23 06/15/23 History mcg (50,000 unit) capsule mirtazapine 7.5 mg tablet 7.5 mg PO BEDTIME 06/19/23 06/19/23 Unknown History pantoprazole 40 mg tablet,delayed 40 mg PO 2XD 06/19/23 06/19/23 06/17/23 History release Allergies Allergy/AdvReac Type Severity Reaction Status Date / Time No Known Allergies Allergy Verified 06/18/23 19:49 Current Medications Generic Name Dose Route Start Last Admin Trade Name Freq PRN Reason Stop Dose Admin Gabapentin 100 mg 06/18/23 22:59 06/19/23 01:37 Gabapentin 100 Mg Capsule PO Not Given BEDTIME JAYANT Heparin Sodium (Porcine) 5,000 unit 06/18/23 23:00 06/19/23 01:14 Heparin 5,000 Unit/Ml Inj 1 Ml SUBCUT 5,000 unit Q12H JAYANT Administration Insulin Human Lispro 0 unit 06/19/23 08:00 06/19/23 08:34 Insulin Lispro 100 Unit/1 Ml SUBCUT Not Given WM&BEDTIME JAYANT Protocol Morphine Sulfate 15 mg 06/18/23 22:59 06/19/23 08:33 Morphine Ir 15 Mg Tablet PO 15 mg Q6H PRN Administration MODERATE PAIN Ondansetron HCl 4 mg 06/18/23 22:59 06/19/23 08:31 Ondansetron 2 Mg/Ml Sdv 2 Ml IVP 4 mg Q6H PRN Administration NAUSEA AND VOMITING PFSH Acute 2 PFSH: Medical History ADPKD (autosomal dominant polycystic kidney disease) Anemia in end-stage renal disease Anxiety and depression Arteriovenous fistula of left upper extremity Cataracts, bilateral Chronic nausea Dehydration Diabetes 1.5, managed as type 1 Diabetic neuropathy associated with diabetes mellitus due to underlying condition Diabetic ulcer of toe associated with diabetes mellitus due to underlying condition, limited to breakdown of skin Diastolic CHF, chronic Dry eye of right side ESRD (end stage renal disease) on dialysis Frequent falls GERD (gastroesophageal reflux disease) Hx of acute pancreatitis 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 Hypertension IBS (irritable bowel syndrome) Infection of wound hematoma Malnutrition due to renal disease Multiple sclerosis Tremor due to disorder of central nervous system Surgical History History of pancreatectomy Hx of hysterectomy S/P placement of nerve stimulator Family History Father Diabetes Heart attack H/O right coronary artery stent placement Mother Hypertension Social History Smoking and tobacco/nicotine status: former use of tobacco/nicotine Second hand smoke exposure: No Alcohol intake: never Substance/Drug Use: never Vitals/I&O/Wt Last Vital Signs Temp 98.1 F 06/19/23 08:52 Pulse 79 06/19/23 08:52 Resp 16 06/19/23 08:52 BP 129/76 06/19/23 08:52 Pulse Ox 99 06/19/23 08:52 O2 Del Method Room Air 06/19/23 08:52 Weight last 48 hrs Weight 44.452 kg Weight 63.503 kg Physical Exam 2 Narrative: No distress, lethargic Data 06/19/23 01:27 06/19/23 01:27 Micro: Microbiology 06/18/23 22:13 Blood Culture - Preliminary Blood SPECIMEN COLLECTED 06/18/23 22:13 Blood Culture - Preliminary Blood SPECIMEN COLLECTED A&P Assessment and plan (1) ESRD (end stage renal disease) on dialysis: Plan 1. End-stage renal disease: On TTS schedule as outpatient, patient missed HD, no acute indication for HD currently, Will consider HD later today or in a.m. 2. Hypokalemia: Can give 20 mEq KCl, will run on 3K bath with dialysis 3. Altered mental status, workup underway 4. Nausea vomiting, and d poor p.o. intake, likely gastroparesis 4. History of chronic pancreatic insufficiency Patient evaluated via audiovisual cart. Time spent 40 minutes Consult Attestations 2 Medical Necessity Statement: Per medicine team Coding Level of Care Code Acute Code for Chg Fwd Diagnoses ESRD (end stage renal disease) on dialysis N18.6; Z99.2
[2023-06-19 11:16] LABS: Hepatitis B Surface AB 25.5 (11.5-1000); Hepatitis B Surface Antigen Non-Reactive (Nonreactive)
[2023-06-19] MEDS: HYDROcodone-acetaminophen 5-325 mg Tablet 1 TAB PO ×2 (12:48→19:20)
[2023-06-19 12:52] LABS: Glucose Point of Care 99 mg/dL (70-110)
[2023-06-19] MEDS: morphine 4 mg/mL SDV 1 mL 1 MG IVP ×2 (15:25→21:21)
[2023-06-19 16:41] LABS: Glucose Point of Care 90 mg/dL (70-110)
[2023-06-19] MEDS: dronabinol 2.5 mg Capsule PO (17:55)
[2023-06-19 18:23] LABS: Adenovirus Not Detected (NOT DETECT); Chlamydia Pneumoniae Not Detected (NOT DETECT); Human Metapneumovirus Not Detected (NOT DETECT); Human Rhinovirus/Enterovirus Not Detected (NOT DETECT); Influenza A Not Detected (NOT DETECT); Influenza A H1 Not Detected (NOT DETECT); Influenza A H1-2009 Not Detected (NOT DETECT); Influenza A H3 Not Detected (NOT DETECT); Influenza B Not Detected (NOT DETECT); Mycoplasma Pneumoniae Not Detected (NOT DETECT); Parainfluenza Virus Type 1 Not Detected (NOT DETECT); Parainfluenza Virus Type 2 Not Detected (NOT DETECT); Parainfluenza Virus Type 3 Not Detected (NOT DETECT); Parainfluenza Virus Type 4 Not Detected (NOT DETECT); Respiratory Syncytial Virus A Not Detected (NOT DETECT); Respiratory Syncytial Virus B Not Detected (NOT DETECT); SARS-COV-2 Not Detected (NOT DETECT)
[2023-06-19 18:37] LABS: Coronavirus 229E,HKU1,NL63,OC4 Detected (NOT DETECT)
[2023-06-19] MEDS: mirtazapine 15 mg Tablet 7.5 MG PO (21:20)
[2023-06-19] MEDS: gabapentin 100 mg Capsule PO (21:20)
[2023-06-20] VITALS (10 sets, daily range): BP systolic 139–173; BP diastolic 67–80; PULSE 62–80; RESP 13–18; TEMP 36–37.3; O2SAT 91–96
[2023-06-20] MEDS: HYDROcodone-acetaminophen 5-325 mg Tablet 1 TAB PO ×4 (01:21→21:52)
[2023-06-20] MEDS: morphine 4 mg/mL SDV 1 mL 1 MG IVP (04:04)
[2023-06-20] MEDS: heparin, porcine 1,000 unit/mL INJ 10 mL 1000 UNIT IV (08:52)
[2023-06-20] MEDS: sodium bicarbonate 650 mg Tablet PO ×2 (09:10→17:48)
[2023-06-20] MEDS: dronabinol 2.5 mg Capsule PO ×2 (09:10→17:48)
[2023-06-20] MEDS: primidone 50 mg Tablet 125 MG PO ×2 (09:10→17:49)
[2023-06-20] MEDS: escitalopram 10 mg Tablet 20 MG PO (09:14)
[2023-06-20] MEDS: aspirin 81 mg EC Tablet PO (09:14)
--- NOTE | 2023-06-20 09:56 | P.PN_ITS ---
Subjective 2 Subjective: getting HD Medications: Reviewed: Yes Vitals/I&O/Wt Last Vital Signs Temp 98.3 F 06/20/23 07:25 Pulse 66 06/20/23 08:37 Resp 16 06/20/23 08:37 BP 142/76 06/20/23 07:25 Pulse Ox 91 06/20/23 08:37 O2 Del Method Room Air 06/20/23 08:37 Weight last 48 hrs Weight 44.452 kg Weight 44.452 kg Weight 63.503 kg Physical Exam 2 Narrative: No distress, awake , alert no edema Data 06/19/23 01:27 06/19/23 01:27 Micro: Microbiology 06/18/23 22:13 Blood Culture - Preliminary Blood NEGATIVE TO DATE 06/18/23 22:13 Blood Culture - Preliminary Blood NEGATIVE TO DATE A&P Assessment and plan (1) ESRD (end stage renal disease) on dialysis: Plan 1. End-stage renal disease: On TTS schedule as outpatient, patient missed HD, no acute indication for HD currently, Will consider HD today 2. Hypokalemia: will run on 3K bath with dialysis 3. Altered mental status, workup underway 4. Nausea vomiting, and d poor p.o. intake, likely gastroparesis 4. History of chronic pancreatic insufficiency Patient evaluated via audiovisual cart. Time spent 20 minutes Attestations 2 Medical Necessity Statement*: per medicine team Coding Level of Care Code Acute Code for Chg Fwd Diagnoses ESRD (end stage renal disease) on dialysis N18.6; Z99.2
--- NOTE | 2023-06-20 10:10 | PC.CHAP ---
Pastoral Care Encounter/Spiritual Assessment Type of Contact [] Declined slitter scorer cut off operator visit [] Patient/Family/Request visit [] Outpatient visit [] Follow-up visit [] Physician referral [] Code/Alert [x] Routine visit [] Staff referral [] Actively dying [] Patient sleeping [] Family support [] [] Out of room [] Palliative care [] [] Receiving care in room [] Pre-surgical visit [] Trauma [] Long length of stay [] ICU visit [] Other: Relational/Emotional Strength [] Patient feels connected with others/family/visitors/staff [] Distress [] Loneliness/isolation [] Abandonment Spirituality of Patient [] Person of Elle [] Attends Yazidism of their Elle [] Believes in Prayer [] Reads Bible or Hoahaoism materials [] There are Spiritual issues to be addressed Woods Laborer Interventions [x] Prayer [] Active listening [] Non-anxious presence [] Spiritual/emotional support [] Crisis/trauma care [] Spiritual counseling [] Bereavement support [] Provided bereavement packet [] Provided Bible/devotional materials [] Provided toy/stuffed animal, coloring book to patient or family member [] Provided Communion [] Anointing/[place] [] Salvation [] Completed spiritual assessment [] Other: Impact on Illness or Injury [] Angry [] Fearful [] Anxious [] Often cries [] Exhaustion [] Unable to work [] Unable to attend confucianism [] Unable to walk/stand [] Unable to read [] Unable to drive [] Unable to eat/drink [] Unable to sleep [] Unable to be with family [] Patient intubated [] Other: Summary Time spent with patient 15
[2023-06-20] MEDS: heparin 5,000 unit/mL INJ 1 mL 5000 UNIT SUBCUT (13:07)
[2023-06-20] MEDS: bumetanide 1 mg Tablet 2 MG PO (17:47)
--- NOTE | 2023-06-20 18:38 | P.PN_ITS ---
Subjective 2 Subjective: Records obtained for review from [facility]. He had to start TPN as it appears her orders were canceled that were placed yesterday. Uncertain how these orders got canceled in the system. Medications: Reviewed: Yes Vitals/I&O/Wt Last Vital Signs Temp 98.9 F 06/20/23 16:00 Pulse 69 06/20/23 16:00 Resp 13 06/20/23 16:00 BP 152/72 06/20/23 16:00 Pulse Ox 95 06/20/23 16:00 O2 Del Method Room Air 06/20/23 16:00 06/20/23 06/20/23 06/20/23 06:59 14:59 22:59 Intake Total 120 / 120 Balance 120 / 120 Weight last 48 hrs Weight 44.452 kg Weight 44.452 kg Weight 63.503 kg Physical Exam 2 Narrative: General: No acute distress, AO x3, extremely frail and cachectic. Chronically ill-appearing HEENT: PERRLA, pupils bilaterally equal and reactive, pallors not present Chest: Normal vesicular breath sounds, no added sounds, equal good air entry bilaterally CVS: S1-S2 regular, no murmurs, no tachycardia, no gallops, no rubs Abdomen: Soft, nontender, no organomegaly, bowel sounds present Neuro: No focal deficits, no facial deformity, AO x3, power 5/5 in all limbs Data 06/19/23 01:27 06/19/23 01:27 Micro: Microbiology 06/18/23 22:13 Blood Culture - Preliminary Blood NEGATIVE TO DATE 06/18/23 22:13 Blood Culture - Preliminary Blood NEGATIVE TO DATE A&P Assessment and plan (1) Anemia in end-stage renal disease: (2) Chronic pancreatitis: (3) Diabetes 1.5, managed as type 1: (4) ESRD (end stage renal disease) on dialysis: (5) Malnutrition: Plan Patient is a 53-year-old lady with chronic pancreatitis, history of pancreatectomy at age 18, currently on pancreatic enzyme supplementation, CKD on maintenance hemodialysis who has been progressively worsening over the course of 1 year. Patient has been experiencing increasing fatigue, generalized weakness, loss of muscle mass, most likely related to malabsorptive state and her chronic diarrhea, chronic pancreatitis and CKD. She is currently admitted here with worsening weakness over the past 1 month or so. Recently admitted at [facility] for similar complaints, review of records shows that she was noted to be dehydrated. She received IV hydration, diuretics were discontinued, hemodialysis was continued. CT of the head was obtained which was unrevealing for any acute stroke. Currently patient is noted to have transaminitis, LFTs were noted to be elevated in the 200 range even previously at [facility]. No dedicated abdominal imaging is currently available. CT of the abdomen and pelvis performed on 05/29/2023 showed chronic pancreatic atrophy with pancreatic calcification occasions and duct dilatation. She has not yet established with any GI services. Current LFTs are with AST in the 60s range, ALT 161, alkaline phosphatase 294 which is higher than last range of 90-100 in December 2022. Laso noted to have chronically elevated troponins without significant delta at 2 and 6 hrss. Previous range 300-400. From 07/13, Mild concentric left ventricular hypertrophy. Left ventricular ejection fraction is estimated at 60 %. Grade II diastolic dysfunction. Will recheck since its been a year since last study. Current plan: Patientc hronically ill as noted above last albumin 1.8 Main problem currently is inadequate caloric intake in the presence of nausea and diarrhea from chronic pancreatic insuffieciency there is chronic malabsorption likely contributing due to pancreatectomy and pancreatitis. Start TPN to meet nurtirional goals Hope that with a fe wdays of TPN, she may be able to eventually tolerate increased oral caloric intake. Eventually may need a PEG if unable to meet claoric goals with Po intake Alternately discused hospice, patient and family state that they have mutlipel family milestones coming up over the next few months and patient wishes to continue with all measures to be able to survive over the next 2-3 months at a minimum. She is not ready for hospice yet. Attestations 2 Medical Necessity Statement*: > 2 midnight admission needed for severe protein calorie malnutrition, continue HD per schedule, TPN and possible PEG Coding Level of Care Code Acute Code for Chg Fwd Diagnoses Anemia in end-stage renal disease N18.6; D63.1 Chronic pancreatitis K86.1 Diabetes 1.5, managed as type 1 E13.9 ESRD (end stage renal disease) on dialysis N18.6; Z99.2 Malnutrition E46
[2023-06-20] MEDS: lipase-protease-amylase Capsule 4 EACH PO (18:43)
[2023-06-20] MEDS: AA-Dex 5%-20% w/Lytes 1,000 ML with multivitamin inj 10 ML 24 ML IV (18:47)
--- NOTE | 2023-06-20 18:50 | USCV_ITS ---
Luli Osborne Age: 53 Gender: F : 1970 Exam Date: 06/20/2023 22:43 Ordering Phys: Elba Alcazar MD Technologist: OTIS [place] [facility] [place]: elevated troponin. No history of cardiac intervention per patient. BP: 148 / 64 HR: 39 Rhythm: Sinus Technical Quality: Adequate MEASUREMENTS (Male / Female) Normal Values 2D ECHO LV Diastolic Diameter PLAX 3.5 cm 4.2 - 5.9 / 3.9 - 5.3 cm LV Systolic Diameter PLAX 2.1 cm IVS Diastolic Thickness 1.2 cm 0.6 - 1.0 / 0.6 - 0.9 cm IVS Systolic Thickness 2.0 cm LVPW Diastolic Thickness 1.1 cm 0.6 - 1.0 / 0.6 - 0.9 cm LVPW Systolic Thickness 1.6 cm LVOT Diameter 1.9 cm LV Ejection Fraction 2D Teich 72.3 % LV Ejection Fraction MOD 2C 77.0 % LV Ejection Fraction 2C AL 78.3 % LA Diameter 3.0 cm LA Width 2.8 cm LA Height 3.9 cm RA Width 3.0 cm RA Height 2.9 cm Aorta at Sinotubular Diameter 2.6 cm IVC Diameter 1.3 cm M-MODE Aortic Annulus Diameter 2.8 cm LA Ao Ratio MM 1.2 MV E Point Septal Separation 0.4 cm DOPPLER AV Peak Velocity 118.0 cm/s LVOT Peak Velocity 107.0 cm/s AV Area Cont Eq vti 2.3 cm squared AV Area Cont Eq pk 2.5 cm squared MV Peak Velocity 108.0 cm/s MV Area PHT 2.8 cm squared Mitral E to A Ratio 0.8 MV E' Velocity 42.5 cm/s Mitral E to MV E' Ratio 10.6 Mitral E to LV E' Lateral Ratio 9.2 Mitral E to LV E' Septal Ratio 12.7 TV Peak E Velocity 48.0 cm/s PV Peak Velocity 80.0 cm/s RV Acceleration Time 0.1 s RV Ejection Time 0.4 s RV AcT/ET 0.3 FINDINGS Left Ventricle Normal left ventricular size, systolic function and wall thickness, with no regional wall motion abnormalities. Left ventricular ejection fraction is estimated at 65 %. Right Ventricle Normal right ventricular size and systolic function. Right Atrium Normal right atrial size. Left Atrium Normal left atrial size. Mitral Valve Structurally normal mitral valve. Trace mitral valve regurgitation. Aortic Valve Thickened aortic valve. No aortic valve stenosis. No aortic valve regurgitation. Tricuspid Valve Structurally normal tricuspid valve. Pulmonic Valve Mild pulmonary valve regurgitation. Pericardium No pericardial effusion. Aorta Normal size aortic root and proximal ascending aorta. IVC Normal IVC dimension with >50% respiratory change of the inferior vena cava. CONCLUSIONS Normal left ventricle systolic function. There is no LVH. Estimated LVEF normal at 65%. Normal chamber sizes. No significant valvular abnormality noted. Normal right heart and pulmonary pressures. Luci Avila MD (Electronically Signed) Final Date: 21 June 2023 11:49 S
--- NOTE | 2023-06-20 18:50 | US_ITS ---
WS: [id number] RIGHT UPPER QUADRANT ULTRASOUND HISTORY: transmainitis, assess for biliary obstrcution COMPARISON: 07/24/2018 Liver: 13.2 cm in length. Liver is normal size. Liver is echogenic no mass. Portal Vein: Normal hepatopetal flow with monophasic waveform. Gallbladder: Prior cholecystectomy. CBD: 0.6 cm Pancreas: Normal size and echogenicity. Right kidney: 9.7 cm in length. Normal size and echogenicity. No hydronephrosis or mass. Aorta and IVC: Unremarkable abdominal aorta and IVC. There is a small amount of ascites. Small RIGHT pleural effusion. IMPRESSION: 1. Prior cholecystectomy. 2. Normal size liver with mild hepatic steatosis. 3. Small RIGHT pleural effusion and very small amount of ascites.
[2023-06-20] MEDS: gabapentin 100 mg Capsule PO (21:52)
[2023-06-20] MEDS: trazodone 50 mg Tablet PO (21:52)
[2023-06-20] MEDS: mirtazapine 15 mg Tablet 7.5 MG PO (21:52)
[2023-06-20 23:53] LABS: Alanine Aminotransferase 110 U/L (0-33); Albumin Level 1.8 g/dL (3.5-5.2); Alkaline Phosphatase 218 U/L (35-105); Aspartate Amino Transferase 62 U/L (0-32); Blood Urea Nitrogen 18 mg/dL (6-20); Carbon Dioxide 27 mmol/L (22-29); Chloride 99 mmol/L (98-107); Glomerular Filtration Rate 11.4 mL/min (90-130); Glucose 139 mg/dL (65-115); Magnesium 1.6 mg/dL (1.7-2.3); Osmolality Calculated 284 mOsm/kg (285-295); Phosphorus 3.1 mg/dL (2.5-4.5); Sodium 135 mmol/L (136-145); Total Bilirubin 0.6 mg/dL (0.15-1.2); Total Protein 3.8 g/dL (6.6-8.7)
[2023-06-20 23:55] LABS: Anion Gap 12.2 (5-19); Potassium 3.2 mmol/L (3.5-5.1)
[2023-06-21] VITALS (11 sets, daily range): BP systolic 131–166; BP diastolic 64–81; PULSE 62–74; RESP 14–18; TEMP 36.5–36.9; O2SAT 91–100
[2023-06-21] MEDS: heparin 5,000 unit/mL INJ 1 mL 5000 UNIT SUBCUT (00:44)
[2023-06-21 04:44] LABS: Basophils # 0.1 10^3/uL (0.0-0.1); Basophils % 2.8 %; Eosinophils # 0.1 10^3/uL (0.0-0.8); Eosinophils % 1.7 %; Hematocrit 32.4 % (36-47); Lymphocytes % 43.3 %; Mean Corpuscular HGB Conc 33.3 g/dL (30-55); Mean Corpuscular Hemoglobin 33.8 pg (27-33); Mean Corpuscular Volume 101.3 fl (85-98); Mean Platelet Volume 10.1 fL (7.4-10.4); Monocytes # 0.4 10^3/uL (0.2-0.9); Monocytes % 7.5 %; Neutrophils # 2.08 10^3/uL (1.8-7.7); Neutrophils % 44.3 %; Nucleated Red Blood Cells % 0 %; Platelet Count 217 10^3/cmm (157-399); Red Cell Distribution Width 15.8 % (12.1-15.1); White Blood Count 4.69 10^3/uL (3.29-11.43)
[2023-06-21] MEDS: HYDROcodone-acetaminophen 5-325 mg Tablet 1 TAB PO ×3 (05:57→21:55)
[2023-06-21 05:58] LABS: Glucose Point of Care 147 mg/dL (70-110)
[2023-06-21] MEDS: dronabinol 2.5 mg Capsule PO (05:58)
[2023-06-21] MEDS: morphine 4 mg/mL SDV 1 mL 1 MG IVP ×2 (06:25→13:54)
[2023-06-21] MEDS: lipase-protease-amylase Capsule 4 EACH PO (08:17)
[2023-06-21] MEDS: losartan 50 mg Tablet 100 MG PO (08:18)
[2023-06-21] MEDS: aspirin 81 mg EC Tablet PO (08:18)
[2023-06-21] MEDS: escitalopram 10 mg Tablet 20 MG PO (08:18)
[2023-06-21] MEDS: primidone 50 mg Tablet 125 MG PO (08:18)
[2023-06-21] MEDS: sodium bicarbonate 650 mg Tablet PO (08:19)
[2023-06-21] MEDS: ondansetron 2 mg/ML SDV 2 mL 4 MG IVP (08:24)
[2023-06-21 10:53] LABS: Alanine Aminotransferase 105 U/L (0-33); Albumin Level 1.7 g/dL (3.5-5.2); Alkaline Phosphatase 221 U/L (35-105); Anion Gap 12.8 (5-19); Aspartate Amino Transferase 60 U/L (0-32); Blood Urea Nitrogen 19 mg/dL (6-20); Carbon Dioxide 26 mmol/L (22-29); Chloride 101 mmol/L (98-107); Globulin 2.1 g/dL (1.3-4.6); Glomerular Filtration Rate 11.8 mL/min (90-130); Glucose 161 mg/dL (65-115); Magnesium 1.7 mg/dL (1.7-2.3); Osmolality Calculated 290 mOsm/kg (285-295); Phosphorus 2.9 mg/dL (2.5-4.5); Sodium 137 mmol/L (136-145); Total Bilirubin 0.6 mg/dL (0.15-1.2); Total Protein 3.8 g/dL (6.6-8.7)
--- NOTE | 2023-06-21 10:55 | P.PN_ITS ---
Subjective 2 Subjective: Mental status slightly better Medications: Reviewed: Yes Vitals/I&O/Wt Last Vital Signs Temp 98.5 F 06/21/23 07:20 Pulse 66 06/21/23 08:00 Resp 16 06/21/23 08:00 BP 166/77 06/21/23 07:20 Pulse Ox 93 06/21/23 08:00 O2 Del Method Room Air 06/21/23 08:00 06/20/23 06/21/23 06/21/23 22:59 06:59 14:59 Intake Total 600 / 720 100 / 820 Output Total 671 / 671 Balance -71 / 49 100 / 149 Weight last 48 hrs Weight 52.1 kg Weight 44.452 kg Physical Exam 2 Narrative: No distress, awake , alert no edema Data 06/21/23 03:55 06/21/23 03:55 A&P Assessment and plan (1) ESRD (end stage renal disease) on dialysis: Plan 1. End-stage renal disease: On TTS schedule as outpatient, patient missed HD, s/p HD yesterday and HD again tomorrow 2. Hypokalemia: will run on 3K bath with dialysis 3. Altered mental status, workup underway 4. Nausea vomiting, and d poor p.o. intake, likely gastroparesis 4. History of chronic pancreatic insufficiency Patient evaluated via audiovisual cart. Time spent 20 minutes Attestations 2 Medical Necessity Statement*: per medicine team Coding Level of Care Code Acute Code for Chg Fwd Diagnoses ESRD (end stage renal disease) on dialysis N18.6; Z99.2
[2023-06-21 11:08] LABS: Potassium 2.8 mmol/L (3.5-5.1)
[2023-06-21 11:54] LABS: Glucose Point of Care 215 mg/dL (70-110)
[2023-06-21] MEDS: potassium chloride oral liq 20 mEq/15 mL UDC 40 MEQ PO (12:16)
[2023-06-21] MEDS: ALPRAZolam 0.5 mg Tablet 0.25 MG PO (15:21)
--- NOTE | 2023-06-21 15:58 | P.PN_ITS ---
Subjective 2 Subjective: No acute interim events. Started TPN yesterday. Complaining of pain. Family and patient and discussion regarding transition to possibly hospice care. Medications: Reviewed: Yes Vitals/I&O/Wt Last Vital Signs Temp 98.1 F 06/21/23 11:07 Pulse 69 06/21/23 11:07 Resp 16 06/21/23 08:00 BP 158/78 06/21/23 11:07 Pulse Ox 95 06/21/23 11:07 O2 Del Method Room Air 06/21/23 11:07 06/21/23 06/21/23 06/21/23 06:59 14:59 22:59 Intake Total 100 / 820 Balance 100 / 149 Weight last 48 hrs Weight 52.1 kg Weight 44.452 kg Physical Exam 2 Narrative: General: No acute distress, AO x3, extremely frail and cachectic. Chronically ill-appearing HEENT: PERRLA, pupils bilaterally equal and reactive, pallors not present Chest: Normal vesicular breath sounds, no added sounds, equal good air entry bilaterally CVS: S1-S2 regular, no murmurs, no tachycardia, no gallops, no rubs Abdomen: Soft, nontender, no organomegaly, bowel sounds present Neuro: No focal deficits, no facial deformity, AO x3, power 5/5 in all limbs Data 06/21/23 03:55 06/21/23 03:55 A&P Assessment and plan (1) Anemia in end-stage renal disease: (2) Chronic pancreatitis: (3) Diabetes 1.5, managed as type 1: (4) ESRD (end stage renal disease) on dialysis: (5) Malnutrition: (6) Hypokalemia: Plan Patient is a 53-year-old lady with chronic pancreatitis, history of pancreatectomy at age 18, currently on pancreatic enzyme supplementation, CKD on maintenance hemodialysis who has been progressively worsening over the course of 1 year. Patient has been experiencing increasing fatigue, generalized weakness, loss of muscle mass, most likely related to malabsorptive state and her chronic diarrhea, chronic pancreatitis and CKD. She is currently admitted here with worsening weakness over the past 1 month or so. Recently admitted at [facility] for similar complaints, review of records shows that she was noted to be dehydrated. She received IV hydration, diuretics were discontinued, hemodialysis was continued. CT of the head was obtained which was unrevealing for any acute stroke. Currently patient is noted to have transaminitis, LFTs were noted to be elevated in the 200 range even previously at [facility]. No dedicated abdominal imaging is currently available. CT of the abdomen and pelvis performed on 05/29/2023 showed chronic pancreatic atrophy with pancreatic calcification occasions and duct dilatation. Current LFTs similar range elevated since early May Also noted to have chronically elevated troponins without significant delta at 2 and 6 hrss. Previous range 300-400. Current plan: Patient chronically ill from several comorbidities as noted above last albumin 1.8 Main problem currently is inadequate caloric intake in the presence of nausea and diarrhea from chronic pancreatic insufficiency there is chronic malabsorption likely contributing due to pancreatectomy and pancreatitis. Started TPN to meet nutritional goals Hope that with a few days of TPN, she may be able to eventually tolerate increased oral caloric intake. Eventually may need a PEG if unable to meet caloric goals with PO intake if that remains compatible with GOC RUQ with no biliary duct obstruction or dilatation. Chronic changes of pancreatic duct as noted above. MRCP unlikely to international exchange coordinator in any way currently. Patient is in pain, wishes to increase pain medication, however limited by the fact tshe is lethargic, at risk for respiratory Depression therefore we want to be cautious with opiates. Patient and family are considering transition to hospice ,Son is at bedside, he will discuss further with his siblings and his mom. Full code for now DVT ppx: heparin Attestations 2 Medical Necessity Statement*: continued TPN, ongoing goals of care discussion Coding Level of Care Code Acute Code for Chg Fwd Diagnoses Anemia in end-stage renal disease N18.6; D63.1 Chronic pancreatitis K86.1 Diabetes 1.5, managed as type 1 E13.9 ESRD (end stage renal disease) on dialysis N18.6; Z99.2 Malnutrition E46 Hypokalemia E87.6
[2023-06-21 17:12] LABS: Glucose Point of Care 242 mg/dL (70-110)
[2023-06-21] MEDS: morphine 4 mg/mL SDV 1 mL IVP ×2 (18:59→23:30)
--- NOTE | 2023-06-21 19:09 | PC.NURSE ---
Physician Orders: Change code status from Full Code to AND
[2023-06-21] MEDS: gabapentin 100 mg Capsule PO (21:13)
[2023-06-21] MEDS: trazodone 50 mg Tablet PO (21:13)
[2023-06-21] MEDS: mirtazapine 15 mg Tablet 7.5 MG PO (21:13)
[2023-06-22] VITALS: PULSE 70; RESP 16; O2SAT 96
[2023-06-22 04:00] VITALS: PULSE 60; RESP 13; O2SAT 94
[2023-06-22 06:00] VITALS: BMI 20.3
[2023-06-22] MEDS: HYDROcodone-acetaminophen 5-325 mg Tablet 1 TAB PO (07:49)
[2023-06-22] MEDS: ALPRAZolam 0.5 mg Tablet 0.25 MG PO (07:50)
[2023-06-22 08:00] VITALS: BP 123/76; PULSE 100; PULSE 68; RESP 16; TEMP 36.5; O2SAT 100; O2SAT 92
[2023-06-22 08:31] LABS: Glucose Point of Care 177 mg/dL (70-110)
--- NOTE | 2023-06-22 12:07 | PM.DCS ---
Discharge Providers Date of Admission: 06/18/23 21:34 Date of Discharge: June 22, 2023 Attending Provider at Admission: Erick Mota MD Attending Provider at Discharge: Elba Alcazar MD Primary Care Provider: Horacio Torres MD Diagnoses at Discharge Discharge Diagnosis (1) Anemia in end-stage renal disease: Status: Acute (2) Chronic pancreatitis: Status: Acute (3) Diabetes 1.5, managed as type 1: Status: Acute (4) ESRD (end stage renal disease) on dialysis: Status: Acute (5) Malnutrition: Status: Acute (6) Hypokalemia: Status: Acute Reason for Visit Reason for Visit: WEAKNESS Brief History: Patient is a 53-year-old lady with chronic pancreatitis, history of pancreatectomy at age 18, currently on pancreatic enzyme supplementation, CKD on maintenance hemodialysis who has been progressively worsening over the course of 1 year. Patient has been experiencing increasing fatigue, generalized weakness, loss of muscle mass, most likely related to malabsorptive state and her chronic diarrhea, chronic pancreatitis s/p pancreatectomy at age 18 and CKD, type 1 DM. She was currently admitted here with worsening weakness over the past 1 month or so. Recently admitted at [facility] for similar complaints, review of records shows that she was noted to be dehydrated. She received IV hydration, diuretics were discontinued, hemodialysis was continued. CT of the head was obtained which was unrevealing for any acute stroke. On this admission patient was noted to have transaminitis. CT of the abdomen and pelvis performed on 05/29/2023 showed chronic pancreatic atrophy with pancreatic calcification occasions and duct dilatation. RUQ US this asmission showed normal liver and CBD. Current LFTs similar range elevated since early May, no added benefit to MRCP at this time. Also noted to have chronically elevated troponins without significant delta at 2 and 6 hrss. Previous range 300-400. Echocardiogram grossly normal. Extensive GOC discussion was done with patient and family, Patient chronically ill from several comorbidities as noted above , severe protein calorie malnutrition with albumin 1.7, she received TPN transiently during hospital , declined PEG. She is in continuous pain which is generalized. Patient and family eventually elected to proceed with hospice and comfort management only. Patient is alert, awake and oriented and able to communicate her wishes. She was changed to comfort care management only on the evening of 06/21/23 and is going home on hospice today. Physical Exam Narrative: General: No acute distress, AO x3, chronically ill no detailed examination performed to allow for patient comfort. Discharge Data Studies Completed and Pending Completed Studies During Hospitalization Category Date Time Status XR chest 1V portable [id number] Stat Exams 06/18/23 19:49 Completed CV. echo complete* [id number] Routine Ultrasound 06/20/23 18:50 [place] liver [id number] Routine Ultrasound 06/20/23 18:50 Completed Pending at discharge Category Date Time Status Blood Culture Stat Lab 06/18/23 22:13 Results Radiology Impressions Chest X-Ray 06/18/23 19:49 IMPRESSION: Bibasilar atelectasis versus minimal infiltrate. Laboratory Results WBC 4.69 10^3/uL (3.29-11.43) 06/21/23 03:55 RBC 3.20 10^6/uL (3.85-5.65) L 06/21/23 03:55 Hgb 10.80 g/dL (11.27-16.99) L 06/21/23 03:55 Hct 32.4 % (36-47) L 06/21/23 03:55 MCV 101.3 fl (85-98) H 06/21/23 03:55 MCH 33.8 pg (27-33) H 06/21/23 03:55 MCHC 33.3 g/dL (30-55) 06/21/23 03:55 RDW 15.8 % (12.1-15.1) H 06/21/23 03:55 Plt Count 217 10^3/cmm (157-399) 06/21/23 03:55 MPV 10.1 fL (7.4-10.4) 06/21/23 03:55 Neut % (Auto) 44.3 % 06/21/23 03:55 Lymph % (Auto) 43.3 % 06/21/23 03:55 Mills % (Auto) 7.5 % 06/21/23 03:55 Eos % (Auto) 1.7 % 06/21/23 03:55 Baso % (Auto) 2.8 % 06/21/23 03:55 Neut # (Auto) 2.08 10^3/uL (1.8-7.7) 06/21/23 03:55 Lymph # (Auto) 2.0 10^3/uL (0.8-4.8) 06/21/23 03:55 Mills # (Auto) 0.4 10^3/uL (0.2-0.9) 06/21/23 03:55 Eos # (Auto) 0.1 10^3/uL (0.0-0.8) 06/21/23 03:55 Baso # (Auto) 0.1 10^3/uL (0.0-0.1) 06/21/23 03:55 Nucleated RBC % (auto) 0 % 06/21/23 03:55 Nucleated RBCs # 0.0 /100WBC 06/21/23 03:55 ESR 1 mm/hr (0-15) 06/18/23 20:24 Sodium 137 mmol/L (136-145) 06/21/23 03:55 Potassium 2.8 mmol/L (3.5-5.1) L* 06/21/23 03:55 Chloride 101 mmol/L (98-107) 06/21/23 03:55 Carbon Dioxide 26 mmol/L (22-29) 06/21/23 03:55 Anion Gap 12.8 (5-19) 06/21/23 03:55 BUN 19 mg/dL (6-20) 06/21/23 03:55 Creatinine 4.0 mg/dL (0.5-0.9) H 06/21/23 03:55 GFR Calculation 11.8 mL/min (90-130) L 06/21/23 03:55 Glucose 161 mg/dL (65-115) H 06/21/23 03:55 POC Glucose 242 mg/dL (70-110) H 06/21/23 16:30 Estimat Average Glucose 111 06/18/23 20:24 Hemoglobin A1c 5.5 % (4.0-6.0) 06/18/23 20:24 Calculated Osmolality 290 mOsm/kg (285-295) 06/21/23 03:55 Lactic Acid 0.9 mmol/L (0.5-2.2) 06/18/23 20:24 Calcium 7.0 mg/dL (8.5-10.5) L 06/21/23 03:55 Phosphorus 2.9 mg/dL (2.5-4.5) 06/21/23 03:55 Magnesium 1.7 mg/dL (1.7-2.3) 06/21/23 03:55 Total Bilirubin 0.6 mg/dL (0.15-1.2) 06/21/23 03:55 AST 60 U/L (0-32) H 06/21/23 03:55 ALT 105 U/L (0-33) H 06/21/23 03:55 Alkaline Phosphatase 221 U/L (35-105) H 06/21/23 03:55 Lactate Dehydrogenase 436 U/L (135-214) H 06/18/23 20:24 Troponin T Baseline 498 ng/L (0-10) H* 06/18/23 20:24 Troponin T 120 Minute 485.8 ng/L (0-10) H 06/18/23 22:13 Delta Troponin T -12.2 ABS# (0-10) L 06/18/23 22:13 Troponin T Hi Sens 6Hr 470.4 ng/L (0-10) H 06/19/23 01:27 Troponin T Hi Sens 6Hr Delta -27.6 ng/L (0-12) L 06/19/23 01:27 C-Reactive Protein 4.7 mg/L (0.0-4.9) 06/19/23 01:27 Total Protein 3.8 g/dL (6.6-8.7) L 06/21/23 03:55 Albumin 1.7 g/dL (3.5-5.2) L 06/21/23 03:55 Globulin 2.1 g/dL (1.3-4.6) 06/21/23 03:55 Lipase 7 U/L (13-60) L 06/18/23 20:24 Vitamin B12 > 2000 pg/mL (232-1245) H 06/18/23 22:13 Procalcitonin 32.80 ng/mL (0-0.5) H 06/18/23 20:24 Urine Color Marika (Yellow) 06/18/23 21:05 Urine Appearance Hazy (CLEAR) A 06/18/23 21:05 Urine pH 6.5 (5-7) 06/18/23 21:05 Ur Specific [place] 1.030 (1.005-1.030) 06/18/23 21:05 Urine Protein 1+ (Negative) H 06/18/23 21:05 Urine Glucose (UA) Norm (Normal) 06/18/23 21:05 Urine Ketones Negative (Negative) 06/18/23 21:05 Urine Blood Neg (Negative) 06/18/23 21:05 Urine Nitrate Negative (Negative) 06/18/23 21:05 Urine Bilirubin Neg (Negative) 06/18/23 21:05 Urine Urobilinogen Norm mg/dL (Negative) 06/18/23 21:05 Ur Leukocyte Esterase Trace (Negative) H 06/18/23 21:05 Urine RBC 0-4 /hpf (0-2) H 06/18/23 21:05 Urine WBC 10-15 /hpf (0-5) H 06/18/23 21:05 Ur Squamous Epith Cells 0-4 /hpf (0-5) H 06/18/23 21:05 Amorphous Sediment Not Reportable 06/18/23 21:05 Urine Bacteria Trace /hpf (NONE) 06/18/23 21:05 Nasal Influ A H1 2008 PCR Not detected (NOT DETECT) 06/18/23 23:43 Urine Opiates Screen Positive ng/mL (Negative) H 06/18/23 21:05 Ur Barbiturates Screen Negative ng/mL (Negative) 06/18/23 21:05 Ur Phencyclidine Scrn Negative ng/mL (Negative) 06/18/23 21:05 Ur Amphetamines Screen Negative ng/mL (Negative) 06/18/23 21:05 U Benzodiazepines Scrn Positive ng/mL (Negative) H 06/18/23 21:05 Urine Cocaine Screen Negative ng/mL (Negative) 06/18/23 21:05 U Marijuana (THC) Screen Negative ng/mL (Negative) 06/18/23 21:05 Adenovirus (PCR) Not detected (NOT DETECT) 06/18/23 23:43 C. pneumoniae DNA (PCR) Not detected (NOT DETECT) 06/18/23 23:43 Coronavirus 229E (PCR) Detected (NOT DETECT) A 06/18/23 23: Hep Bs Antigen Non-reactive (Nonreactive) 06/19/23 01: Hep Bs Antibody 25.5 (11.5-1000) 06/19/23 01: Human Metapneumovir PCR Not detected (NOT DETECT) 06/18/23 23: Influenza A (H1) PCR Not detected (NOT DETECT) 11/27/23 23:43 Influenza A (H3) PCR Not detected (NOT DETECT) 06/18/23 23:43 Influenza Type A Ag negative (Negative) 06/18/23 21:50 Influenza Type A (PCR) Not detected (NOT DETECT) 06/18/23 23:43 Influenza Type B Ag negative (Negative) 06/18/23 21:50 Influenza Type B (PCR) Not detected (NOT DETECT) 06/18/23 23:43 M. pneumoniae (PCR) Not detected (NOT DETECT) 06/18/23 23:43 Parainfluenza 1 (PCR) Not detected (NOT DETECT) 06/18/23 23:43 Parainfluenza 2 (PCR) Not detected (NOT DETECT) 06/18/23 23:43 Parainfluenza 3 (PCR) Not detected (NOT DETECT) 06/18/23 23:43 Parainfluenza 4 (PCR) Not detected (NOT DETECT) 06/18/23 23:43 RSV Type A (PCR) Not detected (NOT DETECT) 06/18/23 23:43 RSV Type B (PCR) Not detected (NOT DETECT) 06/18/23 23:43 Entero/Rhino (PCR) Not detected (NOT DETECT) 06/18/23 23:43 SARS-CoV-2 (PCR) Not detected (NOT DETECT) 06/18/23 23:43 SARS-CoV-2 Ag (Rapid) negative (Negative) 06/18/23 21:50 Vitals Last Vital Signs Temp 97.7 F 06/22/23 08:00 Pulse 100 06/22/23 08:00 Resp 16 06/22/23 08:00 BP 123/76 06/22/23 08:00 Pulse Ox 100 06/22/23 08:00 O2 Del Method Nasal Cannula 06/22/23 08:00 O2 Flow Rate 2 06/22/23 08:00 Discharge Plan Discharge Patient Disposition: Hospice - Home Condition: Stable Prescriptions: Continued glucose 4 gram tablet,chewable 4 g PO Q15M PRN (Reason: Hypoglycemia) Qty: 30 5RF Rx Instructions: until symptoms of low blood sugar are controlled ondansetron 4 mg tablet,disintegrating 4 mg PO Q8H PRN (Reason: nausea and vomiting) Qty: 20 0RF loperamide [Imodium A-D] 2 mg capsule 2 mg PO Q4H PRN (Reason: loose stool) Qty: 20 0RF Rx Instructions: administer after each loose stool until symptoms controlled; do not exceed 8 mg per 24 hrs trazodone 50 mg tablet 50 mg PO BEDTIME 30 Days Qty: 30 5RF promethazine 25 mg tablet 25 mg PO TID PRN (Reason: nausea and vomiting) Qty: 90 1RF diphenoxylate-atropine [Lomotil] 2.5-0.025 mg tablet 1 tab PO BID PRN (Reason: diarrhea) Qty: 60 3RF fluticasone propionate 50 mcg/actuation spray,suspension 2 spray intranasal DAILY Qty: 16 0RF Rx Instructions: administer into each nostril (DME) Dexcom G6 Sensor Device See Rx Instructions .Route Qty: 9 3RF Rx Instructions: As directed (DME) Dexcom G6 Transmitter Device See Rx Instructions .Route Qty: 1 3RF Rx Instructions: As directed ipratropium-albuterol 0.5 mg-3 mg(2.5 mg base)/3 mL solution for nebulization 3 ml inhalation Q6H PRN (Reason: shortness of breath or wheezing) escitalopram oxalate 20 mg tablet 20 mg PO DAILY Qty: 30 3RF Xanax 0.25 mg tablet 0.125 mg PO BID PRN (Reason: anxiety) 30 Days Qty: 60 3RF gabapentin 100 mg capsule 100 mg PO .qhs Qty: 90 1RF hydrocodone-acetaminophen 5-325 mg tablet 1 tab PO BID PRN (Reason: diabetic neuropathy) 30 Days Qty: 60 0RF Rx Instructions: Refill on or after 30-day intervals Creon 6,000-19,000 -30,000 unit capsule,delayed release(DR/EC) 4 cap PO TID Qty: 360 5RF Rx Instructions: 3 with meals and 2 with snacks primidone 125 mg tablet 125 mg PO BID Qty: 60 0RF ondansetron 4 mg tablet,disintegrating 4 mg translingual Q4H PRN (Reason: nausea) Qty: 5 0RF Rx Instructions: Dissolve 1 tablet under tongue every 4 hours PRN for nausea bisacodyl 10 mg suppository 10 mg AL DAILY PRN (Reason: constipation) Qty: 5 0RF Rx Instructions: 1 suppository per rectum every day PRN for constipation. atropine 1 % drops 4 drp sublingual Q4H PRN (Reason: secretions) Qty: 5 0RF Rx Instructions: 4 drops SL q 4 hours PRN for terminal congestion/excessive secretions. lorazepam 2 mg/mL concentrate 2 mg sublingual Q4H PRN (Reason: Anxiety/Seizure) Qty: 30 0RF Rx Instructions: 0.25ml-1ml q4H PRN Anxiety/Seizure Start 0.25ml may increase to 0.5ml-1ml q4H morphine concentrate 100 mg/5 mL (20 mg/mL) solution 20 mg sublingual DIRECTED PRN (Reason: Pain/SOB) 14 Days Qty: 30 0RF Rx Instructions: 0.25ml-1ml q1H PRN may increase to 0.5ml-1ml Q1H PRN pantoprazole 40 mg tablet,delayed release (DR/EC) 40 mg PO 2XD Tums Ultra 400 mg calcium (1,000 mg) Tablet,Chewable 2,000 mg PO DIRECTED PRN (Reason: Acid Reflux) Rx Instructions: do not take more than 7 tablets in 24 hours mirtazapine 7.5 mg tablet 7.5 mg PO BEDTIME dorzolamide-timolol 22.3-6.8 mg/mL Drops 1 drp OPHTHALMIC (EYE) BID Rx Instructions: into both eyes Discontinued bumetanide 1 mg tablet 2 mg PO BID Qty: 60 5RF sodium bicarbonate 650 mg tablet 650 mg PO DAILY PRN (Reason: stomach upset) Qty: 90 3RF insulin aspart U-100 [Novolog FlexPen U-100 Insulin] 100 unit/mL (3 mL) insulin pen 5 unit SUBCUT TID Qty: 15 5RF Rx Instructions: 5 units with meals, and 3 units with snacks calcium acetate 667 mg tablet 667 mg PO TID Qty: 90 5RF Rx Instructions: with meals and snacks losartan 100 mg tablet 100 mg PO DAILY ergocalciferol (vitamin D2) 1,250 mcg (50,000 unit) capsule 1,250 mcg PO DIRECTED Rx Instructions: once a month Discharge Orders: Discharge Order (Routine); Ordered 06/22/23 Ordered By: Elba Alcazar Referrals: Horacio Torres MD [Primary Care Provider] - Discharge Diet: Usual diet Discharge Activity: Resume usual activity Patient Instructions: Heart Failure (DC), Dialysis Diet (DC), Hemodialysis (DC), CHF Stoplight Discharge Attestations Time Spent in Discharge Care*: greater than 30 min Status at Discharge: Cognitive status at discharge: cognitively intact, [facility] Quality Metrics Clinical Quality Measures [ No reported AMI, CVA or VTE this stay] Coding Level of Care Code Acute Code for Chg Fwd Diagnoses Anemia in end-stage renal disease N18.6; D63.1 Chronic pancreatitis K86.1 Diabetes 1.5, managed as type 1 E13.9 ESRD (end stage renal disease) on dialysis N18.6; Z99.2 Malnutrition E46 Hypokalemia E87.6
[2023-06-22 12:35] VITALS: BP 123/76; PULSE 100; RESP 16; TEMP 36.5; O2SAT 100
[2023-06-22 12:55] VITALS: RESP 16; O2SAT 97
[2023-06-22] MEDS: morphine 4 mg/mL SDV 1 mL IVP (12:55)
[2023-06-22] MEDS: ondansetron 2 mg/ML SDV 2 mL 4 MG IVP (12:55)
== END 2023-06-22 13:52 | disposition hospice, home (50) | DRG 391 ==
LOC: ER 21:38 → CSU 21:55
PROVIDERS: Hospitalist; Admitting Provider Internal Medicine; Emergency Provider Internal Medicine; PCP Family Medicine Adult Medicine; Visit Provider Student in an Organized Health Care Education/Training Program
DX: K90.9 Intestinal malabsorption, unspecified (principal); E43 Unspecified severe protein-calorie malnutrition; N18.6 End stage renal disease; Q61.2 Polycystic kidney, adult type; I13.2 Hypertensive heart and chronic kidney disease with heart failure and with stage 5 chronic kidney disease, or end stage renal disease; I50.32 Chronic diastolic (congestive) heart failure; K86.1 Other chronic pancreatitis; Z90.410 Acquired total absence of pancreas; F41.9 Anxiety disorder, unspecified; F32.A Depression, unspecified; E10.42 Type 1 diabetes mellitus with diabetic polyneuropathy; Z79.4 Long term (current) use of insulin; E10.22 Type 1 diabetes mellitus with diabetic chronic kidney disease; Z99.2 Dependence on renal dialysis; K21.9 Gastro-esophageal reflux disease without esophagitis; K58.0 Irritable bowel syndrome with diarrhea; E86.0 Dehydration; D63.1 Anemia in chronic kidney disease; Z68.20 Body mass index [BMI] 20.0-20.9, adult; R62.7 Adult failure to thrive; R82.81 Pyuria; G35 Multiple sclerosis; R25.1 Tremor, unspecified; K86.89 Other specified diseases of pancreas; E87.6 Hypokalemia; E10.43 Type 1 diabetes mellitus with diabetic autonomic (poly)neuropathy; K31.84 Gastroparesis; Z51.5 Encounter for palliative care
CPT/HCPCS: 36415; 36416; 36573; 51702; 71045; 76705; 80048; 80053; 80306; 81001; 82607; 82962; 83036; 83605; 83615; 83690; 83735; 84100; 84145; 84484; 85025; 85651; 86140; 86706; 87040; 87340; 87426; 87486; 87581; 87633; 87804; 90935; 93005; 93306; 96372; 96374; 96376; 97110; 99285; C1751; J1610; J1644; J2270; J2405; J2765; J7042; Q0167; Q3014